=== PATIENT | female | born 2000 | race Caucasian/White ===

== ENCOUNTER 2023-04-11 02:05 | Emergency (ER) | payer BC, MEDICAID, SELFPAY ==
[2023-04-11 02:12] VITALS: BP 119/80; PULSE 112; RESP 16; TEMP 36.8; O2SAT 96; BMI 26.3
--- NOTE | 2023-04-11 02:54 | ED_ITS ---
HPI - Female Genitourinary General Chief complaint: Vaginal Bleeding Time Seen by Provider: 04/11/23 02:54 Source: patient Mode of arrival: walk-in Limitations: no limitations History of Present Illness HPI Narrative: patient states she had her IUD removed in january. She took home test early march and it was positive. She started spotting some yesterday and now has mild lower abdominal pain. States this is her first . No nausea or vomiting. she admits she is not feeling too bad but was not sure what to do and decided to come to the ER Related Data Home Medications Medication Instructions Recorded Confirmed budesonide-formoterol HFA 80 1 inh inhalation QID 04/11/23 04/11/23 mcg-4.5 mcg/actuation aerosol inhaler (Symbicort) buprenorphine 8 mg-naloxone 2 mg film 04/11/23 sublingual film buprenorphine 8 mg-naloxone 2 mg tab sublingual 04/11/23 sublingual tablet midodrine 5 mg tablet mg 04/11/23 Allergies Allergy/AdvReac Type Severity Reaction Status Date / Time No Known Drug Allergies Allergy Verified 04/11/23 02:25 Review of Systems ROS Status of ROS 10 or more systems reviewed and unremarkable except as noted in history and below Exam Constitutional: Vital Signs - 24 hr 04/11/23 02:12 04/11/23 03:15 Temperature 98.2 F Pulse Rate [Monito r] 112 H Respiratory Rate 16 Blood Pressure [Le ft Arm] 119/80 H Pulse Oximetry 96 Oxygen Delivery Me thod Room Air Room Air Common normals: no apparent distress HENMT: Common normals: normocephalic and head/scalp atraumatic Eye: Common normals: EOMs intact bilaterally and conjunctivae normal Chest: Common normals: inspection of chest normal Respiratory: Common normals: normal respiratory effort and no use of accessory muscles Cardio: Common normals: regular rate and regular rhythm GI: Other: mild lower quad tenderness bilat Extremity: Common normals: normal to inspection and full ROM Neuro: Common normals: oriented x3, CN's II-XII intact bilaterally, moves all extremities, no focal motor deficits and no sensory deficits noted Psych: Common normals: mental status grossly normal Skin: Narrative: several lesions on her face that have the appearance that she picks at her face Course Vital Signs Vital signs: Vital Signs Temperature 98.2 F 04/11/23 02:12 Pulse Rate 112 H 04/11/23 02:12 Respiratory Rate 16 04/11/23 02:12 Blood Pressure 119/80 H 04/11/23 02:12 Pulse Oximetry 96 04/11/23 02:12 Oxygen Delivery Method Room Air 04/11/23 02:12 Temperature 98.2 F 04/11/23 02:12 Pulse Rate 112 H 04/11/23 02:12 Respiratory Rate 16 04/11/23 02:12 Blood Pressure 119/80 H 04/11/23 02:12 Pulse Oximetry 96 04/11/23 02:12 Oxygen Delivery Method Room Air 04/11/23 03:15 MDM - Female Genitourinary MDM Narrative Medical decision making narrative: patient arrives stating she took home test at the beginning of March and it was weakly positive. States she did have mild vaginal spotting yesterday and some lower abdominal cramping this AM. No past and she was concerned and came in. No recurrence of bleeding. Beta HCG neg here. UA small leukocyte esterase positive. patient informed she is not . Prescribed keflex for her pyuria and discharged home to follow up with her doctor Lab Data Labs: Lab Results 04/11/23 04/11/23 Range/Units 03:20 03:22 WBC 5.4 (4.0-11.0) 10^3/uL RBC 3.65 L (4.20-5.40) 10^6/uL Hgb 11.5 L (12.0-16.0) g/dL Hct 33.8 L (36.0-48.0) % MCV 92.6 (81.0-99.0) fL MCH 31.5 (26.7-34.0) pg MCHC 34.0 (29.9-35.2) g/dL RDW 11.2 (11.0-15.0) % Plt Count 279 (150-450) 10^3/uL MPV 10.1 (9.5-13.5) fL Neut % (Auto) 52.4 (43.0-75.0) % Lymph % (Auto) 38.3 (20.5-60.0) % [place] % (Auto) 6.4 (1.7-12.0) % Eos % (Auto) 2.0 (0.9-7.0) % Baso % (Auto) 0.7 (0.2-2.0) % Neut # (Auto) 2.8 (1.4-6.5) 10^3/uL Lymph # (Auto) 2.1 (1.2-3.8) 10^3/uL [place] # (Auto) 0.4 (0.3-0.8) 10^3/uL Eos # (Auto) 0.1 (0.0-0.7) 10^3/uL Baso # (Auto) 0.0 (0.0-0.1) 10^3/uL Sodium 135 L (136-145) mmol/L Potassium 3.6 (3.5-5.1) mmol/L Chloride 98 (98-107) mmol/L Carbon Dioxide 30.2 (21.0-32.0) mmol/L Anion Gap 10.4 BUN 10.0 (7.0-18.0) mg/dL Creatinine 0.82 (0.55-1.02) mg/dL Est GFR ( Amer) >60 (>=60) Est GFR (Non-Af Amer) >60 (>=60) BUN/Creatinine Ratio 12.2 Glucose 88 (74-106) mg/dL Calcium 8.8 (8.5-10.1) mg/dL Total Bilirubin 0.3 (0.2-1.0) mg/dL AST 38 H (15-37) U/L ALT 25 (14-59) U/L Total Protein 6.9 (6.4-8.2) g/dL Albumin 3.8 (3.4-5.0) g/dL Globulin 3.1 g/dL Albumin/Globulin Ratio 1.2 HCG, Quant <1 mIU/mL Urine Color Lt. yellow (YELLOW) Urine Clarity Clear (CLEAR) Urine pH 8.0 (5.0-9.0) Ur Specific [place] 1.015 (1.005-1.025) Urine Protein 30 A (NEG/TRACE) mg/dL Urine Glucose (UA) Negative (NEGATIVE) mg/dL Urine Ketones Negative (NEGATIVE) mg/dL Urine Occult Blood Large A (NEGATIVE) Urine Nitrite Negative (NEGATIVE) Urine Bilirubin Negative (NEGATIVE) Urine Urobilinogen 0.2 (0.2-1.0) EU/dL Ur Leukocyte Esterase Small A (NEGATIVE) Urine RBC 10-20 A (0-2) #/HPF Urine WBC 2-5 A (NONE SEEN) #/HPF Ur Squamous Epith Cells Moderate A (NONE/RARE) #/LPF Amorphous Sediment Moderate Discharge Plan Discharge Chief Complaint: Vaginal Bleeding Clinical Impression: Urinary tract infection, Vaginal bleeding Prescriptions / Home Meds: No Action midodrine 5 mg tablet buprenorphine-naloxone 8-2 mg tablet, sublingual SUBLINGUAL buprenorphine-naloxone 8-2 mg film budesonide-formoterol [Symbicort] 80-4.5 mcg/actuation HFA aerosol inhaler 1 inh inhalation QID Referrals: Physician,Non-Staff, MD [Primary Care Provider] - 1 week
--- NOTE | 2023-04-11 03:11 | PC.NURSE ---
patient reports she had a positive test at home 3 weeks ago. has been having intermittent abdominal cramping radiating into her back since today with vaginal bleeding containing quarter sized dark red clots. patient states she has not been to a physician or obgyn.
[2023-04-11 04:03] LABS: Basophils Percent Auto 0.7 % (0.2-2.0); Eosinophils Absolute Auto 0.1 10^3/uL (0.0-0.7); Hematocrit 33.8 % (36.0-48.0); Hemoglobin 11.5 g/dL (12.0-16.0); Immature Granulocytes Abs Auto 0.01 10^3/uL (0.00-0.03); Immature Granulocytes Pct Auto 0.2 % (0.0-0.5); Lymphocytes Absolute Auto 2.1 10^3/uL (1.2-3.8); Lymphocytes Percent Auto 38.3 % (20.5-60.0); Mean Corpuscular Hemoglobin 31.5 pg (26.7-34.0); Mean Corpuscular Volume 92.6 fL (81.0-99.0); Mean Platelet Volume 10.1 fL (9.5-13.5); Monocytes Absolute Auto 0.4 10^3/uL (0.3-0.8); Monocytes Percent Auto 6.4 % (1.7-12.0); Neutrophils Absolute Auto 2.8 10^3/uL (1.4-6.5); Neutrophils Percent Auto 52.4 % (43.0-75.0); Platelet Count 279 10^3/uL (150-450); Red Blood Count 3.65 10^6/uL (4.20-5.40); Red Cell Distribution Width 11.2 % (11.0-15.0); White Blood Count 5.4 10^3/uL (4.0-11.0)
[2023-04-11 04:09] LABS: Bilirubin Urine NEGATIVE (NEGATIVE); Blood Urine LARGE (NEGATIVE); Clarity Urine CLEAR (CLEAR); Color Urine LT. YELLOW (YELLOW); Glucose Urine UA NEGATIVE (NEGATIVE); Ketones Urine NEGATIVE (NEGATIVE); Leukocyte Esterase Urine SMALL (NEGATIVE); Nitrite Urine NEGATIVE (NEGATIVE); Protein Urine 30 mg/dL (NEG/TRACE); Specific Gravity Urine 1.015 (1.005-1.025); Urobilinogen Urine 0.2 EU/dL (0.2-1.0)
[2023-04-11 04:17] LABS: Amorphous Sediment Urine MODERATE; Bacteria Urine SMALL #/HPF (NONE SEEN); Cast Seen? NONE SEEN #/LPF (NONE SEEN); Crystals Seen? None Seen #/HPF (None Seen); Mucus Urine NONE SEEN (NONE SEEN); Squamous Epithelial Cell Urine MODERATE #/LPF (NONE/RARE)
[2023-04-11 04:22] LABS: Alanine Aminotransferase 25 U/L (14-59); Albumin Globulin Ratio 1.2; Albumin Level 3.8 g/dL (3.4-5.0); Alkaline Phosphatase 60 U/L (46-116); Anion Gap 10.4; Aspartate Amino Transferase 38 U/L (15-37); BUN Creatinine Ratio 12.2; Bilirubin Total 0.3 mg/dL (0.2-1.0); Calcium 8.8 mg/dL (8.5-10.1); Carbon Dioxide 30.2 mmol/L (21.0-32.0); Chloride 98 mmol/L (98-107); Estimated GFR (African America >60 (>=60); Estimated GFR (Non-African Ame >60 (>=60); Globulin 3.1 g/dL; Glucose 88 mg/dL (74-106); Potassium 3.6 mmol/L (3.5-5.1); Sodium 135 mmol/L (136-145); Total Protein 6.9 g/dL (6.4-8.2)
--- NOTE | 2023-04-11 05:43 | PC.NURSE ---
pt resting in bed comfotably socializing with friends, no needs or concerns at this time
[2023-04-11 06:02] LABS: HCG Quantitative <1 mIU/mL
--- NOTE | 2023-04-11 06:40 | PC.NURSE ---
keflex given at this time, unable to open mar d/t dischrge assessment. scripts given. all questions answered. pt ambulated off unit in stable condition.
== END 2023-04-11 06:39 | disposition home or self-care (01) ==
PROVIDERS: Emergency Provider Internal Medicine
DX: N93.9 Abnormal uterine and vaginal bleeding, unspecified (principal); N39.0 Urinary tract infection, site not specified; Z79.899 Other long term (current) drug therapy
CPT/HCPCS: 36415; 80053; 81001; 84702; 85025; 99283

== ENCOUNTER 2024-07-01 23:19 | Emergency (ER) | payer OTHER, SELFPAY ==
[2024-07-01 23:23] VITALS: BP 133/92; PULSE 81; TEMP 36.7; O2SAT 100; BMI 28.3
[2024-07-01 23:37] LABS: Bilirubin Urine NEGATIVE (NEGATIVE); Blood Urine NEGATIVE (NEGATIVE); Clarity Urine CLEAR (CLEAR); Color Urine LT. YELLOW (YELLOW); Glucose Urine UA NEGATIVE (NEGATIVE); Ketones Urine NEGATIVE (NEGATIVE); Leukocyte Esterase Urine MODERATE (NEGATIVE); Nitrite Urine NEGATIVE (NEGATIVE); Protein Urine NEGATIVE (NEG/TRACE); Specific Gravity Urine 1.025 (1.005-1.025); Urobilinogen Urine 0.2 EU/dL (0.2-1.0)
[2024-07-01 23:46] LABS: Amorphous Sediment Urine MANY; Bacteria Urine NONE SEEN #/HPF (NONE SEEN); Cast Seen? NONE SEEN #/LPF (NONE SEEN); Crystals Seen? None Seen #/HPF (None Seen); Mucus Urine NONE SEEN (NONE SEEN); RBC Urine NONE SEEN #/HPF (0-2); Squamous Epithelial Cell Urine MODERATE #/LPF (NONE/RARE); Urine Culture Indicated YES
[2024-07-02] MEDS: DICYCLOMINE HCL 20 MG/2 ML VIAL IM (00:09)
--- NOTE | 2024-07-02 00:12 | CT_ITS ---
The [address] [address] Patient Name: ANDRÉS BRYANT MRN: [id number] date: 2000 Sex: F Assigned Patient Location: ER Current Patient Location: ER Accession/Order Number: [id number] Exam Date: 07/02/2024 00:41 Report Date: 07/02/2024 02:16 At the request of: NASIR ELIZONDO Procedure: CT abdomen pelvis wo con CT ABDOMEN PELVIS WITHOUT CONTRAST HISTORY: 24-year-old female with abdominal pain. COMPARISON: None. TECHNIQUE: Thin section axial CT images were obtained from the lung bases to the pubis symphysis. This CT exam was performed using one or more of the following dose reduction techniques: Automated exposure control, adjustment of the mA and/or kV according to patient size, or use of iterative reconstruction technique. Thin section coronal and sagittal images were reconstructed from the axial data set. All images were reviewed and interpreted. CONTRAST: None. FINDINGS: Assessment of solid organs, bowel and vasculature is limited without the benefit of IV contrast. LUNG BASES: The lung bases are clear. GE JUNCTION AND STOMACH: Normal GE junction without hiatal hernia. There is marked distention of stomach with debris likely from recent meal ingestion. Correlate with history. No gastric wall thickening. Duodenal sweep is unremarkable. LIVER: Negative. GALLBLADDER AND BILIARY TREE: Normal gallbladder. SPLEEN: Negative. PANCREAS: Negative. ADRENALS: Negative. KIDNEYS AND URETERS: Small 2 to 3 mm in size calculus anterior mid pole calyx left kidney. 2 mm now 15 calculus lateral midpole calyx right kidney. No other calculi are seen within the kidneys or along the course of the ureters. No right or left hydronephrosis. No right renal mass or cyst. SMALL BOWEL: Normal appearance and caliber of small bowel. LARGE BOWEL: Normal air and stool-filled large bowel. No colitis or obvious diverticulosis. APPENDIX: Small punctate density within the lumen of appendix likely small appendicolith but no evidence of acute appendicitis. Appendix normal in appearance otherwise. AORTA: The abdominal aorta is normal size. IVC: Negative. LYMPH NODES: There is no lymphadenopathy. BLADDER: Normal bladder. No wall thickening. No bladder calcification. BONES: Unremarkable. COMMENTS: There is fluid density left hemipelvis. Unclear if this is focally dilated loop of small bowel or possibly large cystic lesion of left ovary. Could be better delineated with ultrasound. CT/CT abdomen pelvis wo con IMPRESSION: 1. Nonspecific fluid density left hemipelvis. Unclear if this is fluid within distal bowel loop or possibly associated with left ovary. Consider pelvic ultrasound to further assess. 2. Small nonobstructing bilateral intrarenal calcifications measuring less than 3 mm each. 3. Small appendicolith but otherwise normal appendix with no evidence of appendicitis. 4. Distended debris-filled stomach presumably from recent meal ingestion. Correlate with history. Electronically authenticated by: LAUREL WOLFE Date: 07/02/2024 02:16
[2024-07-02 00:30] LABS: HCG Qualitative Urine* NEGATIVE (NEGATIVE); Internal Control Within Normal Limits
[2024-07-02] MEDS: ONDANSETRON 4 MG RAPDIS TABLET SL (00:30)
--- NOTE | 2024-07-02 00:56 | ED.GENADUL1 ---
HPI HPI - General Adult General Chief complaint: Abdominal Pain Stated complaint: Abdominal Pain Time Seen by Provider: 07/01/24 23:28 Source: patient Mode of arrival: walk-in Limitations: no limitations History of Present Illness HPI narrative: 24 Female to the emergency department with chief complaint of lower abdominal pain. Started approximately 2 hours prior to arrival. She describes it as cramping in nature. It is intermittent. It is across the lower abdomen does not localize to one side. She has not had pain like this before. Reports normal bowel movement this morning. Onset of pain was while she was seated at the table eating. She denies any vaginal bleeding or discharge. Last menstrual period 2 weeks ago. She denies any fever, sweats, chills. Reports some mild nausea without vomiting. Denies . Related Data Home Medications ?Medication ?Instructions ?Recorded ?Confirmed budesonide-formoterol HFA 80 1 inh inhalation QID 04/11/23 07/01/24 mcg-4.5 mcg/actuation aerosol inhaler (Symbicort) buprenorphine 8 mg-naloxone 2 mg 1 film sublingual Q24H 04/11/23 07/01/24 sublingual film buprenorphine 8 mg-naloxone 2 mg tab sublingual 04/11/23 sublingual tablet midodrine 5 mg tablet 5 mg PO .DAILY HS 04/11/23 07/01/24 cyclobenzaprine 10 mg tablet 10 mg PO Q8H PRN muscle spasm 07/01/24 07/01/24 hydroxyzine pamoate 25 mg capsule 50 mg PO Q8H PRN nausea and 07/01/24 07/01/24 vomiting ondansetron 4 mg disintegrating 4 mg PO Q8H PRN nausea and vomiting 07/01/24 07/01/24 tablet quetiapine 100 mg tablet 150 mg PO .HS 07/01/24 07/01/24 sertraline 100 mg tablet 100 mg PO Q24H 07/01/24 07/01/24 trazodone 50 mg tablet 75 mg PO DAILY 07/01/24 07/01/24 Previous Rx's ?Medication ?Instructions ?Recorded doxycycline monohydrate 100 mg 100 mg PO BID 7 days #14 caps 07/02/24 capsule ibuprofen 800 mg tablet 800 mg PO Q8H PRN pain #20 tabs 07/02/24 metronidazole 500 mg tablet 500 mg PO BID 14 days #28 tabs 07/02/24 ondansetron 4 mg disintegrating 4 mg PO Q8H PRN nausea and 07/02/24 tablet vomiting 4 days #16 tabs Allergies Allergy/AdvReac Type Severity Reaction Status Date / Time No Known Drug Allergies Allergy Verified 07/01/24 23:27 Opioid HPI Opioid Management Most Recent Opioid Data: Last Pain Scale 6 07/01/24 23:25 Last ED Pain Assessment 07/01/24 23:25 Last MAR Pain Assessment 07/02/24 05:46 Review of Systems ROS Status of ROS 10 or more systems reviewed and unremarkable except as noted in history and below Exam Narrative Exam Narrative: VITALS: I have reviewed the triage vital signs. GENERAL: Tearful adult female NEURO: Alert and oriented. Moves all extremities. Face is symmetric and expressive. EYES: PERRL. No scleral icterus or conjunctival injection. No discharge. HENT: Normocephalic, atraumatic. Hearing is grossly intact. Nares grossly patent and without discharge. Mucous membranes moist. NECK: No JVD. Patient moves neck without restriction. CARDIO: Rhythm regular. Normal rate. No murmur, rub, or gallop. Pulses equal bilaterally in the upper and lower extremity. No lower extremity edema. PULM: Lungs clear to auscultation in all keyes. No wheezes, rales, or rhonchi. No conversational dyspnea. No splinting, stridor, or accessory muscle use. GI/: Abdomen is soft. minimal lower abdominal tenderness, L>R. No tenderness at McBurney's point. No rebound or guarding normoactive bowel sounds. 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 Verbal consent given for external exam unremarkable. No vaginal wall lesions. No bleeding. There is mucopurulent discharge and cervical motion tenderness. EXTREMITIES: Symmetric muscle bulk. No joint swelling. No clubbing, cyanosis, or deformity. SKIN: Warm and dry. Normal turgor. No rash or lesions appreciated. PSYCH: Anxious Constitutional Vital Signs, click to edit/add: Last Vital Signs Temp 98.1 F 07/01/24 23:23 Pulse 98 H 07/02/24 05:27 Resp 16 07/02/24 05:27 BP 131/72 07/02/24 05:27 Pulse Ox 98 07/02/24 05:27 O2 Del Method Room Air 07/02/24 05:27 Course Vital Signs Vital signs: Vital Signs Temperature 98.1 F 07/01/24 23:23 Pulse Rate 81 07/01/24 23:23 Respiratory Rate 16 07/01/24 23:23 Blood Pressure 133/92 H 07/01/24 23:23 Pulse Oximetry 100 07/01/24 23:23 Oxygen Delivery Method Room Air 07/01/24 23:23 Temperature 98.1 F 07/01/24 23:23 Pulse Rate 98 H 07/02/24 05:27 Respiratory Rate 16 07/02/24 05:27 Blood Pressure 131/72 07/02/24 05:27 Pulse Oximetry 98 07/02/24 05:27 Oxygen Delivery Method Room Air 07/02/24 05:27 Medical Decision Making MDM Narrative Medical decision making narrative: 24-year-old female with onset of cramping lower abdominal pain 2 hours prior to arrival. Vital stable, the patient is afebrile. Her abdominal examination is benign. CT scan, urinalysis, hCG are ordered. Alissa and Ez for symptoms. Patient agrees with this plan. UA and HCG negative. CT with fluid collection near L ovary, rads recommends US. Given location of pain, acute onset, will order US for torsion rule-out. Ultrasound without torsion. Cannot rule out fluid within the ovary versus bowel. Pelvic exam performed and was concerning for PID given cervical motion tenderness as well as mucopurulent discharge. I discussed the patient's history, presentation, diagnostic workup and uncertainty with Dr. Johansen the on-call [employer]. He reports that this does not sound like a tubo-ovarian abscess. He recommended obtaining a CBC and basic labs. If she develops a fever or has an elevated white blood cell count admit her for IV antibiotics. If these are not the case she may be treated with IM Rocephin, outpatient PID treatment. He will see the patient in the office. CBC and chemistry are unremarkable. Findings were discussed with the patient and her mother. They agree with this plan. They will follow-up with Dr. Johansen in office to ensure resolution and movement. Return precautions were discussed. All questions were answered. The patient was discharged home. Medical Records Medical records reviewed: Yes I reviewed the patient's medical records Lab Data Lab results reviewed: Yes I reviewed the patient's lab results Labs: Lab Results 07/01/24 07/02/24 Range/Units 23:25 05:28 WBC 9.3 (4.0-11.0) 10^3/uL RBC 4.34 (4.20-5.40) 10^6/uL Hgb 13.1 (12.0-16.0) g/dL Hct 39.2 (36.0-48.0) % MCV 90.3 (81.0-99.0) fL MCH 30.2 (26.7-34.0) pg MCHC 33.4 (29.9-35.2) g/dL RDW 12.6 (11.0-15.0) % Plt Count 344 (150-450) 10^3/uL MPV 10.1 (9.5-13.5) fL Neut % (Auto) 52.9 (43.0-75.0) % Lymph % (Auto) 38.3 (20.5-60.0) % [place] % (Auto) 6.4 (1.7-12.0) % Eos % (Auto) 1.8 (0.9-7.0) % Baso % (Auto) 0.4 (0.2-2.0) % Neut # (Auto) 4.9 (1.4-6.5) 10^3/uL Lymph # (Auto) 3.6 (1.2-3.8) 10^3/uL [place] # (Auto) 0.6 (0.3-0.8) 10^3/uL Eos # (Auto) 0.2 (0.0-0.7) 10^3/uL Baso # (Auto) 0.0 (0.0-0.1) 10^3/uL Abs Immat Gran (auto) 0.02 (0.00-0.03) 10^3/uL Imm/Tot Granulo (auto) 0.2 (0.0-0.5) % Sodium 139 (136-145) mmol/L Potassium 3.7 (3.5-5.1) mmol/L Chloride 104 (98-107) mmol/L Carbon Dioxide 28.6 (21.0-32.0) mmol/L Anion Gap 10.1 BUN 13.0 (7.0-18.0) mg/dL Creatinine 0.76 (0.55-1.02) mg/dL Est GFR ( Amer) >60 (>=60) Est GFR (Non-Af Amer) >60 (>=60) BUN/Creatinine Ratio 17.1 Glucose 109 H (74-106) mg/dL Calcium 9.0 (8.5-10.1) mg/dL Total Bilirubin 0.3 (0.2-1.0) mg/dL Direct Bilirubin 0.1 (0.0-0.2) mg/dL AST 9 L (15-37) U/L ALT 16 (14-59) U/L Alkaline Phosphatase 52 (46-116) U/L Total Protein 6.4 (6.4-8.2) g/dL Albumin 3.3 L (3.4-5.0) g/dL Globulin 3.1 g/dL Albumin/Globulin Ratio 1.1 Urine Color Lt. yellow (YELLOW) Urine Clarity Clear (CLEAR) Urine pH 6.0 (5.0-9.0) Ur Specific [place] 1.025 (1.005-1.025) Urine Protein Negative (NEG/TRACE) mg/dL Urine Glucose (UA) Negative (NEGATIVE) mg/dL Urine Ketones Negative (NEGATIVE) mg/dL Urine Occult Blood Negative (NEGATIVE) Urine Nitrite Negative (NEGATIVE) Urine Bilirubin Negative (NEGATIVE) Urine Urobilinogen 0.2 (0.2-1.0) EU/dL Ur Leukocyte Esterase Moderate A (NEGATIVE) Urine RBC None seen (0-2) #/HPF Urine WBC 5-10 A (NONE SEEN) #/HPF Ur Squamous Epith Cells Moderate A (NONE/RARE) #/LPF Urine Crystals None seen (None Seen) #/HPF Amorphous Sediment Many Urine Bacteria None seen (NONE SEEN) #/HPF Urine Casts None seen (NONE SEEN) #/LPF Urine Mucus None seen (NONE SEEN) Ur Culture Indicated? Yes Urine HCG, Qual Negative (NEGATIVE) Imaging Data CT scan - abdomen: Radiologist's impression: ITS Impressions Abdomen/Pelvis CT 07/02/24 00:12 IMPRESSION: 1. Nonspecific fluid density left hemipelvis. Unclear if this is fluid within distal bowel loop or possibly associated with left ovary. Consider pelvic ultrasound to further assess. 2. Small nonobstructing bilateral intrarenal calcifications measuring less than 3 mm each. 3. Small appendicolith but otherwise normal appendix with no evidence of appendicitis. 4. Distended debris-filled stomach presumably from recent meal ingestion. Correlate with history. Electronically authenticated by: LAUREL WOLFE Date: 07/02/2024 02:16 Transvaginal US 07/02/24 02:26 IMPRESSION: 1. Technologist notes that the examination is limited due to inability of patient to lie still. 2. Normal left ovary; no torsion. Unremarkable uterus. Right ovary is not seen. 3. Fluid within left adnexa which appears to have a thin surrounding wall; possibly bowel. A fluid-filled distended fallopian tube is not excluded but less likely given the normal appearance of the uterus and ovary. Electronically authenticated by: STANFORD SULLIVAN Date: 07/02/2024 04:18 Discharge Plan Discharge Stand Alone Forms: Work/School Release, Portal Instructions Chief Complaint: Abdominal Pain Clinical Impression: Acute pelvic inflammatory disease (PID) Patient Disposition: Home, Self-Care Time of Disposition Decision: 06:31 Condition: Good Mode of Transportation: Private Vehicle Prescriptions / Home Meds: New doxycycline monohydrate 100 mg capsule 100 mg PO BID 7 Days Qty: 14 0RF metronidazole 500 mg tablet 500 mg PO BID 14 Days Qty: 28 0RF ibuprofen 800 mg tablet 800 mg PO Q8H PRN (Reason: pain) Qty: 20 0RF ondansetron 4 mg tablet,disintegrating 4 mg PO Q8H PRN (Reason: nausea and vomiting) 4 Days Qty: 16 0RF No Action hydroxyzine pamoate 25 mg capsule 50 mg PO Q8H PRN (Reason: nausea and vomiting) ondansetron 4 mg tablet,disintegrating 4 mg PO Q8H PRN (Reason: nausea and vomiting) quetiapine 100 mg tablet 150 mg PO .HS sertraline 100 mg tablet 100 mg PO Q24H trazodone 50 mg tablet 75 mg PO DAILY cyclobenzaprine 10 mg tablet 10 mg PO Q8H PRN (Reason: muscle spasm) midodrine 5 mg tablet 5 mg PO .DAILY HS buprenorphine-naloxone 8-2 mg tablet, sublingual SUBLINGUAL buprenorphine-naloxone 8-2 mg film 1 film sublingual Q24H budesonide-formoterol [Symbicort] 80-4.5 mcg/actuation HFA aerosol inhaler 1 inh inhalation QID Print Language: [place] Instructions: Pelvic Inflammatory Disease (ED) Additional Instructions: Call the office of your primary care doctor to arrange for follow-up within the above-stated timeframe. Your ED visit was focused on your acute issue and does not replace primary care. You should review your labs, imaging, and diagnoses from this ED visit with your primary care physician. There may be non-emergent/ incidental findings that need further evaluation. You should review your vital signs including blood pressure with your PCP. If you were prescribed medications you should discuss possible side-effects and drug interactions with your pharmacist. Call 911 or go to the nearest Emergency Department if you develop any new or worsening symptoms. Seek immediate medical attention if you develop: worsening abdominal pain, new or worsening nausea, new or worsening vomiting, new or worsening diarrhea, chest pain, shortness of breath, pain with urination, problems urinating, fever, chills, weakness, or any new or worsening symptoms. Referrals: Willie Johansen DO [Physician] - 1 week
[2024-07-02 00:57] VITALS: BP 131/87; PULSE 107; O2SAT 97
--- NOTE | 2024-07-02 02:26 | US_ITS ---
The [address] [address] Patient Name: ANDRÉS BRYANT MRN: [id number] date: 2000 Sex: F Assigned Patient Location: ER Current Patient Location: ER Accession/Order Number: [id number] Exam Date: 07/02/2024 03:15 Report Date: 07/02/2024 04:18 At the request of: NASIR ELIZONDO Procedure: US pelvis transvaginal EXAMINATION: US pelvis transvaginal HISTORY: Left sided pelvis pain, torsion rule out COMPARISON: No relevant comparison available. TECHNIQUE: Transabdominal and/or transvaginal sonographic examination was performed as indicated by examination type. FINDINGS: UTERUS: Normal size and appearance. Uterus size: 8.2 x 3 0.5 to 4.8 cm ENDOMETRIUM: Normal homogeneous appearance. Endometrial thickness: 8 mm RIGHT OVARY: Not seen. No suspicious adnexal findings. LEFT OVARY: Normal size and appearance. Duplex Doppler demonstrates normal waveform and flow; resistive index 0.5. Ovary size: 3.2 x 1.7 x 3.1 cm CUL-DE-SAC: Fluid within left adnexa which appears to be encapsulated by a thin wall. BLADDER: Unremarkable. OTHER: None. US/US pelvis transvaginal IMPRESSION: 1. Technologist notes that the examination is limited due to inability of patient to lie still. 2. Normal left ovary; no torsion. Unremarkable uterus. Right ovary is not seen. 3. Fluid within left adnexa which appears to have a thin surrounding wall; possibly bowel. A fluid-filled distended fallopian tube is not excluded but less likely given the normal appearance of the uterus and ovary. Electronically authenticated by: STANFORD SULLIVAN Date: 07/02/2024 04:18
[2024-07-02 03:42] VITALS: BP 131/72; PULSE 98; O2SAT 98
[2024-07-02 05:27] VITALS: BP 131/72; PULSE 98; O2SAT 98
[2024-07-02 05:39] LABS: Basophils Percent Auto 0.4 % (0.2-2.0); Eosinophils Absolute Auto 0.2 10^3/uL (0.0-0.7); Eosinophils Percent Auto 1.8 % (0.9-7.0); Hematocrit 39.2 % (36.0-48.0); Hemoglobin 13.1 g/dL (12.0-16.0); Immature Granulocytes Abs Auto 0.02 10^3/uL (0.00-0.03); Immature Granulocytes Pct Auto 0.2 % (0.0-0.5); Lymphocytes Absolute Auto 3.6 10^3/uL (1.2-3.8); Lymphocytes Percent Auto 38.3 % (20.5-60.0); Mean Corpuscular HGB Conc 33.4 g/dL (29.9-35.2); Mean Corpuscular Hemoglobin 30.2 pg (26.7-34.0); Mean Corpuscular Volume 90.3 fL (81.0-99.0); Mean Platelet Volume 10.1 fL (9.5-13.5); Monocytes Absolute Auto 0.6 10^3/uL (0.3-0.8); Monocytes Percent Auto 6.4 % (1.7-12.0); Neutrophils Absolute Auto 4.9 10^3/uL (1.4-6.5); Neutrophils Percent Auto 52.9 % (43.0-75.0); Platelet Count 344 10^3/uL (150-450); Red Blood Count 4.34 10^6/uL (4.20-5.40); Red Cell Distribution Width 12.6 % (11.0-15.0); White Blood Count 9.3 10^3/uL (4.0-11.0)
[2024-07-02] MEDS: KETOROLAC TROMETHAMINE 30 MG/ML VIAL 15 MG IVP (05:46)
[2024-07-02 05:58] LABS: Alanine Aminotransferase 16 U/L (14-59); Albumin Globulin Ratio 1.1; Albumin Level 3.3 g/dL (3.4-5.0); Alkaline Phosphatase 52 U/L (46-116); Anion Gap 10.1; Aspartate Amino Transferase 9 U/L (15-37); BUN Creatinine Ratio 17.1; Bilirubin Direct 0.1 mg/dL (0.0-0.2); Bilirubin Total 0.3 mg/dL (0.2-1.0); Carbon Dioxide 28.6 mmol/L (21.0-32.0); Chloride 104 mmol/L (98-107); Estimated GFR (African America >60 (>=60); Estimated GFR (Non-African Ame >60 (>=60); Globulin 3.1 g/dL; Glucose 109 mg/dL (74-106); Potassium 3.7 mmol/L (3.5-5.1); Sodium 139 mmol/L (136-145); Total Protein 6.4 g/dL (6.4-8.2)
[2024-07-02] MEDS: CEFTRIAXONE 500 MG, LIDOCAINE HCL/PF 1 ML IM (06:45)
[2024-07-02 06:58] VITALS: BP 86/59; PULSE 106; O2SAT 97
[2024-07-05 20:09] LABS: Trich vag by NAA Negative (Negative)
== END 2024-07-02 07:10 | disposition home or self-care (01) ==
PROVIDERS: Emergency Provider Student in an Organized Health Care Education/Training Program; PCP Nurse Practitioner Family
DX: N73.0 Acute parametritis and pelvic cellulitis (principal)
CPT/HCPCS: 36415; 74176; 76830; 80048; 80076; 81001; 84703; 85025; 87086; 87491; 87591; 87661; 96372; 96374; 99285; J0500; J0696; J1885; Q0162

== ENCOUNTER 2025-06-28 19:04 | Emergency (ER) | payer MEDICAID, SELFPAY ==
--- OUTSIDE RECORDS SUMMARY | 2025-04-07 12:18 | XMS_ITS | Continuity of Care Document ---
Author Organization [facility] Address [address] [place] [address] Phone Care Team Providers Care Transportation Maintenance Operator Name Role Phone Jessica Sebastian APRN Unavailable Unavaila ble Allergies, Adverse Reactions, Alerts Substance Reaction Status Criticality No Known Allergies Active No Inform ation Medications Medication Instructions Dosage Effective Dates (start - stop) Status Comments Vivitrol 380 mg intramuscular suspension,extended release inject 4 milliliter by intramuscular route every 4 weeks 380 MG - Active trazodone 100 mg tablet take 1 tablet by oral route every day after meals 100 MG - Active buspirone 10 mg tablet take 1 tablet by oral route 3 times every day 10 MG - Active Zoloft 50 mg tablet take 1 tablet by ora l route every bedtime 50 MG - Active melatonin 5 mg capsule - Active Procedures Procedure Date URINE TEST DRUG TEST PRSMV DIR OPT OBS OFFICE/OUTPATIENT VISIT, EST Injection, Vivitrol Naltrexone, 1mg OFFICE/OUTPATIENT VISIT, EST DRUG TEST PRSMV DIR OPT OBS URINE TEST DRUG SCREENING FENTANYL Injection, Vivitrol Naltrexone, 1mg OFFICE/OUTPATIENT VISIT, EST Advance Directives Directive Yes / No Effective Date File Name No Information Encounters Encounter Description Practice Location Reason(s) For Visit Diagnoses Date Provider Providers Copied on Encounter [facility], [address] [place] [address], [id number] , [place] tel: [phone] [facility] No Information 5 Kassidy Lopez. [address] [place] [address], [id number], [place]. tel: [phone] OFFICE/OUTPA TIENT VISIT, [facility], [address] [place] [address], [id number] , [place] tel: [phone] [facility] [place] Vivitrol (chief complaint) Vivitrol injection (chief complaint) Moderate alcohol use disorderVapes nicotine containing substanceUncomplicate d opioid dependenceOther stimulant dependence, in remissionBody mass index [BMI] 35.0-35.9, adult March- 5 Kassidy ORTEGA-Wilma Lopez. [address] [place] [address], [id number], [place]. tel: [phone] OFFICE/OUTPA TIENT VISIT, [facility], [address] [place] [address], [id number] , [place] tel: [phone] [facility] Vivitrol (chief complaint) Moderate alcohol use disorder Apr-0 5 Ced Hopper. [address] [place] [address], [id number] , [place]. tel: [phone] OFFICE/OUTPA TIENT VISIT, [facility], [address] [place] [address], [id number] , [place] tel: [phone] [facility] [place] Vivitrol (chief complaint) Body mass index [BMI] 34.0-34.9, adultModerate alcohol use disorder Apr-0 5 Kassidy Lopez. [address] [place] [address], [address], [place]. tel: [phone] Family History Family Member Type Diagnosis Age At Onset Mother Problem Alcoholism Payers Payer name Insurance type Covered libertarian ID Authoriza tion(s) [facility] [id number] [employer] Medicaid MERGED WITH [facility] [id number] Medicaid [facility] [id number] Social History Type Description Quantity Date Captured Comments Alcohol Use Details Unknown Caffeine Use Details Unknown Tobacco Use Status No Information Smoking Status No Information Sex Female Chief Complaint And Reason For Visit No Information Reason For Referral Reason For Referral No Information Plan Of Treatment Date Type Action Status Goal RLP. Due on due Goal Hepatitis C screening. Due o n due Goal Tdap. Due on due Goal Influenza vaccine. Due on due Goal Tdap Vaccine. Due on 2024 due Goal PRAPARE ASSESSMENT. Due on due Goal Depression screening. Due on due Goal Unhealthy drug use screening . Due on due Goal PAP. Due on due Goal PAP. Due on due Goal Influenza vaccine. Due on due Goal RLP. Due on due Goal Depression screening. Due on due Goal Hepatitis C screening. Due o n due Goal Tdap. Due on due Goal Unhealthy drug use screening . Due on due Goal Tdap Vaccine. Due on 2024 due Goal PRAPARE ASSESSMENT. Due on due Goal Dietary management education , guidance, and counseling completed Goal Influenza vaccine. Due on due Goal PAP. Due on due Goal Unhealthy drug use screening . Due on due Goal Depression screening. Due on due Goal Tdap. Due on due Goal PRAPARE ASSESSMENT. Due on A due Goal Tdap Vaccine. Due on 2024 due Goal RLP. Due on due Goal Hepatitis C screening. Due o n due Goal PAP. Due on due Goal PRAPARE ASSESSMENT. Due on A due Goal Depression screening. Due on due Goal Tdap. Due on due Goal RLP. Due on due Goal Tdap Vaccine. Due on 2024 due Goal Influenza vaccine. Due on due Goal Unhealthy drug use screening . Due on due Goal Hepatitis C screening. Due o n due Goal Lifestyle education regardin g diet completed History Of Present Illness Encounter Date Complaint History Of Prese nt Illness Vivitrol injection Vivitrol inje ction given in [place] of buttock with 2 needle, tolerated well. Sheldon Hickey RN Vivitrol Pt here today fo r vivitrol #6 LG. DOC: opiates & crack cocaine. Labs due 07/2025. Denies drug and ETOH use. Denies cravings. Last use: 10/21/2024. Pt attends counseling at [facility]- and in [facility]. Pt denies any complications from previous injection. Is on probation in [facility]. Voices no other issues or concerns at this time. LKastor CNPUDS: Negative for all. U-hcg: Negative Sheldon Hickey RN Vivitrol Vivitrol injecti on #2. Last use of fentanyl 1 year, last use of alcohol 4 months. Denies issues with injection sites. Continues with substance abuse counseling. No signs or symptoms of acute hepatitis noted per the patient. Tian GRIFFITH Vivitrol Patient here for Vivitrol #5 RG. Previous doses administered at [facility] in [place]. Labs due 07/2025. Patient DOC was Fentanyl, ETOH and cocaine. Last use was 5 months ago for ETOH. 1 year and 4 months sober from drug. Has had severe cravings due to anniversary of boyfriends coming up. Currently in [place], is going to get set up with [facility]. Denies any issues with previous injections. Not on BC. Denies any other concerns for today. Vapes daily. Denies any drug or Alcohol use. UDS negative all substances. HCG Negative. Rapid Fentanyl negative.//EVY Johnson Functional Status Date Functional Assessmen t No Information Instructions Date Instruction Additional Infor sylwia 1. Continue with cou nseling.2. Watch for injection site complications/reactions.3. Return in 1 month for next dose of Vivitrol.4. Do not use illicit drugs or drink alcohol while taking this medication.5. Can use heating pad or massage injection area if is sore over the next 1-2 days. May cont ibuprofen prn. Notify office if injection site pain persists or develops lump, fever, pain, erythema, drainage, etc. lasting longer than 3 days.6. Do not become while on this medication d/t risk of severe defect or miscarriage. Related to Uncomplicated opioid dependence Dietary management e ducation, guidance, and counseling Related to Body mass index [BMI] 35.0-35.9, adult Giving encouragement to exercise Related to Body mass index [BMI] 35.0-35.9, adult 1. Continue with cou nseling as required2. Follow up 1 month3. Contact [facility] with any issues prior to next appointment4. Avoid any drug or alcohol use5. Practice good sleep hygiene6. Well balanced diet7. Exercise 3-5 days per week 30 minutes per day8. YOU ARE AT INCREASED RISK FOR OVERDOSE WITH OPIATE USE WHILE ON VIVITROL9. Please wear your Vivitrol medical alert bracelet of dog tag at all times. Related to Moderate alcohol use disorder Giving encouragement to exercise Related to Body mass index [BMI] 34.0-34.9, adult Lifestyle education regarding di et Related to Body mass index [BMI] 34.0-34.9, adult Assessments Type Assessment Date No Information Goals Health Concern Goal Type Priority Status Date Patient needs education to manage opioid dependence. Patient will state factors necessary to manage opioid dependence. Patient Goal Continued Patient Care Teams Name Effective Dates (start - stop) Status Members No Information
--- OUTSIDE RECORDS SUMMARY | 2025-06-28 19:22 | XMS_ITS | Clinical Summary ---
Author Organization [facility] Address [address] [place] [address] Care Team Providers Care Line Assembly Utility Worker Name Role Phone Unavailable Primary Care Provider Unavailabl e Social History Tobacco Use Types Packs/Day Years Used Date Smoking Tobacco: Never Assessed Comments Unknown Sex and Gender Information Value Date Recorded Sex Assigned at Not on file Legal Sex Female 11:54 AM EDT Gender Identity Not on file Sexual Orientation Not on file Plan of Treatment Not on file Insurance [employer]
--- OUTSIDE RECORDS SUMMARY | 2025-06-28 19:22 | XMS_ITS | Encounter Summary ---
Author Organization [facility] Address [id number] [address] [place] [address] Care Team Providers Care Advanced Practice Psychiatric Nurse Name Role Phone Deb Cavazos PATY Primary Care Provider Reason for Visit * Reason Comments Med Refill Encounter Details Date Type Department Care Team (Late st Contact Info) Description 06/12/2019 Refill [facility] [address] [place] [phone] Madelenie Husain APRN-CNP [address] [facility] [address] [place] [address] Anxiety associated with depression Social History Tobacco Use Types Packs/Day Years Used Date Smoking Tobacco: Never Smokeless Tobacco: Never Alcohol Use Standard Drinks/Week Comments Yes 0 (1 standard drink = 0.6 oz pur e alcohol) PHQ-2 Answer Date Recorded PHQ-2 Score 18 02/21/2019 Childcare Answer Date Recorded Childcare Unknown 04/18/2019 Employment Answer Date Recorded Employment Unknown 04/18/2019 Comments No Sex and Gender Information Value Date Recorded Sex Assigned at Not on file Legal Sex Female 12:11 PM EDT Gender Identity Not on file Sexual Orientation Not on file documented as of this encounter Miscellaneous Notes * Telephone Encounter - PATY Meredith - 06/12/2019 12:47 AM EDT Please check with patient to determine if this refill request is needed * Telephone Encounter - Maico Medrano CMA - 06/12/2019 12:47 AM EDT This PT was called and I spoke with her mother. I asked the mother to pass along the message for her daughter to call the office to discuss this matter. documented in this encounter Plan of Treatment Not on file documented as of this encounter Visit Diagnoses Diagnosis Anxiety associated with depression Dysthymic disorder documented in this encounter Additional Health Concerns Infection Onset Date Last Indicated Resolved Time COVID-19 Rule-Out 03/08/2024 03/08/2024 03/08/2024 3:21 AM EDT Assessment Noted Time PHQ-9 Depression Total Score: 18 019 8:00 AM EDT documented as of this encounter Care Teams Advanced Practice Psychiatric Nurse Relationship Specialty Start Date End Date Deb Cavazos APRN-CNP [address] [place] [phone] PCP - General Nurse Practitioner 03/29/24 documented as of this encounter
--- OUTSIDE RECORDS SUMMARY | 2025-06-28 19:22 | XMS_ITS | Encounter Summary ---
Author Organization [facility] Address [id number] [address] [place] [address] Care Team Providers Care Telegraph Office Telephone Clerk Name Role Phone Deb Cavazos APRN-OCCUPATIONAL WORK EXPERIENCE TEACHER Primary Care Provider Reason for Visit * Reason Comments Med Refill Encounter Details Date Type Department Care Team (Late st Contact Info) Description 04/17/2022 Refill [facility] [address] [phone] Vaibhav Guillermo, PA-C [address] [place] [address] Med Refill Social History Tobacco Use Types Packs/Day Years Used Date Smoking Tobacco: Passive Smo ke Exposure - Never Smoker Smokeless Tobacco: Never Alcohol Use Standard Drinks/Week Comments Not Currently 0 (1 standard drink = 0.6 oz pur e alcohol) PHQ-2 Answer Date Recorded Total Score 0 05/04/2020 Childcare Answer Date Recorded Childcare Unknown 04/18/2019 Employment Answer Date Recorded Employment Unknown 04/18/2019 Purpose - Life Answer Date Recorded Purpose and direction in life Unknown Comments No Sex and Gender Information Value Date Recorded Sex Assigned at Not on file Legal Sex Female 12:11 PM EDT Gender Identity Not on file Sexual Orientation Not on file documented as of this encounter Plan of Treatment Not on file documented as of this encounter Visit Diagnoses Not on filedocumented in this encounter Additional Health Concerns Infection Onset Date Last Indicated Resolved Time COVID-19 Rule-Out 03/08/2024 03/08/2024 03/08/2024 3:21 AM EDT Assessment Noted Time PHQ-9 Depression Total Score: 0 05/04/20 10:00 AM EDT documented as of this encounter Care Teams Telegraph Office Telephone Clerk Relationship Specialty Start Date End Date Deb Cavazos APRN-ERYN [address] [place] [phone] PCP - General Nurse Practitioner 03/29/24 documented as of this encounter
--- OUTSIDE RECORDS SUMMARY | 2025-06-28 19:22 | XMS_ITS | Clinical Summary ---
Author Organization [facility] Address [address] [facility] [place] [address] Care Team Providers Care Grapple Operator Name Role Phone Unavailable Primary Care Provider Unavailabl e Social History Tobacco Use Types Packs/Day Years Used Date Smoking Tobacco: Never Assessed Comments No Sex and Gender Information Value Date Recorded Sex Assigned at Not on file Legal Sex Female 10:57 AM EDT Gender Identity Not on file Sexual Orientation Not on file Last Filed Vital Signs Vital Sign Reading Time Taken Comments Blood Pressure 114/70 08/27/2022 9:27 AM EDT Pulse 90 08/27/2022 9:27 AM EDT Temperature - - Respiratory Rate - - Oxygen Saturation - - Inhaled Oxygen Concentration - - Weight 53.7 kg (118 lb 6.2 oz) 08/27/2022 9:27 A M EDT Height - - Body Mass Index - - Plan of Treatment Health Maintenance Due Date Last Done Comments MMR Vaccine (1 of 1 - Standa rd series) 2001 DTaP/Tdap/Td Vaccine (1 - Tdap) 2007 Varicella Vaccine (1 of 2 - 13+ 2-dose series) 2013 HPV Vaccine (1 - 3-dose series) 2015 Hepatitis B Vaccine (1 of 3 - 19+ 3-dose series) 2019 COVID-19 Vaccine (2023-2 5 season) 2024 Influenza Vaccine (#1) 2025 HIB Vaccine Aged Out No longer eligi ble based on patient's age to complete this topic Hepatitis A Vaccine Aged Out No longe r eligible based on patient's age to complete this topic IPV Vaccine Aged Out No longer eligi ble based on patient's age to complete this topic Meningococcal ACWY Vaccine Aged Out N o longer eligible based on patient's age to complete this topic Meningococcal B Vaccine Aged Out No l onger eligible based on patient's age to complete this topic Pneumococcal Vaccine Aged Out No long er eligible based on patient's age to complete this topic RSV, Nirsevimab Immunization Aged Out No longer eligible based on patient's age to complete this topic Rotavirus Vaccine Aged Out No longer eligible based on patient's age to complete this topic Insurance [facility]
--- OUTSIDE RECORDS SUMMARY | 2025-06-28 19:22 | XMS_ITS | Encounter Summary ---
Author Organization [facility] Address [id number] [address] [place] [address] Care Team Providers Care Electrical Accessories Ii Assembler Name Role Phone Deb Cavazos APRN-ASSISTANT PROFESSOR OF RELIGION Primary Care Provider Reason for Visit * Reason Onset Date Comments Transition Of Care 03/14/2024 Encounter Details Date Type Department Care Team (Late st Contact Info) Description 03/14/2024 Telephone [facility] [address] [place] [address] [place] [phone] Leisa Escalante, RN Transition Of Care Social History Tobacco Use Types Packs/Day Years Used Date Smoking Tobacco: Never Passive Smoke Exposure: Yes Smokeless Tobacco: Never Alcohol Use Standard Drinks/Week Comments Not Currently 0 (1 standard drink = 0.6 oz pur e alcohol) PHQ-2 Answer Date Recorded Total Score 0 05/04/2020 Childcare Answer Date Recorded Childcare Unknown 04/18/2019 Employment Answer Date Recorded Employment Unknown 04/18/2019 Hunger Screening Answer Date Recorded Within the past 12 months we worried whether our food would run out before we got money to buy more. Never True 03/08/2024 Within the past 12 months th e food we bought just didn't last and we didn't have money to get more. Never True 03/08/2024 Purpose - Life Answer Date Recorded Purpose and direction in life Unknown Comments No Sex and Gender Information Value Date Recorded Sex Assigned at Not on file Legal Sex Female 12:11 PM EDT Gender Identity Not on file Sexual Orientation Not on file documented as of this encounter Miscellaneous Notes * Telephone Encounter - Leisa Escalante RN - 03/14/2024 10:41 AM EDT Images from the original note were not included. Transition of Care Additional Questions/Concerns Requiring PCP Follow-Up: This documentation is being used for Transition of Care purposes: Yes Goal: Patient will demonstrate a safe transition from hospital to home. Diagnosis on Discharge: Bipolar Discharge Specialty: Other Name of Discharging Facility: [facility] Date of Facility Discharge: 03/10/24 Date of Interactive Contact and Name of Dark Room Attendant: Spoke with mom Chaim on 03/14/24 Medication Review Completed: No Mom is at work and does not have medications or list with her. Medication Reconciliation Questions/Concerns: Follow Up Appointments with Providers: Primary: No primary care provider on file. Specialty: Gustavo Cavazos CNP on 03/23/24 @ 4:00 Specialty: Specialty: Review of Pending Lab/Diagnostic Tests and Plan for Completion: Presented to [facility] ER after overdose on Seroquel and mixed with alcohol, a bottle of Hilda, and use of cocaine. Denies trying to harm herself. Assessment and Support of Treatment Regimen Adherence and Medication Management: Mom she believes Killian is doing ok. She has not discussed scheduled appointments or needs with her. She believes she is taking her medications and is sleeping a lot Mom works 7 days a week and will find rides for Killian's appointments Education Provided by ACN to Support Self-Management, Independent Living and ADLs: Reviewed all follow up appointments currently scheduled at [facility] in [place] for Behavioral Health CN informed Chaim of patient being a no show prior and if she does not call to cancel the scheduled appt with PCP, then she will be dismissed from the practice. Communication with Home Health Agencies and Other Services Utilized/Needed by the Patient: none documented in this encounter Plan of Treatment Not on file documented as of this encounter Visit Diagnoses Not on filedocumented in this encounter Additional Health Concerns Assessment Noted Time PHQ-9 Depression Total Score: 0 05/04/20 20 10:00 AM EDT documented as of this encounter Care Teams Electrical Accessories Ii Assembler Relationship Specialty Start Date End Date Deb Cavazos APRN-ERYN [facility] [place] [phone] PCP - General Nurse Practitioner 03/29/24 documented as of this encounter
--- OUTSIDE RECORDS SUMMARY | 2025-06-28 19:22 | XMS_ITS | Encounter Summary ---
Author Organization [facility] Address [id number] [address] [place] [address] Care Team Providers Care Electroplater Automatic Name Role Phone Deb Cavazos APRN-BLACK TOPPER Primary Care Provider Reason for Visit * Reason Onset Date Comments Med Refill 01/13/2020 Encounter Details Date Type Department Care Team (Late st Contact Info) Description 01/13/2020 Refill [facility] [address] [place] [address] [place] [phone] Juanis Burgos, EVY Med Refill Social History Tobacco Use Types Packs/Day Years Used Date Smoking Tobacco: Never Smokeless Tobacco: Never Alcohol Use Standard Drinks/Week Comments Yes 0 (1 standard drink = 0.6 oz pur e alcohol) OCCASIONAL PHQ-2 Answer Date Recorded PHQ-2 Score 10 12/26/2019 Childcare Answer Date Recorded Childcare Unknown 04/18/2019 Employment Answer Date Recorded Employment Unknown 04/18/2019 Comments No Sex and Gender Information Value Date Recorded Sex Assigned at Not on file Legal Sex Female 12:11 PM EDT Gender Identity Not on file Sexual Orientation Not on file documented as of this encounter Miscellaneous Notes * Telephone Encounter - Juanis Burgos RN - 01/13/2020 1:20 PM EST Pt needs Tilt Table.Schedued her for echo and 24 HM at . Faxed Tilt Table order to cath nurse Ann. They will schedule her for Tilt after they receive the echo results. Pt notified.slm Juanis Burgos RN 01/13/20 1323 documented in this encounter Plan of Treatment Not on file documented as of this encounter Visit Diagnoses Not on filedocumented in this encounter Additional Health Concerns Infection Onset Date Last Indicated Resolved Time COVID-19 Rule-Out 03/08/2024 03/08/2024 03/08/2024 3:21 AM EDT Assessment Noted Time PHQ-9 Depression Total Score: 10 020 2:00 PM EST documented as of this encounter Care Teams Electroplater Automatic Relationship Specialty Start Date End Date Deb Cavazos APRN-CNP [address] [place] [phone] PCP - General Nurse Practitioner 03/29/24 documented as of this encounter
--- OUTSIDE RECORDS SUMMARY | 2025-06-28 19:22 | XMS_ITS | Encounter Summary ---
Author Organization [facility] Address [id number] [address] [place] [address] Care Team Providers Care Smoking Tobacco Packing Machine Hand Name Role Phone Deb Cavazos APRN-MARKETING RESEARCH COORDINATOR Primary Care Provider Reason for Visit * Reason Onset Date Comments Med Refill 07/11/2020 Encounter Details Date Type Department Care Team (Late st Contact Info) Description 07/11/2020 Refill [facility] [address] [place] [address] [place] [phone] Brittaney Casey CMA Asthma due to seasonal allergies Social History Tobacco Use Types Packs/Day Years [...] on file Sexual Orientation Not on file COVID-19 Exposure Response Date Recorded In the last month, have you been in contact with someone who was confirmed or suspected to have Coronavirus / COVID-19? No / Unsure 06/14/2020 8:05 AM EDT documented as of this encounter Plan of Treatment Not on file documented as of this encounter Visit Diagnoses Diagnosis Asthma due to seasonal allergies documented in this encounter Additional Health Concerns Infection Onset Date Last Indicated Resolved Time COVID-19 Rule-Out 03/08/2024 03/08/2024 03/08/2024 3:21 AM EDT Assessment Noted Time PHQ-9 Depression Total Score: 0 05/04/20 20 10:00 AM EDT documented as of this encounter Care Teams Smoking Tobacco Packing Machine Hand Relationship Specialty Start Date End Date Deb Cavazos APRN-CNP [address] [place] [phone] PCP - General Nurse Practitioner 03/29/24 documented as of this encounter
--- OUTSIDE RECORDS SUMMARY | 2025-06-28 19:22 | XMS_ITS | Clinical Summary ---
Author Organization [employer] Address [facility] [id number] [address] [place] [address] Care Team Providers Care Extracorporeal Technician Name Role Phone Deb Cavazos LUCY-BIOLOGY LABORATORY ASSISTANT Primary Care Provider Allergies Active Allergy Reactions Criticality Noted Date Comments Lamotrigine Hives 03/29/2024 Other 12/26/2019 SOME FABRIC SOFTENERS (ANAPHYLAXIS) Medications vit A/vit C/biotin/zinc/co pper (EJCP-PIMC-GTQT, VIT A,C-BIOTIN, ORAL) Take by mouth daily. Active sertraline (ZOLOFT) 50 mg tabletIndication s:Tachycardia,De pression, unspecified depression type Take 1 tablet (50 mg total) by mouth daily. 30 tablet 2 0 Active budesonide-formo teroL (SYMBICORT) 80-4.5 mcg/actuation inhalerIndicatio ns:Asthma due to seasonal allergies Inhale 2 puffs 2 (two) times a day. 1 Inhaler 0 Active naltrexone microspheres (VIVITROL IM) Inject into the appropriate muscle. Every 30 days Active traZODone (DESYREL) 50 mg tablet Take 1 tablet (50 mg total) by mouth nightly. Active hydrOXYzine (ATARAX) 25 mg tablet Take 2 tablets (50 mg total) by mouth every 6 (six) hours as needed for anxiety. Active midodrine (PROAMATINE) 5 mg tabletIndication s:Neurocardiogen ic syncope TAKE 1 TABLET BY MOUTH EVERY DAY AT NIGHT 90 tablet 3 4 Active QUEtiapine (SEROquel) 100 mg tablet Take 1 tablet (100 mg total) by mouth nightly. Active QUEtiapine (SEROquel) 50 mg tablet Take 1 tablet (50 mg total) by mouth every morning. Active albuterol (PROVENTIL HFA;VENTOLIN HFA) 90 mcg/actuation inhalerIndicatio ns:Mild intermittent asthma without complication Inhale 2 puffs every 6 (six) hours as needed for wheezing. 18 g 11 4 Active potassium chloride (KLOR-CON M 20) 20 MEQ CR tablet Take 1 tablet (20 mEq total) by mouth in the morning. 30 tablet 4 Active Active Problems Problem Noted Date Diagnosed Date Subclinical hypothyroidism 03/29/2024 Anxiety 03/29/2024 Depression 03/29/2024 Anemia 03/29/2024 Hypokalemia 03/29/2024 Acute pain of right shoulder 08/16/2020 Sinus tachycardia 01/13/2020 Status post tonsillectomy 07/08/2018 Chronic tonsillitis 05/26/2018 Asthma due to seasonal allergies 04/07/2017 Encounter for contraceptive management 7 Seasonal allergic rhinitis 04/07/2017 Concussion 03/09/2017 Overview (03/09/2019): hit with softball and hit head on concrete Asthma Strep throat Neurocardiogenic syncope Dizziness Family history of heart disease Resolved Problems Problem Noted Date Diagnosed Date Resolved Date Concussion 04/07/2017 04/07/2017 UTI (urinary tract infection) 03/10/2017 04/07/2017 Immunizations Immunization Administration Dates Next Due Influenza, Injectable, quadr ivalent (PF) 01/07/2019(Deferred: Patient decision) Meningococcal MCV4P 09/13/2018 Tdap 10/24/2022 Family History Medical History Relation Name Comments Heart murmur Brother No Known Problems Father Breast cancer Maternal Aunt Breast cancer Maternal Grandmother Breast cancer Paternal Grandmother Heart murmur Sister Relation Name Status Comments Brother Alive Father Alive Maternal Aunt Maternal Grandmother Mother Alive Paternal Grandmother Sister Alive Social History Tobacco Use Types Packs/Day Years Used Date Smoking Tobacco: Never Passive Smoke Exposure: Yes Smokeless Tobacco: Never Tobacco Cessation:Counseling Given: Not Answered Alcohol Use Standard Drinks/Week Comments Not Currently 0 (1 standard drink = 0.6 oz pur e alcohol) PHQ-2 Answer Date Recorded Total Score 7 03/29/2024 Childcare Answer Date Recorded Childcare Unknown 04/18/2019 [...] Sign Reading Time Taken Comments Blood Pressure 110/70 03/29/2024 1:30 PM EDT Pulse 102 03/29/2024 1:30 PM EDT Temperature 36.7 C (98 F) 03/29/2024 1:30 PM EDT Respiratory Rate 11 03/08/2024 6:03 AM EDT Oxygen Saturation 98% 03/29/2024 1:30 PM EDT Inhaled Oxygen Concentration - - Weight 63 kg (139 lb) 03/29/2024 1:30 PM EDT Height 147.3 cm (4' 9.99 ) 03/29/2024 1:30 PM ED T Body Mass Index 29.06 03/29/2024 1:30 PM EDT Plan of Treatment Health Maintenance Due Date Last Done Comments Pap Smear 2021 Adult BMI Screening 03/29/2025 03/29/2024 Depression Screening 03/29/2025 03/29/2024 Tobacco Screening 04/03/2025 04/03/2024 Influenza Vaccine 07/10/2025 DTaP,Tdap and Td Vaccines (8 - Td or Tdap) 10/24/2032 10/24/2022, 07/17/2014, 07/11/2005, Additional history exists Medical Devices Not on file Insurance [facility] MEDICAID Care Teams Extracorporeal Technician Relationship Specialty Start Date End Date Deb Cavazos APRN-ERYN [address] [place] [phone] PCP - General Nurse Practitioner 03/29/24
--- OUTSIDE RECORDS SUMMARY | 2025-06-28 19:22 | XMS_ITS | Encounter Summary ---
Author Organization [employer] Address [facility] [id number] [address] [place] [address] Care Team Providers Care Principal Technical Architect Name Role Phone Deb Cavazos APRN-PERFORMANCE IMPROVEMENT MANAGER Primary Care Provider Encounter Details Date Type Department Care Team (Late st Contact Info) Description 03/10/2024 Telephone [email or web address] [address] [place] [phone] No Pcp, [place] [address] Social History Tobacco Use Types Packs/Day Years [...] encounter Miscellaneous Notes * Telephone Encounter - Tessie Boss - 03/10/2024 10:25 AM EDT Patient being discharged from [facility] 03/10/2024. Transitional Care visit scheduled with Deb Cavazos CNP, on 03/23/2024 at 4:00 PM. [facility] will fax over discharge summary. Patient previously had appointment scheduled to transfer care from previous provider, Madeleine Husain, on 01/01/2024 and no showed. Patient will be dismissed from practice if she no call no shows the upcoming appointment scheduled for 03/23/2024. Leisa, can you please contact patient for ANGEL. Thanks! documented in this encounter Plan of Treatment Not on file documented as of this encounter Visit Diagnoses Not on filedocumented in this encounter Additional Health Concerns Assessment Noted Time PHQ-9 Depression Total Score: 0 05/04/20 20 10:00 AM EDT documented as of this encounter Care Teams Principal Technical Architect Relationship Specialty Start Date End Date Deb Cavazos APRN-ERYN [address] [place] [phone] PCP - General Nurse Practitioner 03/29/24 documented as of this encounter
--- OUTSIDE RECORDS SUMMARY | 2025-06-28 19:24 | XMS_ITS | CCD ---
Author Organization [facility] Care Team Providers Care Oven Heater Helper Name Role Phone MIMI LUKE Attending Unavailable Unavailable Primary Care Provider Unavailabl e Unavailable Primary Care Provider Unavailabl e FOLLOW-UP AT [facility] Referring Un available TETE TERRELL Attending Unavailable MARIA BINGHAM Attending Unavailable SELF, SELF Referring Unavailable [facility] Referring Unavail able MARIA BINGHAM Attending Unavailable Marcial Badillo Attending Unavailabl e NON STAFF Primary Care Provider Unavailabl e DO Bakari Cramer Emergency Provider [phone] Generic Provider , No Assigned Pcp Primary Car e Provider Unavailable COSTA VILLAREAL Attending Unavailable DARIUS MONTANAID M Primary Care Unavailable DARIUS MONTANAID M Primary Care Unavailable MIGUEL FLORES Attending Unav ailable MIGUEL FLORES Attending Unav ailable MIGUEL FLORES Referring Unav ailable ALTA MONTANAHAMID Josee Primary Care Unavailable LILY CAVAZOS Attending Unavailable LILY CAVAZOS Primary Care Unavailable NON STAFF Primary Care Provider Unavaillucy e MD Garrett Donis Attending Provider Sandy Krishnan MD Emergency Provider [phone] NO FAMILY, PHYSICIAN Primary Care Provider Unava ilGarrett Pittman MD Admit Provider Garrett Donis MD Attending Provider [phone] Unavailable Primary Care Provider UnavailLily Joseph Primary Care Provider Unavailable Primary Care Provider Unavaillucy Montana MD, Bran Kaufman Primary Care Provider [phone] LOGAN MANRIQUE Referring Unavailable No Family, Physician Primary Care Unavailable No Family, Physician Primary Care Unavailable DRYER, JESSI Referring Unavailable No Family, Physician Primary Care Unavailable DRYER, JESSI Referring Unavailable SIMÓN MONTANO Referring Unavailable No Family, Physician Primary Care Unavailable No Family, Physician Primary Care Unavailable HARINDER CARTAGENA Attending Unavailable No Family, Physician Primary Care Unavailable JOSÉ LAGUNA Attending Unavailabl e No Family, Physician Primary Care Unavailable ASHLEY CASILLAS Attending Unavailable No Family, Physician Primary Care Unavailable ELCOSTA GIBSON Referring Unavailable No Family, Physician Primary Care Unavailable No Family, Physician Primary Care Unavailable ELCOSTA GIBSON Referring Unavailable LENNY RODRIGUEZ Referring Unavailable No Family, Physician Primary Care Unavailable JOESPH DOLL Referring Unavailable No Family, Physician Primary Care Unavailable Provider, None Primary Care Unavailable Nas Dalton Attending Unavailable Garrett Donis Attending Unavailab le NO FAMILY, PHYSICIAN Primary Care Unavailable Garrett Donis Admitting Unavailab le Garrett Donis Admitting Unavailab le Garrett Donis Attending Unavailab le NON STAFF Primary Care Unavailable Allergies Allergy Classification Reported Allergen(s) Allergy Type Date of Onset Reaction(s) Facility (6 sources) OTHER; Translations: [OTHER] Propensity to adverse reactions (disorder) 0 [facility] (3 sources) lamoTRIgine; Translations: [LAMOTRIGINE] Drug Allergy 4 Hives [facility] Medications Current Medications Medication Drug Class(es) Dates Sig (Normalized) Sig (Original) [id number] 200 actuat albuterol 0.09 mg/actuat metered dose inhaler (3 sources) beta2-Adrenergic Agonist Start: 11-04-2024 Albuterol Sulfate 90 mcg/actuation HFA aerosol inhaler Active 2 INH INHALATION Every 6 hours as needed for shortness of breath or wheezing September 12, 2024 12:00am Start: 03-29-2024 take 2 puff(s) by in halation every six hours as needed for wheezing albuterol (PROVENTIL HFA;VENTOLIN HFA) 90 mcg/actuation inhaler Indications: Mild intermittent asthma without complication Inhale 2 puffs every 6 (six) hours as needed for wheezing. 18 g 11 03/29/2024 Active Budesonide / formoterol (6 sources) Corticosteroid, beta2-Adrenergic Agonist Start: 07-11-2020 take 2 puff(s) by inhalation twice daily budesonide-formoteroL (SYMBICORT) 80-4.5 mcg/actuation inhaler Indications: Asthma due to seasonal allergies Inhale 2 puffs 2 (two) times a day. 1 Inhaler 07/11/2020 Active Start: 07-11-2020 take 2 puff(s) by in halation twice daily budesonide-formoteroL (SYMBICORT) 80-4.5 mcg/actuation inhaler Indications: Asthma due to seasonal allergies Inhale 2 puffs 2 (two) times a day. 1 Inhaler 0 07/11/2020 Active take 2 puff(s) by in halation every twelve hours budesonide-formoterol 160-4.5 mcg/puff Aerosol inhaler Inhale 2 puffs every 12 hours. 0 Active buprenorphine 8 mg / naloxone 2 mg sublingual film (1 source) Partial Opioid Agonist, Opioid Antagonist Start: 08-27-2022 End: 09-03-2022 buprenorphine 8 mg/naloxone 2 mg (SUBOXONE) SL film Indications: Supervision of high risk , antepartum Place 1 strip under tongue daily for 7 days. 7 strip 0 08/27/2022 09/03/2022 Active 2 ml diazePAM 5 mg/ml rectal gel (2 sources) Benzodiazepine Start: 01-02-2023 End: 01-15-2024 take 5 mg rectal route once diazePAM (DIASTAT ACUDIAL) 5-7.5-10 mg rectal kit INSERT 5 MG INTO THE RECTUM ONCE FOR 1 DOSE. 0 01/02/2023 01/15/2024 Discontinued (Therapy completed) famotidine 20 mg oral tablet (6 sources) Histamine-2 Receptor Antagonist Start: 12-06-2024 take 1 tablet by mouth twice daily as needed famotidine (PEPCID) 20 MG tablet Take 1 tablet by mouth 2 times daily as needed (as needed) 60 tablet 12/06/2024 Active fluticasone propionate 0.05 mg/actuat metered dose nasal spray (1 source) Corticosteroid Start: 07-29-2024 take 1 spray(s) nasal route twice daily Fluticasone Propionate (Flonase Allergy Relief) 50 mcg/actuation spray,suspension Active 1 SPRAY INTRANASAL Twice daily July 28, 2024 11:00pm administer 1 spray into each nostril hydrOXYzine pamoate 25 mg oral capsule (4 sources) Antihistamine Start: 09-13-2024 Hydroxyzine Pamoate (Vistaril) 25 mg capsule Active 50 MG PO Every 8 hours as needed for anxiety September 13, 2024 12:00am take 2 tablets by mo [facility] every six hours as needed for anxiety hydrOXYzine (ATARAX) 25 mg tablet Take 2 tablets (50 mg total) by mouth every 6 (six) hours as needed for anxiety. Active take 1 tablet by michael three times daily as needed for anxiety hydrOXYzine (ATARAX) 25 mg tablet Take 1 tablet (25 mg total) by mouth 3 (three) times a day as needed for anxiety. 0 Active loratadine 10 mg oral tablet (1 source) Start: 09-13-2024 Claritin 10 mg Active PO Daily September 13, 2024 12:00am midodrine hydrochloride 5 mg oral tablet (9 sources) alpha-Adrenerg ic Agonist Start: 01-15-2024 take 1 tablet by mouth once daily midodrine (PROAMATINE) 5 mg tablet Indications: Neurocardiogenic syncope TAKE 1 TABLET BY MOUTH EVERY DAY AT NIGHT 90 tablet 3 01/15/2024 Active Start: 03-10-2023 End: 09-16-2024 take 1 tablet by mouth once daily Midodrine 5 mg tablet Discontinued 5 MG PO Daily March 07, 2024 11:00pm September 16, 2024 12:29pm Start: 08-09-2022 take 1 tablet by michael three times daily as needed midodrine 5 MG tablet TAKE 1 TABLET BY MOUTH 3 TIMES A DAY NEEDED. TAKE FIRST THING IN THE AM W/ GLASS OF WATER 0 08/09/2022 Active naltrexone microspheres (NILSA ITROL IM) (4 sources) naltrexone micro spheres (VIVITROL IM) Inject into the appropriate muscle. Every 30 days Active naltrexone micro spheres (VIVITROL IM) Inject into the appropriate muscle. Every 30 days 0 Active nicotine 2 mg chewing gum (1 source) Cholinergic Nicotinic Agonist Start: 03-10-2024 Nicotine (Polacrilex) Active 2 MG BUCCAL Q2H March 10, 2024 12:00am OLANZapine 5 mg oral tablet (1 source) Atypical Antipsychotic Start: 09-16-2024 take 1 tablet by mouth once daily in the evening Olanzapine 5 mg Tablet Active 5 MG PO Every evening September 16, 2024 12:00am microencapsulated potassium chloride 20 meq extended release oral tablet (4 sources) Start: 03-29-2024 take 1 tablet by mouth in the morning potassium chloride (KLOR-CON M 20) 20 MEQ CR tablet Take 1 tablet (20 mEq total) by mouth in the morning. 30 tablet 03/29/2024 Active Start: 01-02-2024 End: 01-07-2024 take 1 tablet by mouth once daily potassium chloride CR (Klor-Con M20) 20 mEq ER tablet Indications: Hypokalemia Take 1 tablet (20 mEq) by mouth once daily for 5 days. Do not crush or chew. 5 tablet 0 01/02/2024 01/07/2024 Active predniSONE 20 mg oral tablet (1 source) Start: 12-06-2024 End: 12-11-2024 take 1 tablet by mouth twice daily predniSONE (DELTASONE) 20 MG tablet Take 1 tablet by mouth 2 times daily for 5 days 10 tablet 12/06/2024 12/11/2024 Active Prenat w/o P-NyMy-UwRm-DSS-FA ( vitamin) tablet (2 sources) take 1 tablet by mouth once daily Prenat w/o A-NhEx-UoWt-DSS-FA ( vitamin) tablet Take 1 tablet by mouth daily. 0 Active sertraline 100 mg oral tablet (9 sources) Serotonin Reuptake Inhibitor Start: 09-16-2024 take 1 tablet by mouth once daily in the morning Sertraline 100 mg Tablet Active 100 MG PO Every morning September 16, 2024 12:00am Start: 09-13-2024 End: 09-16-2024 take 3 tablets by mouth once daily Sertraline (Zoloft) 25 mg tablet Discontinued 75 MG PO Daily September 13, 2024 12:00am September 16, 2024 12:29pm Start: 12-26-2019 End: 03-10-2024 take 1 tablet by mouth once daily sertraline (ZOLOFT) 50 mg tablet Indications: Tachycardia , Depression, unspecified depression type Take 1 tablet (50 mg total) by mouth daily. 30 tablet 2 12/26/2019 Active traZODone hydrochloride 50 mg oral tablet (4 sources) Serotonin Reuptake Inhibitor Start: 09-16-2024 take 1 tablet by mouth once daily at bedtime as needed Trazodone 50 mg Tablet Active 50 MG PO Daily at bedtime as needed for Insomnia September 16, 2024 12:00am vit A/vit C/biotin/zinc/copper (PZSD-DSNC-DLZW,VIT A,C-BIOTIN, ORAL) (4 sources) vit A/vit C/biotin/zinc/co pper (NHME-UEGK-OTVQ, VIT A,C-BIOTIN, ORAL) Take by mouth daily. Active vit A/vit C/biot in/zinc/copper (IKYJ-NGAT-VDOJ,VIT A,C-BIOTIN, ORAL) Take by mouth daily. 0 Active Completed/Discontinued Medications Medication Drug Class(es) Dates Sig (Normalized) Sig (Original) ARIPiprazole 10 mg oral tablet (1 source) Atypical Antipsychotic Start: 09-13-2024 End: 09-16-2024 take 1 tablet by mouth once daily Aripiprazole (Abilify) 10 mg tablet Discontinued 10 MG PO Daily September 13, 2024 12:00am September 16, 2024 12:29pm cephalexin 50 mg/ml oral suspension (6 sources) Cephalosporin Antibacterial Start: 11-23-2023 End: 03-10-2024 take 500 mg by mouth twice daily Cephalexin 250 mg/5 mL Suspension For Reconstitution Discontinued 500 MG PO Twice daily November 23, 2023 12:00am March 10, 2024 8:33am Start: 11-23-2023 End: 03-10-2024 take 1 capsule by mouth twice daily Cephalexin 500 mg capsule Discontinued 500 MG PO Twice daily 20 November 23, 2023 12:00am March 10, 2024 8:33am 1 ml diphenhydrAMINE hydrochloride 50 mg/ml cartridge (1 source) Histamine-1 Receptor Antagonist Start: 12-06-2024 End: 12-06-2024 25 mg, IntraVENous, ONCE, 1 dose, On Thu12/06/24 at 1100, IV Push at rate not to exceed 25 mg/min. famotidine (PEPCID) 20 mg in sodium chloride (PF) 0.9 % 10 mL injection (1 source) Start: 12-06-2024 End: 12-06-2024 take 10 mL intravenously once 20 mg, IntraVENous, ONCE, 1 dose, On Thu12/06/24 at 1100, IV Push over minimum of 2 minutes - Dilute with 10 mL NS iohexol (OMNIPaque) 350 mg iodine/mL solution 75 mL (1 source) Start: 01-02-2024 End: 01-02-2024 iohexol (OMNIPaque) 350 mg iodine/mL solution 75 mL lamoTRIgine 25 mg oral tablet (2 sources) Mood Stabilizer, Anti-epileptic Agent Start: 03-08-2024 End: 09-16-2024 take 1 tablet by mouth twice daily Lamotrigine 25 mg tablet Discontinued 25 MG PO Twice daily March 07, 2024 11:00pm September 16, 2024 12:29pm methylPREDNISolone sodium succ (SOLU-MEDROL) 125 mg in sterile water 2 mL injection (1 source) Start: 12-06-2024 End: 12-06-2024 125 mg, IntraVENous, Once, On Thu12/06/24 at 1100, For 1 dose, Reconstitute 125 mg vial with 2 mL diluent. QUEtiapine 50 mg oral tablet (9 sources) Atypical Antipsychotic Start: 09-13-2024 End: 09-16-2024 take 3 tablets by mouth at bedtime Quetiapine 50 mg tablet Discontinued 150 MG PO Bedtime September 13, 2024 12:00am September 16, 2024 12:29pm Start: 03-08-2024 End: 09-13-2024 take 2 tablets by mouth at bedtime Quetiapine 50 mg tablet Discontinued 100 MG PO Bedtime March 10, 2024 1:29pm September 13, 2024 2:24am Start: 03-08-2024 End: 03-10-2024 take 100 mg by mouth at bedtime Quetiapine Active 100 MG PO Bedtime March 10, 2024 2:29pm take 1 tablet by michael th once daily QUEtiapine (SEROquel) 100 mg tablet Take 1 tablet (100 mg total) by mouth nightly. Active take 1 tablet by michael th once daily in the morning QUEtiapine (SEROquel) 50 mg tablet Take 1 tablet (50 mg total) by mouth every morning. Active 50 ml sodium chloride 9 mg/m l injection (7 sources) Start: 01-12-2025 End: 01-12-2025 1,000 mL (15.7 mL/kg), IntraVENous, at 495.9 mL/hr, Administer over 121 Minutes, ONCE, On Dipika 01/12/25 at 1100, For 1 dose Start: 12-31-2024 End: 12-31-2024 1,000 mL, IntraVENous, at 49 5.9 mL/hr, Administer over 121 Minutes, ONCE, On 12/31/24 at 1330, For 1 dose Start: 12-06-2024 End: 12-06-2024 1,000 mL, IntraVENous, at 49 5.9 mL/hr, Administer over 121 Minutes, ONCE, On 12/06/24 at 1100, For 1 dose Start: 01-01-2024 End: 01-02-2024 sodium chloride 0.9 % bolus 500 mL Start: 12-24-2019 End: 12-24-2019 0.9 % sodium chloride bolus Problems Active Problems Problem Classification Problem Date Documented Date Episodic/Chronic Acute and chronic tonsillitis (4 sources) Chronic tonsillitis; Translations: [Chronic tonsillitis] Onset: 05-26-2018 05-26-2018 Chronic Alcohol-related disorders (1 source) Alcohol use, unspecified with intoxication, uncomplicated; Translations: [Alcohol use, unspecified with intoxication, uncomplicated] Onset: 03-08-2024 Episodic Allergic reactions (2 sources) Allergic reaction; Translations: [Allergy, unspecified, initial encounter] Onset: 12-06-2024 12-06-2024 Episodic Anxiety disorders (6 sources) Generalized anxiety disorder; Translations: [Anxiety disorder, unspecified] Onset: 12-29-2023 Chronic Asthma (10 sources) Mild intermittent asthma, uncomplicated; Translations: [Mild intermittent asthma] Onset: 04-07-2017 04-03-2024 Chronic Cardiac dysrhythmias (2 sources) Paroxysmal supraventricular tachycardia; Translations: [Supraventricular tachycardia] Onset: 08-27-2022 08-27-2022 Chronic Conditions associated with dizziness or vertigo (4 sources) Dizziness; Translations: [Dizziness and giddiness] 03-09-2019 Episodic Deficiency and other anemia (1 source) Anemia, unspecified; Translations: [Anemia, unspecified] Onset: 03-29-2024 Episodic Epilepsy; convulsions (3 sources) Seizure; Translations: [Unspecified convulsions] 11-23-2023 Episodic Immunizations and screening for infectious disease (2 sources) Contact with or exposure to other viral diseases; Translations: [Exposure to 2019 novel coronavirus] 07-29-2024 Episodic Mood disorders (12 sources) Major depressive disorder, single episode, moderate; Translations: [Bipolar disorder, unspecified] Onset: 12-29-2023 Chronic Nonspecific chest pain (12 sources) Chest wall pain; Translations: [Other chest pain] Onset: 01-15-2024 11-23-2023 Episodic Other aftercare (2 sources) Other buttermaker continuous churn (current) drug therapy; Translations: [Other fpc (current) drug therapy] Onset: 11-22-2022 Episodic Other complications of (4 sources) High risk ; Translations: [Supervision of high risk , unspecified, unspecified trimester] Onset: 08-27-2022 Episodic Other complications of (2 sources) Supervision of high risk , unspecified, unspecified trimester; Translations: [Supervision of high risk , unspecified, unspecified trimester] Onset: 08-27-2022 Episodic Other injuries and conditions due to external causes (1 source) Closed injury of head; Translations: [Unspecified injury of head, initial encounter] 01-02-2024 Episodic Other lower respiratory disease (1 source) Other forms of dyspnea; Translations: [Other forms of dyspnea] Onset: 01-15-2024 Episodic Other upper respiratory disease (4 sources) Seasonal allergic rhinitis; Translations: [Other seasonal allergic rhinitis] Onset: 04-07-2017 04-07-2017 Chronic Other upper respiratory infections (6 sources) Acute pharyngitis, unspecified; Translations: [Acute pharyngitis] 07-29-2024 Episodic Poisoning by nonmedicinal substances (1 source) Toxic effect of unspecified substance, accidental (unintentional), initial encounter; Translations: [Toxic effect of unspecified substance, accidental (unintentional), initial encounter] Onset: 03-08-2024 Episodic Residual codes; unclassified (4 sources) Family history of cardiac disorder; Translations: [Family history of ischemic heart disease and other diseases of the circulatory system] 03-09-2019 Episodic Residual codes; unclassified (1 source) Procedure and treatment not carried out because of patient's decision for other reasons; Translations: [Procedure and treatment not carried out because of patient's decision for other reasons] Onset: 12-14-2024 Episodic Substance-related disorders (4 sources) Polysubstance abuse ; Translations: [Cocaine abuse, uncomplicated] Onset: 03-08-2024 09-12-2024 Chronic Substance-related disorders (2 sources) Opioid abuse; Translations: [Opioid use, unspecified, uncomplicated] Onset: 08-27-2022 08-27-2022 Episodic Syncope (14 sources) Syncope and collapse; Translations: [Near syncope] Onset: 01-06-2023 11-23-2023 Episodic Thyroid disorders (4 sources) Other specified hypothyroidism; Translations: [Subclinical hypothyroidism] Onset: 03-29-2024 03-29-2024 Chronic Unclassified (1 source) Overdose - Intentional Onset: 03-08-2024 Unclassified (1 source) Overdose medication Onset: 03-08-2024 Unclassified (1 source) Establish Care Onset: 03-29-2024 Viral infection (1 source) COVID-19; Translations: [Other specified viral infection] 07-29-2024 Episodic Past or Other Problems Problem Classification Problem Date Documented Da te Episodic/Chronic Cardiac dysrhythmias (6 sources) Tachycardia; Translations: [Tachycardia, unspecified] Onset: 01-13-2020 01-02-2024 Episodic Deficiency and other anemia (3 sources) Anemia; Translations: [Anemia, unspecified] Onset: 03-29-2024 03-29-2024 Episodic Diabetes mellitus without complication (2 sources) Prediabetes; Translations: [Prediabetes] Onset: 10-26-2024 Episodic Fluid and electrolyte disorders (6 sources) Hypokalemia; Translations: [Hypokalemia] Onset: 03-08-2024 01-02-2024 Episodic Intracranial injury (8 sources) Concussion injury of body structure; Translations: [Concussion] Onset: 03-09-2017 Resolved: 04-07-2017 03-09-2019 Episodic Malaise and fatigue (2 sources) Other fatigue; Translations: [Other fatigue] Onset: 10-26-2024 Episodic Mood disorders (6 sources) Mood disorders; Translations: [Depression, unspecified] Onset: 05-04-2020 Resolved: 03-29-2024 03-29-2024 Other lower respiratory disease (1 source) Dyspnea on exertion; Translations: [Other forms of dyspnea] 01-15-2024 Episodic Other non-traumatic joint disorders (4 sources) Pain in right shoulder; Translations: [Pain in joint, shoulder region] Onset: 08-16-2020 08-16-2020 Episodic Other screening for suspected conditions (not mental disorders or infectious disease) (11 sources) Patient encounter status; Translations: [Encounter for other specified screening] Onset: 04-07-2017 Episodic Sexually transmitted infections (not HIV or hepatitis) (2 sources) Unspecified sexually transmitted disease; Translations: [Unspecified sexually transmitted disease] Onset: 10-26-2024 Episodic Suicide and intentional self-inflicted injury (4 sources) Suicidal ideations; Translations: [Suicidal thoughts] Onset: 03-08-2024 09-12-2024 Episodic Urinary tract infections (7 sources) Urinary tract infectious disease; Translations: [Urinary tract infection, site not specified] Onset: 03-10-2017 Resolved: 04-07-2017 11-23-2023 Episodic Results Test Name Value Interpretation Reference Range Facility Coding Summaryon 02-21-2025 Coding Summary HTMLBase 64 PrcwrvyjCIk3zNo+PGhlYWQ +ZS7PZRPlK98tnEYifC0yK3 NMTElOSywgQVBQTElOSyIgb uTrEB1wkZHgFZSy IC8+WN7zSABlCuxcmDEda0G 6yYX8F31pdf0uBGjyvNU0RS YtUkLbzwoeg9pwfSa2ANnbC mluOyBt TRIsxR85IAF6gQ49Ta18xVR ceEDvz4izfRp6WgBwYWDmKE B3oWmcAQqyv4DzAJYjV00nv BWil3J7 WEHtiPqdoHUiDwGbeNI0pY4 mZHjirddim7ifwdcyDxi6jh 66iKQeu6L5uPU8Y9OkhgM2J GJvbGQg RdqxfCIVfK1sjnchu4meiwj tUrFvRXOgHJy9WBy6BEYqoF bnKxHuUE22GGN9BOZucoZjP 2FsLWFs cNwmAzY5m9K0Aq5XG6GWNiz fA2UKAIDGMJoalTR+PC90cj 79B6GhNebzXjh4LEHbKRR7k QX1vE7j TUFqSCugd9W1lEJ2P4UzrxJ yhb0zs8npYXNuTZoeL70tnQ Lze8U1NECioFL3IBKuoIhnZ iBzaG93 Oyc+AZMekHyex1YiPbhil4o of0yppNc8LnoiOVLcgbTjwF ktXSP7t7ZfZa3tRUJzlGT7e MB7qI4t PsLcGwK0CSbdE253ArBexGX nBowsI13jD1WwsAF+PHRyPj b1NPDxtOsyVR9vJ4KvBEWxc mctbGVm nJvxPR0wDVFschcqFZOrpE5 rVAQnI9k8VuRjYiL4TYwyX8 MuXARljxdhKh72rV0cDrOxA qX1YBno O4EuxhG4SKCsnBBeOScnLNK 1S78ce4M6SKVuOKRmWHE9fV N7uV7eaRvdpavucLIpxAvui mVydGlj DSbbYOxpW733ZNPsiVccEeK vZGluZyBEYXRlOiAgMDQvMT UvMjAyNTwvdGQ+DSMbEWZ3l WxlPSAn fXXsMLllPj2ouKnokOjgUE7 kXRCdcxpyNLKanL6gJHWocM IcqSfuQN3yNKPcuhjmj445R iAxMHB0 PFMuqESkD5GekJ1dAeBiONX yAQVnN3CbyRUiSEunA542HI xfVrI9YKMawzKbB0ZhGZFqf WduOiB0 s2F6Kj8Ep5EgipfyN1RwnTN kTgMyClhbEGr6K9OiCobipH I+SU90ZQVnBQ96WJi0FFL5x WxlPSdi QDChC5RutF2fCtRvRGLkOYB kOyc+PHRhYmxlIHdpZHRoPS cvTUBdKkMlnYjvWA8dFx5pS GVyLWNv sBafiVZnNoIks4vxTFKdODp fIV3egMslJ7VtiPR7BHPqw9 s9Uc03K91jR2MqaIM+PGNvb RW7xGU9 aX5dZaLdJpX2FQeuR865OeV ggJKsGmida8utp4xpuDx9Kr Z6EXLfjxSqxSftSAB4x1ViR t06U81k IHdpZHRoPSIxNSUiIHZhbGl nmr0rvI6bBn5+PCJnzIK2oJ U9dZ4kVvTjRoN9CIjiY063N nRvcCIv Drueh4ttx2adzIi8BrPzWIT pccSroPesPNX9j7VnAs77U8 IkfNiqc1UpOls3wq25xCXqy 9I9aEY3 E1WlYABvzbfgjSVsdUwiFZ2 hCSPawrxkLJAtaE4eQHNoD4 q4PcDrLtE7XGcrV6ZpfjN8F GJvbGQg GROdmCKPdY6fiqbce9fqonk uEfOgKRNzJHb6BXa3JLTsxX tiXvCyZFU5DgU7GVF8yJVfg Y2jgWmk khinwS3pUmx+VNU9wNGxwPV BQG6kZeikhBY+RQPsTOG8gQ siMWagCZDvmG0eCGLnK1p4G iAwLjA1 DAybH7RqrzY5NBMtuEAhMCQ ofXCIqT8acplbi8mwexyeCx UxRJYhWBv2JRo1YPUtnWphC iBsZWZ0 BtB7YJR4hEJjvG8awCmifww ipC9fJfd+QkpxnButQVA1YD g0F6TvQqo7GPNpkCarVM6yj GFkZGlu Yd5idZqruPiiDK5lECIqaxc wj023QqHre7cmHXBqpDUvGR wuPZJ5B41np0A2SDQhDYDlR DJ5iCP4 xT2zjWdipemfzLOuyUijubW qzStbGJutUUgjG418BYXptW waCgIrTXp6Q8SxSwi6RQTzd FfrFN3q uJOiAGawWc4fwKkfhNmfAI5 yMDOdzqtzp585LxHfv4zrVA FfdRUkNZigMYC9J55qa6E2L CMwMDAw EOL4wLN0gY6ijFvcnbyedFQ mdDsgdmVydGljYWwtYWxpZ2 55YBHlzCfiIdOdfGm9O9FhY as7OEJq tKyaKB2buRZyNGkyKs4wmZk ayIgoQW4mWMAtwmrgm843Oz Xax8elKPOrfBOlNOqvUFZ8M 80bw9A6 IVRhQIKnGSK5qJJ5uY2ylZf nbjogbGVmdDsgdmVydGljYW wqIUplE877GDSksAeuDwOuu GllbnQg NGzhBEw8Y4MaDzgafWW+PC9 3JTPqBD03oEYkhBAhe1phbP b1LxEdVCJfCYP3eFffPLguh 3JkZXIt G23odYPpm0J4IVMjzStmxOC eDlNsvTN4wX5hRQvqxlcoa9 imutjhTvedi2sbsv13rN45H 29sIHdp ZHRoPSIzMCUiIHZhbGlnbj0 syG2yXf5+WGLdnDH9wKM6dV 2vZMWaUsW6FRhrU983AzNuv CIvPjxj t8wye8rzgXb4XqC7ZTSipoD ysOcgEBL8c6BcLe63H52gAU dpZHRoPSIyMCUiIHZhbGlnb j1blF1d Ii8+QMHckWI9qQW9oW7uYiI dPgE3YVslG555CuSntEXpYv kxO31zJ0YuxUT+ICWkBar6Q CBzdHls FK0rtLOlDGimNs2fCOS9JhA dFqYaNMjsE5DmIYFztjywpz wjtLE2MAToPRRpzW19Yy5yk DogMTBw tGTXwT4rrrfti5qyonsoKcN qNZHiQZh8SVj2GZZndIzbZg AdOCL0ShU6LJC5xDKzvX9sj Glnbjog sD6yY8DvRLGzznbqBn10sT9 fIwYnMeF1LUmmMql+U1RBTk jDGIxiN3cYJBKHWTPAQMmBR DwvdGQ+ IQEpSQJ6aUcfJRqsSKMgcQ2 gPQQmY4v5HpRjVbU7PZbgP2 WrUYXyrjheVp99dB5cJfAeR tU8EPnj U8BaynR9AQRzmLVkBVjoFRF 3Z67ae0B5CCKiFDBfGZF9pG J0zM5siVqyfruvzUAwtNufv mVydGlj TIjbHKbdR439JRIgaHgpBuU 2UyX0VaAnMMQ7X2IhUue1ZI XmkQxtCF0yeHSpSZmuUe4tg WdodDog HP7tPTPwkvkiPREkjP5gFEW ejVLkqTqaNB0tAJNripoqj4 72UqRyVLO9TIJugKRqM5Fxm B0cUxZo XYJgCXNmC1IaqCZmPZecE76 3RJclPzO9PBExugErD4VfPZ GjxGmnHqN9k5N5En9sFQSAO WFyczwv dGQ+QECzFEA5kVpkBJvoEMV giR0dCDVoE6y7RjCcEsU5NG vuM4GvSMUwymwzFt97jI0gQ iAwLjA1 OAtlY8SmvjI0UFJfxQRwIOu jIGT4A30fa7X4FURlSCZeRI C6qWF6fY4cgRyzaqvdjMFwx DsgdmVy tSaxGIepIHdmV726EDZaaFy nPkZFTUFMRTwvdGQ+PHRkIH S0gGsnSZujOSWetZ2hITUbW 2c2XqCv PjD5MIgvC6BrOKKkcvvpQh0 1nB8zFlUeFnD2GFhkT8Djni P9HXVnsGYyYUicKUI3G46uo 4A6NHXw DQOqYOK9zAJ9zO3bdFaimtm gbGVmdDsgdmVydGljYWwtYW hwQ834QPAxtYucUbDlJHQlM M1sfVvi dGQ+NW25sc19R0ZlHoafOgq 4KRQkMER6xZO9yI8uPJZhJO rkb3O2rWZ5Q4UejnYtvf6xu 2xsYXBz BWcvO83acXEkq8Z9KRNqgHF 0VJJrpSuvUvGvzN97Lgv+PG EmpXaoi6AwUcthz3iaa9akq Dp5OqSv QIEsuvGgxTsuVFE6x6DsHs2 5H06gRUpeWXSfMDAeFBLsAX SthOvgls3erI1wRf6+PGNvb KL4dUC8 uG4qJxDoZsS9QTfvP202LvU ylLSmYwsvq7okw2wctZi4Lf KhFODxbaKpbHlxAHN0r8DiA o54C7Xi cKxwm1QcChf3ne69iKSqe1E 4mFT1A4GxSDQhydanvCChjA umQN4iWPPqzkgcMREvsF5mG JYjI1b7 IlXkDmD9FSkfT4MublT0TAO htXCcIWTufXLTnC8cqfnvn5 zwdyezXiVqTXSbEYd8VKe4J WFsaWdu ChRgDLC1BtW7LTL8eVFsuG6 bkJvbijhaaG0kVjy+UGh5c2 wgkJQqZK8hrSO8OA57UG45o ROmf0V7 zMY1K9DhQTKfbaqtgqnnpAP 3BNBaWFPeyO10Ok6onFujQh 1bCFEcDZT4FHXjmGMwM1Aux S1jAyGk LLGhVAUuS6QyyQKeNAjlM91 2PGphYjQ6ZZXyojSbG0OfIE DtwThiOgH9y7B1Fi7AYH16S M35SX30 jKFsd0M6lFC0E4UhGTJzagi disvhjKZ7VUAmVUMarI03Uv 2wbNccEm0iUHUwXNI7ATPwv RNbL7Mi aN1tPnMfJPCuFYOtC2CqsAN dRZvzE151XNthUwT1ZZRiql BoS2VeMABhkRfaEjS9c1M1R u4ZOt86 NG25VJ13tARtm3V3aCF5G5U rKLIfyjteoqjljKG2HQAdPI OedA44Uv1kiWkxOz2yYPCxX FU8ULOe bZDeE1VnzC6nNjNvTGIiYEK lX4TvmRPrLDicE853ZVjyLj I3KTLfhsRwQ4TmGODoqPjhR xG0z9I0 Jx6PVNiaicv8N1XdGkwbqTD +CG97GLVkQY78gVLwvLFad1 nseNu1XsRhDOPiDPJ0fEiyQ Vvdp6Cr ZXI (more content not included)... [facility] Consent Formson 02-20-2025 Consent Forms [id number]#1.00OT GTIFF [facility] .Auto Diff 1on 02-17-2025 Auto Spink % 4 % Normal -12 [facility] Comment on above: Performed By: #### 1 [id number], 2020103, 6848378, 8656944161, 7911846, 1860688, 9676970161, 4617650, 3376040470, 67772872 ####[facility] (DEFAULT)[address] [place] [address] Baso Abs# 0.1 x10 Normal 0.0-0.2 [facility] Comment on above: Performed By: #### 1 [id number], 3054985, 1780328, 7276690989, 9613807, 1098516, 1509679447, 9711475, 8620304299, 30512386 ####[facility] (DEFAULT)[address] [place] [address] 58174 Basophils/100 WBC (Bld) 1.0 % Normal 0.2-2.0 [facility] Comment on above: Performed By: #### 1 156937989, 6556595, 1886600, 6052730795, 4493642, 1632681, 2904930233, 2724364, 9114722110, 25170674 ####[facility] (DEFAULT)[address] [place] [address] 78769 Eos Abs# 0.2 x10 Normal 0.0-0.4 [facility] Comment on above: Performed By: #### 1 610237490, 4354806, 2560661, 0034865336, 2110692, 6843698, 0199042616, 1176879, 4974926104, 74060559 ####[facility] (DEFAULT)[address] [place] [address] 08934 Eosinophils/100 WBC (Bld) 2.3 % Normal 0.9-4.0 [facility] Comment on above: Performed By: #### 1 781418230, 3827650, 3068536, 6598321825, 2587587, 9551904, 2489709553, 9163031, 9777423214, 79767841 ####[facility] (DEFAULT)[address] [place] [address] 42601 Lymph Abs# 2.0 x10 Normal 1.3-2.9 [facility] Comment on above: Performed By: #### 1 951427137, 5658323, 1150636, 6767006748, 3710698, 6545757, 4594668187, 1088679, 5946992220, 73879834 ####[facility] (DEFAULT)[address] [place] [address] 88121 Lymphocytes/100 WBC (Bld) 28 % Normal 14-48 [facility] Comment on above: Performed By: #### 1 898356342, 6188931, 4633036, 5153101248, 7506588, 2461840, 4893899254, 1997001, 6332324659, 55107772 ####[facility] (DEFAULT)[address] [place] [address] 23249 Spink Abs# 0.3 x10 Normal 0.0-0.8 [facility] Comment on above: Performed By: #### 1 032400010, 8790151, 9112074, 3603203571, 8641713, 1362947, 9353082965, 4425657, 1757249829, 14022087 ####[facility] (DEFAULT)[address] [place] [address] 61604 Neut Abs# 4.4 x10 Normal 1.5-9.2 [facility] Comment on above: Performed By: #### 1 687286400, 7304062, 6893186, 1747204255, 8278566, 7335621, 1492212662, 5388103, 4193503341, 96578695 ####[facility] (DEFAULT)[address] [place] [address] 50394 Neutrophils/100 WBC (Bld) 64 % Normal 44-88 [facility] Comment on above: Performed By: #### 1 521438236, 0069811, 4690879, 3865166718, 3177393, 7826038, 5757174046, 3395354, 2888968708, 67715413 ####[facility] (DEFAULT)[address] [place] [address] .QC SARS-CoV-2 (COVID-19)/Fl u/RSV (GeneXpert)on 02-17-2025 Internal Control Pass Normal [facility] Comment on above: Order Comment: Order ed by Jimmy. [[email or web address]] Performed By: #### 7 [id number], [id number] #### [facility] (DEFAULT) [address] [place] [address] BNP.on 02-17-2025 Natriuretic peptide B (Bld) [Mass/Vol] 5.9 pg/mL Normal 0.0-100.0 [facility] Comment on above: Result Comment: BNP results greater than 100 pg/mL are considered abnormal and suggestive of patients with CHF. Higher BNP concentrations measured in the first 72 hours after an acute coronary syndorme are associated with an increased risk of , myocardial infarction, and CHF. Performed By: #### 1 523414899, 4865221, 5629537, 6247030877, 7718438, 1060388, 5535595115, 6724490, 6152797942, 25038905 ####[facility] (DEFAULT)[address] [place] [address] CBC w/ Auto Diffon Erythrocyte distribution width (RBC) [Ratio] 14.8 % Normal 11.5-15.0 [facility] Comment on above: Performed By: #### 1 906245561, 3002017, 8457500, 7210247605, 8571904, 7452031, 2606377664, 1198873, 1364876558, 54012590 ####[facility] (DEFAULT)[address] [place] [address] Hematocrit (Bld) [Volume fraction] 35.3 % Normal 33.7-40.4 [facility] Comment on above: Performed By: #### 1 614432681, 3468183, 7243681, 2276478834, 5720681, 4350955, 8177468954, 2990948, 6335541475, 42056764 ####[facility] (DEFAULT)[address] [place] [address] Hemoglobin (Bld) [Mass/Vol] 11.8 g/dL Normal 11.3-15.9 [facility] Comment on above: Performed By: #### 1 743718413, 0010796, 8186383, 9546489394, 6855036, 6143051, 4304398805, 7562650, 9424328771, 78684769 ####[facility] (DEFAULT)[address] [place] [address] Man Diff? Auto Invalid Interpretation Code [facility] Comment on above: Performed By: #### 1 651335134, 5647807, 4181537, 7455519975, 2317686, 5633131, 8172006536, 3334844, 5405090860, 82069079 ####[facility] (DEFAULT)[address] [place] [address] MCH (RBC) [Entitic mass] 29 pg Normal 24-34 [facility] Comment on above: Performed By: #### 1 769980451, 9490301, 2288713, 5332372319, 3926511, 2181524, 8649665321, 4863693, 7567045847, 30878797 ####[facility] (DEFAULT)[address] [place] [address] MCHC (RBC) [Mass/Vol] 34 g/dL Normal 26-37 [facility] Comment on above: Performed By: #### 1 793094400, 0879478, 8687593, 5377624382, 7468510, 4255875, 8742400823, 4506731, 3820931397, 63908524 ####[facility] (DEFAULT)[address] [place] [address] MCV (RBC) [Entitic vol] 88 fL Normal 81-100 [facility] Comment on above: Performed By: #### 1 434376345, 1541934, 3164868, 6224310288, 9790381, 5255078, 7319072055, 0840187, 1339012269, 66709874 ####[facility] (DEFAULT)[address] [place] [address] 37926 Platelet 422 x10 Normal 138-427 [facility] Comment on above: Performed By: #### 1 444163216, 2213867, 1037839, 5723236644, 0028937, 8071903, 3081228965, 4671978, 1714117916, 57371022 ####[facility] (DEFAULT)[address] [place] [address] Platelet mean volume (Bld) [Entitic vol] 7.5 fL Normal 6.3-10.2 [facility] Comment on above: Performed By: #### 1 615868693, 2340623, 3497407, 9869600479, 8068541, 3943697, 6490915308, 3416000, 4407756015, 86778222 ####[facility] (DEFAULT)[address] [place] [address] RBC 4.02 x10 Normal 3.70-5.30 [facility] Comment on above: Performed By: #### 1 423085406, 8389433, 5217334, 5620975116, 7827879, 5027364, 5401565526, 0889109, 9080490803, 85081439 ####[facility] (DEFAULT)[address] [place] [address] 99898 WBC 6.9 x10 Normal 3.5-10.5 [facility] Comment on above: Performed By: #### 1 213416746, 8534634, 1357915, 2706718131, 5241571, 9987165, 2008648696, 4482965, 6272966694, 78553694 ####[facility] (DEFAULT)[address] [place], [place] [address] CMP Standardon 02-17-2025 eGFR Non AA >60 Invalid Interpretation Code [facility] Comment on above: Performed By: #### 1 744567312, 0739149, 1919773, 2160309803, 4250782, 5043526, 4559950698, 6397334, 2861948552, 01403457 ####[facility] (DEFAULT)[address] [place] [address] eGFR AA >60 Invalid Interpretation Code [facility] Comment on above: Performed By: #### 1 230847205, 7157868, 9968116, 9367272666, 7849540, 4967105, 0715489308, 3253345, 8878315765, 50811891 ####[facility] (DEFAULT)[address] [place] [address] Albumin [Mass/Vol] 4.1 g/dL Normal 3.5-5.0 [facility] Comment on above: Performed By: #### 1 144142728, 3984021, 4240144, 5106376851, 9773972, 7749031, 7081276382, 8433647, 4072424164, 62810063 ####[facility] (DEFAULT)[address] [place] [address] Alk Phos 66 IU/L Normal 32-91 [facility] Comment on above: Performed By: #### 1 124414301, 2660125, 5478448, 6034078912, 9453810, 7282933, 3986809261, 3169218, 4184144448, 59300596 ####[facility] (DEFAULT)[address] [place] [address] 85071 ALT [Catalytic activity/Vol] 15.0 U/L Normal 14.0-54.0 [facility] Comment on above: Performed By: #### 1 663400479, 8985476, 0323051, 1454630984, 7440031, 9677015, 4634652969, 3670522, 4027631181, 52107803 ####[facility] (DEFAULT)[address] [place] [address] 72788 AST [Catalytic activity/Vol] 21 U/L Normal 15-41 [facility] Comment on above: Performed By: #### 1 041322447, 0768763, 0469185, 9747639338, 6117685, 7521078, 9198632694, 7605559, 0043348996, 94660737 ####[facility] (DEFAULT)[address] [place] [address] 09397 Bili Total 0.5 mg/dL Normal 0.3-1.2 [facility] Comment on above: Performed By: #### 1 377896511, 4487229, 1322341, 5955726372, 3100279, 1710303, 9587083945, 1693166, 8199712419, 56517599 ####[facility] (DEFAULT)[address] [place] [address] 72212 Calcium [Mass/Vol] 8.7 mg/dL Low 8.9-10.3 [facility] Comment on above: Performed By: #### 1 360886267, 0843385, 8966257, 0877879949, 6869024, 2049080, 2048056924, 5550947, 3567610057, 23572379 ####[facility] (DEFAULT)[address] [place] [address] 26743 Chloride [Moles/Vol] 102 mmol/L Normal 101-111 [facility] Comment on above: Performed By: #### 1 950450526, 9029986, 4559641, 5337107489, 0292004, 2698096, 1084464941, 5324790, 4416981786, 23878691 ####[facility] (DEFAULT)[address] [place] [address] 19507 CO2 [Moles/Vol] 25 mmol/L Normal 21-32 [facility] Comment on above: Performed By: #### 1 175463915, 0323886, 1220060, 4309294783, 6950455, 6968456, 0154851138, 9660365, 7883253995, 03349325 ####[facility] (DEFAULT)[address] [place] [address] 44166 Creatinine [Mass/Vol] 0.70 mg/dL Normal 0.60-1.30 [facility] Comment on above: Performed By: #### 1 591763952, 7769288, 1608094, 6669458815, 3928434, 9453153, 1371515751, 5926589, 2884616966, 38951500 ####[facility] (DEFAULT)[address] [place] [address] 57546 Glucose [Mass/Vol] 107.0 mg/dL Normal 74.0-118.0 [facility] Comment on above: Performed By: #### 1 958974626, 6059119, 2940613, 7560309800, 3237773, 8940917, 7018065253, 8830857, 4969931327, 36043697 ####[facility] (DEFAULT)[address] [place] [address] 47444 Potassium [Moles/Vol] 3.7 mmol/L Normal 3.6-5.1 [facility] Comment on above: Performed By: #### 1 390458670, 6699198, 1976114, 9643763695, 8130494, 6015805, 4560981596, 1309011, 7865864338, 23069370 ####[facility] (DEFAULT)[address] [place] [address] 32368 Protein [Mass/Vol] 7.6 g/dL Normal 6.5-8.1 [facility] Comment on above: Performed By: #### 1 780105814, 5468980, 2009410, 7517872346, 9069807, 5453556, 1526253428, 8480255, 5579370023, 76382801 ####[facility] (DEFAULT)[address] [place] [address] 61089 Sodium [Moles/Vol] 134.0 mmol/L Low 136.0-144.0 [facility] Comment on above: Performed By: #### 1 432999152, 7453278, 2694870, 3918385137, 6461883, 5786359, 1601936490, 0618565, 2829170037, 25222213 ####[facility] (DEFAULT)[address] [place] [address] 00828 Urea nitrogen [Mass/Vol] 11 mg/dL Normal 8-26 [facility] Comment on above: Performed By: #### 1 614738977, 8551593, 4071523, 5160761696, 4529351, 9873649, 4167051361, 5328489, 8286984106, 68932180 ####[facility] (DEFAULT)[address] [place] [address] 23036 Albumin/Globulin [Mass ratio] 1.1 {ratio} Low 1.4-2.6 [facility] Comment on above: Performed By: #### 1 266856981, 3770579, 2916309, 4716612648, 9211511, 9853927, 7885363079, 2225076, 3248807192, 01655442 ####[facility] (DEFAULT)[address] [place] [address] Anion gap [Moles/Vol] 10.7 mmol/L Normal 5.0-19.0 [facility] Comment on above: Performed By: #### 1 000460560, 0441244, 9641179, 2352685950, 1235584, 4614718, 8271840214, 0294721, 2785629779, 07647487 ####[facility] (DEFAULT)[address] [place] [address] 31686 Globulin (S) [Mass/Vol] 3.5 g/dL Normal 1.5-4.3 [facility] Comment on above: Performed By: #### 1 963713042, 5757671, 4533396, 5031122475, 2867601, 8218118, 1579685675, 9201894, 8553111492, 37060264 ####[facility] (DEFAULT)[address] [place] [address] 10055 Osmolality 268 mOsm/L Invalid Interpretation Code [facility] Comment on above: Performed By: #### 1 776290858, 5282126, 2913133, 4181985347, 9459166, 8696131, 4648213302, 1415684, 1195930816, 55833021 ####[facility] (DEFAULT)[address] [place] [address] Urea nitrogen/Creatinine [Mass ratio] 15.7 mg/mg Normal 4.6-16.2 [facility] Comment on above: Performed By: #### 1 487818838, 2357610, 4449358, 0797143758, 2767093, 7004602, 8636366598, 3815050, 1623232215, 22546933 ####[facility] (DEFAULT)[address] [place] [address] Breakpoint Chem Normal [facility] Comment on above: Performed By: #### 1 619270818, 4923312, 4808961, 3440100267, 9180016, 5598096, 6550611666, 5535657, 0641859720, 49098236 ####[facility] (DEFAULT)[address] [place] [address] COVID/Flu/RSV (GeneXpert)on 02-17-2025 Flu A (GXpert COVFLURSV) Negative Normal Negative [facility] Comment on above: Performed By: #### 7 736472173, 6321408488 #### [facility] (DEFAULT) [address] [place] [address] Flu B (GXpert COVFLURSV) Negative Normal Negative [facility] Comment on above: Performed By: #### 7 [id number], 9990973146 #### [facility] (DEFAULT) [address] [place] [address] RSV (GXpert COVFLURSV) Negative Normal Negative [facility] Comment on above: Performed By: #### 7 810576074, 4036954791 #### [facility] (DEFAULT) [address] [place] [address] SARS-CoV-2 (COVID-19) RNA TATY+probe Ql (Unsp spec) Negative Normal Negative [facility] Comment on above: Result Comment: Perf ormed by PCR methodology. Performed By: #### 7 910142960, [id number] #### [facility] (DEFAULT) [address] [place] [address] [place] [address] [address] Head or Brain w/o Contras ton 02-17-2025 CT Head or Brain w/o Contrast EXAMINATION: CT Head or Brain w/o Contrast HISTORY: syncope seizure COMPARISON: None. TECHNIQUE: CT examination of the head without IV contrast. Dose reduction techniques were achieved by using automated exposure control and/or adjustment of mA and/or kV according to patient size and/or use of iterative reconstruction technique. FINDINGS: There is no brain parenchymal mass, mass effect, or midline shift. There is no brain parenchymal hemorrhage. There is no abnormal extra-axial collection. Ventricles, basal cisterns, and sulci are normal. Skull, scalp, orbits, and paranasal sinuses are normal. There is no mastoid effusion. IMPRESSION: Unremarkable CT brain Final Dictated by: Leela Sanchez MD Dictated DT/TM: 02/17/25 1:03 Signed (Electronic Signature): Leela Sanchez MD 02/17/25 1:05 pm Technologist: ELLEN PINON Normal [facility] D-Dimeron 02-17-2025 D-Dimer 0.23 mg/L FEU Normal 0.19-0.50 [facility] Comment on above: Result Comment: The INNOVANCE D-Dimer assay (Cutoff Value of > 0.50) is intended for the use as an aid in the diagnosis of venous thromboembolism (VTE) deep vein thrombosis (DVT) or pulmonary embolism (PE). The measurement of D-Dimer should not be used as an aid in the diagnosis of VTE in patients with: ? Therapeutic dose anticoagulant therapy for >24 hours ? Fibrinolytic therapy within previous 7 days ? Trauma or surgery within previous 4 weeks ? Disseminated malignancies ? Aortic aneurysm ? Sepsis, sever infections, pneumonia, severe skin infections ? Liver cirrhosis ? Performed By: #### 1 [id number], 8623147, 9402056, 4440132240, 9749192, 8149486, 4419497965, 3043570, 8318133834, 08675545 ####[facility] (DEFAULT)[address] [place] [address] Extra Redon 02-17-2025 Tube Collected Yes Invalid Interpretation Code [facility] Comment on above: Performed By: #### 1 501729825, 2695797, 1664349, 5692215082, 8855440, 3279539, 8363410402, 4784241, 0954535989, 36369629 ####[facility] (DEFAULT)[address] [place] [address] Lactic Acidon 02-17-2025 Lactic Acid 10.9 mg/dL Normal 4.5-19.8 [facility] Comment on above: Performed By: #### 2 513564 ####[facility] (DEFAULT)[address] [place] [address] 75364 Magnesiumon 02-17-2025 Magnesium [Mass/Vol] 1.78 mg/dL Low 1.80-2.50 [facility] Comment on above: Performed By: #### 1 666073473, 1041008, 7460438, 6744420513, 3941863, 0484933, 8914704519, 6555352, 2805603929, 69711261 ####[facility] (DEFAULT)[address] [place] [address] 21725 PTon 02-17-2025 INR Coag (PPP) [Relative time] 0.97 {INR} Normal 0.91-1.11 [facility] Comment on above: Performed By: #### 1 646956697, 6005185, 6052609, 2707558931, 9872990, 9780254, 2386241090, 5076063, 9411422968, 98094901 ####[facility] (DEFAULT)[address] [place] [address] PT 10.3 second(s) Normal 9.7-11.8 [facility] Comment on above: Performed By: #### 1 972343647, 8560164, 9530722, 7502726665, 7391273, 9453048, 9233962391, 0733198, 3180099976, 34023110 ####[facility] (DEFAULT)[address] [place] [address] 21923 TnI HSon 02-17-2025 Troponin I High Sensitivity <2.3 Normal <=15.0 [facility] Comment on above: Order Comment: To be done 1 hour after first Troponin HS Performed By: #### 5 [id number] ####[facility] (DEFAULT)[address] [place] [address] Troponin I High Sensitivity 2.6 pg/mL Normal <=15.0 [facility] Comment on above: Performed By: #### 1 851891495, 8794490, 0315122, 5937986656, 4595374, 4400627, 5040863651, 9352341, 1372140160, 07285137 ####[facility] (DEFAULT)[address] [place] [address] UA Cvokk2nf 02-17-2025 UA Amorph. 1+ [facility] Comment on above: Order Comment: Urina lysis Microscopic order added on by [employer] Expert Rules system. Performed By: #### 5 8009615, [id number] ####[facility] (DEFAULT)[address] [place] [address] UA Bacteria Rare [facility] Comment on above: Order Comment: Urina lysis Microscopic order added on by [employer] Expert Rules system. Performed By: #### 5 [id number], [id number] ####[facility] (DEFAULT)[address] [place] [address] UA RBC None Seen [facility] Comment on above: Order Comment: Urina lysis Microscopic order added on by [employer] Expert Rules system. Performed By: #### 5 [id number], [id number] ####[facility] (DEFAULT)[address] [place] [address] UA Squam Epi Moderate [facility] Comment on above: Order Comment: Urina lysis Microscopic order added on by [employer] Expert Rules system. Performed By: #### 5 8173210, [id number] ####[facility] (DEFAULT)[address] [place] [address] UA WBC 0-2 [facility] Comment on above: Order Comment: Urina lysis Microscopic order added on by [employer] Expert Rules system. Performed By: #### 5 [id number], [id number] ####[facility] (DEFAULT)[address] [place], [place] [address] UA w Culture if Ind Standard on 02-17-2025 Breakpoint UA Normal [facility] Comment on above: Performed By: #### 5 [id number], [id number] ####[facility] (DEFAULT)[address] [place] [address] 17023 Color (U) Yellow Normal [facility] Comment on above: Performed By: #### 5 8629167, [id number] ####[facility] (DEFAULT)[address] [place] [address] 32862 Culture? No Normal [facility] Comment on above: Result Comment: Resu lt created by rule GL_MAGR_ADD_UA_CULT Result created by rule GL_MAGR_ADD_UA_CULT1 Performed By: #### 5 [id number], [id number] ####[facility] (DEFAULT)[address] [place] [address] Glucose (U) [Mass/Vol] Negative Normal [facility] Comment on above: Performed By: #### 5 4185015, [id number] ####[facility] (DEFAULT)[address] [place] [address] 24995 Ketones Ql (U) Negative [facility] Comment on above: Performed By: #### 5 [id number], [id number] ####[facility] (DEFAULT)[address] [place] [address] 33520 Micro? Indicated Invalid Interpretation Code [facility] Comment on above: Result Comment: Resu lt created by rule GL_MAGR_ADD_UA_MICRO Performed By: #### 5 [id number], [id number] ####[facility] (DEFAULT)[address] [place] [address] 25744 UA Bilirubin Negative Normal [facility] Comment on above: Performed By: #### 5 [id number], [id number] ####[facility] (DEFAULT)[address] [place] [address] 39957 UA Blood Negative Normal NEGATIVE [facility] Comment on above: Performed By: #### 5 [id number], [id number] ####[facility] (DEFAULT)[address] [place] [address] 93620 UA Clarity CLEAR Normal CLEAR [facility] Comment on above: Performed By: #### 5 [id number], [id number] ####[facility] (DEFAULT)[address] [place] [address] 93224 UA Leuk Est TRACE Abnormal NEGATIVE [facility] Comment on above: Performed By: #### 5 [id number], [id number] ####[facility] (DEFAULT)[address] [place] [address] 31036 UA Nitrite Negative Normal NEGATIVE [facility] Comment on above: Performed By: #### 5 [id number], [id number] ####[facility] (DEFAULT)[address] [place] [address] 22050 UA pH 6.5 Normal 5-8 [facility] Comment on above: Performed By: #### 5 [id number], [id number] ####[facility] (DEFAULT)[address] [place] [address] 44814 UA Protein Negative Normal NEGATIVE [facility] Comment on above: Performed By: #### 5 [id number], [id number] ####[facility] (DEFAULT)[address] [place] [address] 57362 UA Spec Grav 1.010 Normal 1.001-1.035 [facility] Comment on above: Performed By: #### 5 [id number], [id number] ####[facility] (DEFAULT)[address] [place] [address] 14758 UA Urobilinogen 0.2 mg/dL Normal 0.2-1.0 [facility] Comment on above: Performed By: #### 5 [id number], [id number] ####[facility] (DEFAULT)[address] [place] [address] 34747 Urine Source Clean Catch Normal [facility] Comment on above: Performed By: #### 5 [id number], [id number] ####[facility] (DEFAULT)[address] [place] [address]43 XR Chest 1 View Frontalon XR Chest 1 View Frontal HISTORY: Chest pain TECHNIQUE: Single view COMPARISON: 02/04/2025 FINDINGS: Cardiomediastinal silhouette is normal. Lungs are clear. No pleural or osseous abnormalities are seen. IMPRESSION: No acute process identified. Final Dictated by: Sean Wood MD Dictated DT/TM: 02/17/25 1:07 Signed (Electronic Signature): Sean Wood MD 02/17/25 1:08 pm Technologist: MARIA FERNANDA PINON Normal [facility] hCG Quantitativeon hCG Quantitative <0.6 Normal 0.0-0.6 [facility] Comment on above: Result Comment: Post -Menopausal Reference Range is: 0.1-11.6 mIU/mL Performed By: #### 1 [id number], [id number], 0701148, [id number], 8892084, 5643522, 5668468380, 9316895, 3333238645, 11499612 ####[facility] (DEFAULT)[address] [place] [address] Coding Summaryon 02-13-2025 Coding Summary HTMLBase 64 OyljfjdnTWh3qEt+PGhlYWQ +KV0FMCBbM52clKLajA4rN4 NMTElOSywgQVBQTElOSyIgb uYgUE9hoOGgAACn IC8+RE8hLSBhRtsvkCLiy1X 9oFM9O21acx5eANzqyVV1AR IaZbLwjxdjj5wwvLq0KRugU mluOyBt WGQhvK66OQO1jY99Cp30pWZ keGUmz1plyRz7XfCaLAHuBL F0xGqjDFnnr0AdWRCeW46hw XKbe3O8 RUEvvGdewYWlHoGdpEG7pG4 lXFjheigqq0ejnnmxAvl7ai 82uZCms9Z8cFA0K0AknbL6A GJvbGQg CscvlZQHuH1mekonm6tniya gRyJmULXsCLa4RBj3EICbaL tmPyMgXW74UID3SFSoiiDrA 2FsLWFs xWtvUzS6c1L2Fn4GO9KVSbu zG2OGCKHWSDwoeOD+PC90cj 48U4CaBkgrEjc4KODeQRN9o LP5qD3y HUZrFOkjj9I7bSP1O5MjccK oiy5zh4lqIFTzPCyrX24nnY Etk5D0ZBRqrEC6AECuhRiiK iBzaG93 Oyc+NHHkpEhdr4NuWtovu4h tr4xerLe1XvanTBRduwTloK fePEL2f0VdFg0iJXPplRW5j QI5lN2j CfWyImE6JEedD923NuFahFK dSsrtA41zQ7ZclVU+PHRyPj l0HRPdjIavKL2pY6FwHRHxj mctbGVm sNvaLX3cIKLydzevNFHsgF2 kMDGrU6q7CoZtZrS2GYcuZ3 AcCVWjotcvKk64jG9lKlMqS hE2EJmq K6HlplR0PMApkTQrRVdnQBK 9X14ge8W3ZVBwRYPmIBY7wM A1bC8hpYgzhxawtPWrfGsmp mVydGlj ZWhdKZrhS945QZDwgDtkNzJ vZGluZyBEYXRlOiAgMDQvMD cvMjAyNTwvdGQ+GZFsOCC6h WxlPSAn nMXlYBxuYz4ebRylnTfsRR9 aUURuvznsOOItmJ8nXEWnnX EpkJjeYQ9eELNtqilyi747L iAxMHB0 WLXxeLRaF8IlvN0dVhAuETC gFOTjC0CwoZOmRVwhX873NU tfOxQ6KZZgzzJxP0MlFNVub WduOiB0 h0E2Pp4Cz1RzxgejC6CgoDF sTdHtXkjjDCa6A5PfDdxarF I+KJ90QUZnGB93SAz9UET8o WxlPSdi HXFhC7XixV1mVoVdJFXjTFH kOyc+PHRhYmxlIHdpZHRoPS yqDNJdSvDlsIhbHH4sMf1fQ GVyLWNv lMelpDVwKbCdd0msQJGjIMq sTH1fcLgjL8UlyJJ5JCExr5 p4Px57Y96vO8QbeZS+PGNvb DE9mZE6 qF9wQhFfYdS0MAdsB007CoS xgNEkIydix0zej7mylZr5Ut Y7ANHjtyHfvAjqPUU5u9RcA a61J49u IHdpZHRoPSIxNSUiIHZhbGl iax8qoW6cEz4+YKCitZC1qZ W3pF1zShHgHgA1LArrB354O nRvcCIv Wwxsl0mwo4wgjMp4TlRtPLS qztKjtZzqTLG2f3QuCk13Y8 AslXpsp1MjYxu3ly61dEYya 4W0ySM4 F1XkZKVcsjhatTUcvBanPI8 pTCEoefsaAOImiL9zPUGlZ4 w1LzFsUkM9ZJasU3XnwoQ6H GJvbGQg SBUegAVMcC9vburrh5ghcgw dHhSlSOMaBQn2VOv5NQZylY ljQnSmZHD6RaK4YMX8bCVfr P4urRjo vaarqJ3sZll+HXA6yXErpXC FAH0wJurrkZV+VDPlNVD2tQ ehTZqmVPWyeA6dZXHpM2k5Z iAwLjA1 HFbdK2AlvhQ1WCPmrAJoVSG bsIYZdC1hivkdq3lsyvcgZy GoKETmUNr9GXz5QGPlaCtsH iBsZWZ0 GpP9RFY3tILkpL9ueMbrwlf bhT7eJdm+DwzrjBxkVBW8UU x4D8VlWiy9HEJwiSynCN4ll GFkZGlu Ws4jeKczkDigVW1iNBQffsu sq138OmAtc7gcKFGdhPZgIR yyPTU6E38vp5K4ETIrBETzM IS8vJV4 pI5jaUbrhpcagBYwwSfdohQ zgGztVWaeOVrxM538GHXrxL kqQqNrPWw6Z8IwHgw4UJNrt WxlYE6b bIQxLIuaAe3gpByiuVahWS2 lGWCosezwd814XpRly3syLM XsmZDmHNzcZUS0E74eq5F8C CMwMDAw YKT9sBT3nL6sdZtoiqxkuQR mdDsgdmVydGljYWwtYWxpZ2 76OKSxfWaxDjEckSh6G4EcY ls1VIPr pOzgYI7atWXpXNvnZj7txMj dkHygJA3oPYLfqktvo701Rr Tyo3woTYRavMTpWZuoSFP4V 07in9Z8 VNSlJCYwAEF6pXG6cW9zmKz nbjogbGVmdDsgdmVydGljYW tqAAkwN065KUUdbBhyHdIzy GllbnQg RPgvZAl4T1LjElmrqTY+PC9 7WQRkIK97bAIfgFAcj6ryvS a6QjYxBGEvDWB2tUkaALqoz 3JkZXIt H04bfSDcf8D8IOFtiInbfYQ fQtYvqLJ1eZ9uCOdrjywjn1 rxomplQxdfr6rapj43dE06U 29sIHdp ZHRoPSIzMCUiIHZhbGlnbj0 ouE8eGv8+WIJjiXJ2nUE4qQ 7fDXDgHkT3KUvcN415VjIbu CIvPjxj w8hnj8rlrOf4NmV3DWVqxvK sgPveBWP3d3XvFo17B57yBV dpZHRoPSIyMCUiIHZhbGlnb p0vnD8h Ii8+MFXkaLL5vCV7xN9bJpL gBbD8BHuxE149IhLzhMCuQq viC12iZ7PpoHO+RNPhVbt9G CBzdHls TA8gtFAhGNrhPi0cVDI4JoB iHaTyLSezC1SyXNLnnrgvti opuEE4HYJoFHUytB45Fr5rk DogMTBw zZYBvT2wactiq6cypgtjDzF sHDKkDVm3MFz5IFWaiLfvOp PgGIS3KfU6YCB7nHYroQ0sq Glnbjog vR5pB4ZeGSKuxykbCe88gK5 xNfKeHnA9NWezDel+U1RBTk uNXAseW9uAGQHVIXIGJW21N V73cUUd y0N4gAX8V0MgZBIidtapncx tnIL6UWHyJOBifE83xDYqNJ gbPu1ms0W1a058YRTrETXyv R28Dx0z jBeoZCWyjPFLyT6nzrfbn1t tzgtfWtRzWVCkRZj7CJg0SC EyiRvzNhWaTHQ1DkR9BMB5s PIxwT6i rMobsxmidL6fDlu+MDcvMTk vMjAwMDwvdGQ+CNNbQLE9wB doXVmxCMPkeK4xNIHuB5z8F iAwLjA1 DHslU4EpGONqtaksPw33gD9 sKiOoZhF7DAqoW9OcfyV6AH FpnRLdFJfiQPC1T67uj1T6I CMwMDAw SJO7xLN1cT7znZkmstzhiQK mdDsgdmVydGljYWwtYWxpZ2 08MBVieNpwObY5VVnbNCAaO U14LB42 fPZpx5I2bPW5U6GzLGSmlzj ggakngOZ0UBRbRZFwzS36cC SzYGnuWn1oc6X2o958REOpD DUwaW47 An2tcJcgOAFdmJHPyX1jvre im7wvfhtmKlHbMETtMIj5HA v7XELlyGgsWhKoSBK5YoX6B JH9tOQr uV5jhAddaxqdeI7cAmu+RkV LNEuBGI47WK58nMEfv0V7mX B9H3KcPCHkeuoclesoiHK9O DAuMDUw bH13kRFaJOcdUo0tu8V0e60 4HCMhPUKhqH13Uh0irLimRR RluOUSbM6aojmdh7srekwqM zAwMDAw QMm8YYv8LWJsdUozCgUdITR 5MqJ8VQX6vVNolS2hgGpuhl fcqX7hTvp+EF2gddnjzmG4O A52NY01 H7ZtUglhzAYbxTB+PHRhYmx lIHdpZHRoPScxMDAlJyBzdH knBZ2wFl3pRXQgOILztWwej HNlOiBj m3mcMLWkPKpnIW2ddEulA3E kmKF3JZVsj9a2Rg68R98hQ7 JvdXA+XYCntIX1oBL7sW1bP zAlIiB2 VJfnN051ZmWluJTzIuoko1p uf9lesYv5RtYkPUErwdMspD vnPNR5t1ChDx53W93gODdcE HRoPSIy JTFrSFWooLbmdg4xdM9yHh1 +GISclRT9mCP9sX9qHjUuXd W4MJdjB858JmUnoSTlXcasA 83pL3Cn dXA+DXJcBnr4SYHgxEzoYF5 caWTyXXmpRm5eMUQ2NiLsIs JbZSqgS6IhYXRfasnazbsmr OC1NTRj SSRbyT77Oz6pfTltJp1tOYS cYMB8ABVqzGTvZ9SvkY4kPh OdRWDcMLFdL2DnfZTfLGleU 246IGxl BtE6EXKedoRkM7AdVWNkuVo gZzA1u5L7Wq7VxKvhgGThHY 4eCdOuSMd1L4LdMdh4UQIbw EkwDK6p lNMnGZweOu1bdOybtAdvQV9 aFJRgqkqak099ObEod2hcQI RbdFZfEGmwZAE1P87ca2O9C CMwMDAw WFX3lEM5nZ6dnJvozxbnfFW mdDsgdmVydGljYWwtYWxpZ2 04RJPzkCvjAnAGUpg8A7PiP za4QHFb xPhvFI0xjSBaKVkgRq1ioYc plQrzSH7tLNIluszgs928Np Asv7ixIOAbtJIfZTfaRXZ6E 84ux8C3 PSLyOGQjZSU2eWO9mF2rfFf nbjogbGVmdDsgdmVydGljYW imULlpT618FMXapNqpDn3UI oo5E1Ki Ovd7CGBztTumRH2qnLToXCf wWb8ykTlhnJjuAO5rNJQsca xau154JnNca8ekXZDgnWSmW GltZXM7 D78og7E7VQTxHWIbHNF3uCV 5eT1fzNilqxwlfOJtyPjsic WkeGljRNeoMYxbF367WIVsi DsnPlBh eWVyOjwvdGQ+ZS87mx50A2A aNnzjMkn1HRBbUOQ7vIS3aW 4tTYPyVKqnd5S8jHP5F6Znl bGgji7q b2x (more content not included)... Normal [facility] .Auto Diff 02-04-2025 Auto Spink % 5 % Normal 11-20 [facility] Comment on above: Performed By: #### 7 893637, [id number], 737223975, 6096566, 56943678, 3048597365, 3973449, 7927450509 #### [facility] (DEFAULT) [address] [place] [address] 91336 Baso Abs# 0.1 x10 Normal 0.0-0.2 [facility] Comment on above: Performed By: #### 7 864124, [id number], 026249869, 2428581, 43680233, 8697860064, 0841407, 3270564570 #### [facility] (DEFAULT) [address] [place] [address] 59197 Basophils/100 WBC (Bld) 0.8 % Normal 0.2-2.0 [facility] Comment on above: Performed By: #### 7 196479, 7449103126, 120116733, 0794551, 92621155, 1928598725, 9283521, 2982969084 #### [facility] (DEFAULT) [address] [place] [address] 46539 Eos Abs# 0.1 x10 Normal 0.0-0.4 [facility] Comment on above: Performed By: #### 7 417271, 7160404083, 382880225, 9063183, 92220194, 5102843560, 5185633, #### [facility] (DEFAULT) [address] [place] [address] 80446 Eosinophils/100 WBC (Bld) 1.6 % Normal 0.9-4.0 [facility] Comment on above: Performed By: #### 7 819706, 1530458653, 005632492, 9132412, 58582172, 8143217485, 0856726, #### [facility] (DEFAULT) [address] [place] [address] 40948 Lymph Abs# 3.2 x10 High 1.3-2.9 [facility] Comment on above: Performed By: #### 7 286248, 0557235258, 485682398, 4875636, 09530090, 5784005872, 4139675, 7651467367 #### [facility] (DEFAULT) [address] [place] [address] 97356 Lymphocytes/100 WBC (Bld) 35 % Normal 14-48 [facility] Comment on above: Performed By: #### 7 595023, 4839507746, 481593944, 3228439, 78857082, 5492783318, 8611049, 3024058178 #### [facility] (DEFAULT) [address] [place] [address] 99031 Spink Abs# 0.5 x10 Normal 0.0-0.8 [facility] Comment on above: Performed By: #### 7 889949, 4741145431, 064870005, 3533167, 99475690, 3079083591, 2177847, 5408236199 #### [facility] (DEFAULT) [address] [place] [address] 04900 Neut Abs# 5.2 x10 Normal 1.5-9.2 [facility] Comment on above: Performed By: #### 7 595092, 2517111009, 254978554, 0049278, 35655719, 2478955328, 1334609, 6275522997 #### [facility] (DEFAULT) [address] [place] [address] Neutrophils/100 WBC (Bld) 57 % Normal 44-88 [facility] Comment on above: Performed By: #### 7 646459, 8241403935, 930858050, 4313281, 51210955, 1303293417, 0610533, 5195538018 #### [facility] (DEFAULT) [address] [place] [address] 74570 .QC SARS-CoV-2 (COVID-19)/Fl u/RSV (GeneXpert)on 02-04-2025 [facility] Comment on above: Order Comment: Order ed by Jimmy. [[email or web address]] Performed By: #### 7 [id number], [id number] #### [facility] (DEFAULT) [address] [place] [address] 09469 BNP.on 02-04-2025 [facility] Comment on above: Performed By: #### 7 488676, 9627260661, 912313218, 7064514, 06605195, 9726372751, 3210992, 9335584285 ####[facility] (DEFAULT)[address] [place] [address] 76279 Natriuretic peptide B (Bld) [Mass/Vol] 31.1 pg/mL Normal 0.0-100.0 [facility] Comment on above: Result Comment: BNP results greater than 100 pg/mL are considered abnormal and suggestive of patients with CHF. Higher BNP concentrations measured in the first 72 hours after an acute coronary syndorme are associated with an increased risk of , myocardial infarction, and CHF. Performed By: #### 7 910568, 8722431404, 102294374, 6173978, 02047138, 5621373376, 2372261, 9157759791 ####[facility] (DEFAULT)[address] [place] [address] CBC w/ Auto Diffon Erythrocyte distribution width (RBC) [Ratio] 14.9 % Normal 11.5-15.0 [facility] Comment on above: Performed By: #### 7 399910, 7388495085, 086675979, 0032697, 00284498, 7587978879, 3193653, 8868754137 #### [facility] (DEFAULT) [address] [place] [address] Hematocrit (Bld) [Volume fraction] 32.0 % Low 33.7-40.4 [facility] Comment on above: Performed By: #### 7 569815, 1367152182, 162273280, 3674107, 51685938, 5534180416, 3860665, 2287004490 #### [facility] (DEFAULT) [address] [place] [address] Hemoglobin (Bld) [Mass/Vol] 10.9 g/dL Low 11.3-15.9 [facility] Comment on above: Performed By: #### 7 783600, 7289205982, 752026229, 0704153, 47848816, 4582052203, 5330712, 8445752772 #### [facility] (DEFAULT) [address] [place] [address] Man Diff? Auto Invalid Interpretation Code [facility] Comment on above: Performed By: #### 7 937555, 5527737252, 244638381, 1238444, 24287597, 4288590378, 7950434, 5831920572 #### [facility] (DEFAULT) [address] [place] [address] MCH (RBC) [Entitic mass] 30 pg Normal 24-34 [facility] Comment on above: Performed By: #### 7 423693, 7356038025, 030818016, 7700106, 04935847, 0512788846, 9966371, 1673010229 #### [facility] (DEFAULT) [address] [place] [address] 36379 MCHC (RBC) [Mass/Vol] 34 g/dL Normal 26-37 [facility] Comment on above: Performed By: #### 7 511761, 9918327357, 135039106, 9840979, 92864731, 3665096987, 5012384, 1310848504 #### [facility] (DEFAULT) [address] [place] [address] 28761 MCV (RBC) [Entitic vol] 87 fL Normal 81-100 [facility] Comment on above: Performed By: #### 7 590494, 7469231336, 409260275, 6221870, 41269694, 8090230337, 5592039, 2523864066 #### [facility] (DEFAULT) [address] [place] [address] 80953 Platelet 353 x10 Normal 138-427 [facility] Comment on above: Performed By: #### 7 609762, 0172147095, 453172898, 4081299, 18759152, 0401397374, 0642926, 8631911328 #### [facility] (DEFAULT) [address] [place] [address] 36648 Platelet mean volume (Bld) [Entitic vol] 7.9 fL Normal 6.3-10.2 [facility] Comment on above: Performed By: #### 7 639868, 6270846308, 548491211, 3727919, 35156115, 2490830268, 9415289, 1373090445 #### [facility] (DEFAULT) [address] [place] [address] 76831 RBC 3.67 x10 Low 3.70-5.30 [facility] Comment on above: Performed By: #### 7 348859, 3032671912, 441593060, 3885415, 13867690, 7099874394, 2730459, 7757004559 #### [facility] (DEFAULT) [address] [place] [address] 34927 WBC 9.1 x10 Normal 3.5-10.5 [facility] Comment on above: Performed By: #### 7 936257, 4699505032, 817646771, 4025053, 13235532, 2327690859, 2001472, 9655036683 #### [facility] (DEFAULT) [address] [place] [address] CMP Standardon 02-04-2025 eGFR Non AA >60 Invalid Interpretation Code [facility] Comment on above: Performed By: #### 7 589003, 6588340266, 422926589, 2999187, 09069021, 8425303092, 1417412, 8899213160 ####[facility] (DEFAULT)[address] [place] [address] eGFR AA >60 Invalid Interpretation Code [facility] Comment on above: Performed By: #### 7 270503, 8261693752, 537232446, 1101350, 63742982, 6625527484, 3430574, 6626290989 ####[facility] (DEFAULT)[address] [place] [address] Albumin [Mass/Vol] 3.7 g/dL Normal 3.5-5.0 [facility] Comment on above: Performed By: #### 7 889062, 2517703329, 683257308, 9399486, 42500378, 1126329940, 9415139, 5818489231 ####[facility] (DEFAULT)[address] [place] [address] Albumin/Globulin [Mass ratio] 1.1 {ratio} Low 1.4-2.6 [facility] Comment on above: Performed By: #### 7 652527, 4103079618, 207215500, 2454091, 64365284, 6585186262, 0489324, 3362355173 ####[facility] (DEFAULT)[address] [place] [address] 43164 Alk Phos 67 IU/L Normal 32-91 [facility] Comment on above: Performed By: #### 7 433002, 8797430414, 849436477, 9021867, 98460390, 2538880820, 5809129, 1875161928 ####[facility] (DEFAULT)[address] [place] [address] 92075 ALT [Catalytic activity/Vol] 19.0 U/L Normal 14.0-54.0 [facility] Comment on above: Performed By: #### 7 548363, 4112059140, 118655606, 6938536, 65255458, 9682022035, 9851862, 4264972263 ####[facility] (DEFAULT)[address] [place] [address] 59477 Anion gap [Moles/Vol] 12.3 mmol/L Normal 5.0-19.0 [facility] Comment on above: Performed By: #### 7 151187, 3106420343, 353699904, 8333683, 01831377, 7642988793, 2849678, 4141683049 ####[facility] (DEFAULT)[address] [place] [address] 18473 AST [Catalytic activity/Vol] 23 U/L Normal 15-41 [facility] Comment on above: Performed By: #### 7 737717, 4657212314, 541838978, 0938414, 83017441, 9805221857, 5049597, ####[facility] (DEFAULT)[address] [place] [address] 84307 Bili Total 0.3 mg/dL Normal 0.3-1.2 [facility] Comment on above: Performed By: #### 7 516475, 0603239702, 797509381, 4007233, 00768257, 5433535998, 3329587, ####[facility] (DEFAULT)[address] [place] [address] 84624 Calcium [Mass/Vol] 9.0 mg/dL Normal 8.9-10.3 [facility] Comment on above: Performed By: #### 7 055832, 4370916543, 162381023, 4165995, 30384879, 5227976860, 3281869, 8251251593 ####[facility] (DEFAULT)[address] [place] [address] 10992 Chloride [Moles/Vol] 101 mmol/L Normal 101-111 [facility] Comment on above: Performed By: #### 7 391036, 5120816496, 126532917, 9809227, 35005815, 5582274591, 2477639, 1574267144 ####[facility] (DEFAULT)[address] [place] [address] 17317 CO2 [Moles/Vol] 26 mmol/L Normal 21-32 [facility] Comment on above: Performed By: #### 7 721921, 2446899633, 718539632, 0302807, 45533120, 2478673740, 7205007, 8726497156 ####[facility] (DEFAULT)[address] [place] [address] 74971 Creatinine [Mass/Vol] 0.72 mg/dL Normal 0.60-1.30 [facility] Comment on above: Performed By: #### 7 752882, 2134273705, 227244010, 5620095, 15272921, 8536064048, 3407370, ####[facility] (DEFAULT)[address] [place] [address] 44198 Globulin (S) [Mass/Vol] 3.1 g/dL Normal 1.5-4.3 [facility] Comment on above: Performed By: #### 7 386363, 9990526009, 686964900, 8385122, 17900720, 1095635211, 5485726, 5824651274 ####[facility] (DEFAULT)[address] [place] [address] 90082 Glucose [Mass/Vol] 102.0 mg/dL Normal 74.0-118.0 [facility] Comment on above: Performed By: #### 7 063900, 8321034852, 292359846, 5783314, 63853644, 8193040096, 6155934, 5481905090 ####[facility] (DEFAULT)[address] [place] [address] 01250 Osmolality 274 mOsm/L Invalid Interpretation Code [facility] Comment on above: Performed By: #### 7 988099, 1287264638, 965523324, 0760735, 57622522, 3082474526, 9340784, 6685345179 ####[facility] (DEFAULT)[address] [place] [address] 77037 Potassium [Moles/Vol] 3.3 mmol/L Low 3.6-5.1 [facility] Comment on above: Performed By: #### 7 310728, 1600580161, 309267859, 5980650, 57848514, 4190969327, 8414780, ####[facility] (DEFAULT)[address] [place] [address] 36736 Protein [Mass/Vol] 6.8 g/dL Normal 6.5-8.1 [facility] Comment on above: Performed By: #### 7 730402, [id number], 890884592, 3902833, 99123887, [id number], 6854217, ####[facility] (DEFAULT)[address] [place] [address] 66078 Sodium [Moles/Vol] 136.0 mmol/L Normal 136.0-144.0 [facility] Comment on above: Performed By: #### 7 139725, [id number], 947721543, 6853661, 95559277, [id number], 5529476, ####[facility] (DEFAULT)[address] [place] [address] 61947 Urea nitrogen [Mass/Vol] 19 mg/dL Normal 8-26 [facility] Comment on above: Performed By: #### 7 690319, [id number], 725665477, 2195386, 47631682, 9730164522, 9778522, 6464794546 ####[facility] (DEFAULT)[address] [place] [address] 34750 Urea nitrogen/Creatinine [Mass ratio] 26.3 mg/mg High 4.6-16.2 [facility] Comment on above: Performed By: #### 7 870000, [id number], 417891855, 6026080, 91437290, 0374971821, 7939018, ####[facility] (DEFAULT)[address] [place] [address] 47733 Breakpoint Chem Normal [facility] Comment on above: Performed By: #### 7 404707, [id number], 067648629, 2154459, 03479540, 8406317189, 5608784, 3816784074 ####[facility] (DEFAULT)[address] [place] [address] 47721 COVID/Flu/RSV (GeneXpert)on 02-04-2025 Flu A (GXpert COVFLURSV) Negative Normal Negative [facility] Comment on above: Performed By: #### 7 [id number], [id number] #### [facility] (DEFAULT) [address] [place] [address] 06748 Flu B (GXpert COVFLURSV) Negative Normal Negative [facility] Comment on above: Performed By: #### 7 [id number], [id number] #### [facility] (DEFAULT) [address] [place] [address] 32898 RSV (GXpert COVFLURSV) Negative Normal Negative [facility] Comment on above: Performed By: #### 7 [id number], [id number] #### [facility] (DEFAULT) [address] [place] [address] 47524 SARS-CoV-2 (COVID-19) RNA TATY+probe Ql (Unsp spec) Negative Normal Negative [facility] Comment on above: Result Comment: Perf ormed by PCR methodology. Performed By: #### 7 [id number], [id number] #### [facility] (DEFAULT) [address] [place] [address] 04209 Extra Greenon 02-04-2025 Tube Collected Yes Invalid Interpretation Code [facility] Comment on above: Performed By: #### 7 602942, [id number], 374989227, 2890450, 56379986, 6767252366, 4041554, [id number] #### [facility] (DEFAULT) [address] [place] [address] 68947 Magnesiumon 02-04-2025 Magnesium [Mass/Vol] 1.61 mg/dL Low 1.80-2.50 [facility] Comment on above: Performed By: #### 7 540643, 8095128555, 480963159, 0213844, 54514873, 9106327863, 1877862, 6344902630 ####[facility] (DEFAULT)[address] [place] [address] 57181 PTon 02-04-2025 INR Coag (PPP) [Relative time] 0.93 {INR} Normal 0.91-1.11 [facility] Comment on above: Performed By: #### 7 200353, 1900581765, 778499001, 2912947, 11467750, 8980085440, 3793122, 2765489764 ####[facility] (DEFAULT)[address] [place] [address] PT 9.9 second(s) Normal 9.7-11.8 [facility] Comment on above: Performed By: #### 7 385323, 3080317002, 251423708, 6055378, 99280200, 7010230130, 0395897, 5090659953 ####[facility] (DEFAULT)[address] [place] [address] 95975 Test Serum Preg Serum Internal Control OK [facility] Comment on above: Performed By: #### 7 959276, 6062443472, 814631352, 4530628, 16339257, 7918038227, 4366906, 6691118946 ####[facility] (DEFAULT)[address] [place] [address] 20435 Test Serum Qual Negative [facility] Comment on above: Performed By: #### 7 706117, 2639034869, 863029118, 8539270, 41199125, 2791029158, 0334833, 0279048123 ####[facility] (DEFAULT)[address] [place] [address] 41514 Triage Panel 1202-04-2025 Triage Internal Control Pass [facility] Comment on above: Performed By: #### 7 [id number], [id number] #### [facility] (DEFAULT) [address] [place] [address] 38069 U Amph Scr Negative [facility] Comment on above: Performed By: #### 7 [id number], [id number] #### [facility] (DEFAULT) [address] [place] [address] 56040 U Marly Scr Negative [facility] Comment on above: Performed By: #### 7 [id number], [id number] #### [facility] (DEFAULT) [address] [place] [address] 70847 U Benzodia Scr Negative [facility] Comment on above: Performed By: #### 7 [id number], [id number] #### [facility] (DEFAULT) [address] [place] [address] 36170 U Cannab Scrn Negative [facility] Comment on above: Performed By: #### 7 [id number], [id number] #### [facility] (DEFAULT) [address] [place] [address] 30179 U Cocaine Scr Negative [facility] Comment on above: Performed By: #### 7 [id number], [id number] #### [facility] (DEFAULT) [address] [place] [address] 83082 U Methadone Scr Negative [facility] Comment on above: Performed By: #### 7 [id number], [id number] #### [facility] (DEFAULT) [address] [place] [address] 35574 U Methamp Scrn Negative [facility] Comment on above: Performed By: #### 7 [id number], [id number] #### [facility] (DEFAULT) [address] [place] [address] 59661 U Opiate Scr Negative [facility] Comment on above: Performed By: #### 7 [id number], [id number] #### [facility] (DEFAULT) [address] [place] [address] 51051 U Oxycod Scr Negative [facility] Comment on above: Performed By: #### 7 [id number], [id number] #### [facility] (DEFAULT) [address] [place] [address] U Phencyclidine Scr Negative [facility] Comment on above: Performed By: #### 7 [id number], [id number] #### [facility] (DEFAULT) [address] [place] [address] U Tricyclic Antidepress Scr Negative [facility] Comment on above: Result Comment: Resu lts are to be used only for medical (ie, treatment) purposes only. Positive tests will not be sent out for confirmation. PROFILE?-V MEDTOX Scan? Drugs of Abuse Test System detects drug classes at the following cutoff concentrations: AMP Amphetamine (d-amphetamine): 500 ng/mL BAR Barbituates (Butabital): 200 ng/mL BZO Benzodiazepines (Nordiazepam): 150 ng/mL BUP Buprenorphine (Buprenorphine): 10 ng/mL BEAU Cocaine (Benzoylecgonine): 150 ng/mL MAMP Methamphetamine (d-Methamphetamine): 500 ng/mL MTD Methadone (Methadone): 200 ng/mL OPI Opiates (Morphine): 100 ng/mL or 2000 ng/mL OXY Oxycodone (Oxycodone): 100 ng/mL PCP Phencyclidine (Phencyclidine): 25 ng/mL PPX Propoxyphene (Norpropoxyphene): 300 ng/mL THC Cannabinoids (73-yrt-3-carboxy- -THC): 50 ng/mL TCA Tricyclic-Antidepressants (Desipramine): 300 ng/mL Performed By: #### 7 [id number], [id number] #### [facility] (DEFAULT) [address] [place] [address] Urine Source Clean Catch [facility] Comment on above: Performed By: #### 7 [id number], [id number] #### [facility] (DEFAULT) [address] [place] [address] UA w Culture if Ind Standard on 02-04-2025 Breakpoint UA [facility] Comment on above: Performed By: #### 1 [id number] ####[facility] (DEFAULT)[address] [place] [address] 20749 Color (U) Yellow Normal [facility] Comment on above: Performed By: #### 1 [id number] ####[facility] (DEFAULT)[address] [place] [address] Culture? Not Indicated Invalid Interpretation Code [facility] Comment on above: Result Comment: Resu lt created by rule GL_MAGR_ADD_UA_CULT1 Result created by rule GL_MAGR_ADD_UA_CULT1 Performed By: #### 1 [id number] ####[facility] (DEFAULT)[address] [place] [address] Glucose (U) [Mass/Vol] Negative [facility] Comment on above: Performed By: #### 1 [id number] ####[facility] (DEFAULT)[address] [place] [address] Ketones Ql (U) Negative [facility] Comment on above: Performed By: #### 1 [id number] ####[facility] (DEFAULT)[address] [place] [address] Micro? Not Indicated Normal [facility] Comment on above: Result Comment: Resu lt created by rule GL_MAGR_ADD_UA_MICRO Performed By: #### 1 [id number] ####[facility] (DEFAULT)[address] [place] [address] UA Bilirubin Negative Normal [facility] Comment on above: Performed By: #### 1 [id number] ####[facility] (DEFAULT)[address] [place] [address] 49593 UA Blood Negative Normal NEGATIVE [facility] Comment on above: Performed By: #### 1 [id number] ####[facility] (DEFAULT)[address] [place] [address] 99204 UA Clarity CLEAR Normal CLEAR [facility] Comment on above: Performed By: #### 1 [id number] ####[facility] (DEFAULT)[address] [place] [address] 10274 UA Leuk Est Negative Normal NEGATIVE [facility] Comment on above: Performed By: #### 1 [id number] ####[facility] (DEFAULT)[address] [place] [address] 10178 UA Nitrite Negative Normal NEGATIVE [facility] Comment on above: Performed By: #### 1 [id number] ####[facility] (DEFAULT)[address] [place] [address] 79157 UA pH 7.0 Normal 5-8 [facility] Comment on above: Performed By: #### 1 [id number] ####[facility] (DEFAULT)[address] [place] [address] 97461 UA Protein Negative Normal NEGATIVE [facility] Comment on above: Performed By: #### 1 [id number] ####[facility] (DEFAULT)[address] [place] [address] 39181 UA Spec Grav 1.020 Normal 1.001-1.035 [facility] Comment on above: Performed By: #### 1 [id number] ####[facility] (DEFAULT)[address] [place] [address] 36121 UA Urobilinogen 0.2 mg/dL Normal 0.2-1.0 [facility] Comment on above: Performed By: #### 1 [id number] ####[facility] (DEFAULT)[address] [place] [address] Urine Source Clean Catch Normal [facility] Comment on above: Performed By: #### 1 [id number] ####[facility] (DEFAULT)[address] [place] [address] XR Chest 2 Viewson XR Chest 2 Views EXAMINATION: XR Ches t 2 Views HISTORY: Chest Pain COMPARISON: No relevant comparison available. FINDINGS: LUNGS: No significant pulmonary parenchymal abnormalities. VASCULATURE: No increased pulmonary vasculature. PLEURA: No pneumothorax, effusion, or pleural thickening. CARDIAC: No cardiomegaly or cardiac silhouette abnormality. MEDIASTINUM: No visible mass or adenopathy. BONES: No fracture or visible bone lesion. OTHER: Negative. IMPRESSION: 1. No acute cardiac pulmonary process. Final Dictated by: Jac Ca MD Dictated DT/TM: 02/05/25 2:44 Signed (Electronic Signature): Jac Ca MD 02/05/25 2:45 am Technologist: CALIHC Normal [facility] Lipid Profileon 01-26-2025 Cholesterol [Mass/Vol] 224 mg/dL High <200 [facility] Comment on above: Performed By: #### L IPR #### [address] [place] [address] Line Lead: Brad Trujillo MD Cholesterol in HDL [Mass/Vol] 58 mg/dL Normal >40 [facility] Comment on above: Performed By: #### L IPR #### [address] [address] Line Lead: Brad Trujillo MD Cholesterol in LDL [Mass/Vol] 136 mg/dL High <100 [facility] Comment on above: Performed By: #### L IPR #### [address] [address] Line Lead: Brad Trujillo MD Cholesterol in VLDL [Mass/Vol] 30 mg/dL Normal [facility] Comment on above: Result Comment: No n ormal range established. Performed By: #### L IPR #### [address] [place] [address] Line Lead: Brad Trujillo MD Triglyceride [Mass/Vol] 149 mg/dL Normal <150 [facility] Comment on above: Performed By: #### L IPR #### [address] [place] [address] Line Lead: Brad Trujillo MD Cardiac echo study Procedure Ordered By: Aj Anton on 01-21-2025 Ascending Aorta 2.5 cm Favery [employer] Phone: AV Area by Peak Velocity 2.1 cm2 [employer] Phone: AV Area by VTI 2 cm2 [employer] Phone: AV Cusp Mmode 1.7 cm [employer] Phone: AV Mean Gradient 4 mmHg Bon Divya gil [employer] Work Phone: AV Mean Velocity 0.9 m/s Torito Arguetao jeffery [employer] Phone: AV Peak Gradient 7 mmHg Bon Kendallo jeffery [employer] Phone: AV Peak Velocity 1.3 m/s Torito Arguetao jeffery [employer] Work Phone: AV Velocity Ratio 0.77 Bon Kendall [employer] Phone: AV VTI 27.8 cm [employer] Phone: EF Physician 60 % [email or web address] Phone: Est. RA Pressure 3 mmHg Torito gil [employer] Phone: Fractional Shortening 2D 30 % 28 - 44 % [employer] Phone: Interpretation and review of laboratory results Abnormal [employer] Phone: IVSd 0.7 cm 0.6 - 0.9 cm [employer] Phone: LA Diameter 3.7 cm [employer] Phone: LA Volume A-L A4C 42 mL 22 - 52 mL Bon [employer] Phone: LA Volume A-L A4C 72 mL Abnormal 22 - 52 mL Bon [employer] Phone: LA Volume A/L 56 mL [employer] Phone: LA Volume BP 54 mL Abnormal 22 - 52 mL [employer] Phone: LA Volume MOD A2C 41 mL 22 - 52 mL Bon [employer] Phone: LA Volume MOD A4C 66 mL Abnormal 22 - 52 mL Bon [employer] Phone: LV IVRT 15.2 ms [employer] Phone: LV Mass 2D 88.5 g 67 - 162 g [employer] Phone: LV RWT Ratio 0.33 [employer] Phone: LVIDd 4.3 cm 3.9 - 5.3 cm [employer] Phone: LVIDs 3 cm [employer] Phone: LVOT Area 2.8 cm2 [employer] Phone: LVOT Diameter 1.9 cm [employer] Phone: LVOT Mean Gradient 2 mmHg Bon [employer] Phone: LVOT Peak Gradient 4 mmHg [facility] [email or web address] Phone: LVOT Peak Velocity 1 m/s [facility] [email or web address] Phone: LVOT SV 57.2 ml [employer] Phone: LVOT VTI 20.2 cm [employer] Phone: LVOT:AV VTI Index 0.73 [employer] Phone: LVPWd 0.7 cm 0.6 - 0.9 cm [employer] Phone: MV A Wave Duration 91.3 msec [employer] Phone: MV A Velocity 0.51 m/s [employer] Phone: MV Area by PHT 3.2 cm2 [employer] Phone: MV Area by VTI 2.2 cm2 [employer] Phone: MV E Velocity 0.7 m/s [employer] Phone: MV E Wave Deceleration Time 149 ms Bon [employer] Work Phone: MV E/A 1.37 Bon [employer] Work Phone: MV Max Velocity 1.2 m/s Bon Secou rs [employer] Work Phone: MV Mean Gradient 2 mmHg Bon Seco urs [employer] Work Phone: MV Mean Velocity 0.8 m/s Bon Seco urs [employer] Work Phone: MV Peak Gradient 6 mmHg Bon Seco jeffery [employer] Work Phone: MV PHT 67.7 ms Torito Laiyaoyao Work Phone: MV VTI 25.5 cm [employer] Work Phone: MV:LVOT VTI Index 1.26 Bon Doctolib mamie [employer] Work Phone: Pulm Vein A Duration 99 ms [employer] Work Phone: Pulm Vein A Velocity 0.2 m/s [employer] Work Phone: Pulm Vein Peak D Velocity 0.4 m/s [employer] Work Phone: Pulm Vein Peak S Velocity 0.5 m/s [employer] Work Phone: Pulm Vein S/D 1.3 [employer] Work Phone: PV Max Velocity 0.9 m/s Bon Sec[facility] [employer] Work Phone: PV Mean Gradient 2 mmHg Bon Seco jeffery [employer] Work Phone: PV Mean Velocity 0.7 m/s Bon Seco urs [employer] Work Phone: PV Peak Gradient 3 mmHg Bon Seco urs [employer] Work Phone: PV VTI 19.3 cm Bon L[employer] Work Phone: RV Longitudinal Dimension 7.3 cm Torito Laiyaoyao Work Phone: RV Mid Dimension 2.2 cm Torito gil [employer] Work Phone: RVIDd 3.8 cm Torito Loomis [employer] Work Phone: RVSP 32 mmHg Torito Laiyaoyao Work Phone: TR Max Velocity 2.67 m/s Torito keane [employer] Work Phone: TR Peak Gradient 28 mmHg Torito gil [employer] Work Phone: Torito Loomis [employer] Work Phone: Cardiac echo study Procedure on 01-21-2025 Left Ventricle: Norm al left ventricular systolic function with a visually estimated EF of 55 - 60%. Left ventricle size is normal. Normal wall thickness. Normal wall motion. Aortic Valve: Trileaflet valve. Tricuspid Valve: The estimated RVSP is 32 mmHg. Left Atrium: Left atrium is mildly dilated. Image quality is adequate. Left Ventricle Normal left ventricular systolic function with a visually estimated EF of 55 - 60%. Left ventricle size is normal. Normal wall thickness. Normal wall motion. Right Ventricle Right ventricle size is normal. Normal systolic function. Left Atrium Left atrium is mildly dilated. Right Atrium Right atrium size is normal. Mitral Valve Valve structure is normal. Trace regurgitation. No stenosis noted. Tricuspid Valve Valve structure is normal. Trace regurgitation. No stenosis noted. The estimated RVSP is 32 mmHg. Aortic Valve Trileaflet valve. No regurgitation. No stenosis. Pulmonic Valve No regurgitation. No stenosis noted. Ascending Aorta Normal sized sinus of Valsalva, aortic root and ascending aorta. Pericardium No pericardial effusion. Study Details Image quality: adequate. No contrast was given. [facility] ECHO (TTE) COMPLETEon 2024 ECHO (TTE) COMPLETE ?? Left??Ventricle ?? Aortic??Valve ?? Tricuspid??Valve ?? Left??Atrium ?? Image quality is adequate. Left Ventricle Normal left ventricular systolic function with a visually estimated EF of 55 - 60%. Left ventricle size is normal. Normal wall thickness. Normal wall motion. Right Ventricle Right ventricle size is normal. Normal systolic function. Left Atrium Left atrium is mildly dilated. Right Atrium Right atrium size is normal. Mitral Valve Valve structure is normal. Trace regurgitation. No stenosis noted. Tricuspid Valve Valve structure is normal. Trace regurgitation. No stenosis noted. The estimated RVSP is 32 mmHg. Aortic Valve Trileaflet valve. No regurgitation. No stenosis. Pulmonic Valve No regurgitation. No stenosis noted. Ascending Aorta Normal sized sinus of Valsalva, aortic root and ascending aorta. Pericardium No pericardial effusion. Study Details Image quality Normal [facility] Cardiac echo study Procedure on 01-20-2025 Radiology Study observation (narrative) [employer] Exercise stress testOrdered By: Giles Thomas on 01-20-2025 Angina Index 0 [employer] Phone: Baseline Diastolic BP 82 mmHg [employer] Phone: Baseline HR 85 BPM [employer] Phone: Baseline Systolic BP 124 mmHg [employer] Phone: Body surface area Derived from formula 1.72 m2 [employer] Phone: Win Treadmill Score 6 [employer] Phone: Exercise Duration Seconds 18 sec [employer] Phone: Exercise Duration Time 6 min [employer] Phone: Stress Diastolic BP 78 mmHg Bon Nuvia [employer] Work Phone: Stress Estimated Workload 7.8 METS [employer] Phone: Stress Peak HR 171 BPM [employer] Phone: Stress Percent HR Achieved 87 % [employer] Phone: Stress Rate Pressure Product 03581 BPM*mmHg [employer] Phone: Stress ST Depression 0 mm [employer] Phone: Stress Systolic BP 148 mmHg Bon Edxact pau [employer] Phone: Stress Target HR 196 bpm Bon Seco urs [facility] [employer] Work Phone: Torito Loomis [facility] [employer] Work Phone: Exercise stress teston 01-20 ECG: Resting ECG demonstrates normal sinus rhythm. ECG: The stress ECG was negative for ischemia. Stress Test: A Michael protocol stress test was performed. Overall, the patient's exercise capacity was average for their age. The patient reached stage 3 of the protocol and was stressed for 6 min and 18 sec. The patient experienced no angina during the test. The patient reported fatigue during the stress test. Symptoms began during stress and ended during recovery. The test was stopped because the patient experienced fatigue. The patient reached the end of the protocol and achieved the target heart rate. Blood pressure demonstrated a normal response and heart rate demonstrated a normal response to stress. Stress Test: A Michael protocol stress test was performed. The patient was stressed for 6 min and 18 sec. Resting ECG The ECG shows sinus rhythm. Stress Findings A Michael protocol stress test was performed. Overall, the patient's exercise capacity was average for their age. The patient reached stage 3 of the protocol and was stressed for 6 min and 18 sec. The patient experienced no angina during the test. The patient reported fatigue during the stress test. Symptoms began during stress and ended during recovery. The test was stopped because the patient experienced fatigue. The patient reached the end of the protocol and achieved the target heart rate. Blood pressure demonstrated a normal response and heart rate demonstrated a normal response to stress. Stress ECG No ST deviation was noted. The stress ECG was negative for ischemia. [facility] Radiology Study observation (narrative) [facility] CBC with Auto Differentialon 01-12-2025 Basophils (Bld) [#/Vol] 0.04 10*3/uL [facility] Basophils/100 WBC (Bld) 1 % 0.0 - 2.0 % [facility] Eosinophils (Bld) [#/Vol] 0.08 10*3/uL [facility] Eosinophils/100 WBC (Bld) 1 % 0 - 6 % [facility] Erythrocyte distribution width (RBC) [Ratio] 14.4 % 11.5 - 15.0 % [facility] Hematocrit (Bld) [Volume fraction] 35.8 % 34.0 - 48.0 % [facility] Hemoglobin (Bld) [Mass/Vol] 11.5 g/dL 11.5 - 15.5 g/dL [facility] Immature granulocytes (Bld) [#/Vol] [facility] Immature granulocytes/100 WBC (Bld) 0 % 0.0 - 5.0 % [facility] Lymphocytes/100 WBC (Bld) 41 % 20.0 - 42.0 % [facility] Lymphocytes/100 WBC (Bld) 2.50 % [facility] MCH (RBC) [Entitic mass] 28.8 pg 26.0 - 35.0 pg [facility] MCHC (RBC) [Mass/Vol] 32.1 g/dL 32.0 - 34.5 g/dL [facility] MCV (RBC) [Entitic vol] 89.5 fL 80.0 - 99.9 fL [facility] Monocytes/100 WBC (Bld) 6 % 2.0 - 12.0 % [facility] Monocytes/100 WBC (Bld) 0.34 % [facility] Neutrophils/100 WBC (Bld) 51 % 43.0 - 80.0 % [facility] Platelet mean volume (Bld) [Entitic vol] 9.8 fL 7.0 - 12.0 fL [facility] Platelets (Bld) [#/Vol] 382 10*3/uL [facility] RBC (Bld) [#/Vol] 4.00 10*6/uL 3.50 - 5.5 0 m/uL [facility] Segmented neutrophils/100 WBC (Bld) 3.15 % [facility] WBC other (Bld) [#/Vol] 6.1 [facility] CBC with Diffon 01-12-2025 Abs. Basophil 0.04 k/uL Normal 0.00-0.20 [facility] Comment on above: Performed By: #### C P, CBCWD, MG, TROPI ####[employer], [place] [id number])[phone] Director: Brad Trujillo MD Abs.Imm.Granulocyte <0.03 Normal 0.00-0.58 [facility] Comment on above: Performed By: #### C P, CBCWD, MG, TROPI ####[address], [place] [id number])[phone] Director: Brad Trujillo MD Abs.Neutrophil (Seg) 3.15 k/uL Normal 1.80-7.30 [facility] Comment on above: Performed By: #### C P, CBCWD, MG, TROPI ####[place], [place] [address])[phone] Director: Brad Trujillo MD Basophils/100 WBC (Bld) 1 % Normal 0.0-2.0 [facility] Comment on above: Performed By: #### C P, CBCWD, MG, TROPI ####[place], [place] [address])[phone] Director: Brad Trujillo MD Eosinophils (Bld) [#/Vol] 0.08 10*3/uL Normal 0.05-0.50 [facility] Comment on above: Performed By: #### C P, CBCWD, MG, TROPI ####[place] [address]([facility])[phone] Director: Brad Trujillo MD Eosinophils/100 WBC (Bld) 1 % Normal 0-6 [facility] Comment on above: Performed By: #### C P, CBCWD, MG, TROPI ####[place], [place] [id number])[phone] Director: Brad Trujillo MD Erythrocyte distribution width (RBC) [Ratio] 14.4 % Normal 11.5-15.0 [facility] Comment on above: Performed By: #### C P, CBCWD, MG, TROPI ####[place] [address] [facility] [place], [place] [id number])[phone] Director: Brad Trujillo MD Hematocrit (Bld) [Volume fraction] 35.8 % Normal 34.0-48.0 [facility] Comment on above: Performed By: #### C P, CBCWD, MG, TROPI ####[address], [place] [id number])[phone] Director: Brad Trujillo MD Hemoglobin (Bld) [Mass/Vol] 11.5 g/dL Normal 11.5-15.5 [facility] Comment on above: Performed By: #### C P, CBCWD, MG, TROPI ####[address], [place] [address])[phone] Director: Brad Trujillo MD Immature granulocytes/100 WBC (Bld) 0 % Normal 0.0-5.0 [facility] Comment on above: Performed By: #### C P, CBCWD, MG, TROPI ####[address], [place] [address])[phone] Director: Brad Trujillo MD Lymphocytes (Bld) [#/Vol] 2.50 10*3/uL Normal 1.50-4.00 [facility] Comment on above: Performed By: #### C P, CBCWD, MG, TROPI ####[place] [address] [facility] [address].[place], [place] [id number])[phone] Director: Brad Trujillo MD Lymphocytes/100 WBC (Bld) 41 % Normal 20.0-42.0 [facility] Comment on above: Performed By: #### C P, CBCWD, MG, TROPI ####[address], [place] [id number])[phone] Director: Brad Trujillo MD MCH (RBC) [Entitic mass] 28.8 pg Normal 26.0-35.0 [facility] Comment on above: Performed By: #### C P, CBCWD, MG, TROPI ####[address] [place] [address] Lab Director: Brad Trujillo MD MCHC (RBC) [Mass/Vol] 32.1 g/dL Normal 32.0-34.5 [facility] Comment on above: Performed By: #### C P, CBCWD, MG, TROPI ####[place], [place] [id number])[phone] Director: Brad Trujillo MD MCV (RBC) [Entitic vol] 89.5 fL Normal 80.0-99.9 [facility] Comment on above: Performed By: #### C P, CBCWD, MG, TROPI ####[address] [place] [address] Lab Director: Brad Trujillo MD Monocytes (Bld) [#/Vol] 0.34 10*3/uL Normal 0.10-0.95 [facility] Comment on above: Performed By: #### C P, CBCWD, MG, TROPI ####[address] [place] [address] Lab Director: Brad Trujillo MD Monocytes/100 WBC (Bld) 6 % Normal 2.0-12.0 [facility] Comment on above: Performed By: #### C P, CBCWD, MG, TROPI ####[place], [place] [id number])[phone] Director: Brad Trujillo MD Neutrophil (Seg) 51 % Normal 43.0-80.0 [facility] Comment on above: Performed By: #### C P, CBCWD, MG, TROPI ####[place] [address] [facility] [place], [place] [id number])[phone] Director: Brad Trujillo MD Platelet mean volume (Bld) [Entitic vol] 9.8 fL Normal 7.0-12.0 [facility] Comment on above: Performed By: #### C P, CBCWD, MG, TROPI ####[place] [address], [place] [id number])[phone] Director: Brad Trujillo MD Platelets (Bld) [#/Vol] 382 10*3/uL Normal 130-450 [facility] Comment on above: Performed By: #### C P, CBCWD, MG, TROPI ####[address] [place] [address] Lab Director: Brad Trujillo MD RBC (Bld) [#/Vol] 4.00 10*6/uL Normal 3.50-5.50 [facility] Comment on above: Performed By: #### C P, CBCWD, MG, TROPI ####[address], [place] [id number])[phone] Director: Brad Trujillo MD WBC (Bld) [#/Vol] 6.1 10*3/uL Normal 4.5-11.5 [facility] Comment on above: Performed By: #### C P, CBCWD, MG, TROPI ####[address] [place] [address] Lab Director: Brad Trujillo MD CMPon 01-12-2025 Albumin [Mass/Vol] 4.5 g/dL 3.5 - 5.2 g/dL [facility] ALP [Catalytic activity/Vol] 86 U/L 35 - 104 U/L [facility] ALT [Catalytic activity/Vol] 15 U/L 0 - 32 U/L [facility] Anion gap [Moles/Vol] 13 mmol/L 7 - 16 mmol/L [facility] AST [Catalytic activity/Vol] 18 U/L 0 - 31 U/L [facility] Bilirubin [Mass/Vol] 0.3 mg/dL 0.0 - 1 .2 mg/dL [facility] Calcium [Mass/Vol] 9.6 mg/dL 8.6 - 10. 2 mg/dL [facility] Chloride [Moles/Vol] 102 mmol/L 98 - 10 7 mmol/L [facility] CO2 [Moles/Vol] 24 mmol/L 22 - 29 mmol/L [facility] Creatinine [Mass/Vol] 0.7 mg/dL 0.50 - 1.00 mg/dL [facility] Est, Glom Filt Rate - PINF [facility] Comment on above: These results are not intended for use in patients <18 years of age. eGFR results are calculated without a race factor using the 2020 CKD-EPI equation. Careful clinical correlation is recommended, particularly when comparing to results calculated using previous equations. The CKD-EPI equation is less accurate in patients with extremes of muscle mass, extra-renal metabolism of creatine, excessive creatine ingestion, or following therapy that affects renal tubular secretion. Glucose [Mass/Vol] 81 mg/dL 74 - 99 mg/dL [facility] Potassium [Moles/Vol] 4.3 mmol/L 3.5 - 5.0 mmol/L [facility] Protein [Mass/Vol] 7.2 g/dL 6.4 - 8.3 g/dL [facility] Sodium [Moles/Vol] 139 mmol/L 132 - 146 mmol/L [facility] Urea nitrogen [Mass/Vol] 16 mg/dL 6 - 20 mg/dL [facility] CT CERVICAL SPINE WO CONTRAS Ton 01-12-2025 CT CERVICAL SPINE WO CONTRAST EXAMINATION: CT OF THE CERVICAL SPINE WITHOUT CONTRAST 01/12/2025 12:14 pm TECHNIQUE: CT of the cervical spine was performed without the administration of intravenous contrast. Multiplanar reformatted images are provided for review. Automated exposure control, iterative reconstruction, and/or weight based adjustment of the mA/kV was utilized to reduce the radiation dose to as low as reasonably achievable. COMPARISON: None. HISTORY: ORDERING SYSTEM PROVIDED HISTORY: syncope, fall TECHNOLOGIST PROVIDED HISTORY: Reason for exam:->syncope, fall Decision Support Exception - unselect if not a suspected or confirmed emergency medical condition->Emergency Medical Condition (MA) What reading provider will be dictating this exam?->CRC FINDINGS: BONES/ALIGNMENT: There is no acute fracture or traumatic malalignment. There is mild reversal of lordotic curvature likely due to muscular spasm and/or positioning of the neck. DEGENERATIVE CHANGES: No severe osseous spinal canal stenosis. SOFT TISSUES: There is no prevertebral soft tissue swelling. IMPRESSION: No acute abnormality of the cervical spine. Interpreted by: Jeremy Urban MD Signed by: Jeremy Urban MD 01/12/25 Final result Normal [facility] Comment on above: Order Comment: Reaso n for exam:->syncope, fall Decision Support Exception - unselect if not a suspected or confirmed emergency medical condition->Emergency Medical Condition ([place]) What reading provider will be dictating this exam?->CRC CT Cervical spine WO contras ton 01-12-2025 No acute abnormality of the cervical spine. [facility] EXAMINATION: CT OF THE CERVICAL SPINE WITHOUT CONTRAST 01/12/2025 12:14 pm TECHNIQUE: CT of the cervical spine was performed without the administration of intravenous contrast. Multiplanar reformatted images are provided for review. Automated exposure control, iterative reconstruction, and/or weight based adjustment of the mA/kV was utilized to reduce the radiation dose to as low as reasonably achievable. COMPARISON: None. HISTORY: ORDERING SYSTEM PROVIDED HISTORY: syncope, fall TECHNOLOGIST PROVIDED HISTORY: Reason for exam:->syncope, fall Decision Support Exception - unselect if not a suspected or confirmed emergency medical condition->Emergency Medical Condition ([place]) What reading provider will be dictating this exam?->CRC FINDINGS: BONES/ALIGNMENT: There is no acute fracture or traumatic malalignment. There is mild reversal of lordotic curvature likely due to muscular spasm and/or positioning of the neck. DEGENERATIVE CHANGES: No severe osseous spinal canal stenosis. SOFT TISSUES: There is no prevertebral soft tissue swelling. [facility] Jeremy Urban MD - 01/12/2025 EXAMINATION: CT OF THE CERVICAL SPINE WITHOUT CONTRAST 01/12/2025 12:14 pm TECHNIQUE: CT of the cervical spine was performed without the administration of intravenous contrast. Multiplanar reformatted images are provided for review. Automated exposure control, iterative reconstruction, and/or weight based adjustment of the mA/kV was utilized to reduce the radiation dose to as low as reasonably achievable. COMPARISON: None. HISTORY: ORDERING SYSTEM PROVIDED HISTORY: syncope, fall TECHNOLOGIST PROVIDED HISTORY: Reason for exam:->syncope, fall Decision Support Exception - unselect if not a suspected or confirmed emergency medical condition->Emergency Medical Condition ([place]) What reading provider will be dictating this exam?->CRC FINDINGS: BONES/ALIGNMENT: There is no acute fracture or traumatic malalignment. There is mild reversal of lordotic curvature likely due to muscular spasm and/or positioning of the neck. DEGENERATIVE CHANGES: No severe osseous spinal canal stenosis. SOFT TISSUES: There is no prevertebral soft tissue swelling. IMPRESSION: No acute abnormality of the cervical spine. [facility] CT HEAD WO CONTRASTon 2024 CT HEAD WO CONTRAST EXAMINATION: CT OF THE HEAD WITHOUT CONTRAST 01/12/2025 12:14 pm TECHNIQUE: CT of the head was performed without the administration of intravenous contrast. Automated exposure control, iterative reconstruction, and/or weight based adjustment of the mA/kV was utilized to reduce the radiation dose to as low as reasonably achievable. COMPARISON: None. HISTORY: ORDERING SYSTEM PROVIDED HISTORY: syncope, fall TECHNOLOGIST PROVIDED HISTORY: Has a code stroke or stroke alert been called?->No Reason for exam:->syncope, fall Decision Support Exception - unselect if not a suspected or confirmed emergency medical condition->Emergency Medical Condition ([place]) What reading provider will be dictating this exam?->CRC FINDINGS: BRAIN/VENTRICLES: There is no acute intracranial hemorrhage, mass effect or midline shift. No abnormal extra-axial fluid collection. The castillo-white differentiation is maintained without evidence of an acute infarct. There is no evidence of hydrocephalus. ORBITS: The visualized portion of the orbits demonstrate no acute abnormality. SINUSES: The visualized paranasal sinuses and mastoid air cells demonstrate no acute abnormality. SOFT TISSUES/SKULL: No acute abnormality of the visualized skull or soft tissues. IMPRESSION: No acute intracranial abnormality. Interpreted by: Jeremy Urban MD Signed by: Jeremy Urban MD 01/12/25 Final result Normal [facility] Comment on above: Order Comment: Has a code stroke or stroke alert been called?->NoReason for exam:->syncope, fallDecision Support Exception - unselect if not a suspected or confirmed emergency medical condition->Emergency Medical Condition (MA)What reading provider will be dictating this exam?->CRC CT Head WO contraston 2024 No acute intracrania l abnormality. [facility] EXAMINATION: CT OF THE HEAD WITHOUT CONTRAST 01/12/2025 12:14 pm TECHNIQUE: CT of the head was performed without the administration of intravenous contrast. Automated exposure control, iterative reconstruction, and/or weight based adjustment of the mA/kV was utilized to reduce the radiation dose to as low as reasonably achievable. COMPARISON: None. HISTORY: ORDERING SYSTEM PROVIDED HISTORY: syncope, fall TECHNOLOGIST PROVIDED HISTORY: Has a code stroke or stroke alert been called?->No Reason for exam:->syncope, fall Decision Support Exception - unselect if not a suspected or confirmed emergency medical condition->Emergency Medical Condition ([place]) What reading provider will be dictating this exam?->CRC FINDINGS: BRAIN/VENTRICLES: There is no acute intracranial hemorrhage, mass effect or midline shift. No abnormal extra-axial fluid collection. The castillo-white differentiation is maintained without evidence of an acute infarct. There is no evidence of hydrocephalus. ORBITS: The visualized portion of the orbits demonstrate no acute abnormality. SINUSES: The visualized paranasal sinuses and mastoid air cells demonstrate no acute abnormality. SOFT TISSUES/SKULL: No acute abnormality of the visualized skull or soft tissues. [facility] Jeremy Urban MD - 01/12/2025 EXAMINATION: CT OF THE HEAD WITHOUT CONTRAST 01/12/2025 12:14 pm TECHNIQUE: CT of the head was performed without the administration of intravenous contrast. Automated exposure control, iterative reconstruction, and/or weight based adjustment of the mA/kV was utilized to reduce the radiation dose to as low as reasonably achievable. COMPARISON: None. HISTORY: ORDERING SYSTEM PROVIDED HISTORY: syncope, fall TECHNOLOGIST PROVIDED HISTORY: Has a code stroke or stroke alert been called?->No Reason for exam:->syncope, fall Decision Support Exception - unselect if not a suspected or confirmed emergency medical condition->Emergency Medical Condition ([place]) What reading provider will be dictating this exam?->CRC FINDINGS: BRAIN/VENTRICLES: There is no acute intracranial hemorrhage, mass effect or midline shift. No abnormal extra-axial fluid collection. The castillo-white differentiation is maintained without evidence of an acute infarct. There is no evidence of hydrocephalus. ORBITS: The visualized portion of the orbits demonstrate no acute abnormality. SINUSES: The visualized paranasal sinuses and mastoid air cells demonstrate no acute abnormality. SOFT TISSUES/SKULL: No acute abnormality of the visualized skull or soft tissues. IMPRESSION: No acute intracranial abnormality. [facility] Comp Metabolic Profon 2024 Albumin [Mass/Vol] 4.5 g/dL Normal 3.5-5.2 [facility] Comment on above: Performed By: #### C P, CBCWD, MG, TROPI ####[address] [phone] Director: Brad Trujillo MD Alkaline Phos 86 U/L Normal 35-104 [facility] Comment on above: Performed By: #### C P, CBCWD, MG, TROPI ####[address] [place] [phone] Director: Brad Trujillo MD ALT [Catalytic activity/Vol] 15 U/L Normal 0-32 [facility] Comment on above: Performed By: #### C P, CBCWD, MG, TROPI ####[address] [place] [phone] Director: Brad Trujillo MD Anion gap [Moles/Vol] 13 mmol/L Normal 7-16 [facility] Comment on above: Performed By: #### C P, CBCWD, MG, TROPI ####[address] [place] [address] Lab Director: Brad Trujillo MD AST [Catalytic activity/Vol] 18 U/L Normal 0-31 [facility] Comment on above: Performed By: #### C P, CBCWD, MG, TROPI ####[place] [address], [place] [phone] Director: Brad Trujillo MD Bilirubin [Mass/Vol] 0.3 mg/dL Normal 0.0-1.2 [facility] Comment on above: Performed By: #### C P, CBCWD, MG, TROPI ####[address], [place] [phone] Director: Brad Trujillo MD Calcium [Mass/Vol] 9.6 mg/dL Normal 8.6-10.2 [facility] Comment on above: Performed By: #### C P, CBCWD, MG, TROPI ####[address], [place] [phone] Director: Brad Trujillo MD Chloride [Moles/Vol] 102 mmol/L Normal 98-107 [facility] Comment on above: Performed By: #### C P, CBCWD, MG, TROPI ####[address], [place] [phone] Director: Brad Trujillo MD CO2 [Moles/Vol] 24 mmol/L Normal 22-29 [facility] Comment on above: Performed By: #### C P, CBCWD, MG, TROPI ####[address] [place] [address] Lab Director: Brad Trujillo MD Creatinine [Mass/Vol] 0.7 mg/dL Normal 0.50-1.00 [facility] Comment on above: Performed By: #### C P, CBCWD, MG, TROPI ####[address] [place] [address] Lab Director: Brad Trujillo MD GFR/1.73 sq M.predicted among non-blacks MDRD (S/P/Bld) [Vol rate/Area] mL/min/{1.73_m2} Normal >60 [facility] Comment on above: Result Comment: These results are not intended for use in patients <18 years of age. eGFR results are calculated without a race factor using the 2020 CKD-EPI equation. Careful clinical correlation is recommended, particularly when comparing to results calculated using previous equations. The CKD-EPI equation is less accurate in patients with extremes of muscle mass, extra-renal metabolism of creatine, excessive creatine ingestion, or following therapy that affects renal tubular secretion. Performed By: #### C P, CBCWD, MG, TROPI ####[address] [place] [address] Lab Director: Brad Trujillo MD Glucose [Mass/Vol] 81 mg/dL Normal 74-99 [facility] Comment on above: Performed By: #### C P, CBCWD, MG, TROPI ####[address] [place] [address] Lab Director: Brad Trujillo MD Potassium [Moles/Vol] 4.3 mmol/L Normal 3.5-5.0 [facility] Comment on above: Performed By: #### C P, CBCWD, MG, TROPI ####[address] [place] [address] Lab Director: Brad Trujillo MD Protein [Mass/Vol] 7.2 g/dL Normal 6.4-8.3 [facility] Comment on above: Performed By: #### C P, CBCWD, MG, TROPI ####[address] [place] [address] Lab Director: Brad Trujillo MD Sodium [Moles/Vol] 139 mmol/L Normal 132-146 [facility] Comment on above: Performed By: #### C P, CBCWD, MG, TROPI ####[address] [facility], [place] [id number] Lab Director: Brad Trujillo MD Urea nitrogen [Mass/Vol] 16 mg/dL Normal 6-20 [facility] Comment on above: Performed By: #### C P, CBCWD, MG, TROPI ####[address] [place], [place] [phone] Lab Director: Brad Trujillo MD D-Dimer, Quantitativeon 03-0 D-Dimer, Quant [facility] Comment on above: D-DIMER Interpretation: <230 ng/mL (D-DU) Indicates low probability for PE/DVT >= 4000/ng/mL (D-DU) This level could suggest the presence of DIC. Clinical correlation may be helpful. [facility] [employer] D-Dimer,Quantitativeon 01-12 D-dimer <200 Normal 0-230 [facility] Comment on above: Result Comment: D-DIMER Interpretation: <230 ng/mL (D-DU) Indicates low probability for PE/DVT >= 4000/ng/mL (D-DU) This level could suggest the presence of DIC. Clinical correlation may be helpful. Performed By: #### D DIMER ####[address] [place], [place] [id number] Lab Director: Brad Trujillo MD EKG 12 LeadOrdered By: Jaziel Harden on 01-12-2025 Atrial Rate 75 BPM [employer] Work Phone: P [place] 25 degrees [facility] [employer] Work Phone: P-R Interval 126 ms [employer] Work Phone: Q-T Interval 366 ms [employer] Work Phone: QRS Duration 68 ms [facility] [employer] Work Phone: QTc Calculation (Bazett) 408 ms [employer] Work Phone: R [place] 51 degrees [employer] Work Phone: T [place] 42 degrees [employer] Work Phone: Ventricular Rate 75 BPM [place] [employer] Work Phone: [facility] [employer] Work Phone: EKG 12 Leadon 01-12-2025 Normal sinus rhythm Normal ECG When compared with ECG of 06-DEC-2024 12:30, No significant change was found Confirmed by Marty Harden ([id number]) on 01/12/2025 1:20:58 PM [facility] MUSE Marty Harden MD - 01/12/2025 Normal sinus rhythm Normal ECG When compared with ECG of 06-DEC-2024 12:30, No significant change was found Confirmed by Marty Harden ([id number]) on 01/12/2025 1:20:58 PM [facility] [employer] Magnesiumon 01-12-2025 Magnesium [Mass/Vol] 2.2 mg/dL 1.6 - 2 .6 mg/dL [facility] Magnesium [Mass/Vol] 2.2 mg/dL Normal 1.6-2.6 [facility] Comment on above: Performed By: #### C P, CBCWD, MG, TROPI ####[facility] [place] [address] lab Director: Brad Trujillo MD No Panel Informationon 01-12 [facility] [employer] Radiology Study observation (narrative) [employer] POC Urine QualOrde red By: Maria Spicer on 01-12-2025 Beta HCG ( test) Ql (U) Negative Negative [facility] [employer] Interpretation and review of laboratory results Normal [facility] [employer] Lot Number [id number] [facility] Negative QC Pass/Fail Pass [facility] Positive QC Pass/Fail Pass [facility] Portable XR Chest AP single viewon 01-12-2025 No acute process. [facility] EXAMINATION: ONE XRAY VIEW OF THE CHEST 01/12/2025 12:14 pm COMPARISON: None. HISTORY: ORDERING SYSTEM PROVIDED HISTORY: Syncope TECHNOLOGIST PROVIDED HISTORY: Reason for exam:->Syncope FINDINGS: The lungs are without acute focal process. There is no effusion or pneumothorax. The cardiomediastinal silhouette is without acute process. The osseous structures are without acute process. [facility] Jeremy Urban MD - 01/12/2025 EXAMINATION: ONE XRAY VIEW OF THE CHEST 01/12/2025 12:14 pm COMPARISON: None. HISTORY: ORDERING SYSTEM PROVIDED HISTORY: Syncope TECHNOLOGIST PROVIDED HISTORY: Reason for exam:->Syncope FINDINGS: The lungs are without acute focal process. There is no effusion or pneumothorax. The cardiomediastinal silhouette is without acute process. The osseous structures are without acute process. IMPRESSION: No acute process. [facility] Radiology Study observation (narrative) [facility] Portable XR Chest AP single viewOrdered By: Jeremy Urban on 01-12-2025 [facility] Work Phone: Troponinon 01-12-2025 Troponin I.cardiac High sensitivity method [Mass/Vol] ng/L 0 - 9 ng/L [facility] Comment on above: High Sensitivity Troponin values cannot be compared with other Troponin methodologies. Patients with high levels of Biotin oral intake (i.e >5mg/day) may have falsely decreased Troponin levels. Samples collected within 8 hours of biotin intake may require additional information for diagnosis. Troponin, High Sens <6 Normal 0-9 [facility] Comment on above: Result Comment: High Sensitivity Troponin values cannot be compared with other Troponin methodologies. Patients with high levels of Biotin oral intake (i.e >5mg/day) may have falsely decreased Troponin levels. Samples collected within 8 hours of biotin intake may require additional information for diagnosis. Performed By: #### C P, CBCWD, MG, TROPI ####[facility] [place] [address] Lab Director: Brad Trujillo MD XR CHEST PORTABLEon 01-13-20 XR CHEST PORTABLE EXAMINATION: ONE XRAY VIEW OF THE CHEST 01/12/2025 12:14 pm COMPARISON: None. HISTORY: ORDERING SYSTEM PROVIDED HISTORY: Syncope TECHNOLOGIST PROVIDED HISTORY: Reason for exam:->Syncope FINDINGS: The lungs are without acute focal process. There is no effusion or pneumothorax. The cardiomediastinal silhouette is without acute process. The osseous structures are without acute process. IMPRESSION: No acute process. Interpreted by: Jeremy Urban MD Signed by: Jeremy Urban MD 01/12/25 Final result Normal [facility] Comment on above: Order Comment: Reaso n for exam:->Syncope BMPon 12-31-2024 Anion gap [Moles/Vol] 11 mmol/L 7 - 16 mmol/L [employer] Calcium [Mass/Vol] 9.3 mg/dL 8.6 - 10. 2 mg/dL [employer] Chloride [Moles/Vol] 98 mmol/L 98 - 10 7 mmol/L [employer] CO2 [Moles/Vol] 27 mmol/L 22 - 29 mmol/L [employer] Creatinine [Mass/Vol] 0.8 mg/dL 0.50 - 1.00 mg/dL [employer] Est, Glom Filt Rate - PINF [facility] [employer] Comment on above: These results are not intended for use in patients <18 years of age. eGFR results are calculated without a race factor using the 2020 CKD-EPI equation. Careful clinical correlation is recommended, particularly when comparing to results calculated using previous equations. The CKD-EPI equation is less accurate in patients with extremes of muscle mass, extra-renal metabolism of creatine, excessive creatine ingestion, or following therapy that affects renal tubular secretion. Glucose [Mass/Vol] 95 mg/dL 74 - 99 mg/dL [employer] Potassium [Moles/Vol] 4.1 mmol/L 3.5 - 5.0 mmol/L [employer] Sodium [Moles/Vol] 136 mmol/L 132 - 146 mmol/L [facility] Urea nitrogen [Mass/Vol] 17 mg/dL 6 - 20 mg/dL [facility] Basic Metabolic Profon 12-31 Anion gap [Moles/Vol] 11 mmol/L Normal 7-16 [facility] Comment on above: Performed By: #### B MP, MG, CBCWD, TROPI #### [address] [place] [address] Line Lead: Brad Trujillo MD Calcium [Mass/Vol] 9.3 mg/dL Normal 8.6-10.2 [facility] Comment on above: Performed By: #### B MP, MG, CBCWD, TROPI #### [address] [address] Line Lead: Brad Trujillo MD Chloride [Moles/Vol] 98 mmol/L Normal 98-107 [facility] Comment on above: Performed By: #### B MP, MG, CBCWD, TROPI #### [address] [address] Line Lead: Brad Trujillo MD CO2 [Moles/Vol] 27 mmol/L Normal 22-29 [facility] Comment on above: Performed By: #### B MP, MG, CBCWD, TROPI #### [address] [address] Line Lead: Brad Trujillo MD Creatinine [Mass/Vol] 0.8 mg/dL Normal 0.50-1.00 [facility] Comment on above: Performed By: #### B MP, MG, CBCWD, TROPI #### [address] [address] Line Lead: Brad Trujillo MD GFR/1.73 sq M.predicted among non-blacks MDRD (S/P/Bld) [Vol rate/Area] mL/min/{1.73_m2} Normal >60 [facility] Comment on above: Result Comment: These results are not intended for use in patients <18 years of age. eGFR results are calculated without a race factor using the 2020 CKD-EPI equation. Careful clinical correlation is recommended, particularly when comparing to results calculated using previous equations. The CKD-EPI equation is less accurate in patients with extremes of muscle mass, extra-renal metabolism of creatine, excessive creatine ingestion, or following therapy that affects renal tubular secretion. Performed By: #### B MP, MG, CBCWD, TROPI #### [address] [place] [address] Line Lead: Brad Trujillo MD Glucose [Mass/Vol] 95 mg/dL Normal 74-99 [facility] Comment on above: Performed By: #### B MP, MG, CBCWD, TROPI #### [address] [place] [address] Line Lead: Brad Trujillo MD Potassium [Moles/Vol] 4.1 mmol/L Normal 3.5-5.0 [facility] Comment on above: Performed By: #### B MP, MG, CBCWD, TROPI #### [address] [place] [address] Line Lead: Brad Trujillo MD Sodium [Moles/Vol] 136 mmol/L Normal 132-146 [facility] Comment on above: Performed By: #### B MP, MG, CBCWD, TROPI #### [address] [place] [address] Line Lead: Brad Trujillo MD Urea nitrogen [Mass/Vol] 17 mg/dL Normal 6-20 [facility] Comment on above: Performed By: #### B MP, MG, CBCWD, TROPI #### [address] [place] [address] Line Lead: Brad Trujillo MD CBC with Auto Differentialon 12-31-2024 Basophils (Bld) [#/Vol] 0.04 10*3/uL [facility] Basophils/100 WBC (Bld) 1 % 0.0 - 2.0 % [facility] Eosinophils (Bld) [#/Vol] 0.05 10*3/uL [facility] Eosinophils/100 WBC (Bld) 1 % 0 - 6 % [facility] Erythrocyte distribution width (RBC) [Ratio] 14.6 % 11.5 - 15.0 % [facility] Hematocrit (Bld) [Volume fraction] 34.2 % 34.0 - 48.0 % [facility] Hemoglobin (Bld) [Mass/Vol] 11.2 g/dL Low 11.5 - 15.5 g/dL [facility] Immature granulocytes (Bld) [#/Vol] [facility] Immature granulocytes/100 WBC (Bld) 0 % 0.0 - 5.0 % [facility] Interpretation and review of laboratory results Abnormal [facility] Lymphocytes/100 WBC (Bld) 22 % 20.0 - 42.0 % [facility] Lymphocytes/100 WBC (Bld) 1.89 % [facility] MCH (RBC) [Entitic mass] 29.2 pg 26.0 - 35.0 pg [facility] MCHC (RBC) [Mass/Vol] 32.7 g/dL 32.0 - 34.5 g/dL [facility] MCV (RBC) [Entitic vol] 89.1 fL 80.0 - 99.9 fL [facility] Monocytes/100 WBC (Bld) 5 % 2.0 - 12.0 % [facility] Monocytes/100 WBC (Bld) 0.40 % [facility] Neutrophils/100 WBC (Bld) 72 % 43.0 - 80.0 % [facility] Platelet mean volume (Bld) [Entitic vol] 10.1 fL 7.0 - 12.0 fL [facility] Platelets (Bld) [#/Vol] 323 10*3/uL [facility] RBC (Bld) [#/Vol] 3.84 10*6/uL 3.50 - 5.5 0 m/uL [facility] Segmented neutrophils/100 WBC (Bld) 6.15 % [facility] WBC other (Bld) [#/Vol] 8.6 [facility] CBC with Diffon 12-31-2024 Abs. Basophil 0.04 k/uL Normal 0.00-0.20 [facility] Comment on above: Performed By: #### B MP, MG, CBCWD, TROPI #### [place] [address] Line Lead: Brad Trujillo MD Abs.Imm.Granulocyte <0.03 Normal 0.00-0.58 [facility] Comment on above: Performed By: #### B MP, MG, CBCWD, TROPI #### [place] [address] Line Lead: Brad Trujillo MD Abs.Neutrophil (Seg) 6.15 k/uL Normal 1.80-7.30 [facility] Comment on above: Performed By: #### B MP, MG, CBCWD, TROPI #### [place] [address] Line Lead: Brad Trujillo MD Basophils/100 WBC (Bld) 1 % Normal 0.0-2.0 [facility] Comment on above: Performed By: #### B MP, MG, CBCWD, TROPI #### [place] [address] Line Lead: Brad Trujillo MD Eosinophils (Bld) [#/Vol] 0.05 10*3/uL Normal 0.05-0.50 [facility] Comment on above: Performed By: #### B MP, MG, CBCWD, TROPI #### [address] [place] [address] Line Lead: Brad Trujillo MD Eosinophils/100 WBC (Bld) 1 % Normal 0-6 [facility] Comment on above: Performed By: #### B MP, MG, CBCWD, TROPI #### [address] [place] [address] Line Lead: Brad Trujillo MD Erythrocyte distribution width (RBC) [Ratio] 14.6 % Normal 11.5-15.0 [facility] Comment on above: Performed By: #### B MP, MG, CBCWD, TROPI #### [address] [place] [address] Line Lead: Brad Trujillo MD Hematocrit (Bld) [Volume fraction] 34.2 % Normal 34.0-48.0 [facility] Comment on above: Performed By: #### B MP, MG, CBCWD, TROPI #### [address] [place] [address] Line Lead: Brad Trujillo MD Hemoglobin (Bld) [Mass/Vol] 11.2 g/dL Low 11.5-15.5 [facility] Comment on above: Performed By: #### B MP, MG, CBCWD, TROPI #### [address] [place] [address] Line Lead: Brad Trujillo MD Immature granulocytes/100 WBC (Bld) 0 % Normal 0.0-5.0 [facility] Comment on above: Performed By: #### B MP, MG, CBCWD, TROPI #### [address] [place] [address] Line Lead: Brad Trujillo MD Lymphocytes (Bld) [#/Vol] 1.89 10*3/uL Normal 1.50-4.00 [facility] Comment on above: Performed By: #### B MP, MG, CBCWD, TROPI #### [address] [address] Line Lead: Brad Trujillo MD Lymphocytes/100 WBC (Bld) 22 % Normal 20.0-42.0 [facility] Comment on above: Performed By: #### B MP, MG, CBCWD, TROPI #### [place] [address] Line Lead: Brad Trujillo MD MCH (RBC) [Entitic mass] 29.2 pg Normal 26.0-35.0 [facility] Comment on above: Performed By: #### B MP, MG, CBCWD, TROPI #### [address] [address] Line Lead: Brad Trujillo MD MCHC (RBC) [Mass/Vol] 32.7 g/dL Normal 32.0-34.5 [facility] Comment on above: Performed By: #### B MP, MG, CBCWD, TROPI #### [place] [address] Line Lead: Brad Trujillo MD MCV (RBC) [Entitic vol] 89.1 fL Normal 80.0-99.9 [facility] Comment on above: Performed By: #### B MP, MG, CBCWD, TROPI #### [address] [address] Line Lead: Brad Trujillo MD Monocytes (Bld) [#/Vol] 0.40 10*3/uL Normal 0.10-0.95 [facility] Comment on above: Performed By: #### B MP, MG, CBCWD, TROPI #### [address] [place] [address] Line Lead: Brad Trujillo MD Monocytes/100 WBC (Bld) 5 % Normal 2.0-12.0 [facility] Comment on above: Performed By: #### B MP, MG, CBCWD, TROPI #### [address] [place] [address] Line Lead: Brad Trujillo MD Neutrophil (Seg) 72 % Normal 43.0-80.0 [facility] Comment on above: Performed By: #### B MP, MG, CBCWD, TROPI #### [address] [place] [address] Line Lead: Brad Trujillo MD Platelet mean volume (Bld) [Entitic vol] 10.1 fL Normal 7.0-12.0 [facility] Comment on above: Performed By: #### B MP, MG, CBCWD, TROPI #### [address] [place] [address] Line Lead: Brad Trujillo MD Platelets (Bld) [#/Vol] 323 10*3/uL Normal 130-450 [facility] Comment on above: Performed By: #### B MP, MG, CBCWD, TROPI #### [address] [place] [address] Line Lead: Brad Trujillo MD RBC (Bld) [#/Vol] 3.84 10*6/uL Normal 3.50-5.50 [facility] Comment on above: Performed By: #### B MP, MG, CBCWD, TROPI #### [address] [place] [address] Line Lead: Brad Trujillo MD WBC (Bld) [#/Vol] 8.6 10*3/uL Normal 4.5-11.5 [facility] Comment on above: Performed By: #### B MP, MG, CBCWD, TROPI #### [facility] [address] [place] [address] Line Lead: Brad Trujillo MD Magnesiumon 12-31-2024 Magnesium [Mass/Vol] 1.9 mg/dL 1.6 - 2 .6 mg/dL [facility] Magnesium [Mass/Vol] 1.9 mg/dL Normal 1.6-2.6 [facility] Comment on above: Performed By: #### B MP, MG, CBCWD, TROPI #### [id number] [place] [address] Line Lead: Brad Trujillo MD No Panel Informationon 12-31 [facility] POC Urine QualOrde red By: Jacqui Trinidad on 12-31-2024 Beta HCG ( test) Ql (U) Negative Negative [facility] Lot Number [id number] [facility] Negative QC Pass/Fail Pass [facility] Positive QC Pass/Fail Pass [facility] Portable XR Chest AP single viewon 12-31-2024 No acute process. [facility] EXAMINATION: ONE XRAY VIEW OF THE CHEST 12/31/2024 1:38 pm COMPARISON: 12/06/2024 HISTORY: ORDERING SYSTEM PROVIDED HISTORY: syncope TECHNOLOGIST PROVIDED HISTORY: Reason for exam:->syncope FINDINGS: The lungs are without acute focal process. There is no effusion or pneumothorax. The cardiomediastinal silhouette is without acute process. The osseous structures are without acute process. [facility] Ino Chisholm MD - 12/31/2024 EXAMINATION: ONE XRAY VIEW OF THE CHEST 12/31/2024 1:38 pm COMPARISON: 12/06/2024 HISTORY: ORDERING SYSTEM PROVIDED HISTORY: syncope TECHNOLOGIST PROVIDED HISTORY: Reason for exam:->syncope FINDINGS: The lungs are without acute focal process. There is no effusion or pneumothorax. The cardiomediastinal silhouette is without acute process. The osseous structures are without acute process. IMPRESSION: No acute process. [facility] Radiology Study observation (narrative) [facility] Portable XR Chest AP single viewOrdered By: Ino Chisholm on 12-31-2024 [facility] [employer] Work Phone: Troponinon 12-31-2024 Troponin I.cardiac High sensitivity method [Mass/Vol] ng/L 0 - 9 ng/L [facility] Comment on above: High Sensitivity Troponin values cannot be compared with other Troponin methodologies. Patients with high levels of Biotin oral intake (i.e >5mg/day) may have falsely decreased Troponin levels. Samples collected within 8 hours of biotin intake may require additional information for diagnosis. Troponin, High Sens <6 Normal 0-9 [facility] Comment on above: Result Comment: High Sensitivity Troponin values cannot be compared with other Troponin methodologies. Patients with high levels of Biotin oral intake (i.e >5mg/day) may have falsely decreased Troponin levels. Samples collected within 8 hours of biotin intake may require additional information for diagnosis. Performed By: #### B MP, MG, CBCWD, TROPI #### [id number] [place] [id number] Line Lead: Brad Trujillo MD XR CHEST PORTABLEon 12-31-19 XR CHEST PORTABLE EXAMINATION: ONE XRAY VIEW OF THE CHEST 12/31/2024 1:38 pm COMPARISON: 12/06/2024 HISTORY: ORDERING SYSTEM PROVIDED HISTORY: syncope TECHNOLOGIST PROVIDED HISTORY: Reason for exam:->syncope FINDINGS: The lungs are without acute focal process. There is no effusion or pneumothorax. The cardiomediastinal silhouette is without acute process. The osseous structures are without acute process. IMPRESSION: No acute process. Interpreted by: Ino Chisholm MD Signed by: Ino Chisholm MD 12/31/24 Final result Normal [facility] Comment on above: Order Comment: Reaso n for exam:->syncope CBC with Auto Differentialon 12-06-2024 Basophils (Bld) [#/Vol] 0.05 10*3/uL [facility] Basophils/100 WBC (Bld) 1 % 0.0 - 2.0 % [facility] Eosinophils (Bld) [#/Vol] 0.09 10*3/uL [facility] Eosinophils/100 WBC (Bld) 2 % 0 - 6 % [facility] Erythrocyte distribution width (RBC) [Ratio] 14.4 % 11.5 - 15.0 % [facility] Hematocrit (Bld) [Volume fraction] 32.5 % Low 34.0 - 48.0 % [facility] Hemoglobin (Bld) [Mass/Vol] 10.7 g/dL Low 11.5 - 15.5 g/dL [facility] Immature granulocytes (Bld) [#/Vol] [facility] Immature granulocytes/100 WBC (Bld) 0 % 0.0 - 5.0 % [facility] Interpretation and review of laboratory results Abnormal [facility] Lymphocytes/100 WBC (Bld) 37 % 20.0 - 42.0 % [facility] Lymphocytes/100 WBC (Bld) 2.10 % [facility] MCH (RBC) [Entitic mass] 28.9 pg 26.0 - 35.0 pg [facility] MCHC (RBC) [Mass/Vol] 32.9 g/dL 32.0 - 34.5 g/dL [facility] MCV (RBC) [Entitic vol] 87.8 fL 80.0 - 99.9 fL [facility] Monocytes/100 WBC (Bld) 7 % 2.0 - 12.0 % [facility] Monocytes/100 WBC (Bld) 0.37 % [facility] Neutrophils/100 WBC (Bld) 54 % 43.0 - 80.0 % [facility] Platelet mean volume (Bld) [Entitic vol] 10.1 fL 7.0 - 12.0 fL [facility] Platelets (Bld) [#/Vol] 308 10*3/uL [facility] RBC (Bld) [#/Vol] 3.70 10*6/uL 3.50 - 5.5 0 m/uL [facility] Segmented neutrophils/100 WBC (Bld) 3.04 % [facility] WBC other (Bld) [#/Vol] 5.7 [facility] CBC with Diffon 12-06-2024 Abs. Basophil 0.05 k/uL Normal 0.00-0.20 [facility] Comment on above: Performed By: #### C LUCHO DAVIS, TROPI #### [address] [address] Line Lead: Brad Trujillo MD Abs.Imm.Granulocyte <0.03 Normal 0.00-0.58 [facility] Comment on above: Performed By: #### C LUCHO DAVIS, TROPI #### [place] [address] Line Lead: Brad Trujillo MD Abs.Neutrophil (Seg) 3.04 k/uL Normal 1.80-7.30 [facility] Comment on above: Performed By: #### C LUCHO DAVIS, TROPI #### [address] [address] Line Lead: Brad Trujillo MD Basophils/100 WBC (Bld) 1 % Normal 0.0-2.0 [facility] Comment on above: Performed By: #### C LUCHO DAVIS, TROPI #### [address] [address] Line Lead: Brad Trujillo MD Eosinophils (Bld) [#/Vol] 0.09 10*3/uL Normal 0.05-0.50 [facility] Comment on above: Performed By: #### C LUCHO DAVIS, TROPI #### [address] [address] Line Lead: Brad Trujillo MD Eosinophils/100 WBC (Bld) 2 % Normal 0-6 [facility] Comment on above: Performed By: #### Wilma DAVIS CP, TROPI #### [place] [address] Line Lead: Brad Trujillo MD Erythrocyte distribution width (RBC) [Ratio] 14.4 % Normal 11.5-15.0 [facility] Comment on above: Performed By: #### C LUCHO DAVIS, TROPI #### [place] [address] Line Lead: Brad Trujillo MD Hematocrit (Bld) [Volume fraction] 32.5 % Low 34.0-48.0 [facility] Comment on above: Performed By: #### Wilma DAVIS CP, TROPI #### [place] [address] Line Lead: Brad Trujillo MD Hemoglobin (Bld) [Mass/Vol] 10.7 g/dL Low 11.5-15.5 [facility] Comment on above: Performed By: #### Wilma DAVIS CP, TROPI #### [place] [address] Line Lead: Brad Trujillo MD Immature granulocytes/100 WBC (Bld) 0 % Normal 0.0-5.0 [facility] Comment on above: Performed By: #### Wilma DAVIS CP, TROPI #### [place] [address] Line Lead: Brad Trujillo MD Lymphocytes (Bld) [#/Vol] 2.10 10*3/uL Normal 1.50-4.00 [facility] Comment on above: Performed By: #### C BCWD, CP, TROPI #### [address] [place] [address] Line Lead: Brad Trujillo MD Lymphocytes/100 WBC (Bld) 37 % Normal 20.0-42.0 [facility] Comment on above: Performed By: #### C RYAN, CP, TROPI #### [address] [place] [address] Line Lead: Brad Trujillo MD MCH (RBC) [Entitic mass] 28.9 pg Normal 26.0-35.0 [facility] Comment on above: Performed By: #### C RYAN CP, TROPI #### [address] [place] [address] Line Lead: Brad Trujillo MD MCHC (RBC) [Mass/Vol] 32.9 g/dL Normal 32.0-34.5 [facility] Comment on above: Performed By: #### Wilma DAVIS, CP, TROPI #### [address] [place] [address] Line Lead: Brad Trujillo MD MCV (RBC) [Entitic vol] 87.8 fL Normal 80.0-99.9 [facility] Comment on above: Performed By: #### C RYAN, CP, TROPI #### [address] [place] [address] Line Lead: Brad Trujillo MD Monocytes (Bld) [#/Vol] 0.37 10*3/uL Normal 0.10-0.95 [facility] Comment on above: Performed By: #### C RYAN, CP, TROPI #### [address] [place] [address] Line Lead: Brad Trujillo MD Monocytes/100 WBC (Bld) 7 % Normal 2.0-12.0 [facility] Comment on above: Performed By: #### C LUCHO DAVIS, TROPI #### [address] [place] [address] Line Lead: Brad Trujillo MD Neutrophil (Seg) 54 % Normal 43.0-80.0 [facility] Comment on above: Performed By: #### Wilma DAVIS CP, TROPI #### [address] [place] [address] Line Lead: Brad Trujillo MD Platelet mean volume (Bld) [Entitic vol] 10.1 fL Normal 7.0-12.0 [facility] Comment on above: Performed By: #### Wilma DAVIS CP, TROPI #### [address] [place] [address] Line Lead: Brad Trujillo MD Platelets (Bld) [#/Vol] 308 10*3/uL Normal 130-450 [facility] Comment on above: Performed By: #### Wilma DAVIS CP, TROPI #### [address] [place] [address] Line Lead: Brad Trujillo MD RBC (Bld) [#/Vol] 3.70 10*6/uL Normal 3.50-5.50 [facility] Comment on above: Performed By: #### Wilma DAVIS CP, TROPI #### [address] [address] Line Lead: Brad Trujillo MD WBC (Bld) [#/Vol] 5.7 10*3/uL Normal 4.5-11.5 [facility] Comment on above: Performed By: #### Wilma DAVIS CP, TROPI #### [address] [place] [address] Line Lead: Brad Trujillo MD Comp Metabolic Profon 2024 Albumin [Mass/Vol] 4.1 g/dL Normal 3.5-5.2 [facility] Comment on above: Performed By: #### C LUCHO DAVIS, TROPI ####[facility] [place] [address].[place], [place] [phone] Director: Brad Trujillo MD Alkaline Phos 73 U/L Normal 35-104 [facility] Comment on above: Performed By: #### C LUCHO DAVIS, TROPI ####[facility] [place] [address].[place], [place] [phone] Director: Brad Trujillo MD ALT [Catalytic activity/Vol] 27 U/L Normal 0-32 [facility] Comment on above: Performed By: #### C LUCHO DAVIS, TROPI ####[facility] [place] [address].[place], [place] [phone] Director: Brad Trujillo MD Anion gap [Moles/Vol] 8 mmol/L Normal 7-16 [facility] Comment on above: Performed By: #### Wilma DAVIS CP, TROPI ####[address], [place] [phone] Director: Brad Trujillo MD AST [Catalytic activity/Vol] 22 U/L Normal 0-31 [facility] Comment on above: Performed By: #### C LUCHO DAVIS, TROPI ####[address] [place] [address] Lab Director: Brad Trujillo MD Bilirubin [Mass/Vol] 0.3 mg/dL Normal 0.0-1.2 [facility] Comment on above: Performed By: #### C LUCHO DAVIS, TROPI ####[place] [address], [place] [phone] Director: Brad Trujillo MD Calcium [Mass/Vol] 9.2 mg/dL Normal 8.6-10.2 [facility] Comment on above: Performed By: #### C RYAN, CP, TROPI ####[address] [place] [address] Lab Director: Brad Trujillo MD Chloride [Moles/Vol] 102 mmol/L Normal 98-107 [facility] Comment on above: Performed By: #### C RYAN, CP, TROPI ####[address], [place] [phone] Director: Brad Trujillo MD CO2 [Moles/Vol] 28 mmol/L Normal 22-29 [facility] Comment on above: Performed By: #### Wilma DAVIS, CP, TROPI ####[address], [place] [phone] Director: Brad Trujillo MD Creatinine [Mass/Vol] 0.8 mg/dL Normal 0.50-1.00 [facility] Comment on above: Performed By: #### Wilma DAVIS, CP, TROPI ####[address] [place] [address] Lab Director: Brad Trujillo MD GFR/1.73 sq M.predicted among non-blacks MDRD (S/P/Bld) [Vol rate/Area] mL/min/{1.73_m2} Normal >60 [facility] Comment on above: Result Comment: These results are not intended for use in patients <18 years of age. eGFR results are calculated without a race factor using the 2020 CKD-EPI equation. Careful clinical correlation is recommended, particularly when comparing to results calculated using previous equations. The CKD-EPI equation is less accurate in patients with extremes of muscle mass, extra-renal metabolism of creatine, excessive creatine ingestion, or following therapy that affects renal tubular secretion. Performed By: #### C LUCHO DAVIS TROPI ####[address] [place] [phone] Director: Brad Trujillo MD Glucose [Mass/Vol] 93 mg/dL Normal 74-99 [facility] Comment on above: Performed By: #### C LUCHO DAVIS, TROPI ####[address] [place] [address] Lab Director: Brad Trujillo MD Potassium [Moles/Vol] 4.3 mmol/L Normal 3.5-5.0 [facility] Comment on above: Performed By: #### C LUCHO DAVIS, TROPI ####[address] [place] [address] Lab Director: Brad Trujillo MD Protein [Mass/Vol] 6.8 g/dL Normal 6.4-8.3 [facility] Comment on above: Performed By: #### C LUCHO DAVIS, TROPI ####[address] [place] [address] Lab Director: Brad Trujillo MD Sodium [Moles/Vol] 138 mmol/L Normal 132-146 [facility] Comment on above: Performed By: #### C LUCHO DAVIS, TROPI ####[address] [place] [address] Lab Director: Brad Trujillo MD Urea nitrogen [Mass/Vol] 15 mg/dL Normal 6-20 [facility] Comment on above: Performed By: #### C LUCHO DAVIS, TROPI ####[address] [place] [phone] Director: Brad Trujillo MD Comprehensive Metabolic Pane anival 12-06-2024 ALP [Catalytic activity/Vol] 73 U/L 35 - 104 U/L [facility] [employer], Glojosee Jerezt Rate - PINF [facility] [employer] Comment on above: These results are not intended for use in patients <18 years of age. eGFR results are calculated without a race factor using the 2020 CKD-EPI equation. Careful clinical correlation is recommended, particularly when comparing to results calculated using previous equations. The CKD-EPI equation is less accurate in patients with extremes of muscle mass, extra-renal metabolism of creatine, excessive creatine ingestion, or following therapy that affects renal tubular secretion. No Panel InformationOrdered By: Marquita Urena on 12-06-2024 [facility] [employer] POC Urine QualOrde red By: Marquita Urena on 12-06-2024 Beta HCG ( test) Ql (U) Negative Negative [facility] [employer] Lot Number [id number] [facility] QC Pass/Fail Pass [facility] Positive QC Pass/Fail Pass [employer] Portable XR Chest AP single viewon 12-06-2024 No acute cardiopulmonary process. [facility] EXAMINATION: ONE XRAY VIEW OF THE CHEST 12/06/2024 11:33 am COMPARISON: None. HISTORY: ORDERING SYSTEM PROVIDED HISTORY: dizziness TECHNOLOGIST PROVIDED HISTORY: Reason for exam:->dizziness FINDINGS: The heart size is within normal limits. The pulmonary vasculature is also within normal limits. No acute infiltrates are seen. No pneumothoraces are noted. [facility] Javan Zhong MD - 12/06/2024 EXAMINATION: ONE XRAY VIEW OF THE CHEST 12/06/2024 11:33 am COMPARISON: None. HISTORY: ORDERING SYSTEM PROVIDED HISTORY: dizziness TECHNOLOGIST PROVIDED HISTORY: Reason for exam:->dizziness FINDINGS: The heart size is within normal limits. The pulmonary vasculature is also within normal limits. No acute infiltrates are seen. No pneumothoraces are noted. IMPRESSION: No acute cardiopulmonary process. [facility] Radiology Study observation (narrative) [employer] Portable XR Chest AP single viewOrdered By: Javan Zhong on 12-06-2024 [facility] Work Phone: Troponinon 12-06-2024 Troponin, High Sens <6 Normal 0-9 [facility] Comment on above: Result Comment: High Sensitivity Troponin values cannot be compared with other Troponin methodologies. Patients with high levels of Biotin oral intake (i.e >5mg/day) may have falsely decreased Troponin levels. Samples collected within 8 hours of biotin intake may require additional information for diagnosis. Performed By: #### C BCWD, CP, TROPI ####[facility] [place] [address] Lab Director: Brad Trujillo MD Troponin I.cardiac High sensitivity method [Mass/Vol] ng/L 0 - 9 ng/L [facility] Comment on above: High Sensitivity Troponin values cannot be compared with other Troponin methodologies. Patients with high levels of Biotin oral intake (i.e >5mg/day) may have falsely decreased Troponin levels. Samples collected within 8 hours of biotin intake may require additional information for diagnosis. XR CHEST PORTABLEon 12-06-19 XR CHEST PORTABLE EXAMINATION: ONE XRAY VIEW OF THE CHEST 12/06/2024 11:33 am COMPARISON: None. HISTORY: ORDERING SYSTEM PROVIDED HISTORY: dizziness TECHNOLOGIST PROVIDED HISTORY: Reason for exam:->dizziness FINDINGS: The heart size is within normal limits. The pulmonary vasculature is also within normal limits. No acute infiltrates are seen. No pneumothoraces are noted. IMPRESSION: No acute cardiopulmonary process. Interpreted by: Javan Zhong MD Signed by: Javan Zhong MD 12/06/24 Final result Normal [facility] Comment on above: Order Comment: Reaso n for exam:->dizziness Chlamydia/GC DNA, Uron 10-28 Chlamydia Probe, Ur Negative Normal NEG [facility] Comment on above: Result Comment: CHLA MYDIA TRACHOMATIS DNA not detected by nucleic acid amplification. This test is intended for medical purposes only and is not valid for the evaluation of suspected sexual abuse or for other forensic purposes. In certain contexts, culture may be required to meet applicable laws and regulations for diagnosis of C. trachomatis and N. gonorrhoeae infections. Per 2014 CDC recommendations, this test does not include confirmation of positive results by an alternative nucleic acid target. Performed By: #### P HEP, RPR, CBCWD, HIVCMB, CP, TSH, GLYHGB ####[address] [address] Lab Director: Brad Trujillo MD#### [facility] ####[address] [address] Gonorrhea Probe, Ur Negative Normal NEG [facility] Comment on above: Result Comment: NEIS SERIA GONORRHOEAE DNA not detected by nucleic acid amplification. This test is intended for medical purposes only and is not valid for the evaluation of suspected sexual abuse or for other forensic purposes. In certain contexts, culture may be required to meet applicable laws and regulations for diagnosis of C. trachomatis and N. gonorrhoeae infections. Per 2014 CDC recommendations, this test does not include confirmation of positive results by an alternative nucleic acid target. Performed By: #### P HEP, RPR, CBCWD, HIVCMB, CP, TSH, GLYHGB ####[address] [address] Lab Director: Brad Trujillo MD#### [facility] ####[address] [address] HIV Ag/Abon 10-27-2024 HIV Ag/Ab Non-Reactive Normal NR [facility] Comment on above: Performed By: #### P HEP, RPR, CBCWD, HIVCMB, CP, TSH, GLYHGB ####[address] [address] Lab Director: Brad Trujillo MD#### [facility] ####[address] [place] [address] Hepatitis Acute [facility] 10-27 Hep A Ab,IgM Non-Reactive Normal [facility] Comment on above: Performed By: #### P HEP, RPR, CBCWD, HIVCMB, CP, TSH, GLYHGB ####[place] [address] Lab Director: Brad Trujillo MD#### [facility] ####[address] [address] Hep B Core Ab,IgM Non-Reactive Normal NR [facility] Comment on above: Performed By: #### P HEP, RPR, CBCWD, HIVCMB, CP, TSH, GLYHGB ####[place] [address] Lab Director: Brad Trujillo MD#### UCGP ####[place] [address] Hep B Surf Ag Non-Reactive Normal NR [facility] Comment on above: Performed By: #### P HEP, RPR, CBCWD, HIVCMB, CP, TSH, GLYHGB ####[place] [address] Lab Director: Brad Trujillo MD#### UCGP ####[place] [address] Hep C Ab Non-Reactive Normal [facility] Comment on above: Performed By: #### P HEP, RPR, CBCWD, HIVCMB, CP, TSH, GLYHGB ####[place] [address] Lab Director: Brad Trujillo MD#### [facility]CG[facility] ####[address] [address] RPRon 10-27-2024 Reagin Ab RPR Ql (S) Non-Reactive Normal NR [facility] Comment on above: Performed By: #### P HEP, RPR, CBCWD, HIVCMB, CP, TSH, GLYHGB ####[address] [place] [address] Lab Director: Brad Trujillo MD#### UCGP ####[address] [place] [address] CBC with Auto Differentialon 10-26-2024 Basophils (Bld) [#/Vol] 0.05 10*3/uL [facility] Immature granulocytes (Bld) [#/Vol] 0.03 10*3/uL [facility] Lymphocytes/100 WBC (Bld) 2.77 % [facility] Monocytes/100 WBC (Bld) 0.35 % [facility] Neutrophils/100 WBC (Bld) 63 % 43.0 - 80.0 % [facility] Segmented neutrophils/100 WBC (Bld) 5.47 % [facility] WBC other (Bld) [#/Vol] 8.8 [facility] CBC with Diffon 10-26-2024 Basophils/100 WBC (Bld) 1 % Normal 0.0-2.0 [facility] Comment on above: Performed By: #### P HEP, RPR, CBCWD, HIVCMB, CP, TSH, GLYHGB ####[place] [address] Lab Director: Brad Trujillo MD#### UCGP ####[facility] [address] [place] [address] Eosinophils (Bld) [#/Vol] 0.08 10*3/uL Normal 0.05-0.50 [facility] [employer] Comment on above: Performed By: #### P HEP, RPR, CBCWD, HIVCMB, CP, TSH, GLYHGB ####[place] [address] Lab Director: Brad Trujillo MD#### UCGP ####[address] [place] [address] Eosinophils/100 WBC (Bld) 1 % Normal 0-6 [facility] Comment on above: Performed By: #### P HEP, RPR, CBCWD, HIVCMB, CP, TSH, GLYHGB ####[place] [address] [facility] Director: Brad Trujillo MD#### UCGP ####[address] [address] Erythrocyte distribution width (RBC) [Ratio] 13.7 % Normal 11.5-15.0 [facility] Comment on above: Performed By: #### P HEP, RPR, CBCWD, HIVCMB, CP, TSH, GLYHGB ####[place] [address] [facility] Director: Brad Trujillo MD#### UCGP ####[address] [address] Hematocrit (Bld) [Volume fraction] 37.9 % Normal 34.0-48.0 [facility] Comment on above: Performed By: #### P HEP, RPR, CBCWD, HIVCMB, CP, TSH, GLYHGB ####[place] [address] Lab Director: Brad Trujillo MD#### UCGP ####[address] [place] [address] Hemoglobin (Bld) [Mass/Vol] 12.3 g/dL Normal 11.5-15.5 [facility] Comment on above: Performed By: #### P HEP, RPR, CBCWD, HIVCMB, CP, TSH, GLYHGB ####[address] [address] Lab Director: Brad Trujillo MD#### UCGP ####[address] [address] Immature granulocytes/100 WBC (Bld) 0 % Normal 0.0-5.0 [facility] Comment on above: Performed By: #### P HEP, RPR, CBCWD, HIVCMB, CP, TSH, GLYHGB ####[address] [address] Lab Director: Brad Trujillo MD#### UCGP ####[address] [address] Lymphocytes/100 WBC (Bld) 32 % Normal 20.0-42.0 [facility] Comment on above: Performed By: #### P HEP, RPR, CBCWD, HIVCMB, CP, TSH, GLYHGB ####[id number] Lab Director: Brad Trujillo MD#### UCGP ####[address] [place] [address] MCH (RBC) [Entitic mass] 29.1 pg Normal 26.0-35.0 [facility] Comment on above: Performed By: #### P HEP, RPR, CBCWD, HIVCMB, CP, TSH, GLYHGB ####[address] [address] Lab Director: Brad Trujillo MD#### UCGP ####[address] [place] [address] MCHC (RBC) [Mass/Vol] 32.5 g/dL Normal 32.0-34.5 [facility] Comment on above: Performed By: #### P HEP, RPR, CBCWD, HIVCMB, CP, TSH, GLYHGB ####[place] [address] Lab Director: Brad Trujillo MD#### UCGP ####[address] [place] [address] MCV (RBC) [Entitic vol] 89.6 fL Normal 80.0-99.9 [facility] Comment on above: Performed By: #### P HEP, RPR, CBCWD, HIVCMB, CP, TSH, GLYHGB ####[place] [address] Lab Director: Brad Trujillo MD#### UCGP ####[address] [address] Monocytes/100 WBC (Bld) 4 % Normal 2.0-12.0 [facility] Comment on above: Performed By: #### P HEP, RPR, CBCWD, HIVCMB, CP, TSH, GLYHGB ####[place] [address] Lab Director: Brad Trujillo MD#### UCGP ####[address] [place] [address] Platelet mean volume (Bld) [Entitic vol] 9.9 fL Normal 7.0-12.0 [facility] Comment on above: Performed By: #### P HEP, RPR, CBCWD, HIVCMB, CP, TSH, GLYHGB ####[place] [address] Lab Director: Brad Trujillo MD#### UCGP ####[address] [place] [address] Platelets (Bld) [#/Vol] 427 10*3/uL Normal 130-450 [facility] Comment on above: Performed By: #### P HEP, RPR, CBCWD, HIVCMB, CP, TSH, GLYHGB ####[address] [address] Lab Director: Brad Trujillo MD#### UCGP ####[address] [address] RBC (Bld) [#/Vol] 4.23 10*6/uL Normal 3.50-5.50 [facility] Comment on above: Performed By: #### P HEP, RPR, CBCWD, HIVCMB, CP, TSH, GLYHGB ####[place] [address] [facility] Director: Brad Trujillo MD#### UCGP ####[address] [address] Abs. Basophil 0.05 k/uL Normal 0.00-0.20 [facility] Comment on above: Performed By: #### P HEP, RPR, CBCWD, HIVCMB, CP, TSH, GLYHGB ####[place] [address] [facility] Director: Brad Trujillo MD#### UCGP ####[address] [address] Abs.Imm.Granulocyte 0.03 k/uL Normal 0.00-0.58 [facility] Comment on above: Performed By: #### P HEP, RPR, CBCWD, HIVCMB, CP, TSH, GLYHGB ####[address] [place] [address] [facility] Director: Brad Trujillo MD#### UCGP ####[address] [place] [address] Abs.Neutrophil (Seg) 5.47 k/uL Normal 1.80-7.30 [facility] Comment on above: Performed By: #### P HEP, RPR, CBCWD, HIVCMB, CP, TSH, GLYHGB ####[place] [address] Lab Director: Brad Trujillo MD#### UCGP ####[address] [address] Lymphocytes (Bld) [#/Vol] 2.77 10*3/uL Normal 1.50-4.00 [facility] Comment on above: Performed By: #### P HEP, RPR, CBCWD, HIVCMB, CP, TSH, GLYHGB ####[place] [address] Lab Director: Brad Trujillo MD#### UCGP ####[address] [address] Monocytes (Bld) [#/Vol] 0.35 10*3/uL Normal 0.10-0.95 [facility] Comment on above: Performed By: #### P HEP, RPR, CBCWD, HIVCMB, CP, TSH, GLYHGB ####[place] [address] Lab Director: Brad Trujillo MD#### UCGP ####[address] [address] Neutrophil (Seg) 63 % Normal 43.0-80.0 [facility] Comment on above: Performed By: #### P HEP, RPR, CBCWD, HIVCMB, CP, TSH, GLYHGB ####[address] [address] Lab Director: Brad Trujillo MD#### UCGP ####[facility] [address] [place] [address] WBC (Bld) [#/Vol] 8.8 10*3/uL Normal 4.5-11.5 [facility] Comment on above: Performed By: #### P HEP, RPR, CBCWD, HIVCMB, CP, TSH, GLYHGB ####[address] [place] [address] Lab Director: Brad Trujillo MD#### UCGP ####[address] [place] [address] Comp Metabolic Profon 2023 Albumin [Mass/Vol] 4.5 g/dL Normal 3.5-5.2 [facility] Comment on above: Performed By: #### P HEP, RPR, CBCWD, HIVCMB, CP, TSH, GLYHGB ####[address] [address] Lab Director: Brad Trujillo MD#### UCGP ####[facility] [address] [place] [address] Alkaline Phos 67 U/L Normal 35-104 [facility] Comment on above: Performed By: #### P HEP, RPR, CBCWD, HIVCMB, CP, TSH, GLYHGB ####[address] [place] [address] Lab Director: Brad Trujillo MD#### UCGP ####[facility] [address] [place] [address] ALT [Catalytic activity/Vol] 12 U/L Normal 0-32 [facility] Comment on above: Performed By: #### P HEP, RPR, CBCWD, HIVCMB, CP, TSH, GLYHGB ####[place] [address] Lab Director: Brad Trujillo MD#### UCGP ####[address] [place] [address] Anion gap [Moles/Vol] 10 mmol/L Normal 7-16 [facility] Comment on above: Performed By: #### P HEP, RPR, CBCWD, HIVCMB, CP, TSH, GLYHGB ####[place] [address] Lab Director: Brad Trujillo MD#### UCGP ####[address] [place] [address] AST [Catalytic activity/Vol] 15 U/L Normal 0-31 [facility] Comment on above: Performed By: #### P HEP, RPR, CBCWD, HIVCMB, CP, TSH, GLYHGB ####[place] [address] Lab Director: Brad Trujillo MD#### UCGP ####[address] [place] [address] Bilirubin [Mass/Vol] 0.3 mg/dL Normal 0.0-1.2 [facility] Comment on above: Performed By: #### P HEP, RPR, CBCWD, HIVCMB, CP, TSH, GLYHGB ####[place] [address] Lab Director: Brad Trujillo MD#### UCGP ####[address] [place] [address] Calcium [Mass/Vol] 9.7 mg/dL Normal 8.6-10.2 [facility] Comment on above: Performed By: #### P HEP, RPR, CBCWD, HIVCMB, CP, TSH, GLYHGB ####[address] [address] Lab Director: Brad Trujillo MD#### UCGP ####[address] [place] [address] Chloride [Moles/Vol] 101 mmol/L Normal 98-107 [facility] Comment on above: Performed By: #### P HEP, RPR, CBCWD, HIVCMB, CP, TSH, GLYHGB ####[place] [address] Lab Director: Brad Trujillo MD#### UCGP ####[address] [place] [address] CO2 [Moles/Vol] 30 mmol/L High 22-29 [facility] Comment on above: Performed By: #### P HEP, RPR, CBCWD, HIVCMB, CP, TSH, GLYHGB ####[place] [address] Lab Director: Brad Trujillo MD#### UCGP ####[facility] [address] [place] [address] Creatinine [Mass/Vol] 0.8 mg/dL Normal 0.50-1.00 [facility] Comment on above: Performed By: #### P HEP, RPR, CBCWD, HIVCMB, CP, TSH, GLYHGB ####[address] [place] [address] Lab Director: Brad Trujillo MD#### UCGP ####[address] [place] [address] GFR/1.73 sq M.predicted among non-blacks MDRD (S/P/Bld) [Vol rate/Area] mL/min/{1.73_m2} Normal >60 [facility] Comment on above: Result Comment: These results are not intended for use in patients <18 years of age. eGFR results are calculated without a race factor using the 2020 CKD-EPI equation. Careful clinical correlation is recommended, particularly when comparing to results calculated using previous equations. The CKD-EPI equation is less accurate in patients with extremes of muscle mass, extra-renal metabolism of creatine, excessive creatine ingestion, or following therapy that affects renal tubular secretion. Performed By: #### P HEP, RPR, CBCWD, HIVCMB, CP, TSH, GLYHGB ####[address] [address] [facility] Director: Brad Trujillo MD#### UCGP ####[address] [place] [address] Glucose [Mass/Vol] 80 mg/dL Normal 74-99 [facility] Comment on above: Performed By: #### P HEP, RPR, CBCWD, HIVCMB, CP, TSH, GLYHGB ####[address] [address] Lab Director: Brad Trujillo MD#### UCGP ####[facility] [place] [address] Potassium [Moles/Vol] 4.3 mmol/L Normal 3.5-5.0 [facility] Comment on above: Performed By: #### P HEP, RPR, CBCWD, HIVCMB, CP, TSH, GLYHGB ####[address] [address] Lab Director: Brad Trujillo MD#### UCGP ####[facility] [address] [place] [address] Protein [Mass/Vol] 7.3 g/dL Normal 6.4-8.3 [facility] Comment on above: Performed By: #### P HEP, RPR, CBCWD, HIVCMB, CP, TSH, GLYHGB ####[address] [place] [address] [facility] Director: Brad Trujillo MD#### UCGP ####[facility] [address] [place] [address] Sodium [Moles/Vol] 141 mmol/L Normal 132-146 [facility] Comment on above: Performed By: #### P HEP, RPR, CBCWD, HIVCMB, CP, TSH, GLYHGB ####[place] [address] [facility] Director: Brad Trujillo MD#### UCGP ####[address] [place] [address] Urea nitrogen [Mass/Vol] 8 mg/dL Normal 6-20 [facility] Comment on above: Performed By: #### P HEP, RPR, CBCWD, HIVCMB, CP, TSH, GLYHGB ####[address] [place] [address] [facility] Director: Brad Trujillo MD#### UCGP ####[facility] [address] [place], [place] [id number] Comprehensive Metabolic Pane [facility] 10-26-2024 Albumin [Mass/Vol] 4.5 g/dL 3.5 - 5.2 g/dL [facility] ALP [Catalytic activity/Vol] 67 U/L 35 - 104 U/L [facility] ALT [Catalytic activity/Vol] 12 U/L 0 - 32 U/L [facility] Anion gap [Moles/Vol] 10 mmol/L 7 - 16 mmol/L [facility] AST [Catalytic activity/Vol] 15 U/L 0 - 31 U/L [facility] Bilirubin [Mass/Vol] 0.3 mg/dL 0.0 - 1 .2 mg/dL [facility] Calcium [Mass/Vol] 9.7 mg/dL 8.6 - 10. 2 mg/dL [facility] Chloride [Moles/Vol] 101 mmol/L 98 - 10 7 mmol/L [facility] CO2 [Moles/Vol] 30 mmol/L High 22 - 29 mmol/L [facility] Creatinine [Mass/Vol] 0.8 mg/dL 0.50 - 1.00 mg/dL [facility] Comment on above: These results are not intended for use in patients <18 years of age. eGFR results are calculated without a race factor using the 2020 CKD-EPI equation. Careful clinical correlation is recommended, particularly when comparing to results calculated using previous equations. The CKD-EPI equation is less accurate in patients with extremes of muscle mass, extra-renal metabolism of creatine, excessive creatine ingestion, or following therapy that affects renal tubular secretion. Glucose [Mass/Vol] 80 mg/dL 74 - 99 mg/dL [facility] Interpretation and review of laboratory results Abnormal [facility] Potassium [Moles/Vol] 4.3 mmol/L 3.5 - 5.0 mmol/L [facility] Protein [Mass/Vol] 7.3 g/dL 6.4 - 8.3 g/dL [facility] Sodium [Moles/Vol] 141 mmol/L 132 - 146 mmol/L [facility] Urea nitrogen [Mass/Vol] 8 mg/dL 6 - 20 mg/dL [facility] Hemoglobin A1Con 10-26-2024 HbA1c (Bld) [Mass fraction] 5.1 % 4.0 - 5.6 % [facility] HbA1c (Bld) [Mass fraction] 5.1 % Normal 4.0-5.6 [facility] Comment on above: Performed By: #### P HEP, RPR, CBCWD, HIVCMB, CP, TSH, GLYHGB ####[address] [place] [address] [facility] Director: Brad Trujillo MD#### UCGP ####[address] [place] [id number] No Panel Informationon 10-26 [facility] TSHon 10-26-2024 TSH Qn 1.45 m[IU]/L [facility] Thyroid Stim. Horm.on 2023 Thyroid Stim. Horm. 1.45 uIU/mL Normal 0.27-4.20 [facility] Comment on above: Performed By: #### P HEP, RPR, CBCWD, HIVCMB, CP, TSH, GLYHGB ####[place] [address] lab Director: Brad Trujillo MD#### UCGP ####[id number] Alanine aminotransferase [En zymatic activity/volume] in Serum or PlasmaOrdered By: Sandy Krishnan on 09-12-2024 ALT [Catalytic activity/Vol] Alanine aminotransferase [Enzymatic activity/volume] in Serum or Plasma 7-52 [facility] Albumin [Mass/volume] in Ser um or Plasma by Bromocresol green (BCG) dye binding methoOrdered By: Sandy Krishnan on 09-12-2024 Albumin BCG dye [Mass/Vol] Albumin [Mass/volume] in Serum or Plasma by Bromocresol green (BCG) dye binding metho 3.5-5.7 [facility] Alkaline phosphatase [Enzyma tic activity/volume] in Serum or PlasmaOrdered By: Sandy Krishnan on 09-12-2024 ALP [Catalytic activity/Vol] Alkaline phosphatase [Enzymatic activity/volume] in Serum or Plasma 34-104 [facility] Amphetamine Screen Ql (U)Ord ered By: Sandy Krishnan on 09-12-2024 Amphetamines Ql (U) Amphetamines screen Negativ e [facility] Appearance of UrineOrdered B y: Sandy Krishnan on 09-12-2024 Appearance (U) Urine appearance Clear [facility] Aspartate aminotransferase [ Enzymatic activity/volume] in Serum or PlasmaOrdered By: Sandy Krishnan on 09-12-2024 AST [Catalytic activity/Vol] Aspartate aminotransferase [Enzymatic activity/volume] in Serum or Plasma 13-39 [facility] Bacteria [Presence] in Urine by AutomatedOrdered By: Sandy Krishnan on 09-12-2024 Bacteria Auto Ql (U) Bacteria [Presence] in Urine by Automated None Seen [facility] Barbiturates [Presence] in U rine by Screen methodOrdered By: Sandy Krishnan on 09-12-2024 Barbiturates Screen Ql (U) Barbiturates [Presence] in Urine by Screen method Negative [facility] Basophils Auto (Bld) [#/Vol] Ordered By: Sandy Krishnan on 09-12-2024 Basophils (Bld) [#/Vol] Automated basophil count 0.0-0.2 [facility] Basophils/100 WBC Auto (Bld) Ordered By: Sandy Krishnan on 09-12-2024 Basophils/100 WBC (Bld) Automated basophil % . [facility] Benzodiazepines Screen Ql (U )Ordered By: Sandy Krishnan on 09-12-2024 Benzodiazepines Ql (U) Benzodiazepines [Presence] in Urine by Screen method Negative [facility] Benzoylecgonine [Presence] i n Urine by Screen methodOrdered By: Sandy Krishnan on 09-12-2024 Benzoylecgonine Screen Ql (U) Benzoylecgonine [Presence] in Urine by Screen method High Negative [facility] Bilirubin Test strip Ql (U)O rdered By: Sandy Krishnan on 09-12-2024 Bilirubin Ql (U) Bilirubin.total [Presence] in Urine by Test strip Negative [facility] Bilirubin.total [Mass/volume ] in Serum or PlasmaOrdered By: Sandy Krishnan on 09-12-2024 Bilirubin [Mass/Vol] Bilirubin.total [Mass/volume] in Serum or Plasma 0.3-1.0 [facility] Calcium [Mass/volume] in Ser um or PlasmaOrdered By: Sandy Krishnan on 09-12-2024 Calcium [Mass/Vol] Calcium [Mass/volume ] in Serum or Plasma 8.6-10.3 [facility] Cannabinoids [Presence] in U rine by Screen methodOrdered By: Sandy Krishnan on 09-12-2024 Cannabinoids Screen Ql (U) Cannabinoids [Presence] in Urine by Screen method High Negative [facility] Comment on above: These are unconfirme d results and should not be used for legal purposes. Drug Cut-Off Concentration: AMPH 1000 ng/mL MARLY 200 ng/mL WIN 200 ng/mL COCM 300 ng/mL OP 300 ng/mL PCP 25 ng/mL THC 20 ng/mL Carbon dioxide, total [Moles /volume] in Serum or PlasmaOrdered By: Sandy Krishnan on 09-12-2024 CO2 [Moles/Vol] Carbon dioxide, tota l [Moles/volume] in Serum or Plasma 21.0-31.0 [facility] Casts [Presence] in Urine by AutomatedOrdered By: Sandy Krishnan on 09-12-2024 Casts Auto Ql (U) Casts [Presence] in Urine by Automated High None Seen [facility] Chloride [Moles/volume] in S aj or PlasmaOrdered By: Sandy Krishnan on 09-12-2024 Chloride [Moles/Vol] Chloride [Moles/vol ume] in Serum or Plasma 98-107 [facility] Cholesterol [Mass/volume] in Serum or PlasmaOrdered By: Sandy Krishnan on 09-12-2024 Cholesterol [Mass/Vol] Cholesterol [Mass/volume] in Serum or Plasma 140-200 [facility] Comment on above: Chol less than 200 m g/dl low riskChol 201-239 mg/dl borderline riskChol 240 mg/dl and greater high risk Cholesterol in HDL [Mass/vol ume] in Serum or PlasmaOrdered By: Sandy Krishnan on 09-12-2024 Cholesterol in HDL [Mass/Vol] Serum or plasma high density lipoprotein (HDL) cholesterol measurement 23-92 [facility] Comment on above: HDL CHOL ATP-III CLA SSIFICATION Cardiovascular RiskHDL > or equal to 60 mg/dL LOWHDL < 40 mg/dL HIGH Cholesterol in LDL Calc [Mas s/Vol]Ordered By: Sandy Krishnan on 09-12-2024 Cholesterol in LDL [Mass/Vol] Cholesterol in LDL [Mass/volume] in Serum or Plasma by calculation 0-100 [facility] Comment on above: LDL ATP III CLASSIFI CATIONLDL less than 100 mg/dL OptimalLDL 100-129 mg/dL Near or above optimalLDL 130-159 mg/dL Borderline highLDL 160-189 mg/dL HighLDL greater than 189 mg/dL Very high Cholesterol in VLDL Calc [Ma ss/Vol]Ordered By: Sandy Krishnan on 09-12-2024 Cholesterol in VLDL [Mass/Vol] Cholesterol in VLDL [Mass/volume] in Serum or Plasma by calculation [facility] Color Auto (U)Ordered By: Raul Krishnan on 09-12-2024 Color (U) Color of Urine by Auto Yellow Fi [facility] Complete Blood Count Auto Di ffon 09-12-2024 Basophils (Bld) [#/Vol] 0.1 10*3/uL Normal 0.0-0.2 [facility] Comment on above: Result Comment: PERF ORMED BY: [place] [address] PATHOLOGIST ELECTROMECHANICAL TECHNOLOGIST YARITZA HUTCHISON M.D. Performed By: #### V [id number], CBC, LIPID, ETOH, CMP, TSH3 wRFLX #### [place] [address] [place] Basophils/100 WBC (Bld) 1.5 % Normal . [facility] Comment on above: Performed By: #### V [id number], CBC, LIPID, ETOH, CMP, TSH3 wRFLX #### [place] [address] [place] Eosinophils (Bld) [#/Vol] 0.1 10*3/uL Normal 0.0-0.45 [facility] Comment on above: Performed By: #### V [id number], CBC, LIPID, ETOH, CMP, TSH3 wRFLX #### [place] [address] [place] Eosinophils/100 WBC (Bld) 1.5 % Normal . [facility] Comment on above: Performed By: #### V [id number], CBC, LIPID, ETOH, CMP, TSH3 wRFLX #### [address] Erythrocyte distribution width (RBC) [Ratio] 15.0 % Normal 11.9-15.3 [facility] Comment on above: Performed By: #### V [id number], CBC, LIPID, ETOH, CMP, TSH3 wRFLX #### [address] Hematocrit (Bld) [Volume fraction] 36.4 % Normal 34.0-46.4 [facility] Comment on above: Performed By: #### V [id number], CBC, LIPID, ETOH, CMP, TSH3 wRFLX #### [address] Hemoglobin (Bld) [Mass/Vol] 12.2 g/dL Normal 11.8-15.4 [facility] Comment on above: Performed By: #### V [id number], CBC, LIPID, ETOH, CMP, TSH3 wRFLX #### [address] Lymphocytes (Bld) [#/Vol] 1.9 10*3/uL Normal 1.00-4.8 [facility] Comment on above: Performed By: #### V [id number], CBC, LIPID, ETOH, CMP, TSH3 wRFLX #### [address] Lymphocytes/100 WBC (Bld) 30.5 % Normal . [facility] Comment on above: Performed By: #### V [id number], CBC, LIPID, ETOH, CMP, TSH3 wRFLX #### [address] MCH (RBC) [Entitic mass] 30.2 pg Normal 24.7-34.3 [facility] Comment on above: Performed By: #### V [id number], CBC, LIPID, ETOH, CMP, TSH3 wRFLX #### [address] MCV (RBC) [Entitic vol] 90.1 fL Normal 80-100 [facility] Comment on above: Performed By: #### V [id number], CBC, LIPID, ETOH, CMP, TSH3 wRFLX #### [address] Mean Corpuscular HGB Conc 33.5 g/dL Normal 32.0-35.0 [facility] Comment on above: Performed By: #### V [id number], CBC, LIPID, ETOH, CMP, TSH3 wRFLX #### [address] Monocytes (Bld) [#/Vol] 0.4 10*3/uL Normal 0.0-0.8 [facility] Comment on above: Performed By: #### V [id number], CBC, LIPID, ETOH, CMP, TSH3 wRFLX #### [address] Monocytes/100 WBC (Bld) 19.59 % Normal 0.00-20.00 [facility] Comment on above: Performed By: #### V [id number], CBC, LIPID, ETOH, CMP, TSH3 wRFLX #### [address] Monocytes/100 WBC (Bld) 5.9 % Normal . [facility] Comment on above: Performed By: #### V [id number], CBC, LIPID, ETOH, CMP, TSH3 wRFLX #### [address] Neutrophils (Bld) [#/Vol] 3.7 10*3/uL Normal 1.8-7.7 [facility] Comment on above: Performed By: #### V [id number], CBC, LIPID, ETOH, CMP, TSH3 wRFLX #### [address] Neutrophils/100 WBC (Bld) 60.6 % Normal . [facility] Comment on above: Performed By: #### V [id number], CBC, LIPID, ETOH, CMP, TSH3 wRFLX #### [address] NRBC% 0.2 /100{WBC} Normal 0-0.5 [facility] Comment on above: Performed By: #### V [id number], CBC, LIPID, ETOH, CMP, TSH3 wRFLX #### [address] Platelet mean volume (Bld) [Entitic vol] 8.5 fL Normal 6.3-10.7 [facility] Comment on above: Performed By: #### V [id number], CBC, LIPID, ETOH, CMP, TSH3 wRFLX #### [address] Platelets (Bld) [#/Vol] 337 10*3/uL Normal 150-450 [facility] Comment on above: Performed By: #### V [id number], CBC, LIPID, ETOH, CMP, TSH3 wRFLX #### [address] RBC (Bld) [#/Vol] 4.04 10*6/uL Normal 3.60-5.00 [facility] Comment on above: Performed By: #### V [id number], CBC, LIPID, ETOH, CMP, TSH3 wRFLX #### [address] WBC (Bld) [#/Vol] 6.1 10*3/uL Normal 3.8-11.6 [facility] Comment on above: Performed By: #### V [id number], CBC, LIPID, ETOH, CMP, TSH3 wRFLX #### [address] Comprehensive Metabolic Pane anival 09-12-2024 Albumin [Mass/Vol] 4.4 g/dL Normal 3.5-5.7 [facility] Comment on above: Performed By: #### V [id number], CBC, LIPID, ETOH, CMP, TSH3 wRFLX #### [address] Albumin/Globulin [Mass ratio] 1.7 {ratio} Normal [facility] Comment on above: Performed By: #### V [id number], CBC, LIPID, ETOH, CMP, TSH3 wRFLX #### [address] ALP [Catalytic activity/Vol] 54 U/L Normal 34-104 [facility] Comment on above: Performed By: #### V [id number], CBC, LIPID, ETOH, CMP, TSH3 wRFLX #### [address] ALT [Catalytic activity/Vol] 9 U/L Normal 7-52 [facility] Comment on above: Performed By: #### V [id number], CBC, LIPID, ETOH, CMP, TSH3 wRFLX #### [address] Anion gap [Moles/Vol] 11.2 mmol/L Normal 6.0-15.0 [facility] Comment on above: Performed By: #### V [id number], CBC, LIPID, ETOH, CMP, TSH3 wRFLX #### [address] AST [Catalytic activity/Vol] 16 U/L Normal 13-39 [facility] Comment on above: Performed By: #### V [id number], CBC, LIPID, ETOH, CMP, TSH3 wRFLX #### [place] [address] [place] Bilirubin [Mass/Vol] 0.3 mg/dL Normal 0.3-1.0 [facility] Comment on above: Performed By: #### V [id number], CBC, LIPID, ETOH, CMP, TSH3 wRFLX #### [place] [address] [place] Calcium [Mass/Vol] 9.3 mg/dL Normal 8.6-10.3 [facility] Comment on above: Performed By: #### V [id number], CBC, LIPID, ETOH, CMP, TSH3 wRFLX #### [address] Chloride [Moles/Vol] 106 mmol/L Normal 98-107 [facility] Comment on above: Performed By: #### V [id number], CBC, LIPID, ETOH, CMP, TSH3 wRFLX #### [address] CO2 [Moles/Vol] 24.7 mmol/L Normal 21.0-31.0 [facility] Comment on above: Performed By: #### V [id number], CBC, LIPID, ETOH, CMP, TSH3 wRFLX #### [address] Creatinine [Mass/Vol] 0.79 mg/dL Normal 0.60-1.20 [facility] Comment on above: Performed By: #### V [id number], CBC, LIPID, ETOH, CMP, TSH3 wRFLX #### [address] Creatinine Clr Calc Pharmacy 89.66 Normal [facility] Comment on above: Result Comment: PERF ORMED BY: [place] [address] PATHOLOGIST ELECTROMECHANICAL TECHNOLOGIST YARITZA HUTCHISON M.D. Performed By: #### V [id number], CBC, LIPID, ETOH, CMP, TSH3 wRFLX #### [address] GFR/1.73 sq M.predicted MDRD (S/P/Bld) [Vol rate/Area] mL/min/{1.73_m2} Normal [facility] Comment on above: Performed By: #### V [id number], CBC, LIPID, ETOH, CMP, TSH3 wRFLX #### [address] Globulin (S) [Mass/Vol] 2.6 g/dL Normal [facility] Comment on above: Performed By: #### V [id number], CBC, LIPID, ETOH, CMP, TSH3 wRFLX #### [place] [address] [place] Glucose [Mass/Vol] 128 mg/dL High 70-100 [facility] Comment on above: Result Comment: [facility] Glucose Reference Range is dependent on time and content of last meal. Glucose of more than 200 mg/dL in a nonstressed, ambulatory subject supports the diagnosis of Diabetes Mellitus. ADA recommended reference range Performed By: #### V [id number], CBC, LIPID, ETOH, CMP, TSH3 wRFLX #### [facility] [address] Potassium [Moles/Vol] 3.9 mmol/L Normal 3.5-5.1 [facility] Comment on above: Performed By: #### V [id number], CBC, LIPID, ETOH, CMP, TSH3 wRFLX #### [facility] [address] Protein [Mass/Vol] 7.0 g/dL Normal 6.4-8.9 [facility] Comment on above: Performed By: #### V [id number], CBC, LIPID, ETOH, CMP, TSH3 wRFLX #### [facility] [address] [place] [address] [place] Sodium [Moles/Vol] 138 mmol/L Normal 136-145 [facility] Comment on above: Performed By: #### V [id number], CBC, LIPID, ETOH, CMP, TSH3 wRFLX #### [place] [address] [place] Urea nitrogen [Mass/Vol] 14 mg/dL Normal 7-25 [facility] Comment on above: Performed By: #### V [id number], CBC, LIPID, ETOH, CMP, TSH3 wRFLX #### [place] [address] [place] Creatinine [Mass/volume] in Serum or PlasmaOrdered By: Sandy Krishnan on 09-12-2024 Creatinine [Mass/Vol] Creatinine [Mass/volume] in Serum or Plasma 0.60-1.20 [facility] Dipstick and Microscopicon 1 11-12-2023 Appearance (U) Clear Normal Clear [facility] Comment on above: Order Comment: Name Collection Type:: Clean-Voided Midstream Performed By: #### U RDS, ADDONUAPLUS, CUU, UHCG #### [address] Bacteria,Urine Rare Normal None Seen [facility] Comment on above: Order Comment: Name Collection Type:: Clean-Voided Midstream Performed By: #### U RDS, ADDONUAPLUS, CUU, UHCG #### [address] Bilirubin,Urine Negative Normal Negative [facility] Comment on above: Order Comment: Name Collection Type:: Clean-Voided Midstream Performed By: #### U RDS, ADDONUAPLUS, CUU, UHCG #### [address] Color (U) Yellow Normal Yellow [facility] Comment on above: Order Comment: Name Collection Type:: Clean-Voided Midstream Performed By: #### U RDS, ADDONUAPLUS, CUU, UHCG #### [address] Glucose Ql (U) Normal Normal Normal [facility] Comment on above: Order Comment: Name Collection Type:: Clean-Voided Midstream Performed By: #### U RDS, ADDONUAPLUS, CUU, UHCG #### [address] Hyaline Casts,Urine None Normal 0-8 [facility] Comment on above: Order Comment: Name Collection Type:: Clean-Voided Midstream Performed By: #### U RDS, ADDONUAPLUS, CUU, UHCG #### [address] Ketones Ql (U) Negative Normal Negative [facility] Comment on above: Order Comment: Name Collection Type:: Clean-Voided Midstream Performed By: #### U RDS, ADDONUAPLUS, CUU, UHCG #### [address] Leukocyte esterase Test strip Ql (U) 2+ High Negative [facility] Comment on above: Order Comment: Name Collection Type:: Clean-Voided Midstream Performed By: #### U RDS, ADDONUAPLUS, CUU, UHCG #### [address] Mucus,Urine 2+ Critically abnormal [facility] Comment on above: Order Comment: Name Collection Type:: Clean-Voided Midstream Performed By: #### U RDS, ADDONUAPLUS, CUU, UHCG #### [address] Nitrite,Urine Negative Normal Negative [facility] Comment on above: Order Comment: Name Collection Type:: Clean-Voided Midstream Performed By: #### U RDS, ADDONUAPLUS, CUU, UHCG #### [address] Occult Blood,Urine 3+ High Negative [facility] Comment on above: Order Comment: Name Collection Type:: Clean-Voided Midstream Performed By: #### U RDS, ADDONUAPLUS, CUU, UHCG #### [address] Other Casts,Urine 3-4 High None Seen [facility] Comment on above: Order Comment: Name Collection Type:: Clean-Voided Midstream Performed By: #### U RDS, ADDONUAPLUS, CUU, UHCG #### [address] pH (U) 6.0 [pH] Normal 5.0-9.0 [facility] Comment on above: Order Comment: Name Collection Type:: Clean-Voided Midstream Performed By: #### U RDS, ADDONUAPLUS, CUU, UHCG #### [address] Protein (U) [Mass/Vol] 20 mg/dL High Negative [facility] Comment on above: Order Comment: Name Collection Type:: Clean-Voided Midstream Performed By: #### U RDS, ADDONUAPLUS, CUU, UHCG #### [facility] [address] [place] [address] [place] RBC,Urine 5-9 High 0-4 [facility] Comment on above: Order Comment: Name Collection Type:: Clean-Voided Midstream Performed By: #### U RDS, ADDONUAPLUS, CUU, UHCG #### [place] [address] [place] Specificy [place],Urine 1.030 Normal 1.001-1.030 [facility] Comment on above: Order Comment: Name Collection Type:: Clean-Voided Midstream Performed By: #### U RDS, ADDONUAPLUS, CUU, UHCG #### [address] Squamous Epithelial Cell,Urine 10-19 High 0-2 [facility] Comment on above: Order Comment: Name Collection Type:: Clean-Voided Midstream Performed By: #### U RDS, ADDONUAPLUS, CUU, UHCG #### [address] Urobilinogen,Urine Normal Normal Normal [facility] Comment on above: Order Comment: Name Collection Type:: Clean-Voided Midstream Performed By: #### U RDS, ADDONUAPLUS, CUU, UHCG #### [place] [address] [place] WBC,Urine 5-9 High 0-4 [facility] Comment on above: Order Comment: Name Collection Type:: Clean-Voided Midstream Performed By: #### U RDS, ADDONUAPLUS, CUU, UHCG #### [place] [address] [place] Drug Screen,Urineon 09-12-20 24 Amphetamine Screen,Urine Negative Normal Negative [facility] Comment on above: Performed By: #### U RDS, ADDONUAPLUS, CUU, UHCG #### [address] Barbiturate Screen,Urine Negative Normal Negative [facility] Comment on above: Performed By: #### U RDS, ADDONUAPLUS, CUU, UHCG #### [address] Benzodiazepines Screen,Urine Negative Normal Negative [facility] Comment on above: Performed By: #### U RDS, ADDONUAPLUS, CUU, UHCG #### [address] Cannabinoid Screen,Urine Positive High Negative [facility] Comment on above: Result Comment: Thes e are unconfirmed results and should not be used for legal purposes. Drug Cut-Off Concentration: AMPH 1000 ng/mL MARLY 200 ng/mL WIN 200 ng/mL COCM 300 ng/mL OP 300 ng/mL PCP 25 ng/mL THC 20 ng/mL PERFORMED BY: [place] [address] PATHOLOGIST ELECTROMECHANICAL TECHNOLOGIST YARITZA HUTCHISON M.D. Performed By: #### U RDS, ADDONUAPLUS, CUU, UHCG #### [address] Cocaine Screen,Urine Positive High Negative [facility] Comment on above: Performed By: #### U RDS, ADDONUAPLUS, CUU, UHCG #### [address] Opiate Screen,Urine Negative Normal Negative [facility] Comment on above: Performed By: #### U RDS, ADDONUAPLUS, CUU, UHCG #### [address] Phencyclidine Screen,Urine Negative Normal Negative [facility] Comment on above: Performed By: #### U RDS, ADDONUAPLUS, CUU, UHCG #### [address] ECG 12 lead ECGon 09-12-2024 ECG 12 lead ECG [facility] [address] [place] [address] Electrocardiograph Report Signed Patient: Killian Bermudez MR#: [id number] : 2000 Acct:[id number] Age/Sex: 24 / F ADM Date: 09/12/24 Loc: ER Room: Type: [facility] ER Attending Dr: Ordering Provider: Sandy Krishnan MD Date of Service: 09/12/2403/02/2006 ECG/ECG 12 lead ECG: Psychiatric Symptoms Copies to: Test Reason : Blood Pressure : 118/68 mmHG Vent. Rate : 85 BPM Atrial Rate : 85 BPM P-R Int : 118 ms QRS Dur : 76 ms QT Int : 366 ms P-R-T Axes : 57 76 71 degrees QTcB Int : 435 ms Sinus rhythm with marked sinus arrhythmia When compared with ECG of 08-Mar-2024 16:08, No significant change was found Confirmed by Sandy Krishnan MD ([id number]) on 09/12/2024 8:22:12 PM Referred By: Electronically Signed By: Sandy Krishnan MD Transcribed By: MUS Signed By Sandy Krishnan MD 03/02 Normal [facility] Eosinophils Auto (Bld) [#/Vo l]Ordered By: Sandy Krishnan on 09-12-2024 Eosinophils (Bld) [#/Vol] Automated eosinophil count 0.0-0.45 [facility] Eosinophils/100 WBC Auto (Bl d)Ordered By: Sandy Krishnan on 09-12-2024 Eosinophils/100 WBC (Bld) Automated eosinophil % . [facility] Epithelial cells.squamous [# /area] in Urine sediment by Automated countOrdered By: Sandy Krishnan on 09-12-2024 Epithelial cells.squamous Auto (Urine sed) [#/Area] Epithelial cells.squamous [#/area] in Urine sediment by Automated count High 0-2 [facility] Erythrocyte distribution wid th Auto (RBC) [Ratio]Ordered By: Sandy Krishnan on 09-12-2024 Erythrocyte distribution width (RBC) [Ratio] Erythrocyte distribution width [Ratio] by Automated count 11.9-15.3 [facility] Erythrocytes [#/area] in Uri ne sediment by Automated countOrdered By: Sandy Krishnan on 09-12-2024 RBC Auto (Urine sed) [#/Area] Erythrocytes [#/area] in Urine sediment by Automated count High 0-4 [facility] Ethanol [Mass/volume] in Ser um or PlasmaOrdered By: Sandy rKishnan on 09-12-2024 Ethanol [Mass/Vol] Ethanol [Mass/volume ] in Serum or Plasma [facility] Ethyl Alcohol Profileon Ethanol [Mass/Vol] 10 mg/dL Normal [facility] Comment on above: Performed By: #### V [id number], CBC, LIPID, ETOH, CMP, TSH3 wRFLX #### [facility] [address] Percent Ethanol 0.010 % Normal [facility] Comment on above: Result Comment: PERF ORMED BY: [place] [address] PATHOLOGIST ELECTROMECHANICAL TECHNOLOGIST YARITZA HUTCHISON M.D. Performed By: #### V [id number], CBC, LIPID, ETOH, CMP, TSH3 wRFLX #### [facility] [address] Globulin Calc (S) [Mass/Vol] Ordered By: Sandy Krishnan on 09-12-2024 Globulin (S) [Mass/Vol] Serum globulin measurement by calculation (mass/volume) [facility] Glucose [Mass/volume] in Ser um or PlasmaOrdered By: Sandy Krishnan on 09-12-2024 Glucose [Mass/Vol] Glucose [Mass/volume ] in Serum or Plasma High 70-100 [facility] Comment on above: ADA recommended refe rence rangeRandom Glucose Reference Range is dependent on time and content of last meal. Glucose of more than 200 mg/dL in a nonstressed, ambulatory subject supports the diagnosis of Diabetes Mellitus. Glucose [Mass/volume] in Uri ne by Test stripOrdered By: Sandy Krishnan on 09-12-2024 Glucose Test strip (U) [Mass/Vol] Glucose [Mass/volume] in Urine by Test strip Normal [facility] HCG ( test) IA.rapi d Ql (U)Ordered By: Sandy Krishnan on 09-12-2024 HCG ( test) Ql (U) Urine human chorionic gonadotropin (hCG) detection by immunoassay [facility] HCG,Urineon 09-12-2024 Beta HCG ( test) Ql (U) Negative Normal [facility] Comment on above: Order Comment: Name Collection Type:: Clean-Voided Midstream Result Comment: PERF ORMED BY: [facility] [address] [place] [address] PATHOLOGIST ELECTROMECHANICAL TECHNOLOGIST YARITZA HUTCHISON M.D. Performed By: #### U RDS, ADDONUAPLUS, CUU, UHCG #### [facility] [address] Hematocrit Auto (Bld) [Volum e fraction]Ordered By: Sandy Krishnan on 09-12-2024 Hematocrit (Bld) [Volume fraction] Hematocrit [Volume Fraction] of Blood by Automated count 34.0-46.4 [facility] Hemoglobin Test strip Ql (U) Ordered By: Sandy Krishnan on 09-12-2024 Hemoglobin Ql (U) Hemoglobin [Presence ] in Urine by Test strip High Negative [facility] Hemoglobin [Mass/volume] in BloodOrdered By: Sandy Krishnan on 09-12-2024 Hemoglobin (Bld) [Mass/Vol] Hemoglobin [Mass/volume] in Blood 11.8-15.4 [facility] Hyaline casts [#/area] in Ur ine sediment by Automated countOrdered By: Sandy Krishnan on 09-12-2024 Hyaline casts Auto (Urine sed) [#/Area] Hyaline casts [#/area] in Urine sediment by Automated count 0-8 [facility] Ketones Test strip Ql (U)Ord ered By: Sandy Krishnan on 09-12-2024 Ketones Ql (U) Ketones [Presence] i n Urine by Test strip Negative [facility] Leukocyte esterase [Presence ] in Urine by Test stripOrdered By: Sandy Krishnan on 09-12-2024 Leukocyte esterase Test strip Ql (U) Leukocyte esterase [Presence] in Urine by Test strip High Negative [facility] Leukocytes [#/area] in Urine sediment by Automated countOrdered By: Sandy Krishnan on 09-12-2024 WBC Auto (Urine sed) [#/Area] Leukocytes [#/area] in Urine sediment by Automated count High 0-4 [facility] Leukocytes [#/volume] correc regis for nucleated erythrocytes in Blood by Automated counOrdered By: Sandy Krishnan on 09-12-2024 WBC corrected for nucl RBC Auto (Bld) [#/Vol] Leukocytes [#/volume] corrected for nucleated erythrocytes in Blood by Automated coun 3.8-11.6 [facility] Lipid Panelon 09-12-2024 Cholesterol [Mass/Vol] 177 mg/dL Normal 140-200 [facility] Comment on above: Result Comment: Chol less than 200 mg/dl low risk Chol 201-239 mg/dl borderline risk Chol 240 mg/dl and greater high risk Performed By: #### V [id number], CBC, LIPID, ETOH, CMP, TSH3 wRFLX #### [facility] [address] [place] [address] [place] Cholesterol in HDL [Mass/Vol] 64 mg/dL Normal 23-92 [facility] Comment on above: Result Comment: HDL CHOL ATP-III CLASSIFICATION Cardiovascular Risk HDL > or equal to 60 mg/dL LOW HDL < 40 mg/dL HIGH Performed By: #### V [id number], CBC, LIPID, ETOH, CMP, TSH3 wRFLX #### [facility] [address] [place] [address] [place] Cholesterol.total/Cho lesterol in HDL [Mass ratio] 2.8 {ratio} Normal <5.0 [facility] Comment on above: Performed By: #### V [id number], CBC, LIPID, ETOH, CMP, TSH3 wRFLX #### [facility] [address] [place] [address] [place] LDL Cholesterol,Calculate d 93 mg/dL Normal 0-100 [facility] Comment on above: Result Comment: LDL ATP III CLASSIFICATION LDL less than 100 mg/dL Optimal LDL 100-129 mg/dL Near or above optimal LDL 130-159 mg/dL Borderline high LDL 160-189 mg/dL High LDL greater than 189 mg/dL Very high Performed By: #### V [id number], CBC, LIPID, ETOH, CMP, TSH3 wRFLX #### [facility] [address] [place] [address] [place] Triglyceride w/Reflex 101 mg/dL Normal 0-149 [facility] Comment on above: Result Comment: TRIG ATP III CLASSIFICATION TRIG less than 150 mg/dL Normal TRIG 150-199 mg/dL Borderline high TRIG 200-500 mg/dL High TRIG greater than 500 mg/dL Very high Standard traceable to the Center for Disease Conrtrol and Prevention (CDC) test method. Performed By: #### V [id number], CBC, LIPID, ETOH, CMP, TSH3 wRFLX #### [facility] [address] VLDL CHOLESTEROL 20 mg/dL Normal [facility] Comment on above: Performed By: #### V [id number], CBC, LIPID, ETOH, CMP, TSH3 wRFLX #### [facility] [address] [place] [address] [place] Lymphocytes Auto (Bld) [#/Vo l]Ordered By: Sandy Krishnan on 09-12-2024 Lymphocytes (Bld) [#/Vol] Lymphocytes [#/volume] in Blood by Automated count 1.00-4.8 [facility] Lymphocytes/100 WBC Auto (Bl d)Ordered By: Sandy Krishnan on 09-12-2024 Lymphocytes/100 WBC (Bld) Lymphocytes/100 leukocytes in Blood by Automated count . [facility] MCH Auto (RBC) [Entitic mass ]Ordered By: Sandy Krishnan on 09-12-2024 MCH (RBC) [Entitic mass] MCH [Entitic mass] by Automated count 24.7-34.3 [facility] MCHC Auto (RBC) [Mass/Vol]Or dered By: Sandy Krishnan on 09-12-2024 MCHC (RBC) [Mass/Vol] MCHC [Mass/volume] by Automated count 32.0-35.0 [facility] MCV Auto (RBC) [Entitic vol] Ordered By: Sandy Krishnan on 09-12-2024 MCV (RBC) [Entitic vol] MCV [Entitic volume] by Automated count 80-100 [facility] Monocyte distribution width [Entitic volume] in Blood by AutomatedOrdered By: Sandy Krishnan on 09-12-2024 Monocyte distribution width Auto (Bld) [Entitic vol] Monocyte distribution width [Entitic volume] in Blood by Automated 0.00-20.00 [facility] Monocytes Auto (Bld) [#/Vol] Ordered By: Sandy Krishnan on 09-12-2024 Monocytes (Bld) [#/Vol] Automated blood monocyte count 0.0-0.8 [facility] Monocytes/100 WBC Auto (Bld) Ordered By: Sandy Krishnan on 09-12-2024 Monocytes/100 WBC (Bld) Automated monocyte % . [facility] Mucus [Presence] in Urine by AutomatedOrdered By: aSndy Krishnan on 09-12-2024 Mucus Auto Ql (U) Mucus [Presence] in Urine by Automated Abnormal [facility] Neutrophils Auto (Bld) [#/Vo l]Ordered By: Sandy Krishnan on 09-12-2024 Neutrophils (Bld) [#/Vol] Neutrophils [#/volume] in Blood by Automated count 1.8-7.7 [facility] Neutrophils/100 WBC Auto (Bl d)Ordered By: Sandy Krishnan on 09-12-2024 Neutrophils/100 WBC (Bld) Automated neutrophil % . [facility] Nitrite Test strip Ql (U)Ord ered By: Sandy Krishnan on 09-12-2024 Nitrite Ql (U) Nitrite [Presence] i n Urine by Test strip Negative [facility] No Panel InformationOrdered By: Sandy Krishnan on 09-12-2024 Estimated GFR (CKD-EPI) > 60.0 mL/Min [facility] Creatinine Clearance (Chem 89.66 [facility] Nucleated erythrocytes [Pres ence] in Blood by Automated countOrdered By: Sandy Krishnan on 09-12-2024 Nucleated RBC Auto Ql (Bld) Nucleated erythrocytes [Presence] in Blood by Automated count 0-0.5 [facility] Opiates [Presence] in Urine by Screen methodOrdered By: Sandy Krishnan on 09-12-2024 Opiates Screen Ql (U) Opiates [Presence] in Urine by Screen method Negative [facility] Phencyclidine Screen Ql (U)O rdered By: Sandy Krishnan on 09-12-2024 Phencyclidine Ql (U) Phencyclidine [Presence] in Urine by Screen method Negative [facility] Platelet mean volume Auto (B ld) [Entitic vol]Ordered By: Sandy Krishnan on 09-12-2024 Platelet mean volume (Bld) [Entitic vol] Platelet mean volume [Entitic volume] in Blood by Automated count 6.3-10.7 [facility] Platelets Auto (Bld) [#/Vol] Ordered By: Sandy Krishnan on 09-12-2024 Platelets (Bld) [#/Vol] Platelets [#/volume] in Blood by Automated count 150-450 [facility] Potassium [Moles/volume] in Serum or PlasmaOrdered By: Sandy Krishnan on 09-12-2024 Potassium [Moles/Vol] Potassium [Moles/volume] in Serum or Plasma 3.5-5.1 [facility] Protein Test strip (U) [Mass /Vol]Ordered By: Sandy Krishnan on 09-12-2024 Protein (U) [Mass/Vol] Protein [Mass/volume] in Urine by Test strip High Negative [facility] Protein [Mass/volume] in Ser um or PlasmaOrdered By: Sandy Krishnan on 09-12-2024 Protein [Mass/Vol] Protein [Mass/volume ] in Serum or Plasma 6.4-8.9 [facility] RBC Auto (Bld) [#/Vol]Ordere d By: Sandy Krishnan on 09-12-2024 RBC (Bld) [#/Vol] Erythrocytes [#/volu me] in Blood by Automated count 3.60-5.00 [facility] Serum or plasma albumin/glob ulin mass ratioOrdered By: Sandy Krishnan on 09-12-2024 Albumin/Globulin [Mass ratio] Serum or plasma albumin/globulin mass ratio [facility] Serum or plasma anion gap de terminationOrdered By: Sandy Krishnan on 09-12-2024 Anion gap [Moles/Vol] Serum or plasma an ion gap determination 6.0-15.0 [facility] Serum or plasma total choles terol/high density lipoprotein (HDL) cholesterol mass ratOrdered By: Sandy Krishnan on 09-12-2024 Cholesterol.total/Cho lesterol in HDL [Mass ratio] Serum or plasma total cholesterol/high density lipoprotein (HDL) cholesterol mass rat <5.0 [facility] Sodium [Moles/volume] in Ser um or PlasmaOrdered By: Sandy Krishnan on 09-12-2024 Sodium [Moles/Vol] Sodium [Moles/volume ] in Serum or Plasma 136-145 [facility] Specific gravity Test strip (U) [Rel density]Ordered By: Sandy Krishnan on 09-12-2024 Specific gravity (U) [Rel density] Specific gravity of Urine by Test strip 1.001-1.030 [facility] Thyroid Stim Hormone w/Rflxo n 09-12-2024 Thyroid Stim Hormone w/Rflx 1.61 u[iU]/mL Normal 0.45-5.33 [facility] Comment on above: Performed By: #### V [id number], CBC, LIPID, ETOH, CMP, TSH3 wRFLX #### [facility] [facility] [address] [place] [address] [place] Thyrotropin [Units/volume] i n Serum or PlasmaOrdered By: Sandy Krishnan on 09-12-2024 TSH Qn Thyrotropin [Units/volume] in Serum or Plasma 0.45-5.33 [facility] Triglyceride [Mass/volume] i n Serum or PlasmaOrdered By: Sandy Krishnan on 09-12-2024 Triglyceride [Mass/Vol] Triglyceride [Mass/volume] in Serum or Plasma 0-149 [facility] Comment on above: TRIG ATP III CLASSIF ICATIONTRIG less than 150 mg/dL NormalTRIG 150-199 mg/dL Borderline highTRIG 200-500 mg/dL High TRIG greater than 500 mg/dL Very highStandard traceable to the Center for Disease Conrtrol and Prevention (CDC) test method. Troponin I High Sensitivityo n 09-12-2024 Troponin I High Sensitivity 3.1 pg/mL Normal 0.0-15.0 [facility] Comment on above: Result Comment: PERF ORMED BY: [address] [place] [id number] PATHOLOGIST ELECTROMECHANICAL TECHNOLOGIST YARITZA HUTCHISON M.D. Performed By: #### V [id number], CBC, LIPID, ETOH, CMP, TSH3 wRFLX #### [facility] [address] Troponin I.cardiac [Mass/vol ume] in Serum or Plasma by Detection limit <= 0.01 ng/Ordered By: Sandy Krishnan on 09-12-2024 Troponin I.cardiac DL <= 0.01 ng/mL [Mass/Vol] Troponin I.cardiac [Mass/volume] in Serum or Plasma by Detection limit <= 0.01 ng/ 0.0-15.0 [facility] Urea nitrogen [Mass/volume] in Serum or PlasmaOrdered By: Sandy Krishnan on 09-12-2024 Urea nitrogen [Mass/Vol] Urea nitrogen [Mass/volume] in Serum or Plasma 7-25 [facility] Urine Cultureon 09-12-2024 Bacteria identified Cx Nom (U) No Growth 2 Days PERFORMED BY: [facility] [address] [place] [address] PATHOLOGIST ELECTROMECHANICAL TECHNOLOGIST YARITZA HUTCHISON M.D. Normal [facility] Comment on above: Performed By: #### U RDS, ADDONUAPLUS, CUU, UHCG #### [facility] [address] [place] [address] [facility] Urine cultureOrdered By: Jose R Krishnan on 09-12-2024 Bacteria identified Cx Nom (U) Urine culture [facility] Urobilinogen Test strip (U) [Mass/Vol]Ordered By: Sandy Krishnan on 09-12-2024 Urobilinogen (U) [Mass/Vol] Urobilinogen [Mass/volume] in Urine by Test strip Normal [facility] Vitamin D 25 Hydroxy Totalon 09-12-2024 Vitamin D 25 Hydroxy Total 33.5 ng/mL Normal 30-100 [facility] Comment on above: Result Comment: TRISTON MIN D STATUS 25(OH)VITAMIN D RANGE (ng/mL) Deficient <20 Insufficient 20 to <30 Sufficient 30 to 100 Reference: Howard MF,Liam NC, Adrien MAY, et al. Evaluation,treatment, and prevention of vitamin D deficiency; an Endocrine Society clinical practice guideline. JCEM. 2010; 96(7):1911-30. PERFORMED BY: [place] [address] PATHOLOGIST ELECTROMECHANICAL TECHNOLOGIST YARITZA HUTCHISON M.D. Performed By: #### V [id number], CBC, LIPID, ETOH, CMP, TSH3 wRFLX #### [facility] [address] [place] [address] [facility] Vitamin D+Metabolites [Mass/ volume] in Serum or PlasmaOrdered By: Sandy Krishnan on 09-12-2024 Vitamin D+Metabolites [Mass/Vol] Vitamin D+Metabolites [Mass/volume] in Serum or Plasma 30-100 [facility] Comment on above: VITAMIN D STATUS 25( OH)VITAMIN D RANGE (ng/mL) Deficient <20 Insufficient 20 to <30Sufficient 30 to 100Reference: Howard MF,Liam NC, Adrien MAY, et al. Evaluation,treatment, and prevention of vitamin D deficiency; an Endocrine Society clinical practice guideline. JCEM. 2010; 96(7):1911-30. WBC Auto (Bld) [#/Vol]Ordere d By: Sandy Krishnan on 09-12-2024 WBC (Bld) [#/Vol] Leukocytes [#/volume ] in Blood by Automated count 3.8-11.6 [facility] X-ray reportOrdered By: Sean Farr on 09-12-2024 Study report [facility] [address] [place] [address] XRay Report Signed Patient: Killian Bermudez MR#: [id number] : 2000 Acct:[id number] Age/Sex: 24 / F ADM Date: 4 Loc: ER Room: Type: [facility] ER Attending Dr: Copies to: Sandy Krishnan MD~ Ordering Provider: Sandy Krishnan MD Date of Service: 09/12/24 XR/XR chest 2V*: Psychiatric Symptoms XR chest 2V* 09/12/2024 8:18 PM SIGNS AND SYMPTOMS: ^Psychiatric Symptoms PROTOCOL: Frontal and lateral radiographs of the chest COMPARISON: 11/23/2023 FINDINGS: The trachea is midline. The heart and mediastinal structures are within normal limits. The lung parenchyma is clear. The bony thorax is intact. XR/XR chest 2V* IMPRESSION: No acute cardiopulmonary pathology. Impression dictated by: Sean Farr M.D.09/12/2024 8:55 PM Dictation Location: [place] [address] Transcribed By: [facility] 09/12/242054 Dictated By: Sean Farr II, MD 09/12/242053 Signed By: 09/12/242054 [facility] Work Phone: XR chest 2V*on 09-12-2024 XR chest 2V* [facility] Main [address] [address] XRay Report Signed Patient: Killian Bermudez MR#: [id number] : 2000 Acct:[id number] Age/Sex: 24 / F ADM Date: 09/12/24 Loc: ER Room: Type: [facility] ER Attending Dr: Copies to: Sandy Krishnan MD Ordering Provider: Sandy Krishnan MD Date of Service: 09/12/24 XR/XR chest 2V*: Psychiatric Symptoms XR chest 2V* 09/12/2024 8:18 PM SIGNS AND SYMPTOMS: Psychiatric Symptoms PROTOCOL: Frontal and lateral radiographs of the chest COMPARISON: 11/23/2023 FINDINGS: The trachea is midline. The heart and mediastinal structures are within normal limits. The lung parenchyma is clear. The bony thorax is intact. XR/XR chest 2V* IMPRESSION: No acute cardiopulmonary pathology. Impression dictated by: Sean Farr M.D.09/12/2024 8:55 PM Dictation Location: [place] [address] Transcribed By: [facility] 09/12/242054 Dictated By: Sean Farr II, MD 09/12/242053 Signed By: 09/12/242054 Normal [facility] pH Test strip (U)Ordered By: Sandy Krishnan on 09-12-2024 pH (U) pH of Urine by Test strip 5.0-9.0 [facility] No Panel InformationOrdered By: Lynn García on 07-29-2024 Quick Strep (POC) [facility] Quick Strep (POC) [facility] Respiratory specimen 2019 no jered coronavirus RNA detection by probe and target amplifion 07-29-2024 SARS-CoV-2 (COVID-19) RNA TATY+probe Ql (Resp) Respiratory specimen 2019 novel coronavirus RNA detection by probe and target amplifi [facility] ACETAMINOPHENon 03-08-2024 Acetaminophen [Mass/Vol] 3.5 ug/mL Low 10.0-30.0 [facility] Comment on above: Result Comment: Refe rence ranges are for therapeutic limits. Performed By: #### 4 024-6, 5643-2, CMP, CBCA, 3297-7 #### [facility] ([id number]) [address] [place] [address]000 CBC AND AUTO DIFFon 03-08-20 24 ABSOLUTE BASOPHIL 0.1 X10E9/L Normal 0.0-0.2 [place] Comment on above: Performed By: #### 4 024-6, 5643-2, CMP, CBCA, 3297-7 #### [facility] ([id number]) [address] [place] [address] 77105 ABSOLUTE NEUTROPHIL 7.9 X10E9/L High 1.5-6.6 [facility] Comment on above: Performed By: #### 4 024-6, 5643-2, CMP, CBCA, 3297-7 #### [facility] ([id number]) [address] [place] [address] 13944 Basophils/100 WBC (Bld) 0.6 % Normal [facility] Comment on above: Performed By: #### 4 024-6, 5643-2, CMP, CBCA, 7 #### [facility] ([id number]) [address] [place] [address]75 Eosinophils (Bld) [#/Vol] 0.1 10*3/uL Normal 0.0-0.4 [facility] Comment on above: Performed By: #### 4 024-6, 5643-2, CMP, CBCA, 3297-7 #### [facility] ([id number]) [address] [place] [address] 58529 Eosinophils/100 WBC (Bld) 1.3 % Normal [facility] Comment on above: Performed By: #### 4 024-6, 5643-2, CMP, CBCA, 3298-05 #### [facility] ([id number]) [address] [place] [address] 05447 Erythrocyte distribution width (RBC) [Ratio] 12.7 % Normal 11.5-15.0 [facility] Comment on above: Performed By: #### 4 024-6, 5643-2, CMP, CBCA, 3298-05 #### [facility] ([id number]) [address] [place] [address] 61683 Hematocrit (Bld) [Volume fraction] 32.7 % Low 35-47 [facility] Comment on above: Performed By: #### 4 024-6, 5643-2, CMP, CBCA, 3298-05 #### [facility] ([id number]) [address] [place] [address] 45317 Hemoglobin (Bld) [Mass/Vol] 11.2 g/dL Low 11.7-15.5 [facility] Comment on above: Performed By: #### 4 024-6, 5643-2, CMP, CBCA, 3298-05 #### [facility] ([id number]) [address] [place] [address] 05141 Lymphocytes (Bld) [#/Vol] 2.3 10*3/uL Normal 1.0-3.5 [facility] Comment on above: Performed By: #### 4 024-6, 5643-2, CMP, CBCA, 3298-05 #### [facility] ([id number]) [address] [place] [address] 90408 Lymphocytes/100 WBC (Bld) 21.0 % Normal [facility] Comment on above: Performed By: #### 4 024-6, 5643-2, CMP, CBCA, 3298-05 #### [facility] ([id number]) [address] [place] [address] 14583 MCH (RBC) [Entitic mass] 31.1 pg Normal 27-34 [facility] Comment on above: Performed By: #### 4 024-6, 5643-2, CMP, CBCA, 3298-05 #### [facility] ([id number]) [address] [place] [address] 43498 MCHC (RBC) [Mass/Vol] 34.2 g/dL Normal 32-36 [facility] Comment on above: Performed By: #### 4 024-6, 5643-2, CMP, CBCA, 3298-05 #### [facility] ([id number]) [address] [place] [address] 17544 MCV (RBC) [Entitic vol] 91 fL Normal 80-100 [facility] Comment on above: Performed By: #### 4 024-6, 5643-2, CMP, CBCA, 3298-05 #### [facility] ([id number]) [address] [place] [address] 13578 Monocytes (Bld) [#/Vol] 0.6 10*3/uL Normal 0-0.9 [facility] Comment on above: Performed By: #### 4 024-6, 5643-2, CMP, CBCA, 3298-05 #### [facility] ([id number]) [address] [place] [address] 98548 Monocytes/100 WBC (Bld) 5.7 % Normal [facility] Comment on above: Performed By: #### 4 024-6, 5643-2, CMP, CBCA, 3298-05 #### [facility] ([id number]) [address] [place] [address] 25478 Neutrophils/100 WBC (Bld) 71.4 % Normal [facility] Comment on above: Performed By: #### 4 024-6, 5643-2, CMP, CBCA, 3298-05 #### [facility] ([id number]) [address] [place] [address] 02100 Platelet mean volume (Bld) [Entitic vol] 7.0 fL Normal 7-12 [facility] Comment on above: Performed By: #### 4 024-6, 5643-2, CMP, CBCA, 3297-7 #### [facility] ([id number]) [address] [place] [address] 81785 Platelets (Bld) [#/Vol] 281 10*3/uL Normal 150-450 [facility] Comment on above: Performed By: #### 4 024-6, 5643-2, CMP, CBCA, 3297-7 #### [facility] ([id number]) [address] [place] [address] 74697 RBC COUNT 3.59 X10E12/L Low 3.80-5.20 [facility] Comment on above: Performed By: #### 4 024-6, 5643-2, CMP, CBCA, 3297-7 #### [facility] ([id number]) [address] [place] [address] 19709 WBC (Bld) [#/Vol] 11.1 10*3/uL High 4.0-11.[address] [facility] Comment on above: Performed By: #### 4 024-6, 5643-2, CMP, CBCA, 3297-7 #### [facility] ([id number]) [address] [place] [address] 14310 COMPREHENSIVE METABOLIC PANE Anival 03-08-2024 Albumin [Mass/Vol] 3.9 g/dL Normal 3.2-5.3 [place] Comment on above: Performed By: #### 4 024-6, 5643-2, CMP, CBCA, 3297-7 #### [facility] ([id number]) [address] [place] [address] 22232 ALP [Catalytic activity/Vol] 66 U/L Normal 39-130 [facility] Comment on above: Performed By: #### 4 024-6, 5643-2, CMP, CBCA, 3298-7 #### [facility] ([id number]) [address] [place] [address] 43768 ALT [Catalytic activity/Vol] 17 U/L Normal 0-31 [facility] Comment on above: Performed By: #### 4 024-6, 5643-2, CMP, CBCA, 329-7 #### [facility] ([id number]) [address] [place] [address] 81416 Anion gap [Moles/Vol] 10 mmol/L Normal 5-15 [facility] Comment on above: Performed By: #### 4 024-6, 5643-2, CMP, CBCA, 3298-7 #### [facility] ([id number]) [address] [place] [address] 87393 AST [Catalytic activity/Vol] 17 U/L Normal 0-41 [facility] Comment on above: Performed By: #### 4 024-6, 5643-2, CMP, CBCA, 329-7 #### [facility] ([id number]) [address] [place] [address] 94556 Bilirubin [Mass/Vol] 0.3 mg/dL Normal 0.3-1.2 [facility] Comment on above: Performed By: #### 4 024-6, 5643-2, CMP, CBCA, 329-7 #### [facility] ([id number]) [address] [place] [address] 76895 Calcium [Mass/Vol] 8.6 mg/dL Normal 8.5-10.5 [place] Comment on above: Performed By: #### 4 024-6, 5643-2, CMP, CBCA, 3298-7 #### [facility] ([id number]) [address] [place] [address] 07668 Chloride [Moles/Vol] 102 mmol/L Normal 98-109 [facility] Comment on above: Performed By: #### 4 024-6, 5643-2, CMP, CBCA, 3298-7 #### [facility] ([id number]) [address] [place] [address] 49080 CO2 [Moles/Vol] 26 mmol/L Normal 22-32 [facility] Comment on above: Performed By: #### 4 024-6, 5643-2, CMP, CBCA, 3297 #### [facility] ([id number]) [address] [place] [address] 91934 Creatinine [Mass/Vol] 0.73 mg/dL Normal 0.40-1.00 [facility] Comment on above: Result Comment: METH OD TRACEABLE TO IDMS STANDARD Performed By: #### 4 024-6, 5643-2, CMP, CBCA, 3297 #### [facility] ([id number]) [address] [place] [address] 01095 eGFR (CKD-EPI) NON-RACE DEPENDENT >90 Normal >59 [facility] Comment on above: Result Comment: Reported eGFR is based on the CKD-EPI 2020 equation that does not use a race coefficient. Performed By: #### 4 024-6, 5643-2, CMP, CBCA, 32987 #### [facility] ([id number]) [address] [place] [address] 94405 Glucose [Mass/Vol] 140 mg/dL High 65-99 [place] Comment on above: Performed By: #### 4 024-6, 5643-2, CMP, CBCA, 3298-7 #### [facility] ([id number]) [address] [place] [address] 25185 Potassium [Moles/Vol] 3.1 mmol/L Low 3.5-5.0 [facility] Comment on above: Performed By: #### 4 024-6, 5643-2, CMP, CBCA, 3298-7 #### [facility] ([id number]) [address] [place] [address] 21153 Protein [Mass/Vol] 6.8 g/dL Normal 6.0-8.0 [place] Comment on above: Performed By: #### 4 024-6, 5643-2, CMP, CBCA, 3298-7 #### [facility] ([id number]) [address] [place] [address] 62761 Sodium [Moles/Vol] 138 mmol/L Normal 134-146 [place] Comment on above: Performed By: #### 4 024-6, 5643-2, CMP, CBCA, 3298-7 #### [facility] ([id number]) [address] [place] [address] 51581 Urea nitrogen [Mass/Vol] 11 mg/dL Normal 5-23 [facility] Comment on above: Performed By: #### 4 024-6, 5643-2, CMP, CBCA, 3298-7 #### [facility] ([id number]) [address] [place] [address] 14588 DRUG SCREEN, URINEon 024 AMPHETAMINE/METHAMP Negative Normal NEG [facility] Comment on above: Result Comment: AMPH /METH screening cut off = 1000 ng/mL Performed By: #### D LANE #### [facility] ([id number]) [address] [place] [address] 02410 BARBITURATES Negative Normal NEG [facility] Comment on above: Result Comment: Marly iturates screening cut off value = 200 ng/mL Performed By: #### D LANE #### [facility] ([id number]) [address] [place] [address] 72502 BENZODIAZEPINES Negative Normal NEG [facility] Comment on above: Result Comment: Win odiazepines screening cut off value = 200 ng/mL Performed By: #### D LANE #### [facility] ([id number]) [address] [place] [address] 15755 CANNABINOIDS Negative Normal NEG [facility] Comment on above: Result Comment: Angélica abinoids/THC screening cut off value = 50 ng/mL Performed By: #### D LANE #### [facility] ([id number]) [address] [place] [address] 63651 COCAINE METABOLITE Positive Abnormal NEG [place] Comment on above: Result Comment: Conf irmation available upon request. Cocaine screening cut off value = 300 ng/mL Performed By: #### D LANE #### [facility] ([id number]) [address] [place] [address] 42700 ECSTASY Negative Normal NEG [facility] Comment on above: Result Comment: Ecst asy screening cut off value = 500 ng/mL This report is intended for use in clinical monitoring or management of patients. Performed By: #### D LANE #### [facility] ([id number]) [address] [place] [address] 84214 METHADONE Negative Normal [facility] Comment on above: Result Comment: Meth adone screening cut off value = 300 ng/mL. Performed By: #### D LANE #### [facility] ([id number]) [address] [place] [address] 22952 OPIATES Negative Normal NEG [facility] Comment on above: Result Comment: Opia kane screening cut off value = 300 ng/mL NOTE: This test is used for the detection of codeine, hydrocodone (>1000 ng/mL), morphine and hydromorphone (>900 ng/mL) in urine. Performed By: #### D LANE #### [facility] ([id number]) [address] [place] [address] 22939 OXYCODONE Negative Normal NEG [facility] Comment on above: Result Comment: Oxyc odone screening cut off value = 300 ng/mL NOTE: This test is used for the detection of oxycodone and oxymorphone in urine. Performed By: #### D LANE #### [facility] ([id number]) [address] [place] [address] 54431 PHENCYCLIDINE Negative Normal NEG [facility] Comment on above: Result Comment: Phen cyclidine screening cut off value = 25 ng/mL Performed By: #### D LANE #### [facility] ([id number]) [address] [place] [address] 31343 Ethanol [Mass/Vol]on 024 ETHANOL 0.15 g/dL High 0.00-0.08 [facility] Comment on above: Result Comment: This report is intended for use in clinical monitoring or management of patients. Performed By: #### 4 024-6, 5643-2, CMP, CBCA, 3298-7 #### [facility] ([id number]) [address] [place] [address] 25953 HCG ( test) Ql (U)o n 03-08-2024 Beta HCG ( test) Ql (U) Negative Normal NEG [facility] Comment on above: Performed By: #### 2 106-3 #### [facility] ([id number]) [address] [place] [address] 70770 MAGNESIUMon 03-08-2024 Magnesium [Mass/Vol] 1.8 mg/dL Normal 1.8-2.6 [facility] Comment on above: Performed By: #### 2 106-3 #### [facility] ([id number]) [address] [place] [address] 50253 SARS/FLU A+B/RSV by NAAT/Mol ecularon 03-08-2024 SARS/FLU A+B/RSV by NAAT/Molecular FLU A PCR Negative (qualifier value) FLU B PCR Negative (qualifier value) RSV by PCR Negative (qualifier value) SARS CoV 2 Not detected (qualifier value) NOTE The Xpert Xpress SARS-CoV-2/Flu/RSV Plus test is a rapid, multiplexed real-time RT-PCR test intended for the simultaneous qualitative detection and differentiation of SARS-CoV-2, influenza A, influenza B and respiratory syncytial virus (RSV) viral RNA from individuals suspected of respiratory viral infection consistent with COVID-19 by their healthcare provider. This test has not been validated in asymptomatic patients. The Xpert Xpress SARS-CoV-2 test is intended for use by qualified and trained operators who are performing tests using either SpiderSuite or ViaCube systems and is limited to laboratories that meet the CLIA requirements to perform high and moderate complexity tests. The Xpert Xpress SARS-CoV-2/Flu/RSV Plus is only for use under the Food and Drug Administration's Emergency Use Authorization. Results are for the simultaneous detection and differentiation of SARS-CoV-2, influenza A, influenza B and RSV nucleic acids in clinical specimens. SARS-CoV-2, influenza A, influenza B and RSV RNA identified by this test are generally detectable in upper respiratory samples during the acute phase of infection. Positive results are indicative of the presence of the identified virus, but do not rule out bacterial infection or co-infection with other pathogens not detected by this test. Clinical correlation with patient history and other diagnostic information is necessary to determine patient infection status. The agent detected may not be the definite cause of disease. Negative results do not preclude SARS-CoV-2, influenza A, influenza B and RSV infection and should not be used as the sole basis for treatment or other patient management decisions. Negative results must be combined with clinical observations, patient history and epidemiological information. An Invalid result may occur with specimen-associated inhibition unable to be resolved with specimen repeat. Fact Sheet for Healthcare Providers: https://www.fda.gov/med ia/405592/download Fact Sheet for Patients: https://www.fda.gov/med ia/200680/download Normal [facility] Comment on above: Performed By: #### C OVFLR #### [facility] ([id number]) [address] [place] [address], [place] [address] Salicylates [Mass/Vol]on SALICYLATE <4.0 Normal 2.0-25.0 [facility] Comment on above: Result Comment: Refe rence ranges are for therapeutic limits. Performed By: #### 4 024-6, 5643-2, CMP, CBCA, 3298-7 #### [facility] ([id number]) [address] [place] [address] 28691 URN MACROSCOPIC NURon 2023 BILIRUBIN ELOISA Negative Normal NEG [facility] Comment on above: Performed By: #### N UM #### [facility] ([id number]) [address] [place] [address] 71289 BLOOD/HGB ELOISA Trace Abnormal NEG [facility] Comment on above: Performed By: #### N UM #### [facility] ([id number]) [address] [place] [address] [place] [address] GLUCOSE ELOISA Negative Normal NEG [facility] Comment on above: Performed By: #### N UM #### [facility] ([id number]) [address] [place] [address] [place] [address] KETONES ELOISA Negative Normal NEG [facility] Comment on above: Performed By: #### N UM #### [facility] ([id number]) [address] [place] [address] [place] [address] LEUKOCYTE ESTERASE ELOISA Small Abnormal NEG [facility] Comment on above: Performed By: #### N UM #### [facility] ([id number]) [address] [place] [address] [place] [address] NITRITE ELOISA Negative Normal NEG [facility] Comment on above: Performed By: #### N UM #### [facility] ([id number]) [address] [place] [address] 00498 PH ELOISA 6.0 Normal 5.0-8.5 [facility] Comment on above: Performed By: #### N UM #### [facility] ([id number]) [address] [place] [address] 55073 PROTEIN ELOISA Negative Normal NEG [facility] Comment on above: Performed By: #### N UM #### [facility] ([id number]) [address] [place] [address] 47799 SPECIFIC GRAVITY ELOISA <=1.005 Normal 1.003-1.035 [facility] Comment on above: Performed By: #### N UM #### [facility] ([id number]) [address] [place] [address] 16666 UROBILINOGEN ELOISA 0.2 eu/dL Normal <1.1 [place] Comment on above: Performed By: #### N UM #### [facility] ([id number]) [address] [place] [address] 62858 XR CHEST 1 VWon 03-08-2024 XR CHEST 1 VW XR CHEST 1 VW Single view chest History:sob Difficulty breathing, shortness of breath Comparison: 06/09/2018 Findings: Single portable view of the chest. Stable cardiomediastinal silhouette. No new focal opacity, effusion or pneumothorax. Impression: No evidence of acute cardiopulmonary process. Finalized by Aubrey Young MD on 03/08/2024 2:51 AM Normal [facility] fentaNYL+Norfentanyl Screen Ql (U)on 03-08-2024 FENTANYL, URINE QUAL. Negative Normal NEG [facility] Comment on above: Result Comment: Fent anyl screening cutoff = 5ng/ml This report is intended for use in clinical monitoring or management of patients. Performed By: #### 2 [id number] #### [facility] ([id number]) [address] [place] [id number] Acute Toxicology Panel, Lianna varma 01-02-2024 Acetaminophen [Mass/Vol] ug/mL 10.0 - 30.0 ug/mL [facility] Ethanol [Mass/Vol] mg/dL NINF - 10 mg/dL [facility] Salicylates [Mass/Vol] mg/dL 4 - 20 mg/dL [facility] CBC W Auto Differential pane l (Bld)on 01-02-2024 Basophils (Bld) [#/Vol] 0.05 10*3/uL [facility] Basophils/100 WBC (Bld) 0.8 % 0.0 - 2.0 % [facility] Eosinophils (Bld) [#/Vol] 0.14 10*3/uL [facility] Eosinophils/100 WBC (Bld) 2.1 % 0.0 - 6.0 % [facility] Erythrocyte distribution width (RBC) [Ratio] 13.2 % 11.5 - 14.5 % [facility] Hematocrit (Bld) [Volume fraction] 33.1 % Low 36.0 - 46.0 % [facility] Hemoglobin (Bld) [Mass/Vol] 11.1 g/dL Low 12.0 - 16.0 g/dL [facility] Immature granulocytes (Bld) [#/Vol] 0.02 10*3/uL [facility] Immature granulocytes/100 WBC (Bld) 0.3 % 0.0 - 0.9 % [facility] Comment on above: Immature Granulocyte Count (IG) includes promyelocytes, myelocytes and metamyelocytes but does not include bands. Percent differential counts (%) should be interpreted in the context of the absolute cell counts (cells/UL). Interpretation and review of laboratory results Abnormal [facility] Lymphocytes (Bld) [#/Vol] 3.04 10*3/uL [facility] Lymphocytes/100 WBC (Bld) 45.8 % 13.0 - 44.0 % [facility] MCH (RBC) [Entitic mass] 31.4 pg 26.0 - 34.0 pg [facility] MCHC (RBC) [Mass/Vol] 33.5 g/dL 32.0 - 36.0 g/dL [facility] MCV (RBC) [Entitic vol] 94 fL 80 - 100 fL [facility] Monocytes (Bld) [#/Vol] 0.40 10*3/uL [facility] Monocytes/100 WBC (Bld) 6.0 % 2.0 - 10.0 % [facility] Neutrophils (Bld) [#/Vol] 2.99 10*3/uL [facility] Comment on above: Percent differential counts (%) should be interpreted in the context of the absolute cell counts (cells/uL). Neutrophils/100 WBC (Bld) 45.0 % 40.0 - 80.0 % [facility] Nucleated RBC/100 WBC (Bld) [Ratio] 0.0 % [facility] Platelets (Bld) [#/Vol] 328 10*3/uL [facility] RBC (Bld) [#/Vol] 3.54 10*6/uL Low [facility] WBC (Bld) [#/Vol] 6.6 10*3/uL [facility] CT Chest W contrast IV and C T angiogram Pulmonary arteries for pulmonary embolus W contrast Laquita 01-02-2024 No acute thoracic pathology identified. Signed by Isaac Danielson TELERADIOLOGY STUDY: CT Angiogram of the Chest; 01/02/2024 1:00 AM. INDICATION: Chest pain. Palpitations. Shortness of breath. Syncope and collapse. COMPARISON: CXR 01/02/2024. ACCESSION NUMBER(S): [id number] ORDERING CLINICIAN: JOSIAS HARLEY TECHNIQUE: CTA of the chest was performed with intravenous contrast. Images are reviewed and processed at a workstation according to the CT angiogram protocol with 3-D and/or MIP post processing imaging generated. Omnipaque 350 75 mL was administered intravenously. Automated mA/kV exposure control was utilized and patient examination was performed in strict accordance with principles of ALARA. FINDINGS: Pulmonary arteries are adequately opacified without acute or chronic filling defects. The thoracic aorta is normal in course and caliber without dissection or aneurysm. Residual thymic tissue is seen in the anterior mediastinum. The heart is normal in size without pericardial effusion. Thoracic lymph nodes are not enlarged. There is no pleural effusion, pleural thickening, or pneumothorax. The airways are patent. Lungs are clear without consolidation, interstitial disease, or suspicious nodules. Upper abdomen demonstrates no acute pathology. There are no acute fractures. No suspicious bony lesions. TELERADIOLOGY Isaac Danielson MD - 01/02/2024 STUDY: CT Angiogram of the Chest; 01/02/2024 1:00 AM. INDICATION: Chest pain. Palpitations. Shortness of breath. Syncope and collapse. COMPARISON: CXR 01/02/2024. ACCESSION NUMBER(S): [id number] ORDERING CLINICIAN: JOSIAS HARLEY TECHNIQUE: CTA of the chest was performed with intravenous contrast. Images are reviewed and processed at a workstation according to the CT angiogram protocol with 3-D and/or MIP post processing imaging generated. Omnipaque 350 75 mL was administered intravenously. Automated mA/kV exposure control was utilized and patient examination was performed in strict accordance with principles of ALARA. FINDINGS: Pulmonary arteries are adequately opacified without acute or chronic filling defects. The thoracic aorta is normal in course and caliber without dissection or aneurysm. Residual thymic tissue is seen in the anterior mediastinum. The heart is normal in size without pericardial effusion. Thoracic lymph nodes are not enlarged. There is no pleural effusion, pleural thickening, or pneumothorax. The airways are patent. Lungs are clear without consolidation, interstitial disease, or suspicious nodules. Upper abdomen demonstrates no acute pathology. There are no acute fractures. No suspicious bony lesions. IMPRESSION: No acute thoracic pathology identified. Signed by Isaac Danielson [facility] Work Phone: [facility] Work Phone: Radiology Study observation (narrative) [facility] Work Phone: CT Head WO contraston 2023 1. No acute intracranial abnormality. MACRO: None. Signed by: Rodo Tracy 01/02/2024 1:25 AM Dictation workstation: [id number] MMODAL Interpreted By: Rodo Tracy, STUDY: CT HEAD WO IV CONTRAST; 01/02/2024 12:59 am INDICATION: Signs/Symptoms:syncope collapse with head injury. COMPARISON: None. ACCESSION NUMBER(S): [id number] ORDERING CLINICIAN: JOSIAS HARLEY TECHNIQUE: Noncontrast axial CT images of head were obtained with coronal and sagittal reconstructed images. FINDINGS: BRAIN PARENCHYMA: No acute intraparenchymal hemorrhage or parenchymal evidence of acute large territory ischemic infarct. No mass-effect. Castillo-white matter distinction is preserved. VENTRICLES and EXTRA-AXIAL SPACES: No acute extra-axial or intraventricular hemorrhage. No effacement of cerebral sulci. Ventricles and sulci are age-concordant. PARANASAL SINUSES/MASTOIDS: No hemorrhage or air-fluid levels within the visualized paranasal sinuses. The mastoids are well aerated. CALVARIUM/ORBITS: No skull fracture. The orbits and globes are intact to the extent visualized. EXTRACRANIAL SOFT TISSUES: No discernible abnormality. MMODAL Rodo Tracy MD - 01/02/2024 Interpreted By: Rodo Tracy, STUDY: CT HEAD WO IV CONTRAST; 01/02/2024 12:59 am INDICATION: Signs/Symptoms:syncope collapse with head injury. COMPARISON: None. ACCESSION NUMBER(S): [id number] ORDERING CLINICIAN: JOSIAS HARLEY TECHNIQUE: Noncontrast axial CT images of head were obtained with coronal and sagittal reconstructed images. FINDINGS: BRAIN PARENCHYMA: No acute intraparenchymal hemorrhage or parenchymal evidence of acute large territory ischemic infarct. No mass-effect. Castillo-white matter distinction is preserved. VENTRICLES and EXTRA-AXIAL SPACES: No acute extra-axial or intraventricular hemorrhage. No effacement of cerebral sulci. Ventricles and sulci are age-concordant. PARANASAL SINUSES/MASTOIDS: No hemorrhage or air-fluid levels within the visualized paranasal sinuses. The mastoids are well aerated. CALVARIUM/ORBITS: No skull fracture. The orbits and globes are intact to the extent visualized. EXTRACRANIAL SOFT TISSUES: No discernible abnormality. IMPRESSION: 1. No acute intracranial abnormality. MACRO: None. Signed by: Rodo Tracy 01/02/2024 1:25 AM Dictation workstation: [id number] [facility] Work Phone: Radiology Study observation (narrative) [facility] Work Phone: CT Head WO contrastOrdered B y: Rodo Tracy on 01-02-2024 [facility] Work Phone: Comprehensive metabolic 2000 panelon 01-02-2024 Albumin BCP dye [Mass/Vol] 3.7 g/dL 3.4 - 5.0 g/dL [facility] ALP [Catalytic activity/Vol] 52 U/L 33 - 110 U/L [facility] ALT With P-5'-P [Catalytic activity/Vol] 13 U/L 7 - 45 U/L [facility] Comment on above: Patients treated wit h Sulfasalazine may generate falsely decreased results for ALT. Anion gap [Moles/Vol] 9 mmol/L Low 10 - 2 0 mmol/L [facility] AST With P-5'-P [Catalytic activity/Vol] 11 U/L 9 - 39 U/L [facility] Bilirubin [Mass/Vol] 0.3 mg/dL 0.0 - 1 .2 mg/dL [facility] Calcium [Mass/Vol] 8.8 mg/dL 8.6 - 10. 3 mg/dL [facility] Chloride [Moles/Vol] 105 mmol/L 98 - 10 7 mmol/L [facility] CO2 [Moles/Vol] 27 mmol/L 21 - 32 mmol/L [facility] Creatinine [Mass/Vol] 0.69 mg/dL 0.50 - 1.05 mg/dL [facility] eGFR - PINF [facility] Comment on above: Calculations of apollo mated GFR are performed using the 2020 CKD-EPI Study Refit equation without the race variable for the IDMS-Traceable creatinine methods. https://jasn.asnjournals.org/content/early//ASN.626265 2811 Glucose [Mass/Vol] 110 mg/dL High 74 - 99 mg/dL [facility] Interpretation and review of laboratory results Abnormal [facility] Potassium [Moles/Vol] 3.4 mmol/L Low 3.5 - 5.3 mmol/L [facility] Protein [Mass/Vol] 6.0 g/dL Low 6.4 - 8.2 g/dL [facility] Sodium [Moles/Vol] 138 mmol/L 136 - 145 mmol/L [facility] Urea nitrogen [Mass/Vol] 20 mg/dL 6 - 23 mg/dL [facility] Drug Screen, Urineon 024 Amphetamines Screen Ql (U) Negative Presumptive Negative [facility] Comment on above: CUTOFF LEVEL: 500 NG /ML Cross-reactivity has been reported with high concentrations of the following drugs: buproprion, chloroquine, chlorpromazine, ephedrine, mephentermine, fenfluramine, phentermine, phenylpropanolamine, pseudoephedrine, and propranolol. Barbiturates Screen Ql (U) Negative Presumptive Negative [facility] Comment on above: CUTOFF LEVEL: 200 NG /ML Benzodiazepines Ql (U) Negative Presumptive Negative [facility] Comment on above: CUTOFF LEVEL: 200 NG /ML Benzoylecgonine Screen Ql (U) Negative Presumptive Negative [facility] Comment on above: CUTOFF LEVEL: 150 NG /ML Cannabinoids Screen Ql (U) Negative Presumptive Negative [facility] Comment on above: CUTOFF LEVEL: 50 NG/ ML fentaNYL+Norfentanyl Screen Ql (U) Negative Presumptive Negative [facility] Comment on above: CUTOFF LEVEL: 5 NG/M L Interpretation and review of laboratory results Normal [facility] Opiates Screen Ql (U) Negative Presum ptive Negative [facility] Comment on above: CUTOFF LEVEL: 300 NG /ML The opiate screen does not detect fentanyl, meperidine, or tramadol. Oxycodone is not consistently detected (refer to Oxycodone Screen, Urine result). oxyCODONE+oxyMORphone Screen Ql (U) Negative Presumptive Negative [facility] Comment on above: CUTOFF LEVEL: 100 NG /ML This test will accurately detect both oxycodone and oxymorphone. Phencyclidine Ql (U) Negative Presump tive Negative [facility] Comment on above: CUTOFF LEVEL: 25 NG/ ML Cross-reactivity has been reported with dextromethorphan. Drug screen results are presumptive and should not be used to assess compliance with prescribed medication. [facility] the [facility] to add-on definitive confirmatory testing if clinically indicated. Toxicology screening results are reported qualitatively. The concentration must be greater than or equal to the cutoff to be reported as positive. The concentration at which the screening test can detect an individual drug or metabolite varies. The absence of expected drug(s) and/or drug metabolite(s) may indicate non-compliance, inappropriate timing of specimen collection relative to drug administration, poor drug absorption, diluted/adulterated urine, or limitations of testing. For medical purposes only; not valid for forensic use. Interpretive questions should be directed to the laboratory medical directors. [facility] Free T4 [Mass/Vol]on 024 Interpretation and review of laboratory results Normal [facility] Thyroxine Free testi ng is performed using different testing methodology at [facility] than at other [facility]. Direct result comparisons should only be made within the same method. Biotin can cause falsely elevated free T4 results. Patients taking a Biotin dose of up to 10 mg/day should refrain from taking Biotin for 24 hours before sample collection. Patient taking a Biotin dose of >10 mg/day should consult with their physician or the laboratory before the blood draw. [facility] HCG ( test) IA.rapi d Ql (U)Ordered By: Neto Lindo on 01-02-2024 HCG ( test) Ql (U) Negative NEGATIVE [facility] Interpretation and review of laboratory results Normal [facility] Magnesiumon 01-02-2024 Magnesium [Mass/Vol] 1.76 mg/dL 1.60 - 2.40 mg/dL [facility] No Panel Informationon 01-02 [facility] Interpretation and review of laboratory results Normal [facility] PT Coag (PPP) [Time]on 01-02 INR Coag (PPP) [Relative time] 0.9 {INR} 0.9 - 1.1 [facility] Interpretation and review of laboratory results Normal [facility] Protime-INRon 01-02-2024 PT Coag (PPP) [Time] 9.8 s [facility] TSH with reflex to Free T4 i f abnormalon 01-02-2024 Interpretation and review of laboratory results Abnormal [facility] TSH Qn 7.39 m[IU]/L High [facility] TSH testing is performed using different testing methodology at [facility] than at other [facility]. Direct result comparisons should only be made within the same method. [facility] Thyroxine, Freeon 01-02-2024 Free T4 [Mass/Vol] 0.67 ng/dL 0.61 - 1. 12 ng/dL [facility] Tropinin I.cardiac panel Hig h sensitivity methodon 01-02-2024 Interpretation and review of laboratory results Normal [facility] Less than 99th percentile of normal range cutoff- Female and children under 18 years old <14 ng/L; Male <21 ng/L: Negative Repeat testing should be performed if clinically indicated. Female and children under 18 years old 14-50 ng/L; Male 21-50 ng/L: Consistent with possible cardiac damage and possible increased clinical risk. Serial measurements may help to assess extent of myocardial damage. >50 ng/L: Consistent with cardiac damage, increased clinical risk and myocardial infarction. Serial measurements may help assess extent of myocardial damage. NOTE: Children less than 1 year old may have higher baseline troponin levels and results should be interpreted in conjunction with the overall clinical context. NOTE: Troponin I testing is performed using a different testing methodology at [facility] than at other [facility]. Direct result comparisons should only be made within the same method. [facility] Interpretation and review of laboratory results Normal [facility] Less than 99th percentile of normal range cutoff- Female and children under 18 years old <14 ng/L; Male <21 ng/L: Negative Repeat testing should be performed if clinically indicated. Female and children under 18 years old 14-50 ng/L; Male 21-50 ng/L: Consistent with possible cardiac damage and possible increased clinical risk. Serial measurements may help to assess extent of myocardial damage. >50 ng/L: Consistent with cardiac damage, increased clinical risk and myocardial infarction. Serial measurements may help assess extent of myocardial damage. NOTE: Children less than 1 year old may have higher baseline troponin levels and results should be interpreted in conjunction with the overall clinical context. NOTE: Troponin I testing is performed using a different testing methodology at [facility] than at other [facility]. Direct result comparisons should only be made within the same method. [facility] Troponin I, High Sensitivity , Initialon 01-02-2024 Tropinin I.cardiac panel High sensitivity method ng/L 0 - 13 ng/L [facility] Troponin, High Sensitivity, 1 Houron 01-02-2024 Tropinin I.cardiac panel High sensitivity method ng/L 0 - 13 ng/L [facility] Urinalysis complete W Reflex Culture panel (U)on 01-02-2024 Appearance (U) Clear Clear [facility] Work Phone: Bacteria Auto (Urine sed) [#/Area] 1+ Abnormal NONE SEEN /HPF [facility] Bilirubin (U) [Mass/Vol] Negative NEGATIVE [facility] Work Phone: Color (U) Yellow Straw, Yellow [facility] Work Phone: Epithelial cells.squamous Auto (Urine sed) [#/Area] 1-9 (SPARSE) Reference range not established. /HPF [facility] Glucose Auto test strip (U) [Mass/Vol] Negative NEGATIVE mg/dL [facility] Work Phone: Interpretation and review of laboratory results Abnormal [facility] Work Phone: Ketones (U) [Mass/Vol] Negative NEGATIVE mg/dL [facility] Work Phone: Leukocyte esterase Auto test strip Ql (U) Negative NEGATIVE [facility] Work Phone: Mucus Auto (Urine sed) [#/Area] 1+ Reference range not established. /LPF [facility] Nitrite Auto test strip Ql (U) Negative NEGATIVE [facility] Work Phone: pH (U) 5.0 [pH] 5.0, 5.5, 6.0, 6.5, 7.0, 7.5, 8.0 [facility] Work Phone: Protein (U) [Mass/Vol] Negative NEGATIVE mg/dL [facility] Work Phone: RBC (U) [#/Vol] SMALL (1+) Abnormal NEGATIVE [facility] Work Phone: RBC Auto (Urine sed) [#/Area] 1-2 NONE, 1-2, 3-5 /HPF [facility] Specific gravity (U) [Rel density] 1.015 1.005 - 1.035 [facility] Work Phone: Urobilinogen (U) [Mass/Vol] mg/dL NINF - 2.0 mg/dL [facility] Work Phone: WBC Auto (Urine sed) [#/Area] 1-5 1-5, NONE /HPF [facility] XR Chest Single viewon 01-02 No acute cardiopulmonary disease. Signed by Isaac Danielson TELERADIOLOGY STUDY: Chest Radiograph; 01/02/2024 12:29 AM INDICATION: Syncope and collapse. COMPARISON: None available. ACCESSION NUMBER(S): [id number] ORDERING CLINICIAN: JOSIAS HARLEY TECHNIQUE: Frontal chest was obtained at 00:30 hours. FINDINGS: CARDIOMEDIASTINAL SILHOUETTE: Cardiomediastinal silhouette is normal in size and configuration. LUNGS: Lungs are clear. ABDOMEN: No remarkable upper abdominal findings. BONES: No acute osseous changes. TELERADIOLOGY Isaac Danielson MD - 01/02/2024 STUDY: Chest Radiograph; 01/02/2024 12:29 AM INDICATION: Syncope and collapse. COMPARISON: None available. ACCESSION NUMBER(S): [id number] ORDERING CLINICIAN: JOSIAS HARLEY TECHNIQUE: Frontal chest was obtained at 00:30 hours. FINDINGS: CARDIOMEDIASTINAL SILHOUETTE: Cardiomediastinal silhouette is normal in size and configuration. LUNGS: Lungs are clear. ABDOMEN: No remarkable upper abdominal findings. BONES: No acute osseous changes. IMPRESSION: No acute cardiopulmonary disease. Signed by Isaac Danielson [facility] Work Phone: Radiology Study observation (narrative) [facility] Work Phone: XR Chest Single viewOrdered By: Isaac Danielson on 01-02-2024 [facility] Work Phone: Acetaminophen [Mass/volume] in Serum or PlasmaOrdered By: Bakari Cramer on 11-23-2023 Acetaminophen [Mass/Vol] 10.7 ug/mL 10.0-30.0 [facility] Alanine aminotransferase [En zymatic activity/volume] in Serum or PlasmaOrdered By: Bakari Cramer on 11-23-2023 ALT [Catalytic activity/Vol] 12 U/L 7-52 [facility] Albumin [Mass/volume] in Ser um or Plasma by Bromocresol green (BCG) dye binding methoOrdered By: Bakari Cramer on 11-23-2023 Albumin BCG dye [Mass/Vol] 4.2 g/dL 3.5-5.7 [facility] Alkaline phosphatase [Enzyma tic activity/volume] in Serum or PlasmaOrdered By: Bakari Cramer on 11-23-2023 ALP [Catalytic activity/Vol] 46 U/L 34-104 [facility] Amphetamine Screen Ql (U)Ord ered By: Bakari Cramer on 11-23-2023 Amphetamines Ql (U) Negative Negative [facility] Aspartate aminotransferase [ Enzymatic activity/volume] in Serum or PlasmaOrdered By: Bakari Cramer on 11-23-2023 AST [Catalytic activity/Vol] 14 U/L 13-39 [facility] Automated erythrocytes count in urine sediment (number/area)Ordered By: Bakari Cramer on 11-23-2023 RBC Auto (Urine sed) [#/Area] 3-4 [HPF] 0-4 [facility] Automated leukocytes count i n urine sediment (number/area)Ordered By: Bakari Cramer on 11-23-2023 WBC Auto (Urine sed) [#/Area] 10-19 [HPF] 0-4 [facility] Barbiturates [Presence] in U rine by Screen methodOrdered By: Bakari Cramer on 11-23-2023 Barbiturates Screen Ql (U) Negative Negative [facility] Basophils Auto (Bld) [#/Vol] Ordered By: Bakari Cramer on 11-23-2023 Basophils (Bld) [#/Vol] 0.0 10*3/uL 0.0-0.2 [facility] Basophils/100 WBC Auto (Bld) Ordered By: Bakari Cramer on 11-23-2023 Basophils/100 WBC (Bld) 0.8 % . [facility] Benzodiazepines Screen Ql (U )Ordered By: Bakari Cramer on 11-23-2023 Benzodiazepines Ql (U) Negative Negative [facility] Benzoylecgonine [Presence] i n Urine by Screen methodOrdered By: Bakari Cramer on 11-23-2023 Benzoylecgonine Screen Ql (U) Negative Negative [facility] Bilirubin Auto test strip Ql (U)Ordered By: Bakari Cramer on 11-23-2023 Bilirubin Ql (U) Negative Negative [facility] Bilirubin.total [Mass/volume ] in Serum or PlasmaOrdered By: Bakari Cramer on 11-23-2023 Bilirubin [Mass/Vol] 0.8 mg/dL 0.3-1.0 [facility] Calcium [Mass/volume] in Ser um or PlasmaOrdered By: Bakari Cramer on 11-23-2023 Calcium [Mass/Vol] 9.0 mg/dL 8.6-10.3 [facility] Cannabinoids [Presence] in U rine by Screen methodOrdered By: Bakari Cramer on 11-23-2023 Cannabinoids Screen Ql (U) Negative Negative [facility] Comment on above: These are unconfirme d results and should not be used for legal purposes. Drug Cut-Off Concentration: AMPH 1000 ng/mL MARLY 200 ng/mL WIN 200 ng/mL COCM 300 ng/mL OP 300 ng/mL PCP 25 ng/mL THC 20 ng/mL Carbon dioxide, total [Moles /volume] in Serum or PlasmaOrdered By: Bakari Cramer on 11-23-2023 CO2 [Moles/Vol] 24.9 mmol/L 21.0-31.[address] [facility] Chloride [Moles/volume] in S aj or PlasmaOrdered By: Bakari Cramer on 11-23-2023 Chloride [Moles/Vol] 106 mmol/L 98-107 [facility] Creatine kinase [Enzymatic a ctivity/volume] in Serum or PlasmaOrdered By: Bakari Cramer on 11-23-2023 CK [Catalytic activity/Vol] 69 U/L 30-223 [facility] Creatinine [Mass/volume] in Serum or PlasmaOrdered By: Bakari Cramer on 11-23-2023 Creatinine [Mass/Vol] 0.61 mg/dL 0.60-1.20 [facility] Eosinophils Auto (Bld) [#/Vo l]Ordered By: Bakari Cramer on 11-23-2023 Eosinophils (Bld) [#/Vol] 0.0 10*3/uL 0.0-0.45 [facility] Eosinophils/100 WBC Auto (Bl d)Ordered By: Bakari Cramer on 11-23-2023 Eosinophils/100 WBC (Bld) 0.0 % . [facility] Erythrocyte distribution wid th Auto (RBC) [Ratio]Ordered By: Bakari Cramer on 11-23-2023 Erythrocyte distribution width (RBC) [Ratio] 12.8 % 11.9-15.3 [facility] Ethanol [Mass/volume] in Ser um or PlasmaOrdered By: Bakari Cramer on 11-23-2023 Ethanol [Mass/Vol] mg/dL [facility] Ethanol [Mass/Vol] TNP [facility] Comment on above: Test not performed Globulin Calc (S) [Mass/Vol] Ordered By: Bakari Cramer on 11-23-2023 Globulin (S) [Mass/Vol] 2.5 g/dL [facility] Glucose [Mass/volume] in Ser um or PlasmaOrdered By: Bakari Cramer on 11-23-2023 Glucose [Mass/Vol] 140 mg/dL 70-100 [facility] Comment on above: ADA recommended refe rence rangeRandom Glucose Reference Range is dependent on time and content of last meal. Glucose of more than 200 mg/dL in a nonstressed, ambulatory subject supports the diagnosis of Diabetes Mellitus. HCG ( test) IA.rapi d Ql (U)Ordered By: Bakari Cramer on 11-23-2023 HCG ( test) Ql (U) Negative [facility] Hematocrit Auto (Bld) [Volum e fraction]Ordered By: Bakari Cramer on 11-23-2023 Hematocrit (Bld) [Volume fraction] 33.2 % 34.0-46.4 [facility] Hemoglobin [Mass/volume] in BloodOrdered By: Bakari Cramer on 11-23-2023 Hemoglobin (Bld) [Mass/Vol] 11.5 g/dL 11.8-15.4 [facility] INR in Platelet poor plasma by Coagulation assayOrdered By: Bakari Cramer on 11-23-2023 INR Coag (PPP) [Relative time] 1.1 {INR} [facility] Comment on above: INR Therapeutic Rang e A) Pre- and Peroperative OAT started two weeks before surgery. NOT HIP SURGERY: 1.5 - 2.5 HIP SURGERY: 2 - 3B) Primary and secondary prevention of venous THROMBOSIS: 2 - 3C) Active venous thrombosis, pulmonary embolismand prevention of recurrent venous thrombosis: 2 - 3D) Prevention of arterial thromboembolismincluding patients with mechanical heart valves: 3 - 4.5 Ketones Auto test strip (U) [Mass/Vol]Ordered By: Bakari Cramer on 11-23-2023 Ketones (U) [Mass/Vol] 4+ Negative [facility] Laboratory - UrinalysisOrder ed By: Bakari Cramer on 11-23-2023 Hyaline casts LM Ql (Urine sed) 0-8 [LPF] 0-8 [facility] Lactate [Moles/volume] in Se rum or PlasmaOrdered By: Bakari Cramer on 11-23-2023 Lactate [Moles/Vol] 1.1 mmol/L 0.5-2.2 [facility] Leukocytes [#/volume] correc regis for nucleated erythrocytes in Blood by Automated counOrdered By: Bakari Cramer on 11-23-2023 WBC corrected for nucl RBC Auto (Bld) [#/Vol] 6.0 10*3/uL 3.8-11.6 [facility] Lymphocytes Auto (Bld) [#/Vo l]Ordered By: Bakari Cramer on 11-23-2023 Lymphocytes (Bld) [#/Vol] 1.5 10*3/uL 1.00-4.8 [facility] Lymphocytes/100 WBC Auto (Bl d)Ordered By: Bakari Cramer on 11-23-2023 Lymphocytes/100 WBC (Bld) 24.6 % . [facility] MCH Auto (RBC) [Entitic mass ]Ordered By: Bakari Cramer on 11-23-2023 MCH (RBC) [Entitic mass] 30.5 pg 24.7-34.3 [facility] MCHC Auto (RBC) [Mass/Vol]Or dered By: Bakari Cramer on 11-23-2023 MCHC (RBC) [Mass/Vol] 34.7 g/dL 32.0-35.0 [facility] MCV Auto (RBC) [Entitic vol] Ordered By: Bakari Cramer on 11-23-2023 MCV (RBC) [Entitic vol] 87.9 fL 80-100 [facility] Monocyte distribution width [Entitic volume] in Blood by AutomatedOrdered By: Bakari Cramer on 11-23-2023 Monocyte distribution width Auto (Bld) [Entitic vol] 16.02 % 0.00-20.00 [facility] Monocytes Auto (Bld) [#/Vol] Ordered By: Bakari Cramer on 11-23-2023 Monocytes (Bld) [#/Vol] 0.2 10*3/uL 0.0-0.8 [facility] Monocytes/100 WBC Auto (Bld) Ordered By: Bakari Cramer on 11-23-2023 Monocytes/100 WBC (Bld) 2.9 % . [facility] Neutrophils Auto (Bld) [#/Vo l]Ordered By: Bakari Cramer on 11-23-2023 Neutrophils (Bld) [#/Vol] 4.3 10*3/uL 1.8-7.7 [facility] Neutrophils/100 WBC Auto (Bl d)Ordered By: Bakari Cramer on 11-23-2023 Neutrophils/100 WBC (Bld) 71.7 % . [facility] No Panel InformationOrdered By: Bakari Cramer on 11-23-2023 Estimated GFR (CKD-EPI) > 60.0 mL/Min [facility] Creatinine Clearance (Chem 108.24 [facility] Nucleated erythrocytes [Pres ence] in Blood by Automated countOrdered By: Bakari Cramer on 11-23-2023 Nucleated RBC Auto Ql (Bld) 0.1 /100{WBC} 0-0.5 [facility] Opiates [Presence] in Urine by Screen methodOrdered By: Bakari Cramer on 11-23-2023 Opiates Screen Ql (U) Positive Negative [facility] Phencyclidine Screen Ql (U)O rdered By: Bakari Cramer on 11-23-2023 Phencyclidine Ql (U) Negative Negative [facility] Platelet mean volume Auto (B ld) [Entitic vol]Ordered By: Bakari Cramer on 11-23-2023 Platelet mean volume (Bld) [Entitic vol] 7.7 fL 6.3-10.7 [facility] Platelets Auto (Bld) [#/Vol] Ordered By: Bakari Cramer on 11-23-2023 Platelets (Bld) [#/Vol] 304 10*3/uL 150-450 [facility] Potassium [Moles/volume] in Serum or PlasmaOrdered By: Bakari Cramer on 11-23-2023 Potassium [Moles/Vol] 3.7 mmol/L 3.5-5.1 [facility] Prolactin [Mass/volume] in S aj or PlasmaOrdered By: Bakari Cramer on 11-23-2023 Prolactin [Mass/Vol] 20.66 ng/mL 3.34-26.72 [facility] Protein Auto test strip (U) [Mass/Vol]Ordered By: Bakari Cramer on 11-23-2023 Protein (U) [Mass/Vol] 30 mg/dL Negative [facility] Protein [Mass/volume] in Ser um or PlasmaOrdered By: Bakari Cramer on 11-23-2023 Protein [Mass/Vol] 6.7 g/dL 6.4-8.9 [facility] Prothrombin time (PT)Ordered By: Bakari Cramer on 11-23-2023 PT Coag (PPP) [Time] 12.4 s 9.0-12.9 [facility] Comment on above: A hematocrit value g reater than 55% may lead to inaccurate results in coagulation testing. Patients having hematocrit values >55% require a special collection tube for coagulation studies. Please contact the laboratory at [phone] for redraw instructions. RBC Auto (Bld) [#/Vol]Ordere d By: Bakari Cramer on 11-23-2023 RBC (Bld) [#/Vol] 3.77 10*6/uL 3.60-5.00 [facility] Serum or plasma albumin/glob ulin mass ratioOrdered By: Bakari Cramer on 11-23-2023 Albumin/Globulin [Mass ratio] 1.7 {ratio} [facility] Serum or plasma anion gap de terminationOrdered By: Bakari Cramer on 11-23-2023 Anion gap [Moles/Vol] 10.8 mmol/L 6.0-15.0 [facility] Sodium [Moles/volume] in Ser um or PlasmaOrdered By: Bakari Cramer on 11-23-2023 Sodium [Moles/Vol] 138 mmol/L 136-145 [facility] Squamous epithelial cells de tection in urine sediment by light microscopyOrdered By: Bakari Cramer on 11-23-2023 Epithelial cells.squamous LM Ql (Urine sed) 10-19 [HPF] 0-2 [facility] Troponin I.cardiac [Mass/vol ume] in Serum or Plasma by Detection limit <= 0.01 ng/Ordered By: Bakari Cramer on 11-23-2023 Troponin I.cardiac DL <= 0.01 ng/mL [Mass/Vol] < 2.3 pg/mL 0.0-15.0 [facility] Urea nitrogen [Mass/volume] in Serum or PlasmaOrdered By: Bakari Cramer on 11-23-2023 Urea nitrogen [Mass/Vol] 11 mg/dL 7-25 [facility] Urine appearanceOrdered By: Bakari Cramer on 11-23-2023 Appearance (U) Slightly cloudy Clear [facility] Urine bacteria detection by automated methodOrdered By: Bakari Cramer on 11-23-2023 Bacteria Auto Ql (U) 4+ None Seen [facility] Urine colorOrdered By: Bakari Cramer on 11-23-2023 Color (U) Yellow Yellow [facility] Urine glucose measurement by automated test strip (mass/volume)Ordered By: Bakari Cramer on 11-23-2023 Glucose Auto test strip (U) [Mass/Vol] Normal mg/dL Normal [facility] Urine hemoglobin detection b y automated test stripOrdered By: Bakari Cramer on 11-23-2023 Hemoglobin Auto test strip Ql (U) Negative Negative [facility] Urine leukocyte esterase det ection by automated test stripOrdered By: Bakari Cramer on 11-23-2023 Leukocyte esterase Auto test strip Ql (U) Negative Negative [facility] Urine nitrite detection by a utomated test stripOrdered By: Bakari Cramer on 11-23-2023 Nitrite Auto test strip Ql (U) Positive Negative [facility] Urobilinogen Auto test strip (U) [Mass/Vol]Ordered By: Bakari Cramer on 11-23-2023 Urobilinogen (U) [Mass/Vol] Normal mg/dL Normal [facility] WBC Auto (Bld) [#/Vol]Ordere d By: Bakari Cramer on 11-23-2023 WBC (Bld) [#/Vol] 6.0 10*3/uL 3.8-11.6 [facility] pH Auto test strip (U)Ordere d By: Bakari Cramer on 11-23-2023 pH (U) 1.025 [pH] 1.001-1.030 [facility] pH (U) 7.5 [pH] 5.0-9.0 [facility] GABAPENTIN,URINEon 3 GABAPENTIN,URINE <5.0 Normal [facility] Comment on above: Result Comment: INTE RPRETIVE INFORMATION: Gabapentin, Urine Positive cutoff: 5.0 ug/mL For medical purposes only; not valid for forensic use. The absence of expected drug(s) and/or drug metabolite(s) may indicate non-compliance, inappropriate timing of specimen collection relative to drug administration, poor drug absorption, diluted/adulterated urine, or limitations of testing. The concentration value must be greater than or equal to the cutoff to be reported as a quantitative result. Interpretive questions should be directed to the laboratory. This test was developed and its performance characteristics determined by [facility]. It has not been cleared or approved by the US Food and Drug Administration. This test was performed in a CLIA certified laboratory and is intended for clinical purposes. Performed By: [facility] [address] [place] [address] Graduate Engineer: Scott Guzmán MD, PhD Performed By: #### G ABAU #### [employer] [facility] [address] [place] [address] BUPRENORPHINE SCREEN TO CONF IRM,URINEon 11-24-2022 BUPRENORPHINE SCREEN,INTERP. See Note Normal [facility] Comment on above: Result Comment: INTE RPRETIVE INFORMATION: The absence of expected drug(s) and/or drug metabolite(s) may indicate non-compliance, inappropriate timing of specimen collection relative to drug administration, poor drug absorption, diluted/adulterated urine, or limitations of testing. The concentration at which the screening test can detect a drug or metabolite varies. Specimens for which drugs or drug classes are detected by the screen are reflexed to a second, more specific technology (GC/MS and/or LC-MS/MS). The concentration value must be greater than or equal to the cutoff to be reported as positive. Interpretive questions should be directed to the laboratory. For medical purposes only; not valid for forensic use. Performed By: [facility] [address] [place] [address] Graduate Engineer: Scott Guzmán MD, PhD Performed By: #### B UPRS #### [facility] [address] [place] [address] BUPRENORPHINE SCREEN,URINE Negative Normal Cutoff 5 [place] Comment on above: Performed By: #### B UPRS #### [facility] [address] [place] [address] DRUG SCREEN,URINEon 11-22-19 23 AMPHETAMINE SCREEN,U Negative Normal NEGATIVE Emile nson/[facility] Comment on above: Result Comment: CUTO FF LEVEL: 500 NG/ML Cross-reactivity has been reported with high concentrations of the following drugs: buproprion, chloroquine, chlorpromazine, ephedrine, mephentermine, fenfluramine, phentermine, phenylpropanolamine, pseudoephedrine, and propranolol. Performed By: #### D RUG3 #### [place] [address] BARBITURATES SCREEN,U Negative Normal NEGATIVE Malik inson/[facility] Comment on above: Result Comment: CUTO FF LEVEL: 200 NG/ML Performed By: #### D RUG3 #### [address] [address] BENZODIAZEPINES SCREEN,U Negative Normal NEGATIVE [facility] Comment on above: Result Comment: CUTO FF LEVEL: 200 NG/ML Performed By: #### D RUG3 #### [address] [address] CANNABINOIDS SCREEN,U Negative Normal NEGATIVE Malik inson/[facility] Comment on above: Result Comment: CUTO FF LEVEL: 50 NG/ML Performed By: #### D RUG3 #### [address] [address] COCAINE METABOLITE SCREEN,U Positive Abnormal NEGATIVE [facility] Comment on above: Result Comment: CUTO FF LEVEL: 150 NG/ML Performed By: #### D RUG3 #### [place] [address] DRUG SCREEN COMMENT SEE BELOW Normal Dino son/[facility] Comment on above: Result Comment: Drug screen results are presumptive and should not be used to assess compliance with prescribed medication. [facility] the [facility] to add-on definitive confirmatory testing if clinically indicated. . Toxicology screening results are reported qualitatively. The concentration must be greater than or equal to the cutoff to be reported as positive. The concentration at which the screening test can detect an individual drug or metabolite varies. The absence of expected drug(s) and/or drug metabolite(s) may indicate non-compliance, inappropriate timing of specimen collection relative to drug administration, poor drug absorption, diluted/adulterated urine, or limitations of testing. For medical purposes only; not valid for forensic use. . Interpretive questions should be directed to the laboratory medical directors. Performed By: #### D RUG3 #### [place] [address] FENTANYL SCREEN,URINE Positive Abnormal NEGATIVE Malik inson/[facility] Comment on above: Result Comment: CUTO FF LEVEL: 5 NG/ML Performed By: #### D RUG3 #### [place] [address] METHADONE SCREEN,U Negative Normal NEGATIVE [place] /[facility] Comment on above: Result Comment: CUTO FF LEVEL: 150 NG/ML The metabolite U-dgrms-vsdkaqpcwlrpra (LAAM) is not detected by this method in concentrations that would be found in the urine of patients on LAAM therapy. Performed By: #### D RUG3 #### [place] [address] OPIATES SCREEN,U Positive Abnormal NEGATIVE [place] /[facility] Comment on above: Result Comment: CUTO FF LEVEL: 300 NG/ML The opiate screen does not detect fentanyl, meperidine, or tramadol. Oxycodone is not consistently detected (refer to Oxycodone Screen, Urine result). Performed By: #### D RUG3 #### [place] [address] OXYCODONE SCREEN,U Negative Normal NEGATIVE [place]/[facility] Comment on above: Result Comment: CUTO FF LEVEL: 100 NG/ML This test will accurately detect both oxycodone and oxymorphone. Performed By: #### D RUG3 #### [address] [address] PCP SCREEN,U Negative Normal NEGATIVE [place]/[facility] Comment on above: Result Comment: CUTO FF LEVEL: 25 NG/ML Cross-reactivity has been reported with dextromethorphan. Performed By: #### D RUG3 #### [place] [id number] Narrative [Interpretat ion] Study observation.general transvaginal 1st trimester USOrdered By: Provider System on 08-28-2022 [facility] Narrative [Interpretat ion] Study observation.general transvaginal 1st trimester USon 08-27-2022 Radiology Study observation (narrative) [facility] HCG ( test) Ql (U)o n 08-27-2022 HCG.beta subunit [Moles/Vol] Negative [facility] POCT URINE DRUG SCREENon Amphetamine, Manual Enter Negative [facility] Barbiturate, Manual Enter Negative [facility] Benzodiazepinem Manual Enter Negative [facility] Buprenorphine, Manual Enter Negative [facility] Cocaine, Manual Enter Positive [facility] Creatinine (CR) manual Enter Normal [facility] Marijuana, Manual ENter Positive [facility] Methadone, Manual Enter Negative [facility] Methamphetamine, Manual Enter Negative [facility] Opiates, manual enter Negative [facility] Oxidant (Bleach) manual enter Normal [facility] Oxycodone, Manual Enter Negative [facility] SPECIFIC GRAVITY, MANUAL ENTER Normal [facility] Temperature, manual Enter Normal [facility] Basic Metabolic Panelon 12-10 Anion gap [Moles/Vol] 12 mmol/L 9 - 17 mmol/L [facility] Work Phone: Bun/Cre Ratio NOT REPORTED [facility] Work Phone: Calcium [Mass/Vol] 9.8 mg/dL 8.6 - 10. 4 mg/dL [employer] Phone: Chloride [Moles/Vol] 103 mmol/L 98 - 10 7 mmol/L [facility] Phone: CO2 [Moles/Vol] 21 mmol/L 20 - 31 mmol/L [employer] Phone: Creatinine [Mass/Vol] 0.59 mg/dL 0.5 - 0.9 mg/dL [facility] Phone: GFR NOT REPORTED >60 mL/min [employer] Phone: GFR Non- Pediatric GFR requires additional information. Refer to Yun YunDEP website for calculator. >60 mL/min [facility] Phone: GFR/1.73 sq M predicted among non-blacks MDRD (S/P/Bld) [Vol rate/Area] [facility] Phone: Comment on above: Average GFR for <20 years old not available. Chronic Kidney Disease: <60 mL/min/1.73sq m Kidney failure: <15 mL/min/1.73sq m eGFR calculated using average adult body mass. Additional eGFR calculator available at: http://www.[employer]/multiple_crcl_2012.htm GFR/1.73 sq M predicted among non-blacks MDRD (S/P/Bld) [Vol rate/Area] NOT REPORTED [employer] Phone: Glucose [Mass/Vol] 131 mg/dL High 70 - 99 mg/dL [employer] Phone: Interpretation and review of laboratory results Abnormal [employer] Phone: Potassium [Moles/Vol] 4.0 mmol/L 3.7 - 5.3 mmol/L [facility] Phone: Sodium [Moles/Vol] 136 mmol/L 135 - 144 mmol/L [facility] Work Phone: Urea nitrogen [Mass/Vol] 10 mg/dL 6 - 20 mg/dL [facility] Work Phone: Basic Metabolic Profon 12-24 (cont.) Normal [facility] Comment on above: Result Comment: Aver age GFR for <20 years old not available. Chronic Kidney Disease: <60 mL/min/1.73sq m Kidney failure: <15 mL/min/1.73sq m eGFR calculated using average adult body mass. Additional eGFR calculator available at: http://www.[employer]/multiple_crcl_2012.htm Performed By: #### C DP, DIME, HCG, BMP, MG, TROPI, TSHX, EDTOX #### [facility] [address] [facility] [place] [address] Line Lead: Abhay Amaya DO Anion gap [Moles/Vol] 12 mmol/L Normal 9-17 [facility] Comment on above: Performed By: #### C DP, DIME, HCG, BMP, MG, TROPI, TSHX, EDTOX #### [facility] [address] [facility] [place] [address] Line Lead: Abhay Amaya DO Calcium [Mass/Vol] 9.8 mg/dL Normal 8.6-10.4 [facility] Comment on above: Performed By: #### C DP, DIME, HCG, BMP, MG, TROPI, TSHX, EDTOX #### [facility] [address] [facility] [place] [address] Line Lead: Abhay Amaya DO Chloride [Moles/Vol] 103 mmol/L Normal 98-107 [facility] Comment on above: Performed By: #### C DP, DIME, HCG, BMP, MG, TROPI, TSHX, EDTOX #### [facility] [address] [place] [address] Line Lead: Abhay Amaya DO CO2 [Moles/Vol] 21 mmol/L Normal 20-31 [facility] Comment on above: Performed By: #### C DP, DIME, HCG, BMP, MG, TROPI, TSHX, EDTOX #### [facility] [address] [place] [address] Line Lead: Abhay Amaya DO Creatinine [Mass/Vol] 0.59 mg/dL Normal 0.50-0.90 [facility] Comment on above: Performed By: #### C DP, DIME, HCG, BMP, MG, TROPI, TSHX, EDTOX #### [facility] [address] [place] [address] Line Lead: Abhay Amaya DO GFR,non Amer Pediatric GFR requi res additional information. Refer to NKDEP website for Normal >60 [facility] Comment on above: Result Comment: calc ulator. Performed By: #### C DP, DIME, HCG, BMP, MG, TROPI, TSHX, EDTOX #### [facility] [address] [place] [address] Line Lead: Abhay Amaya DO Glucose [Mass/Vol] 131 mg/dL High 70-99 [facility] Comment on above: Performed By: #### C DP, DIME, HCG, BMP, MG, TROPI, TSHX, EDTOX #### [facility] [address] [place] [address] Line Lead: Abhay Amaya DO Potassium [Moles/Vol] 4.0 mmol/L Normal 3.7-5.3 [facility] Comment on above: Performed By: #### C DP, DIME, HCG, BMP, MG, TROPI, TSHX, EDTOX #### [facility] [address] [place] [address] Line Lead: Abhay Amaya DO Sodium [Moles/Vol] 136 mmol/L Normal 135-144 [facility] Comment on above: Performed By: #### C DP, DIME, HCG, BMP, MG, TROPI, TSHX, EDTOX #### [facility] [address] [facility] [place] [address] Line Lead: Abhay Amaya DO Urea nitrogen [Mass/Vol] 10 mg/dL Normal 6-20 [facility] Comment on above: Performed By: #### C DP, DIME, HCG, BMP, MG, TROPI, TSHX, EDTOX #### [facility] [address] [facility] [place] [address] Line Lead: Abhay Amaya DO BUN/CRE Ratio NOT REPORTED Normal -20 [facility] Comment on above: Performed By: #### C DP, DIME, HCG, BMP, MG, TROPI, TSHX, EDTOX #### [facility] [address] [place] [address] Line Lead: Abhay Amaya DO GFR, Amer NOT REPORTED Normal >60 [facility] Comment on above: Performed By: #### C DP, DIME, HCG, BMP, MG, TROPI, TSHX, EDTOX #### [facility] [address] [facility] [place] [address] Line Lead: Abhay Amaya DO Staging: NOT REPORTED Normal [facility] Comment on above: Performed By: #### C DP, DIME, HCG, BMP, MG, TROPI, TSHX, EDTOX #### [facility] [address] [facility] [place] [address] Line Lead: Abhay Amaya DO CBC Auto Differentialon 12-10 Basophils (Bld) [#/Vol] 0.10 10*3/uL [employer] Phone: Basophils/100 WBC (Bld) 1 % 0 - 2 % [employer] Phone: Differential Type NOT REPORTED [employer] Phone: Eosinophils (Bld) [#/Vol] 0.00 10*3/uL [employer] Phone: Eosinophils/100 WBC (Bld) 0 % 0 - 4 % [employer] Phone: Erythrocyte distribution width (RBC) [Ratio] 12.4 % 11.5 - 14.9 % [employer] Phone: Hematocrit (Bld) [Volume fraction] 35.1 % Low 36 - 46 % [employer] Phone: Hemoglobin (Bld) [Mass/Vol] 11.9 g/dL Low 12 - 16 g/dL [employer] Phone: Interpretation and review of laboratory results Abnormal [employer] Phone: Lymphocytes (Bld) [#/Vol] 1.20 10*3/uL [employer] Phone: Lymphocytes/100 WBC (Bld) 12 % Low 25 - 45 % [employer] Phone: MCH (RBC) [Entitic mass] 30.7 pg 26 - 34 pg [employer] Phone: MCHC (RBC) [Mass/Vol] 33.8 g/dL 31 - 37 g/dL [employer] Phone: MCV (RBC) [Entitic vol] 90.8 fL 80 - 100 fL [employer] Phone: Monocytes (Bld) [#/Vol] 0.30 10*3/uL [employer] Phone: Monocytes/100 WBC (Bld) 3 % 2 - 8 % [employer] Phone: Platelet mean volume (Bld) [Entitic vol] 8.2 fL 6 - 12 fL [employer] Work Phone: Platelets (Bld) [#/Vol] NOT REPORTED [facility] Work Phone: Platelets (Bld) [#/Vol] 302 10*3/uL [facility] Work Phone: RBC (Bld) [#/Vol] 3.86 10*6/uL Low 4 - 5.2 m/uL [facility] [employer] Work Phone: RBC morphology finding Nom (Bld) NOT REPORTED [facility] Phone: Segmented neutrophils/100 WBC (Bld) 84 % High 34 - 64 % [facility] Work Phone: Segs Absolute 8.80 [facility] Work Phone: WBC (Bld) [#/Vol] 10.4 10*3/uL [facility] Work Phone: WBC (Bld) [#/Vol] NOT REPORTED per 100 WBC [facility] Work Phone: WBC Morphology NOT REPORTED [employer] Work Phone: CBC with Diffon 12-24-2019 Abs. Basophil 0.10 k/uL Normal 0.0-0.2 [facility] Comment on above: Performed By: #### C DP, DIME, HCG, BMP, MG, TROPI, TSHX, EDTOX #### [facility] [address] [place] [address] Line Lead: Abhay Amaya DO Abs.Neutrophil (Seg) 8.80 k/uL Normal 1.3-9.1 [facility] Comment on above: Performed By: #### C DP, DIME, HCG, BMP, MG, TROPI, TSHX, EDTOX #### [facility] [address] [place] [address] Line Lead: Abhay Amaya DO Basophils/100 WBC (Bld) 1 % Normal 0-2 [facility] Comment on above: Performed By: #### C DP, DIME, HCG, BMP, MG, TROPI, TSHX, EDTOX #### [facility] [address] [place] [address] Line Lead: Abhay Amaya DO Eosinophils (Bld) [#/Vol] 0.00 10*3/uL Normal 0.0-0.4 [facility] Comment on above: Performed By: #### C DP, DIME, HCG, BMP, MG, TROPI, TSHX, EDTOX #### [facility] [address] [place] [address] Line Lead: Abhay Amaya DO Eosinophils/100 WBC (Bld) 0 % Normal 0-4 [facility] Comment on above: Performed By: #### C DP, DIME, HCG, BMP, MG, TROPI, TSHX, EDTOX #### [facility] [address] [place] [address] Line Lead: Abhay Amaya DO Erythrocyte distribution width (RBC) [Ratio] 12.4 % Normal 11.5-14.9 [facility] Comment on above: Performed By: #### C DP, DIME, HCG, BMP, MG, TROPI, TSHX, EDTOX #### [facility] [address] [place] [address] Line Lead: Abhay Amaya DO Hematocrit (Bld) [Volume fraction] 35.1 % Low 36-46 [facility] Comment on above: Performed By: #### C DP, DIME, HCG, BMP, MG, TROPI, TSHX, EDTOX #### [facility] [address] [place] [address] Line Lead: Abhay Amaya DO Hemoglobin (Bld) [Mass/Vol] 11.9 g/dL Low 12.0-16.0 [facility] Comment on above: Performed By: #### C DP, DIME, HCG, BMP, MG, TROPI, TSHX, EDTOX #### [facility] [address] [facility] [place] [address] Line Lead: Abhay Amaya DO Lymphocytes (Bld) [#/Vol] 1.20 10*3/uL Normal 1.2-5.2 [facility] Comment on above: Performed By: #### C DP, DIME, HCG, BMP, MG, TROPI, TSHX, EDTOX #### [facility] [address] [place] [address] Line Lead: Abhay Amaya DO Lymphocytes/100 WBC (Bld) 12 % Low 25-45 [facility] Comment on above: Performed By: #### C DP, DIME, HCG, BMP, MG, TROPI, TSHX, EDTOX #### [facility] [address] [place] [address] Line Lead: Abhay Amaya DO MCH (RBC) [Entitic mass] 30.7 pg Normal 26-34 [facility] Comment on above: Performed By: #### C DP, DIME, HCG, BMP, MG, TROPI, TSHX, EDTOX #### [facility] [address] [place] [address] Line Lead: Abhay Amaya DO MCHC (RBC) [Mass/Vol] 33.8 g/dL Normal 31-37 [facility] Comment on above: Performed By: #### C DP, DIME, HCG, BMP, MG, TROPI, TSHX, EDTOX #### [facility] [address] [place] [address] Line Lead: Abhay Amaya DO MCV (RBC) [Entitic vol] 90.8 fL Normal 80-100 [facility] Comment on above: Performed By: #### C DP, DIME, HCG, BMP, MG, TROPI, TSHX, EDTOX #### [facility] [address] [place] [address] Line Lead: Abhay Amaya DO Monocytes (Bld) [#/Vol] 0.30 10*3/uL Normal 0.1-1.3 [facility] Comment on above: Performed By: #### C DP, DIME, HCG, BMP, MG, TROPI, TSHX, EDTOX #### [facility] [address] [facility] [place] [address] Line Lead: Abhay Amaya DO Monocytes/100 WBC (Bld) 3 % Normal 2-8 [facility] Comment on above: Performed By: #### C DP, DIME, HCG, BMP, MG, TROPI, TSHX, EDTOX #### [facility] [address] [facility] [place] [address] Line Lead: Abhay Amaya DO Neutrophil (Seg) 84 % High 34-64 [facility] Comment on above: Performed By: #### C DP, DIME, HCG, BMP, MG, TROPI, TSHX, EDTOX #### [facility] [address] [facility] [place] [address] Line Lead: Abhay Amaya DO Platelet mean volume (Bld) [Entitic vol] 8.2 fL Normal 6.0-12.0 [facility] Comment on above: Performed By: #### C DP, DIME, HCG, BMP, MG, TROPI, TSHX, EDTOX #### [facility] [address] [facility] [place] [address] Line Lead: Abhay Amaya DO Platelets (Bld) [#/Vol] 302 10*3/uL Normal 150-450 [facility] Comment on above: Performed By: #### C DP, DIME, HCG, BMP, MG, TROPI, TSHX, EDTOX #### [facility] [address] [place] [address] Line Lead: Abhay Amaya DO RBC (Bld) [#/Vol] 3.86 10*6/uL Low 4.0-5.2 [facility] Comment on above: Performed By: #### C DP, DIME, HCG, BMP, MG, TROPI, TSHX, EDTOX #### [facility] [address] [place] [address] Line Lead: Abhay Amaya DO WBC (Bld) [#/Vol] 10.4 10*3/uL Normal 4.5-13.5 [facility] Comment on above: Performed By: #### C DP, DIME, HCG, BMP, MG, TROPI, TSHX, EDTOX #### [facility] [address] [place] [address] Line Lead: Abhay Amaya DO Abs.Imm.Granulocyte NOT REPORTED Normal 0.00-0.30 [facility] Comment on above: Performed By: #### C DP, DIME, HCG, BMP, MG, TROPI, TSHX, EDTOX #### [facility] [address] [place] [address] Line Lead: Abhay Amaya DO Auto Diff Performed NOT REPORTED Normal [facility] Comment on above: Performed By: #### C DP, DIME, HCG, BMP, MG, TROPI, TSHX, EDTOX #### [facility] [place] [address] Line Lead: Abhay Amaya DO Immature granulocytes (Bld) [#/Vol] NOT REPORTED Normal 0 [facility] Comment on above: Performed By: #### C DP, DIME, HCG, BMP, MG, TROPI, TSHX, EDTOX #### [facility] [address] [place] [address] Line Lead: Abhay Amaya DO NRBC Automated NOT REPORTED Normal [facility] Comment on above: Performed By: #### C DP, DIME, HCG, BMP, MG, TROPI, TSHX, EDTOX #### [facility] [address] [place] [address] Line Lead: Abhay Amaya DO Platelets (Bld) [#/Vol] NOT REPORTED Normal [facility] Comment on above: Performed By: #### C DP, DIME, HCG, BMP, MG, TROPI, TSHX, EDTOX #### [facility] [address] [place] [address]. [place] [address] Line Lead: Abhay Amaya DO RBC morphology finding Nom (Bld) NOT REPORTED Normal [facility] Comment on above: Performed By: #### C DP, DIME, HCG, BMP, MG, TROPI, TSHX, EDTOX #### [facility] [facility] [place] [address] Line Lead: Abhay Amaya DO WBC Morphology NOT REPORTED Normal [facility] Comment on above: Performed By: #### C DP, DIME, HCG, BMP, MG, TROPI, TSHX, EDTOX #### [facility] [address] [place] [address]. [place] [address] Line Lead: Abhay Amaya DO D-Dimer Teston 12-24-2019 D-Dimer Test 0.34 mg/L FEU Normal 0.00-0.59 [facility] Comment on above: Result Comment: When combined with a low clinical probability, a D dimer value of <0.50 mg/L FEU is considered negative for DVT and PE (negative predictive value of 98%, sensitivity of 97%). If this test is not being used to help rule out DVT and PE, then the following reference range should be utilized: 0.00 - 0.59 mg/L FEU. The D-Dimer assay is intended for use as an aid in the diagnosis of venous thromboembolism (DVT and PE) and the results should be interpreted in conjunction with the patient's medical history, clinical presentation, and other findings. The [employer] D-Dimer assay is intended for use as an aid in the diagnosis of venous thromboembolism (DVT and PE) and the results should be interpreted in conjunction with the patient's medical history, clinical presentation, and other findings. Elevated levels of D-dimer activity can be seen in any state of coagulation activation and is not recommended in patients with therapeutic dose anticoagulant therapy for >24 hours, fibrinolytic therapy within the previous 7 days, trauma or surgery within the previous 4 weeks, disseminated malignancies, aortic aneurysm, sepsis, severe infections, pneumonia, severe skin infections, liver cirrhosis, advanced age, coronary disease, diabetes, and . A very low percentage of patients with DVT may yield D-dimer results below the cutoff of 0.5 mg/L FEU. This is known to be more prevalent in patients with distal DVT. Performed By: #### C DP, DIME, HCG, BMP, MG, TROPI, TSHX, EDTOX #### [facility] [address] [place] [address] Line Lead: Abhay Amaya DO D-Dimer, Quantitativeon 12-10 D-Dimer, Quant 0.34 [facility] Work Phone: Comment on above: When combined with a low clinical probability, a D dimer value of <0.50 mg/L FEU is considered negative for DVT and PE (negative predictive value of 98%, sensitivity of 97%). If this test is not being used to help rule out DVT and PE, then the following reference range should be utilized: 0.00 - 0.59 mg/L FEU. The D-Dimer assay is intended for use as an aid in the diagnosis of venous thromboembolism (DVT and PE) and the results should be interpreted in conjunction with the patient's medical history, clinical presentation, and other findings. The [employer] D-Dimer assay is intended for use as an aid in the diagnosis of venous thromboembolism (DVT and PE) and the results should be interpreted in conjunction with the patient's medical history, clinical presentation, and other findings. Elevated levels of D-dimer activity can be seen in any state of coagulation activation and is not recommended in patients with therapeutic dose anticoagulant therapy for >24 hours, fibrinolytic therapy within the previous 7 days, trauma or surgery within the previous 4 weeks, disseminated malignancies, aortic aneurysm, sepsis, severe infections, pneumonia, severe skin infections, liver cirrhosis, advanced age, coronary disease, diabetes, and . A very low percentage of patients with DVT may yield D-dimer results below the cutoff of 0.5 mg/L FEU. This is known to be more prevalent in patients with distal DVT. Drug Scr, Abuse, Uron 2019 Amphetamine(s),Ur Negative Normal [facility] Comment on above: Result Comment: (Positive cutoff 1000 ng/mL) Performed By: #### C DP, DIME, HCG, BMP, MG, TROPI, TSHX, EDTOX #### [facility] [address] [place] [address] Line Lead: Abhay Amaya DO Barbiturate(s),Ur Negative Normal [facility] Comment on above: Result Comment: (Positive cutoff 200 ng/mL) Performed By: #### C DP, DIME, HCG, BMP, MG, TROPI, TSHX, EDTOX #### [facility] [address] [place] [address] Line Lead: Abhay Amaya DO Base excess Calc (Bld) [Moles/Vol] Positive Abnormal NEG [facility] Comment on above: Result Comment: (Positive cutoff 300 ng/mL) Performed By: #### C DP, DIME, HCG, BMP, MG, TROPI, TSHX, EDTOX #### [facility] [address] [facility] [place] [address] Line Lead: Abhay Amaya DO Benzodiazepine(s) Negative Normal [facility] Comment on above: Result Comment: (Positive cutoff 200 ng/mL) Performed By: #### C DP, DIME, HCG, BMP, MG, TROPI, TSHX, EDTOX #### [facility] [address] [place] [address] Line Lead: Abhay Amaya DO Cannabinoid(s),Ur Negative Normal [facility] Comment on above: Result Comment: (Positive cutoff 50 ng/mL) Performed By: #### C DP, DIME, HCG, BMP, MG, TROPI, TSHX, EDTOX #### [facility] [address] [place] [address] Line Lead: Abhay Amaya DO Interpretive Info Assay provides medic al screening only. The absence of expected drug(s) and/or Normal [facility] Comment on above: Result Comment: meta bolite(s) may indicate diluted or adulterated urine, limitations of testing or timing of collection. Testing for legal purposes should be confirmed by another method. To request confirmation of test result, please call the lab within 7 days of sample submission. Performed By: #### C DP, DIME, HCG, BMP, MG, TROPI, TSHX, EDTOX #### [facility] [address] [place] [address] Line Lead: Abhay Amaya DO Methadone Ql (U) Negative Normal NEG [facility] Comment on above: Result Comment: (Positive cutoff 300 ng/mL) Performed By: #### C DP, DIME, HCG, BMP, MG, TROPI, TSHX, EDTOX #### [facility] [address] [place] [address] Line Lead: Abhay Amaya DO Opiate(s), Ur Negative Normal NEG [facility] Comment on above: Result Comment: (Positive cutoff 300 ng/mL) Performed By: #### C DP, DIME, HCG, BMP, MG, TROPI, TSHX, EDTOX #### [facility] [facility] [place] [address] Line Lead: Abhay Amaya DO Oxycodone, Urine Positive Abnormal NEG [facility] Comment on above: Result Comment: (Positive cutoff 100 ng/mL) Performed By: #### C DP, DIME, HCG, BMP, MG, TROPI, TSHX, EDTOX #### [facility] [address] [place] [address] Line Lead: Abhay Amaya DO Phencyclidine, Ur Negative Normal [facility] Comment on above: Result Comment: (Positive cutoff 25 ng/mL) Performed By: #### C DP, DIME, HCG, BMP, MG, TROPI, TSHX, EDTOX #### [facility] [address] [place] [address] Line Lead: Abhay Amaya DO Buprenorphrine, Ur NOT REPORTED Normal [facility] Comment on above: Performed By: #### C DP, DIME, HCG, BMP, MG, TROPI, TSHX, EDTOX #### [facility] [address] [place] [address] Line Lead: Abhay Amaya DO MDMA, Urine NOT REPORTED Normal NEG [facility] Comment on above: Performed By: #### C DP, DIME, HCG, BMP, MG, TROPI, TSHX, EDTOX #### [facility] [address] [place] [address] Line Lead: Abhay Amaya DO Methamphetamine, Ur NOT REPORTED Normal NEG [facility] Comment on above: Performed By: #### C DP, DIME, HCG, BMP, MG, TROPI, TSHX, EDTOX #### [facility] [address] [place] [address] [place] [address] Line Lead: Abhay Amaya DO Propoxyphene,Urine NOT REPORTED Normal [facility] Comment on above: Performed By: #### C DP, DIME, HCG, BMP, MG, TROPI, TSHX, EDTOX #### [facility] [address] [facility] [place] [address] Line Lead: Abhay Amaya DO Tricyclic antidepressants Screen Ql (U) NOT REPORTED Normal NEG [facility] Comment on above: Performed By: #### C DP, DIME, HCG, BMP, MG, TROPI, TSHX, EDTOX #### [facility] [address] [facility] [address] [place] [address] Line Lead: Abhay Amaya DO Drug screen, tricyclicon Tricyclic Antidep,Urine Negative NEGATIVE [facility] [employer] Phone: Comment on above: (Positive cutoff 1000 ng/mL) Assay provides rapid clinical screening only. Presumptive positive results for legal purposes should be confirmed by another method. To request confirmation, please call the lab within 7 days of sample submission. HCG Screen, Bloodon 12-24-19 20 HCG Qn Negative Normal NEG [facility] Comment on above: Result Comment: Spec imens with hCG levels near the threshold of the test (25 mIU/mL) may give a negative or indeterminate result. In such cases, another test should be performed with a new specimen in 48-72 hours. If early is suspected clinically in this setting, correlation with quantitative serum b-hCG level is suggested. Performed By: #### C DP, DIME, HCG, BMP, MG, TROPI, TSHX, EDTOX #### [facility] [address] [facility] [address] [place] [address] Line Lead: Abhay Amaya DO hCG Qual Negative NEGATIVE [employer] Phone: Comment on above: Specimens with hCG l evels near the threshold of the test (25 mIU/mL) may give a negative or indeterminate result. In such cases, another test should be performed with a new specimen in 48-72 hours. If early is suspected clinically in this setting, correlation with quantitative serum b-hCG level is suggested. Magnesiumon 12-24-2019 Magnesium [Mass/Vol] 1.9 mg/dL Normal 1.7-2.2 [facility] Comment on above: Performed By: #### C DP, DIME, HCG, BMP, MG, TROPI, TSHX, EDTOX #### [facility] [address] [place] [address] Line Lead: Abhay Amaya DO Magnesium [Mass/Vol] 1.9 mg/dL 1.7 - 2 .2 mg/dL [employer] Phone: Microscopic Urinalysison Amorphous, UA NOT REPORTED None [facility] Work Phone: Bacteria, UA FEW Abnormal None [facility] Work Phone: Casts UA NOT REPORTED /LPF [employer] Work Phone: Crystals UA NOT REPORTED None /HPF [facility] Work Phone: Epithelial Cells UA 10 TO 20 /HPF [facility] Work Phone: Interpretation and review of laboratory results Abnormal [employer] Phone: Mucus, UA NOT REPORTED None [facility] Work Phone: Other Observations UA NOT REPORTED NOT REQ. [facility] Work Phone: RBC (U) [#/Vol] 0 TO 2 /HPF [facility] Work Phone: Renal Epithelial, Urine NOT REPORTED 0 /HPF [facility] Work Phone: Trichomonas, UA NOT REPORTED None [facility] Work Phone: WBC, UA 2 TO 5 /HPF [facility] Work Phone: Yeast, UA NOT REPORTED None [employer] Work Phone: - [employer] Work Phone: Otheron 12-24-2019 Immature granulocytes (Bld) [#/Vol] NOT REPORTED [facility] Work Phone: TOX SCR, BLD, EDon 0 Acetaminophen [Mass/Vol] <5 Low 10 - 30 ug/mL [facility] Work Phone: Ethanol [Mass/Vol] mg/dL <10 mg/dL [facility] Work Phone: Ethanol percent <0.010 % [facility] Work Phone: Interpretation and review of laboratory results Abnormal [employer] Phone: Salicylate Lvl <1 Low 3 - 10 mg/dL [facility] Work Phone: Toxic Tricyclic Sc,Blood WRONG TEST ORDERED NEGATIVE [facility] Work Phone: TSH w/reflex to FT4on 2019 TSH Qn 2.00 m[IU]/L Normal 0.30-5.00 [facility] Comment on above: Performed By: #### C DP, DIME, HCG, BMP, MG, TROPI, TSHX, EDTOX #### [facility] [address] [facility] [place] [address] Line Lead: Abhay Amaya DO TSH Qn 2.00 m[IU]/L [facility] Work Phone: Tox Scr, Bld, EDon 0 Acetaminophen [Mass/Vol] <5 Low 10-30 [facility] Comment on above: Performed By: #### C DP, DIME, HCG, BMP, MG, TROPI, TSHX, EDTOX #### [facility] [address] [facility] [place], [place] [id number] Line Lead: Abhay Amaya DO Salicylate <1 Low 3-10 [facility] Comment on above: Performed By: #### C DP, DIME, HCG, BMP, MG, TROPI, TSHX, EDTOX #### [facility] [address] [facility] [place] [address] Line Lead: Abhay Amaya DO Ethanol [Mass/Vol] mg/dL Normal <10 [facility] Comment on above: Performed By: #### C DP, DIME, HCG, BMP, MG, TROPI, TSHX, EDTOX #### [facility] [address] [facility] [place] [address] Line Lead: Abhay Amaya DO Ethanol percent <0.010 Normal [facility] Comment on above: Performed By: #### C DP, DIME, HCG, BMP, MG, TROPI, TSHX, EDTOX #### [facility] [address] [facility] [place] [address] Line Lead: Abhay Amaya DO Troponinon 12-24-2019 Troponin I.cardiac [Mass/Vol] 8 ng/L Normal 0-14 [facility] Comment on above: Result Comment: High Sensitivity Troponin values cannot be compared with other Troponin methodologies. Patients with high levels of Biotin oral intake (i.e >5mg/day) may have falsely decreased Troponin levels. Samples collected within 8 hours of biotin intake may require additional information for diagnosis. Performed By: #### C DP, DIME, HCG, BMP, MG, TROPI, TSHX, EDTOX #### [facility] [address] [facility] [place] [address] Line Lead: Abhay Amaya DO Troponin I.cardiac [Mass/Vol] NOT REPORTED Normal <0.03 [facility] Comment on above: Performed By: #### C DP, DIME, HCG, BMP, MG, TROPI, TSHX, EDTOX #### [facility] [address] [facility] [place] [address] Line Lead: Abhay Amaya DO Troponin I.cardiac [Mass/Vol] 9 ng/L Normal 0-14 [facility] Comment on above: Result Comment: High Sensitivity Troponin values cannot be compared with other Troponin methodologies. Patients with high levels of Biotin oral intake (i.e >5mg/day) may have falsely decreased Troponin levels. Samples collected within 8 hours of biotin intake may require additional information for diagnosis. Performed By: #### C DP, DIME, HCG, BMP, MG, TROPI, TSHX, EDTOX #### [facility] [address] [facility] [place] [address] Line Lead: Abhay Amaya DO Troponin I.cardiac [Mass/Vol] NOT REPORTED [employer] Phone: Troponin T.cardiac [Mass/Vol] NOT REPORTED <0.03 ng/mL [employer] Phone: Troponin, High Sensitivity 8 ng/L 0 - 14 ng/L [employer] Phone: Comment on above: High Sensitivity Troponin values cannot be compared with other Troponin methodologies. Patients with high levels of Biotin oral intake (i.e >5mg/day) may have falsely decreased Troponin levels. Samples collected within 8 hours of biotin intake may require additional information for diagnosis. Troponin I.cardiac [Mass/Vol] NOT REPORTED Normal <0.03 [facility] Comment on above: Performed By: #### C DP, DIME, HCG, BMP, MG, TROPI, TSHX, EDTOX #### [facility] [address] [facility] [place] [address] Line Lead: Abhay Amaya DO Troponin I.cardiac [Mass/Vol] NOT REPORTED [employer] Phone: Troponin T.cardiac [Mass/Vol] NOT REPORTED <0.03 ng/mL [employer] Phone: Troponin, High Sensitivity 9 ng/L 0 - 14 ng/L [facility] Work Phone: Comment on above: High Sensitivity Troponin values cannot be compared with other Troponin methodologies. Patients with high levels of Biotin oral intake (i.e >5mg/day) may have falsely decreased Troponin levels. Samples collected within 8 hours of biotin intake may require additional information for diagnosis. UA w/Reflex Cultureon 2019 Acetoacetic Acid,Ur Negative Normal NEG [facility] Comment on above: Performed By: #### U AX, UTAD, UMICAO, LEANNE #### [facility] [address] [facility] [place] [address] Line Lead: Abhay Amaya DO Bilirubin, SemiQt,Ur Negative Normal NE[facility] Comment on above: Performed By: #### U AX, UTAD, UMICAO, LEANNE #### [facility] [address] [place] [address]. [place] [address] Line Lead: Abhay Amaya DO Color (U) YELLOW Normal YEL [facility] Comment on above: Performed By: #### U AX, UTAD, UMICAO, LEANNE #### [facility] [address] [place] [address]. [place] [address] Line Lead: Abhay Amaya DO Glucose Ql (U) Negative Normal [facility] Comment on above: Performed By: #### U AX, UTAD, UMICAO, LEANNE #### [facility] [address] [place] [address]. [place] [address] Line Lead: Abhay Amaya DO Hemoglobin, Ur Negative Normal NEG [facility] Comment on above: Performed By: #### U AX, UTAD, UMICAO, LEANNE #### [facility] [address] [place] [address]. [place] [address] Line Lead: Abhay Amaya DO Leukocyte esterase Test strip Ql (U) Negative Normal [facility] Comment on above: Performed By: #### U AX, UTAD, UMICAO, LEANNE #### [facility] [place] [address] Line Lead: Abhay Amaya DO Nitrite,Ur Negative Normal NEG [facility] Comment on above: Performed By: #### U AX, UTAD, UMICAO, LEANNE #### [facility] [address] [place] [address]. [place] [address] Line Lead: Abhay Amaya DO pH (U) 8.0 [pH] Normal 5.0-8.0 [facility] Comment on above: Performed By: #### U AX, UTAD, UMICAO, LEANNE #### [facility] [place] [address] Line Lead: Abhay Amaya DO Protein Ql (U) Negative Normal NEG [facility] Comment on above: Performed By: #### U AX, UTAD, UMICAO, LEANNE #### [facility] [address] [place] [address] Line Lead: Abhay Amaya DO Specific gravity (U) [Rel density] 1.007 Normal 1.000-1.030 [facility] Comment on above: Performed By: #### U AX, UTAD, UMICAO, LEANNE #### [facility] [address] [place] [address] Line Lead: Abhay Amaya DO Turbidity CLOUDY Abnormal CLEAR [facility] Comment on above: Performed By: #### U AX, UTAD, UMICAO, LEANNE #### [facility] [address] [place] [address] Line Lead: Abhay Amaya DO Urobilinogen,Ur Normal Normal NORM [facility] Comment on above: Performed By: #### U AX, UTAD, UMICAO, LEANNE #### [facility] [address] [facility] [place] [address] Line Lead: Abhay Amaya DO Comment NOT REPORTED Normal [facility] Comment on above: Performed By: #### U AX, UTAD, UMICAO, LEANNE #### [facility] [address] [facility] [place] [address] Line Lead: Abhay Amaya DO Ur.Tricyclic Antidepon 12-24 Ur.Tricyclic Antidep Negative Normal [facility] Comment on above: Result Comment: (Positive cutoff 1000 ng/mL) Assay provides rapid clinical screening only. Presumptive positive results for legal purposes should be confirmed by another method. To request confirmation, please call the lab within 7 days of sample submission. Performed By: #### U AX, UTAD, UMICAO, LEANNE #### [facility] [address] [facility] [place] [address] Line Lead: Abhay Amaya DO Urinalysis Reflex to Culture on 12-24-2019 Bilirubin Urine Negative NEGATIVE [facility] Work Phone: Color, UA YELLOW YELLOW [employer] Work Phone: Glucose, Ur Negative NEGATIVE [employer] Work Phone: Interpretation and review of laboratory results Abnormal [employer] Work Phone: Ketones Ql (U) Negative NEGATIVE [employer] Work Phone: Leukocyte esterase Test strip Ql (U) Negative NEGATIVE [employer] Work Phone: Nitrite, Urine Negative NEGATIVE [employer] Work Phone: pH, UA 8.0 [facility] Work Phone: Protein (U) [Mass/Vol] Negative NEGATIVE [facility] Work Phone: Specific [place], UA 1.007 [employer] Work Phone: Turbidity UA CLOUDY Abnormal CLEAR [facility] [employer] Work Phone: Urinalysis Comments NOT REPORTED [facility] [employer] Work Phone: Urine Hgb Negative NEGATIVE [facility] [employer] Work Phone: Urobilinogen, Urine Normal Normal [facility] [employer] Phone: Urinalysis,Microon 0 ----- Normal [facility] Comment on above: Performed By: #### C DP, DIME, HCG, BMP, MG, TROPI, TSHX, EDTOX #### [facility] [address] [place] [address] Line Lead: Abhay Amaya DO Bacteria LM.HPF (Urine sed) [#/Area] FEW Abnormal NONE [facility] Comment on above: Performed By: #### C DP, DIME, HCG, BMP, MG, TROPI, TSHX, EDTOX #### [facility] [address] [place] [address] Line Lead: Abhay Amaya DO Epithelial cells LM.HPF (Urine sed) [#/Area] 10 TO 20 Normal [facility] Comment on above: Performed By: #### C DP, DIME, HCG, BMP, MG, TROPI, TSHX, EDTOX #### [facility] [address] [place] [address] Line Lead: Abhay Amaya DO RBC (U) [#/Vol] 0 TO 2 Normal [facility] Comment on above: Performed By: #### C DP, DIME, HCG, BMP, MG, TROPI, TSHX, EDTOX #### [facility] [address] [place] [address] Line Lead: Abhay Amaya DO WBC (U) [#/Vol] 2 TO 5 Normal [facility] Comment on above: Performed By: #### C DP, DIME, HCG, BMP, MG, TROPI, TSHX, EDTOX #### [facility] [address] [facility] [place] [address] Line Lead: Abhay Amaya DO Amorphous sediment LM Ql (Urine sed) NOT REPORTED Normal NONE [facility] Comment on above: Performed By: #### C DP, DIME, HCG, BMP, MG, TROPI, TSHX, EDTOX #### [facility] [address] [place] [address] Line Lead: Abhay Amaya DO Casts LM.LPF (Urine sed) [#/Area] NOT REPORTED Normal [facility] Comment on above: Performed By: #### C DP, DIME, HCG, BMP, MG, TROPI, TSHX, EDTOX #### [facility] [address] [place] [address] Line Lead: Abhay Amaya DO Crystals LM Nom (Urine sed) NOT REPORTED Normal [facility] Comment on above: Performed By: #### C DP, DIME, HCG, BMP, MG, TROPI, TSHX, EDTOX #### [facility] [place] [address] Line Lead: Abhay Amaya DO Epithelial, Renal NOT REPORTED Normal 0 [facility] Comment on above: Performed By: #### C DP, DIME, HCG, BMP, MG, TROPI, TSHX, EDTOX #### [facility] [address] [place] [address] Line Lead: Abhay Amaya DO Mucus Strands NOT REPORTED Normal NONE [facility] Comment on above: Performed By: #### C DP, DIME, HCG, BMP, MG, TROPI, TSHX, EDTOX #### [facility] [address] [facility] [place] [address] Line Lead: Abhay Amaya DO Other Observations NOT REPORTED Normal [facility] Comment on above: Performed By: #### C DP, DIME, HCG, BMP, MG, TROPI, TSHX, EDTOX #### [facility] [address] [facility] [place] [address] Line Lead: Abhay Amaya DO Trichomonas NOT REPORTED Normal NONE [facility] Comment on above: Performed By: #### C DP, DIME, HCG, BMP, MG, TROPI, TSHX, EDTOX #### [facility] [address] [facility] [place] [address] Line Lead: Abhay Amaya DO Yeast LM Ql (Urine sed) NOT REPORTED Normal [facility] Comment on above: Performed By: #### C DP, DIME, HCG, BMP, MG, TROPI, TSHX, EDTOX #### [facility] [address] [facility] [place] [address] Line Lead: Abhay Amaya DO Urine Drug Screenon 12-24-19 20 Amphetamine Screen, Ur Negative NEGATIVE [facility] [employer] Work Phone: Comment on above: (Positive cutoff 1000 ng/mL) Barbiturate Screen, Ur Negative NEGATIVE [facility] [employer] Work Phone: Comment on above: (Positive cutoff 200 ng/mL) Benzodiazepine Screen, Urine Negative NEGATIVE [facility] [employer] Work Phone: Comment on above: (Positive cutoff 200 ng/mL) Buprenorphine Urine NOT REPORTED NEGATIVE [facility] [employer] Work Phone: Cannabinoid Scrn, Ur Negative NEGATIVE [facility] [employer] Work Phone: Comment on above: (Positive cutoff 50 ng/mL) Cocaine Metabolite, Urine Positive Abnormal NEGATIVE [facility] [employer] Work Phone: Comment on above: (Positive cutoff 300 ng/mL) Interpretation and review of laboratory results Abnormal [employer] Work Phone: MDMA, Urine NOT REPORTED NEGATIVE [employer] Work Phone: Methadone Screen, Urine Negative NEGATIVE [facility] Work Phone: Comment on above: (Positive cutoff 300 ng/mL) Methamphetamine, Urine NOT REPORTED NEGATIVE [employer] Work Phone: Opiates, Urine Negative NEGATIVE [employer] Work Phone: Comment on above: (Positive cutoff 300 ng/mL) Oxycodone Screen, Ur Positive Abnormal NEGATIVE [employer] [facility] [employer] Work Phone: Comment on above: (Positive cutoff 100 ng/mL) Phencyclidine, Urine Negative NEGATIVE [facility] [employer] Work Phone: Comment on above: (Positive cutoff 25 ng/mL) Propoxyphene, Urine NOT REPORTED NEGATIVE [facility] [employer] Work Phone: Test Information Assay provides medic al screening only. The absence of expected drug(s) and/or metabolite(s) may indicate diluted or adulterated urine, limitations of testing or timing of collection. [employer] Phone: Comment on above: Testing for legal pu rposes should be confirmed by another method. To request confirmation of test result, please call the lab within 7 days of sample submission. Tricyclic Antidepressants, Urine NOT REPORTED NEGATIVE [employer] Phone: XR CHEST (2 VW)on 12-24-2019 XR CHEST (2 VW) EXAMINATION: TWO XRAY VIEWS OF THE CHEST 12/24/2019 10:26 am COMPARISON: None. HISTORY: ORDERING SYSTEM PROVIDED HISTORY: chest pain TECHNOLOGIST PROVIDED HISTORY: chest pain Reason for Exam: PT CO chronic CP with some SOB X several months. PT poor historian. Best images per pt cooperation. Acuity: Chronic Type of Exam: Unknown FINDINGS: Frontal and lateral views of the chest are submitted for review. The cardiac silhouette is normal in size. Lung parenchyma is clear without focal airspace consolidation, sizeable pleural effusion, or pneumothorax. Trachea is midline. Osseous structures and soft tissues are grossly intact. IMPRESSION: No evidence for acute cardiopulmonary pathology. Interpreted by: Alfonso Tavares MD Signed by: Alfonso Tavares MD 12/24/19 Final result Normal [facility] XR CHEST STANDARD (2 VW)on 0 12-24-2019 EXAMINATION: TWO XRA Y VIEWS OF THE CHEST 12/24/2019 10:26 am COMPARISON: None. HISTORY: ORDERING SYSTEM PROVIDED HISTORY: chest pain TECHNOLOGIST PROVIDED HISTORY: chest pain Reason for Exam: PT CO chronic CP with some SOB X several months. PT poor historian. Best images per pt cooperation. Acuity: Chronic Type of Exam: Unknown FINDINGS: Frontal and lateral views of the chest are submitted for review. The cardiac silhouette is normal in size. Lung parenchyma is clear without focal airspace consolidation, sizeable pleural effusion, or pneumothorax. Trachea is midline. Osseous structures and soft tissues are grossly intact. [employer] Phone: Jean, pn Incoming Radiant Results From [employer] - 12/24/2019 10:44 AM EST EXAMINATION: TWO XRAY VIEWS OF THE CHEST 12/24/2019 10:26 am COMPARISON: None. HISTORY: ORDERING SYSTEM PROVIDED HISTORY: chest pain TECHNOLOGIST PROVIDED HISTORY: chest pain Reason for Exam: PT CO chronic CP with some SOB X several months. PT poor historian. Best images per pt cooperation. Acuity: Chronic Type of Exam: Unknown FINDINGS: Frontal and lateral views of the chest are submitted for review. The cardiac silhouette is normal in size. Lung parenchyma is clear without focal airspace consolidation, sizeable pleural effusion, or pneumothorax. Trachea is midline. Osseous structures and soft tissues are grossly intact. IMPRESSION: No evidence for acute cardiopulmonary pathology. [employer] Phone: No evidence for acut e cardiopulmonary pathology. [employer] Phone: Vital Signs Date Time Vital Sign Value Performing Clinician Facility 01-20-2025 09:48-0400 Body height 149.9 cm [facility] 2 [facility] [employer] 01-20-2025 09:48-0400 Body mass index (BMI) [Ratio] 31.71 kg/m2 [facility] 2 [facility] 01-20-2025 09:48-0400 Body weight 71.22 kg Sey 2 [facility] 01-12-2025 15:30-0500 Body temperature 98.29 [degF] José Laguna MD Work Phone: [facility] 01-12-2025 15:30-0500 Diastolic blood pressure 67 mm[Hg] José Laguna MD Work Phone: [facility] 01-12-2025 15:30-0500 Heart rate 98 /min José Laguna MD Work Phone: [facility] 01-12-2025 15:30-0500 Respiratory rate 18 /min José Laguna MD Work Phone: [facility] 01-12-2025 15:30-0500 SaO2% (BldA) [Mass fraction] 98 % José Laguna MD Work Phone: [facility] 01-12-2025 15:30-0500 Systolic blood pressure 131 mm[Hg] José Laguna MD Work Phone: [facility] 01-12-2025 10:18-0500 Body height 149.9 cm José Laguna MD Work Phone: [facility] 01-12-2025 10:18-0500 Body mass index (BMI) [Ratio] 28.28 kg/m2 José Laguna MD Work Phone: [facility] 01-12-2025 10:18-0500 Body weight 63.5 kg José Laguna MD Work Phone: [facility] 12-31-2024 14:53-0500 Body temperature 98.2 [degF] Ashley Casillas MD Work Phone: [facility] 12-31-2024 14:53-0500 Diastolic blood pressure 72 mm[Hg] Ashley Casillas MD Work Phone: [employer] 12-31-2024 14:53-0500 Heart rate 92 /min Ashley [facility]illas MD [facility] [employer] 12-31-2024 14:53-0500 Respiratory rate 16 /min Ashley Casillas MD Work Phone[facility] [employer] 12-31-2024 14:53-0500 SaO2% (BldA) [Mass fraction] 98 % Ashley Casillas MD Work Phone: [facility] [employer] 12-31-2024 14:53-0500 Systolic blood pressure 129 mm[Hg] Ashley Casillas MD Work Phone: [facility] [employer] 12-14-2024 17:56-0500 Body temperature 97.9 [degF] [facility] [employer] 12-14-2024 17:56-0500 Diastolic blood pressure 96 mm[Hg] [facility] [employer] 12-14-2024 17:56-0500 Heart rate 97 /min [facility] [employer] 12-14-2024 17:56-0500 Respiratory rate 18 /min [facility] [employer] 12-14-2024 17:56-0500 SaO2% (BldA) [Mass fraction] 97 % [facility] [employer] 12-14-2024 17:56-0500 Systolic blood pressure 126 mm[Hg] [facility] [employer] 12-06-2024 10:41-0500 Body temperature 97.9 [degF] Harinder Cartagena MD Work Phone: [facility] [employer] 12-06-2024 10:41-0500 Diastolic blood pressure 77 mm[Hg] Harinder Cartagena MD Work Phone: [facility] [employer] 12-06-2024 10:41-0500 Heart rate 93 /min Harinder Cartagena MD Work Phone: [facility] [employer] 12-06-2024 10:41-0500 Respiratory rate 16 /min Harinder Cartagena MD Work Phone: [facility] 12-06-2024 10:41-0500 SaO2% (BldA) [Mass fraction] 99 % Harinder Cartagena MD Work Phone: [facility] 12-06-2024 10:41-0500 Systolic blood pressure 146 mm[Hg] Harinder Cartagena MD Work Phone: [facility] 09-16-2024 12:53-0500 Body temperature 97.4 [degF] Sandy Krishnan MD Work Phone: [facility] 09-16-2024 12:53-0500 Diastolic blood pressure 74 mm[Hg] Sandy Krishnan MD Work Phone: [facility] 09-16-2024 12:53-0500 Heart rate 82 /min Sandy Krishnan MD Work Phone: [facility] 09-16-2024 12:53-0500 SaO2% (BldA) [Mass fraction] 97 % Sandy Krishnan MD Work Phone: [facility] 09-16-2024 12:53-0500 Systolic blood pressure 108 mm[Hg] Sandy Krishnan MD Work Phone: [facility] 09-15-2024 20:13-0500 Respiratory rate 16 /min Sandy Krishnan MD Work Phone: [facility] 09-12-2024 23:15-0500 Body height 149.86 cm Sandy Krishnan MD Work Phone: [facility] 09-12-2024 23:15-0500 Body weight 60.78 kg Sandy Krishnan MD Work Phone: [facility] 07-29-2024 16:14-0400 Body height 152.4 cm [facility] 07-29-2024 16:14-0400 Body mass index (BMI) [Ratio] 26.2 kg/m2 [facility] 07-29-2024 16:14-0400 Body temperature 97.8 [degF] [facility] 07-29-2024 16:14-0400 Body weight 60.83 kg [facility] 07-29-2024 16:14-0400 Diastolic blood pressure 71 mm[Hg] [facility] 07-29-2024 16:14-0400 Heart rate 99 /min [facility] 07-29-2024 16:14-0400 Respiratory rate 18 /min [facility] 07-29-2024 16:14-0400 SaO2% (BldA) [Mass fraction] 98 % [facility] 07-29-2024 16:14-0400 Systolic blood pressure 122 mm[Hg] [facility] 03-29-2024 13:30-0400 Body height 147.3 cm Lily Cavazos APRN-MERCHANDISING EXECUTION MANAGER Work Phone: [facility] 03-29-2024 13:30-0400 Body mass index (BMI) [Ratio] 29.06 kg/m2 Lily Cavazos GAME ATTENDANT-MERCHANDISING EXECUTION MANAGER Work Phone: [facility] 03-29-2024 13:30-0400 Body temperature 98.01 [degF] Lily Dirk GAME ATTENDANT-MERCHANDISING EXECUTION MANAGER Work Phone: [facility] 03-29-2024 13:30-0400 Body weight 63.05 kg Lily Cavazos GAME ATTENDANT-MERCHANDISING EXECUTION MANAGER Work Phone: [facility] 03-29-2024 13:30-0400 Diastolic blood pressure 70 mm[Hg] Lily Cavazos GAME ATTENDANT-MERCHANDISING EXECUTION MANAGER Work Phone: [facility] 03-29-2024 13:30-0400 Heart rate 102 /min Lily Cavazos GAME ATTENDANT-MERCHANDISING EXECUTION MANAGER Work Phone: [facility] 03-29-2024 13:30-0400 SaO2% (BldA) [Mass fraction] 98 % Lily Cavazos GAME ATTENDANT-MERCHANDISING EXECUTION MANAGER Work Phone: [facility] 03-29-2024 13:30-0400 Systolic blood pressure 110 mm[Hg] Lily Cavazos PATY Work Phone: [facility] 01-15-2024 09:05-0500 Body height 147.3 cm Costa Villareal MD Work Phone: [facility] 01-15-2024 09:05-0500 Body mass index (BMI) [Ratio] 26.21 kg/m2 Costa Villareal MD Work Phone: [facility] 01-15-2024 09:05-0500 Body weight 56.88 kg Costa Villareal MD Work Phone: [facility] 01-15-2024 09:05-0500 Diastolic blood pressure 74 mm[Hg] Costa Villareal MD Work Phone: [facility] 01-15-2024 09:05-0500 Heart rate 98 /min Costa Villareal MD Work Phone: [facility] 01-15-2024 09:05-0500 SaO2% (BldA) [Mass fraction] 98 % Costa Villareal MD Work Phone: [facility] 01-15-2024 09:05-0500 Systolic blood pressure 108 mm[Hg] Costa Villareal MD Work Phone: [facility] 01-02-2024 03:45-0500 Heart rate 98 /min Cosmo Rainey MD Work Phone: [facility] 01-02-2024 03:41-0500 SaO2% (BldA) [Mass fraction] 97 % Cosmo Rainey MD Work Phone: [facility] 01-02-2024 03:39-0500 Diastolic blood pressure 70 mm[Hg] Cosmo Rainey MD Work Phone: [facility] 01-02-2024 03:39-0500 Respiratory rate 18 /min Cosmo Rainey MD Work Phone: [facility] 01-02-2024 03:39-0500 Systolic blood pressure 111 mm[Hg] Cosmo Rainey MD Work Phone: [facility] 01-01-2024 23:41-0500 Body height 149.9 cm Cosmo Rainey MD Work Phone: [facility] 01-01-2024 23:41-0500 Body mass index (BMI) [Ratio] 26.26 kg/m2 Cosmo Rainey MD Work Phone: [facility] 01-01-2024 23:41-0500 Body temperature 98.2 [degF] Cosmo Rainey MD Work Phone: [facility] 01-01-2024 23:41-0500 Body weight 58.97 kg Cosmo Rainey MD Work Phone: [facility] 11-23-2023 21:41-0500 Diastolic blood pressure 59 mm[Hg] [facility] 11-23-2023 21:41-0500 Heart rate 76 /min [facility] 11-23-2023 21:41-0500 Respiratory rate 18 /min [facility] 11-23-2023 21:41-0500 SaO2% (BldA) [Mass fraction] 97 % [facility] 11-23-2023 21:41-0500 Systolic blood pressure 134 mm[Hg] [facility] 11-23-2023 17:53-0500 Body height 154.94 cm [facility] 11-23-2023 17:53-0500 Body temperature 98.7 [degF] [facility] 11-23-2023 17:53-0500 Body weight 55.5 kg [facility] 08-27-2022 11:30-0400 Body height 149.9 cm [facility] Work Phone: [facility] 08-27-2022 11:30-0400 Body mass index (BMI) [Ratio] 24.24 kg/m2 [facility] Work Phone: [facility] 08-27-2022 11:30-0400 Body weight 54.43 kg [facility] Work Phone: [facility] 08-27-2022 11:30-0400 Diastolic blood pressure 60 mm[Hg] [facility] Work Phone: [facility] 08-27-2022 11:30-0400 Heart rate 85 /min [facility] Work Phone: [facility] 08-27-2022 11:30-0400 Systolic blood pressure 106 mm[Hg] [facility] Work Phone: [facility] 12-24-2019 11:45-0500 BP Diastolic 70 mm[Hg] [employer] Work Phone: 12-24-2019 11:45-0500 BP Systolic 114 mm[Hg] [employer] Work Phone: 12-24-2019 11:45-0500 Pulse (Heart Rate) 113 /min [employer] Work Phone: 12-24-2019 11:45-0500 Respiratory Rate 16 /min [employer] Phone: 12-24-2019 11:30-0500 Pulse Oximetry 100 % [employer] Work Phone: 12-24-2019 09:03-0500 BMI (Body Mass Index) 23.44 kg/m2 [employer] Work Phone: 12-24-2019 09:03-0500 Body Temperature 98.71 [degF] [employer] Work Phone: 12-24-2019 09:03-0500 Body weight 54.43 kg [employer] Work Phone: 12-24-2019 09:03-0500 Height 152.4 cm M[facility] Work Phone: Encounters Encounter Date Encounter Type Care Provider Facility Start: 03-16-2025 ambulatory Garrett Archuleta acility:[facility] Start: 02-17-2025 Emergency department patient visit None Provider Facility:[facility] Start: 02-04-2025 Emergency department patient visit Nasamanda Perryfrancisco j Facility:[facility] Start: 01-20-2025 End: 01-22-2025 ambulatory [facility] Start: 01-20-2025 End: 01-22-2025 Subsequent hospital visit by physician [facility] [address] [facility] Noninvasive Cardiology Comment on above: Chest pain, unspecif ied type Start: 01-12-2025 Emergency department patient visit Physician [facility] Start: 01-12-2025 End: 01-12-2025 Emergency department patient visit José Laguna MD Work Phone: [facility] Emergency Department Comment on above: Syncope and collapse (Primary Dx) Start: 01-03-2025 End: 01-03-2025 Telephone encounter Bettie Woodard RN [facility] Start: 12-31-2024 End: 12-31-2024 Emergency department patient visit Ashley Casillas MD Work Phone: [facility] Emergency Department Comment on above: Syncope and collapse (Primary Dx) Start: 12-31-2024 Emergency department patient visit JOESPH DOLL [facility] Start: 12-14-2024 End: 12-14-2024 Emergency department patient visit Physician Becky [facility] Start: 12-14-2024 ambulatory LENNY LEXIS YIP [facility] Start: 12-06-2024 End: 12-06-2024 Emergency department patient visit Harinder Cartagena MD Work Phone: [facility] Emergency Department Comment on above: Allergic reaction, i nitial encounter (Primary Dx) Start: 10-26-2024 End: 10-26-2024 ambulatory SIMÓN ANN [facility] Start: 10-26-2024 End: 10-26-2024 Encounter for general adult medical examination without abnormal findings SIMÓN ANN [facility] Start: 10-26-2024 End: 10-26-2024 Subsequent hospital visit by physician JUAN ANTONIO LOPEZ Start: 09-13-2024 Non-patient / Non-visit Sandy Krishnan MD Work Phone: [facility] Work Phone: Start: 09-12-2024 End: 09-16-2024 Evaluation and management of inpatient Sandy Krishnan MD Work Phone: [facility] Work Phone: Start: 07-29-2024 End: 07-29-2024 ambulatory NON STAFF [facility] Work Phone: Start: 07-29-2024 End: 07-29-2024 Patient encounter procedure [facility] Physician [facility] Work Phone: Start: 05-17-2024 Registered [facility] Start: 03-29-2024 End: 03-29-2024 ambulatory [facility] Start: 03-29-2024 End: 03-29-2024 Office outpatient new 45 minutes [facility] GAME ATTENDANT-MERCHANDISING EXECUTION MANAGER Work Phone: [facility] Comment on above: Bipolar 1 disorder ( CMS-HCC) (Primary Dx); Mild intermittent asthma without complication; Subclinical hypothyroidism; Hypokalemia; Anemia, unspecified type; Depression, unspecified depression type; Anxiety; Encounter to establish care Start: 03-08-2024 End: 03-09-2024 Emergency department patient visit MIGUEL FLORES [facility] Start: 01-15-2024 End: 01-15-2024 ambulatory [facility] VILLAREAL [facility] Start: 01-15-2024 End: 01-15-2024 Office outpatient visit 25 minutes Costa Villareal MD Work Phone: [facility] Comment on above: Neurocardiogenic syn cope (Primary Dx); LOPEZ (dyspnea on exertion); Chest pain, unspecified type Start: 01-14-2024 Telephone encounter Gill Valentino CMA [facility] Start: 01-01-2024 End: 01-02-2024 Emergency department patient visit Cosmo Rainey MD Work Phone: [facility] Emergency Medicine Comment on above: Syncope and collapse (Primary Dx); Closed head injury, initial encounter; Hypokalemia; Tachycardia; Chest pain, unspecified type Start: 12-29-2023 End: 12-30-2023 ambulatory [facility] Start: 11-23-2023 End: 11-23-2023 Emergency department patient visit [facility] Work Phone: Start: 11-22-2022 ambulatory Marcial Mccordjosé miguel Mauricio cility:[id number] Start: 08-27-2022 End: 08-27-2022 Patient encounter procedure Maria Bingham MD Work Phone: [facility] Comment on above: Establish gestationa l age, ultrasound (Primary Dx); Supervision of high risk , antepartum Start: 08-27-2022 ambulatory OTHER [facility] Facility:[facility] Start: 08-27-2022 End: 08-28-2022 ambulatory [facility] Start: 08-27-2022 End: 08-27-2022 Office outpatient visit 40 minutes Maria Bingham MD Work Phone: [facility] Comment on above: Supervision of high risk , antepartum (Primary Dx); Encounter for ultrasound to assess interval growth of fetus Start: 12-24-2019 End: 12-24-2019 Emergency department patient visit MIMI LUKE [facility] Start: 12-24-2019 End: 12-24-2019 Emergency department patient visit Mimi Luke Work Phone: [facility] ED Comment on above: Tachycardia (Primary Dx); Syncope and collapse; Polysubstance abuse (HCC) Procedures Date Procedure Procedure Detail Performing Clinician Start: 01-20-2025 Cv strs tst xers&/or rx cont ecg trcg only Costa Villareal MD Work Phone: Start: 01-20-2025 Echo tthrc r-t 2d w/wom-mode compl spec&colr d Costa Villareal MD Work Phone: Start: 01-12-2025 Fibrin dgradj products d-dimer quantitative Jessi Dryer DO Work Phone: Start: 01-12-2025 Ct cervical spine w/o contrast material Jessi Dryer DO Work Phone: Start: 01-12-2025 Ct head/brain w/o contrast material Jessi Dryer DO Work Phone: Start: 01-12-2025 Radiologic exam chest single view Jessi Dryer DO Work Phone: Start: 01-12-2025 Urine test visual color cmprsn meths Jessi Dryer DO Work Phone: Start: 01-12-2025 Comprehensive metabolic panel Jessi Dryer DO Work Phone: Start: 01-12-2025 Ecg routine ecg w/least 12 lds w/i&r Jessi Dryer DO Work Phone: Start: 12-31-2024 Radiologic exam chest single view Joesph Doll MD Work Phone: Start: 12-31-2024 Urine test visual color cmprsn meths Joesph Doll MD Work Phone: Start: 12-31-2024 Basic metabolic panel calcium total Joesph Doll MD Work Phone: Start: 12-06-2024 Urine test visual color cmprsn meths Logan Chopra MD Work Phone: Start: 12-06-2024 Ecg routine ecg w/least 12 lds w/i&r Logan Chopra MD Work Phone: Start: 12-06-2024 Radiologic exam chest single view Logan Chopra MD Work Phone: Start: 12-06-2024 Comprehensive metabolic panel Logan Chopra MD Work Phone: Start: 10-26-2024 Comprehensive metabolic panel Simón Montano GAME ATTENDANT - MERCHANDISING EXECUTION MANAGER Start: 10-26-2024 Iadna chlamydia trachomatis amplified probe tq Simón Montano GAME ATTENDANT - MERCHANDISING EXECUTION MANAGER Start: 09-12-2024 Plain chest X-ray Sandy Krishnan MD Work Phone: Start: 09-12-2024 Urine culture Sandy Krishnan MD Work Phone: Start: 07-29-2024 Quick Strep (POC) Start: 03-29-2024 Adult depression screening assessment Lily Cavazos GAME ATTENDANT-MERCHANDISING EXECUTION MANAGER Work Phone: Start: 01-15-2024 Follow-up visit Follow-up [facility] Start: 01-15-2024 Ecg routine ecg w/least 12 lds w/i&r Costa Villareal MD Work Phone: Start: 01-02-2024 Drug tst prsmv instrmnt chem analyzers pr date Josias Harley PA-C Work Phone: Start: 01-02-2024 Urinalysis complete W Reflex Culture panel - Urine Josias Harley PA-C Work Phone: Start: 01-02-2024 Urine test visual color cmprsn meths Josias Harley PA-C Work Phone: Start: 01-02-2024 Urnls dip stick/tablet reagent auto microscopy Josias Harley PA-C Work Phone: Start: 01-02-2024 Assay of free thyroxine Josias rivas PA-C Work Phone: Start: 01-02-2024 Ct angiography chest w/contrast/noncontrast Josias Harley PA-C Work Phone: Start: 01-02-2024 Ct head/brain w/o contrast material Josias Harley PA-C Work Phone: Start: 01-02-2024 Radiologic exam chest single view Josias Harley PA-C Work Phone: Start: 01-01-2024 ACUTE TOXICOLOGY PANEL, BLOOD Josias Harley PA-C Work Phone: Start: 01-01-2024 Comprehensive metabolic panel Josias Harley PA-C Work Phone: Start: 01-01-2024 Troponin I.cardiac panel - Serum or Plasma by High sensitivity method Josias Harley PA-C Work Phone: Start: 11-23-2023 CT of head without contrast Start: 11-23-2023 Computed tomography of abdomen and pelvis with contrast Start: 11-23-2023 CT of thorax with contrast Start: 08-27-2022 Us preg uterus real time w/image dcmtn transvag Maria Bingham MD Work Phone: Start: 08-27-2022 Urine test visual color cmprsn meths Maria Bingham MD Work Phone: Start: 08-27-2022 Drug test prsmv read direct optical obs pr date Maria Bingham MD Work Phone: Start: 12-24-2019 Assay of troponin quantitative MIMI LUKE Start: 12-24-2019 Radiologic exam chest 2 views MIMI LUKE Start: 12-24-2019 Drug screen class list a MIMI LUKE Start: 12-24-2019 Urinalysis microscopic only MIMI LUKE Start: 12-24-2019 Urnls dip stick/tablet rgnt auto w/o microscopy MIMI LUKE Start: 12-24-2019 Assay of magnesium MIMI LUKE Start: 12-24-2019 Assay of thyroid stimulating hormone tsh MIMI LUKE Start: 12-24-2019 Basic metabolic panel calcium total MIMI ANAKEYSHAWN Start: 12-24-2019 Blood count complete auto&auto difrntl wbc MIMI LUKE Start: 12-24-2019 Drug tst prsmv instrmnt chem analyzers pr date MIMI LUKE Start: 12-24-2019 Fibrin dgradj products d-dimer quantitative MIMI LUKE Start: 12-24-2019 Gonadotropin chorionic qualitative MIMI LUKE Start: 12-24-2019 Assay of troponin quantitative Mimi Luke Work Phone: Start: 12-24-2019 Ecg routine ecg w/least 12 lds w/i&r MIMI LUKE Start: 12-24-2019 Radiologic exam chest 2 views Mimi Luke Work Phone: Start: 12-24-2019 Drug screen class list a Mimi Luke Work Phone: Start: 12-24-2019 DRUG SCREEN TRICYCLIC URINE Mimi Luke Work Phone: Start: 12-24-2019 Urinalysis microscopic only Mimi Luke Work Phone: Start: 12-24-2019 Urnls dip stick/tablet rgnt auto w/o microscopy Mimi Luke Work Phone: Start: 12-24-2019 Assay of magnesium Mimi Luke Work Phone: Start: 12-24-2019 Assay of thyroid stimulating hormone tsh Mimi Luke Work Phone: Start: 12-24-2019 Assay of troponin quantitative Mimi Luke Work Phone: Start: 12-24-2019 Basic metabolic panel calcium total Mimi Luke Work Phone: Start: 12-24-2019 Blood count complete auto&auto difrntl wbc Mimi Luke Work Phone: Start: 12-24-2019 Fibrin dgradj products d-dimer quantitative Mimi Luke Work Phone: Start: 12-24-2019 Gonadotropin chorionic qualitative Mimi Luke Work Phone: Start: 12-24-2019 TOX SCR, BLD, ED Mimi Luke Work Phone: Start: 07-08-2018 History of tonsillectomy Status post tonsillectomy Gill Valentino CMA Plan of Treatment Date Care Activity Detail Author Start: 2050 Zoster Vaccines (1 of 2) Zoster Vaccines (1 of 2) [facility] Start: 2050 Shingles Vaccine (1 of 2) Shingles Vaccine (1 of 2) [facility] Work Phone: Start: 10-24-2032 DTaP,Tdap and Td Vaccines (8 - Td or Tdap) DTaP,Tdap and Td Vaccines (8 - Td or Tdap) [facility] Start: 10-24-2032 DTaP/Tdap/Td vaccine (2 - Td or Tdap) DTaP/Tdap/Td vaccine (2 - Td or Tdap) [facility] Start: 10-24-2032 DTaP/Tdap/Td Vaccines (2 - Td or Tdap) DTaP/Tdap/Td Vaccines (2 - Td or Tdap) [facility] Start: 10-26-2025 Screening for Chlamydia trachomatis Chlamydia/GC screen [facility] Start: 04-03-2025 Tobacco Screening Tobacco Screening [facility] Start: 03-29-2025 Adult BMI Screening Adult BMI Screening [facility] Start: 03-29-2025 Depression Screening Depression Screening [facility] Start: 03-29-2025 Tobacco Screening Tobacco Screening [facility] Start: 01-26-2025 End: 01-26-2025 Patient encounter procedure 01/26/2025 2:30 PM EDT Office Visit [facility] [address] [place] [id number] Eladio Grimaldo MD [address] [place] [address] NEW PATIENT TO ESTABLISH CARE + ED Follow up + need syrup maker [facility] Comment on above: NEW PATIENT TO ESTABLISH CARE + ED Follo w up + need syrup maker Start: 01-20-2025 End: 01-20-[address] [facility] Comment on above: ECHO, ELAMIN ORDERING, [facility] TO READ, LOPEZ , CP EXERCISE, ELAMIN ORD LILY SANTANA TO DO, LOPEZ, CP Start: 01-14-2025 Adult BMI Screening Adult BMI Screening [facility] Start: 01-14-2025 Tobacco Screening Tobacco Screening [facility] Start: 01-01-2025 Tobacco Screening Tobacco Screening [facility] Start: 09-16-2024 [facility] Start: 09-12-2024 Hospital admission [facility] Start: 07-10-2024 COVID-19 Vaccine ( season) COVID-19 Vaccine () [facility] Start: 07-10-2024 COVID-19 Vaccine ( season) COVID-19 Vaccine () [facility] [employer] [facility] Start: 07-10-2024 Influenza vaccination Influenza Vaccine [facility] Start: 06-28-2024 End: 06-28-2024 Patient encounter procedure 06/28/2024 1:45 PM EDT Office Visit [facility] [place] [address] Lily Cavazos, [address] [address] [facility] Start: 06-09-2024 Influenza vaccination [facility] Start: 01-15-2024 End: 01-14-2025 Echo complete W/O contrast Echo complete W/O contrast Echocardiography Routine LOPEZ (dyspnea on exertion) Chest pain, unspecified type Expected: 01/15/2024, Expires: 01/14/2025 [facility] [employer] [facility] Comment on above: Expected: 01/15/2024, Expires: Start: 01-15-2024 End: 01-14-2025 Exercise stress test study Stress test (exercise only) [facility] Routine LOPEZ (dyspnea on exertion) Chest pain, unspecified type Expected: 01/15/2024, Expires: 01/14/2025 [facility] Work Phone: Comment on above: Expected: 01/15/2024, Expires: 5 Start: 01-15-2024 End: 01-15-2024 Patient encounter procedure 01/15/2024 9:15 AM EST Office Visit [facility] [address] [place] [address] Costa Villareal MD [address] [place] [address] [facility] Start: 01-06-2024 Adult BMI Screening Adult BMI Screening [facility] Start: 11-23-2023 [facility] Start: 11-23-2023 Bacteria identified in Urine by Culture [facility] Start: 07-10-2023 Influenza vaccination [facility] Start: 08-27-2022 End: 08-27-2023 OB ultrasound panel US OB GROWTH/DATING > 14WEEKS Imaging Routine Supervision of high risk , antepartum Expected: 08/27/2022, Expires: 08/27/2023 [facility] Comment on above: Expected: 08/27/2022, Expires: 3 Start: 07-10-2022 Influenza vaccination INFLUENZA VACCINE (#1) [facility] Start: 2021 Screening for malignant neoplasm of cervix [facility] Start: 07-10-2019 Influenza vaccination Flu vaccine (#1) [facility] Work Phone: Start: 2019 DTaP/Tdap/Td vaccine (1 - Tdap) DTaP/Tdap/Td vaccine (1 - Tdap) [facility] Start: 2019 Hepatitis B vaccine (1 of 3 - 19+ 3-dose series) Hepatitis B vaccine (1 of 3 - 19+ 3-dose series) [facility] Start: 2019 Third diphtheria, tetanus and acellular pertussis (DTaP) vaccination TDAP (ADULT) [facility] Start: 2018 Adult BMI Follow Up Plan Adult BMI Follow Up Plan [employer] Start: 2018 Diabetes mellitus screening Diabetes Screening [facility] Start: 2018 Hepatitis C screening [facility] Start: 2018 Tetanus vaccination TETANUS [facility] Start: 2016 Chlamydia screen Chlamydia screen [employer] Phone: Start: 2016 Screening for Chlamydia trachomatis CHLAMYDIA SCREEN [facility] Start: 2015 HIV screen HIV screen [employer] Phone: Start: 2015 HIV screening [facility] Start: 2015 HPV vaccine (1 - 3-dose series) HPV vaccine (1 - 3-dose series) [facility] [employer] Start: 2013 Varicella vaccine (1 of 2 - 13+ 2-dose series) Varicella vaccine (1 of 2 - 13+ 2-dose series) [facility] Start: 2012 Depression Screen Depression Screen [facility] [employer] Start: 2012 Depression Screening Depression Screening [facility] Start: 2011 DTaP/Tdap/Td vaccine (1 - Tdap) DTaP/Tdap/Td vaccine (1 - Tdap) [employer] Phone: Start: 2011 HPV vaccine (1 - Female 2-dose series) HPV vaccine (1 - Female 2-dose series) [employer] Phone: Start: 2011 HPV Vaccines (1 - 2-dose series) HPV Vaccines (1 - 2-dose series) [facility] Start: 2011 Vaccination for human papillomavirus HPV VACCINE ADOL (1 - 2-dose series) [facility] Start: 2001 MMR Vaccines (1 of 1 - Standard series) MMR Vaccines (1 of 1 - Standard series) [facility] Start: 2001 Varicella vaccination Varicella Vaccines (1 of 2 - 2-dose childhood series) [facility] Start: 2001 Varicella vaccine (1 of 2 - 2-dose childhood series) Varicella vaccine (1 of 2 - 2-dose childhood series) [employer] Work Phone: Start: 2000 COVID-19 VACCINE (#1) COVID-19 VACCINE (#1) [facility] Start: 2000 Hepatitis B Vaccines (1 of 3 - 3-dose series) Hepatitis B Vaccines (1 of 3 - 3-dose series) [facility] Start: 2000 Hepatitis C screening HEPATITIS C VIRUS SCREENING [facility] Start: 2000 HIV screening HIV Screening [facility] Start: 2000 Lipid panel Lipid Panel [facility] Start: 2000 Screening for Chlamydia trachomatis [facility] Start: 2000 Yearly Adult Physical Yearly Adult Physical [facility] C.trachomatis N.gonorrhoeae DNA, Urine C.trachomatis N.gonorrhoeae DNA, Urine Microbiology Routine 10/26/2024 2:57 PM EST [facility] End: 12-14-2024 CBC W Auto Differential panel - Blood CBC with Auto Differential Lab STAT One Time for 1 Occurrences starting 12/14/2024 until 12/14/2024 [facility] Comment on above: One Time for 1 Occurrences starting 03/2025 until 12/14/2024 End: 03-29-2025 CBC W Auto Differential panel - Blood CBC auto differential Lab Routine Anemia, unspecified type 1 Occurrences starting 03/29/2024 until 03/29/2025 [facility] Comment on above: 1 Occurrences starting 03/29/2024 until 03/29/2025 End: 03-29-2025 Comprehensive metabolic 2000 panel - Serum or Plasma Comprehensive metabolic panel Lab Routine Hypokalemia 1 Occurrences starting 03/29/2024 until 03/29/2025 [facility] Comment on above: 1 Occurrences starting 03/29/2024 until 03/29/2025 End: 12-14-2024 Comprehensive Metabolic Panel w/ Reflex to MG Comprehensive Metabolic Panel w/ Reflex to MG Lab STAT One Time for 1 Occurrences starting 12/14/2024 until 12/14/2024 [employer] Comment on above: One Time for 1 Occurrences starting 03/2025 until 12/14/2024 End: 01-01-2024 ECG 12 [facility] Work Phone: Comment on above: Once for 1 Occurrences starting 01/01/20 until 01/01/2024 EKG 12 Lead EKG 12 Lead ECG STAT 12/06/2024 12:30 PM EST [employer] End: 12-14-2024 EKG 12 Lead EKG 12 Lead ECG STAT One Time for 1 Occurrences starting 12/14/2024 until 12/14/2024 [employer] Comment on above: One Time for 1 Occurrences starting 03/2025 until 12/14/2024 End: 01-02-2024 Extra Urine [employer] [facility] Work Phone: Comment on above: Once for 1 Occurrences starting 01/02/20 until 01/02/2024 End: 10-26-2024 Hepatitis Panel, Acute [employer] Comment on above: Once for 1 Occurrences starting 10/26/20 until 10/26/2024 End: 10-26-2024 HIV Screen [employer] Comment on above: Once for 1 Occurrences starting 10/26/20 until 10/26/2024 Patient Education [facility] Work Phone: Patient referral [facility] Work Phone: End: 12-14-2024 POC Urine Qual POC Urine Qual Point of Care Testing Routine One Time for 1 Occurrences starting 12/14/2024 until 12/14/2024 [employer] Work Phone: Comment on above: One Time for 1 Occurrences starting 03/2025 until 12/14/2024 POCT EKG POCT EKG ECG Rou estela Neurocardiogenic syncope 01/15/2024 9:53 AM EST [facility] UT US, UTERUS,TRANSVAGINAL UT US, UTERUS,TRANSVAGINAL UT - OFFICE PERFORMED IMAGING Routine Establish gestational age, ultrasound Ordered: 08/28/2022 U [facility] Comment on above: Ordered: 08/28/2022 End: 10-26-2024 Reagin Ab [Presence] in Serum by RPR [facility] [employer] [facility] Comment on above: Once for 1 Occurrences starting 10/26/20 until 10/26/2024 End: 03-29-2025 Thyroid antibodies includes TPO and TGAB Thyroid antibodies includes TPO and TGAB Lab Routine Subclinical hypothyroidism 1 Occurrences starting 03/29/2024 until 03/29/2025 [employer] Comment on above: 1 Occurrences starting 03/29/2024 until 03/29/2025 End: 03-29-2025 Thyroid profile includes TSH FT4 Thyroid profile includes TSH FT4 Lab Routine Subclinical hypothyroidism 1 Occurrences starting 03/29/2024 until 03/29/2025 [employer] Work Phone: Comment on above: 1 Occurrences starting 03/29/2024 until 03/29/2025 End: 12-14-2024 Troponin I.cardiac [Mass/volume] in Serum or Plasma Troponin Lab STAT One Time for 1 Occurrences starting 12/14/2024 until 12/14/2024 [employer] Comment on above: One Time for 1 Occurrences starting 03/2025 until 12/14/2024 End: 01-02-2024 Urinalysis complete W Reflex Culture panel - Urine [facility] Work Phone: Comment on above: Once (Lab) for 1 Occurrences starting until 01/02/2024 End: 12-14-2024 XR Chest 2 Views XR CHEST (2 VW) Imaging STAT Once for 1 Occurrences starting 12/14/2024 until 12/14/2024 [facility] [employer] Comment on above: Once for 1 Occurrences starting 12/14/19 until 12/14/2024 [facility] Immunizations Immunization Date Immunization Notes Care Provider Mauricio holt 10-24-2022 tetanus toxoid, redu [place] diphtheria toxoid, and acellular pertussis vaccine, adsorbed Gill Valentino [facility] [employer] 09-13-2018 meningococcal polysaccharide (groups A, C, Y and W-135) diphtheria toxoid conjugate vaccine (MCV4P) Gill Valentino [facility] NEGATED: Highlighted row has not occurred!01-07-2019 influenza, injectable, quadrivalent, preservative free Gill Chicho [facility] Comment on above: Deferred: Patient de cision Payers Date Payer Category Payer Medicaid [id number] 2024 Private Health Insurance [id number] 2024 Self-pay 2023 Unknown * 2022 Medicaid [employer] [id number] 2022-Present [address] [address] [place] [address] [id number] 2022 Unknown [id number] 2022 Medicaid [id number] 2022 Unknown [id number] 2022 Unknown [id number] Private Health Insurance [id number] 2014 Private Health Insurance [id number] 2000 Unknown [id number] 2.16.840.1.069220.3.579.2.4 30 2000 Unknown [id number] 2.16.840.1.358380.3.579.2.5 94 2000 Unknown [id number] 2.16.840.1.336127.3.579.2.5 94 2000 Unknown [id number] 2.16.840.1.031278.3.579.2.5 94 2000 Unknown [id number] 2.16.840.1.405566.3.579.2.1 069 2000 Unknown [id number] 2.16.840.1.003861.3.579.2.1 286 2000 Unknown [id number] 2.16.840.1.408099.3.579.2.1 286 2000 Unknown [id number] 2.16.840.1.665714.3.579.2.1 286 2000 Unknown [id number] 2.16.840.1.831535.3.579.2.1 286 2000 Unknown [id number] 2.16.840.1.634754.3.579.2.2 04 2000 Unknown [id number] 2.16.840.1.929213.3.579.2.2 04 2000 Unknown [id number] 2.16.840.1.624631.3.579.2.2 04 2000 Unknown [id number] 2.16.840.1.629134.3.579.2.2 04 2000 Unknown [id number] 2.16.840.1.303010.3.579.2.2 04 2000 Unknown [id number] 2.16.840.1.256919.3.579.2.2 04 2000 Unknown [id number] 2.16.840.1.140430.3.579.2.2 04 2000 Unknown [id number] 2.16.840.1.774883.3.579.2.2 04 2000 Unknown [id number] 2.16.840.1.966179.3.579.2.2 04 2000 Unknown [id number] 2.16.840.1.106651.3.579.2.2 04 2000 Unknown [id number] 2.16.840.1.979517.3.579.2.2 04 2000 Unknown [id number] 2.16.840.1.974628.3.579.2.2 2000 Unknown [id number] 2.16.840.1.223065.3.579.2.7 18 Private Health Insurance [id number] Private Health Insurance [facility] [id number] Unknown [facility] [employer] [id number] Unknown [id number] 2.16.840.1.847391.3.579.2.5 31 Unknown [id number] 2.16.840.1.968150.3.579.2.5 31 Social History Date Type Detail Facility Start: 12-24-2019 End: 01-06-2023 Tobacco smoking status IDIS Never smoker [employer] Phone: Start: 12-24-2019 End: 01-12-2025 Alcohol intake Ex-drinker (finding) [employer] Phone: Start: 2000 Sex Assigned At Not on file [employer] Phone: Start: 08-27-2022 End: 01-06-2023 Tobacco use and exposure Smokeless tobacco non-user [facility] Start: 08-27-2022 Alcohol intake Lifetime non-d imtzi (finding) [facility] Start: 11-23-2023 End: 03-08-2024 Tobacco smoking status NHIS Smoker (finding) [facility] Start: 2000 Sex Assigned At Female F [facility] Start: 01-02-2024 Tobacco smoking status NHIS Tobacco smoking consumption unknown [facility] Start: 01-02-2024 Alcohol intake Defer [facility] Work Phone: Start: 12-24-2019 End: 01-12-2025 Gender identity Not on file [facility] Start: 12-22-2023 End: 01-02-2024 Exposure to SARS-CoV-2 (event) Not sure [facility] Work Phone: Start: 09-12-2024 Tobacco smoking status NHIS Current some day smoker [facility] Start: 12-24-2019 End: 09-16-2024 Sex Female (finding) [facility] Start: 12-24-2019 End: 01-12-2025 History of Social function [facility] History of tobacco use Passive smoker [facility] Adolescent depressio n screening assessment 7 [facility] How often to you hav e a drink containing alcohol? Never [facility] Laiyaoyao NEGATED: Highlighted row [facility] Goals Date Patient Goal Desired Activity /State Functional Status Date Assessment Result Facility 09-16-2024 Functional status Patient at [facility] Work Phone: Mental Status Date Assessment Result Facility 09-16-2024 Cognitive function Cognitive Sta tus Patient at [facility] Work Phone: Clinical Notes 08-27-2022 to 02-17-2025 Discharge InstructionsAttachmentsGera Gifford - 01/12/2025 12:44 PM ESTTelephone Encounter - Bettie Woodard RN - 01/03/2025 8:37 AM ESTDischarge InstructionsDischarge InstructionsAttachments Note Date & Type Note Facility 02-17-2025 Note Education Materials Neurology Seizure, Adult A seizure is a sudden burst of abnormal electrical and chemical activity in the brain. Seizures usually last from 30 seconds to 2 minutes. What are the causes? Common causes of this condition include: ? Fever or infection. ? Problems that affect the brain. These may include: ? A brain or head injury. ? Bleeding in the brain. ? A brain tumor. ? Low levels of blood sugar or salt. ? Kidney problems or liver problems. ? Conditions that are passed from parent to child (are inherited). ? Problems with a substance, such as: ? Having a reaction to a drug or a medicine. ? Stopping the use of a substance all of a sudden (withdrawal). ? A stroke. ? Disorders that affect how you develop. Sometimes, the cause may not be known. What increases the risk? ? Having someone in your family who has epilepsy. In this condition, seizures happen again and again over time. They have no clear cause. ? Having had a tonic?clonic seizure before. This type of seizure causes you to: ? Tighten the muscles of the whole body. ? Lose consciousness. ? Having had a head injury or strokes before. ? Having had a lack of oxygen at . What are the signs or symptoms? There are many types of seizures. The symptoms vary depending on the type of seizure you have. Symptoms during a seizure ? Shaking that you cannot control (convulsions) with fast, jerky movements of muscles. ? Stiffness of the body. ? Breathing problems. ? Feeling mixed up (confused). ? Staring or not responding to sound or touch. ? Head nodding. ? Eyes that blink, flutter, or move fast. ? Drooling, grunting, or making clicking sounds with your mouth ? Losing control of when you pee or poop. Symptoms before a seizure ? Feeling afraid, nervous, or worried. ? Feeling like you may vomit. ? Feeling like: ? You are moving when you are not. ? Things around you are moving when they are not. ? Feeling like you saw or heard something before (d?j? vu). ? Odd tastes or smells. ? Changes in how you see. You may see flashing lights or spots. Symptoms after a seizure ? Feeling confused. ? Feeling sleepy. ? Headache. ? Sore muscles. How is this treated? If your seizure stops on its own, you will not need treatment. If your seizure lasts longer than 5 minutes, you will normally need treatment. Treatment may include: ? Medicines given through an IV tube. ? Avoiding things, such as medicines, that are known to cause your seizures. ? Medicines to prevent seizures. ? A device to prevent or control seizures. ? Surgery. ? A diet low in carbohydrates and high in fat (ketogenic diet). Follow these instructions at home: Medicines ? Take zaqw-lxd-ocsteyn and prescription medicines only as told by your doctor. ? Avoid foods or drinks that may keep your medicine from working, such as alcohol. Activity ? Follow instructions about driving, swimming, or doing things that would be dangerous if you had another seizure. Wait until your doctor says it is safe for you to do these things. ? If you live in the [place] ask your local department of motor vehicles when you can drive. ? Get a lot of rest. Teaching others ? Teach friends and family what to do when you have a seizure. They should: ? Help you get down to the ground. ? Protect your head and body. ? Loosen any clothing around your neck. ? Turn you on your side. ? Know whether or not you need emergency care. ? Stay with you until you are better. ? Also, tell them what not to do if you have a seizure. Tell them: ? They should not hold you down. ? They should not put anything in your mouth. General instructions ? Avoid anything that gives you seizures. ? Keep a seizure diary. Write down: ? What you remember about each seizure. ? What you think caused each seizure. ? Keep all follow-up visits. Contact a doctor if: ? You have another seizure or seizures. Call the doctor each time you have a seizure. ? The pattern of your seizures changes. ? You keep having seizures with treatment. ? You have symptoms of being sick or having an infection. ? You are not able to take your medicine. Get help right away if: ? You have any of these problems: ? A seizure that lasts longer than 5 minutes. ? Many seizures in a row and you do not feel better between seizures. ? A seizure that makes it harder to breathe. ? A seizure and you can no longer speak or use part of your body. ? You do not wake up right after a seizure. ? You get hurt during a seizure. ? You feel confused or have pain right after a seizure. These symptoms may be an emergency. Get help right away. Call your local emergency services (911 in the [place] ? Do not wait to see if the symptoms will go away. ? Do not drive yourself to the hospital. Summary ? A seizure is a sudden burst of abnormal electrical and chemical activity in the brai (more content not included)... [facility] 02-06-2025 Note [id number] [facility] 02-04-2025 Note Education Materials Gastroenterology Nausea and Vomiting, Adult Use Zofran as needed for nausea and vomiting. Follow-up with primary care physician to review this emergency department visit. Return emerged part for any worsening symptoms. Nausea is feeling that you have an upset stomach and that you are about to vomit. Vomiting is when food in your stomach forcefully comes out of your mouth. Vomiting can make you feel weak. If you vomit, or if you are not able to drink enough fluids, you may not have enough water in your body (get dehydrated). If you do not have enough water in your body, you may: ? Feel tired. ? Feel thirsty. ? Have a dry mouth. ? Have cracked lips. ? Pee (urinate) less often. Older adults and people with other diseases or a weak body defense system (immune system) are at higher risk for not having enough water in the body. If you feel like you may vomit or you vomit, it is important to follow instructions from your doctor about how to take care of yourself. Follow these instructions at home: Watch your symptoms for any changes. Tell your doctor about them. Eating and drinking ? Take an ORS (oral rehydration solution). This is a drink that is sold at pharmacies and stores. ? Drink clear fluids in small amounts as you are able, such as: ? Water. ? Ice chips. ? Fruit juice that has water added (diluted fruit juice). ? Low-calorie sports drinks. ? Eat bland, lmdq-rh-yjztay foods in small amounts as you are able, such as: ? Bananas. ? Applesauce. ? Rice. ? Low-fat (lean) meats. ? Lund. ? Crackers. ? Avoid drinking fluids that have a lot of sugar or caffeine in them. This includes energy drinks, sports drinks, and soda. ? Avoid alcohol. ? Avoid spicy or fatty foods. General instructions ? Take bsez-swb-nbnvmdt and prescription medicines only as told by your doctor. ? Drink enough fluid to keep your pee (urine) pale yellow. ? Wash your hands often with soap and water for at least 20 seconds. If you cannot use soap and water, use hand completion engineer. ? Make sure that everyone in your home washes their hands well and often. ? Rest at home until you feel better. ? Watch your condition for any changes. ? Take slow and deep breaths when you feel like you may vomit. ? Keep all follow-up visits. Contact a doctor if: ? Your symptoms get worse. ? You have new symptoms. ? You have a fever. ? You cannot drink fluids without vomiting. ? You feel like you may vomit for more than 2 days. ? You feel light-headed or dizzy. ? You have a headache. ? You have muscle cramps. ? You have a rash. ? You have pain while peeing. Get help right away if: ? You have pain in your chest, neck, arm, or jaw. ? You feel very weak or you faint. ? You vomit again and again. ? You have vomit that is bright red or looks like black coffee grounds. ? You have bloody or black poop (stools) or poop that looks like tar. ? You have a very bad headache, a stiff neck, or both. ? You have very bad pain, cramping, or bloating in your belly (abdomen). ? You have trouble breathing. ? You are breathing very quickly. ? Your heart is beating very quickly. ? Your skin feels cold and clammy. ? You feel confused. ? You have signs of losing too much water in your body, such as: ? Dark pee, very little pee, or no pee. ? Cracked lips. ? Dry mouth. ? Sunken eyes. ? Sleepiness. ? Weakness. These symptoms may be an emergency. Get help right away. Call 911. ? Do not wait to see if the symptoms will go away. ? Do not drive yourself to the hospital. Summary ? Nausea is feeling that you have an upset stomach and that you are about to vomit. Vomiting is when food in your stomach comes out of your mouth. ? Follow instructions from your doctor about eating and drinking. ? Take brij-aza-mbuqoxl and prescription medicines only as told by your doctor. ? Contact your doctor if your symptoms get worse or you have new symptoms. ? Keep all follow-up visits. This information is not intended to replace advice given to you by your health care provider. Make sure you discuss any questions you have with your health care provider. Document Revised: 05/02/2022 Document Reviewed: 05/02/2022 [employer] Patient Education ? 2023 [employer]. Neurology Near-Syncope Near-syncope is when you suddenly feel like you might pass out or faint. This may also be called presyncope. During an episode of near-syncope, you may: ? Feel dizzy, weak, or light-headed. It may feel like the room is spinning. ? Feel like you may vomit (nauseous). ? See spots or see all white or all black. ? Have cold, clammy skin. ? Feel warm and sweaty. ? Hear ringing in your ears. This condition is caused by a sudden decrease in blood flow to the brain. This can result from many causes, but most of those causes are not dangerous. Ho (more content not included)... [facility] 01-12-2025 Hospital Discharg e instructions Jessi Forman DO - 01/12/2025 12:46 PM EST Please return to the ER for any new or worsening symptoms including but not limited to Chest pain or difficulty breathing, Inability to keep down liquids, or Numbness or weakness anywhere If prescribed, please be sure to brick picker your prescriptions from the pharmacy Please follow-up with Primary care provider and cardiology as instructed The following attachments cannot be sent through Care Everywhere.Fainting (Turkmen)documented in this encounter [facility] 01-12-2025 History of Presen t illness Narrative Box lunch provided documented in this encounter [facility] 01-03-2025 Miscellaneous Notes Formattin g of this note might be different from the original. Pt calling requesting that orders for stress and echo be faxed to [facility] in [place] as that is where she would like to get her testing done: [phone]. Done. documented in this encounter [facility] [employer] [facility] 01-03-2025 Telephone encount er Note Pt calling requesting that orders for stress and echo be faxed to [facility] in [place] as that is where she would like to get her testing done: [phone]. Done. [facility] [employer] [facility] 12-31-2024 [facility] Discharg e instructions Joesph Doll MD - 12/31/2024 3:13 PM EST Please return to ED if symptoms worsen, persist, or occur. Please follow-up with PCP. Please take your medications as prescribed. XR CHEST PORTABLE Final Result No acute process. documented in this encounter [facility] 12-06-2024 [facility] Discharg e instructions Logan Manrique MD - 12/06/2024 12:54 PM EST Return to the emergency department if symptoms worsen or persist. Follow-up with your PCP. Avoid any allergens that trigger allergic reactions. The following attachments cannot be sent through Care Everywhere.Allergic Reaction (Turkmen)documented in this encounter [facility] 09-16-2024 Discharge summary [facility] 09-15-2024 Progress note Note Date/Time September 15, 2024 8:22am [facility] [address] [place] [address] Psychiatry Progress Note Signed Patient: Killian Bermudez MR#: [id number] : 2000 Acct:[id number] Age/Sex: 24 / F Adm Date: 4 Loc: Room: [address] [place] [address] Type : ADM IN Attending Dr: Garrett Donis MD Copies to: ~ Date of Service: 09/15/2024 Subjective Subjective Narrative: Killian Bermudez is currently functioning at her baseline. She is doing fairly well. She reports improved mood and appetite, improved ability to enjoy certain activities, reduction of feelings of worthlessness or guilt, and improved focus and concentration. She continues to struggle with anxiety occasionally. She wasout in the common area socializing and communicating with peers appropriately. On the day of discharge she reported that she is feeling better. She denied anysuicidal thoughts. She was looking forward to returning home and following withoutpatient services. She stated that her family was supportive and felt safe athome. She denied any depression, suicidality, hallucinations, or pelon. She has been socializing with peers on the unit. She is tolerating her medications without difficulty. She denied current SI/HI and verbalized the intent to notify staff if she has such thoughts. She denied any suicidal or self-injurious behaviors. I did talk with her about the importance of medication compliance as she believes that medications made a gooddifference. Sleep and appetite are ok. Patient has continued to attend individual and group therapy and found them useful to understand their clinical symptoms well and also developed coping skills that were individualized for them and patient feels comfortable applying them when they return home. Appearance: dressed casually Mental Status: mental status grossly normal Mood: Euthymic mood Affect: Normal affect Speech and Movement: speech and movement normal and speech clear Attitude: cooperative Thought Process: normal Thought Content: Denied hallucinations, no homicidal thoughts and no suicidality Insight: fair Judgment: fair Impulse control: fair Exam Physical Exam Vital Signs: Temp Pulse Resp BP Pulse Ox O2 Del Method 98.2 F 64 16 108/74 97 Room Air 09/14/24 20:00 09/14/24 20:00 09/14/24 20:00 09/14/24 20:00 09/14/24 20:00 09/14/24 20:00 Assessment/Plan Assessment/Plan (1) Suicidal ideation: (2) Bipolar disorder, unspecified: Plan Patient reports feeling better and denied SI/HI -Continue Zyprexa 5mg PO QHS -Continue Zoloft 100 mg. -Discontinue Seroquel and start Zyprexa 5mg PO HS -Continue to monitor mental status -Monitor suicidal behaviors for safety of self (15-minute face check). -Encourage medication adherence. Risks, benefits, and alternatives of treatment explained -Recommend? attending groups and psychoeducation for building coping skills. -Anticipate discharge tomorrow Documented By: Garrett Donis MD [id number] Signed By: <Electronically signed by Garrett Donis MD> 09/15/24 0822 [facility] Work Phone: 1(414) 719-363111-07-[address] [address] Psychiatry Progress Note Signed Patient: Killian Bermudez MR#: [id number] : 2000 Acct:[id number] Age/Sex: 24 / F Adm Date: 4 Loc: 1S Room: [address] [place] [address] Type : ADM IN Attending Dr: Garrett Donis MD Copies to: ~ Date of Service: 09/15/2024 Subjective Subjective Narrative: Killian Bermudez is currently functioning at her baseline. She is doing fairly well. She reports improved mood and appetite, improved ability to enjoy certain activities, reduction of feelings of worthlessness or guilt, and improved focus and concentration. She continues to struggle with anxiety occasionally. She wasout in the common area socializing and communicating with peers appropriately. On the day of discharge she reported that she is feeling better. She denied anysuicidal thoughts. She was looking forward to returning home and following withoutpatient services. She stated that her family was supportive and felt safe athome. She denied any depression, suicidality, hallucinations, or ma zaheer. She has been socializing with peers on the unit. She is tolerating her medications without difficulty. She denied current SI/HI and verbalized the intent to notify staff if she has such thoughts. She denied any suicidal or self-injurious behaviors.I did talk with her about the importance of medication compliance as she believes that medications made a gooddifference. Sleep and appetite are ok. Patient has continued to attend individual and group therapy and found them useful to understand their clinical symptoms well and also developed coping skills that were individualized for them and patient feels comfortable applying them when they return home. Appearance: dressed casually Mental Status: mental status grossly normal Mood: Euthymic mood Affect: Normal affect Speech and Movement: speech and movement normal and speech clear Attitude: cooperative Thought Process: normal Thought Content: Denied hallucinations, no homicidal thoughts and no suicidality Insight: fair Judgment: fair Impulse control: fair Exam Physical Exam Vital Signs: Temp Pulse Resp BP Pulse Ox O2 Del Method 98.2 F 64 16 108/74 97 Room Air 09/14/24 20:00 09/14/24 20:00 09/14/24 20:00 09/14/24 20:00 09/14/24 20:00 09/14/24 20:00 Assessment/Plan Assessment/Plan (1) Suicidal ideation: (2) Bipolar disorder, unspecified: Plan Patient reports feeling better and denied SI/HI -Continue Zyprexa 5mg PO QHS -Continue Zoloft 100 mg. -Discontinue Seroquel and start Zyprexa 5mg PO HS -Continue to monitor mental status -Monitor suicidal behaviors for safety of self (15-minute face check). -Encourage medication adherence. Risks, benefits, and alternatives of treatment explained -Recommend? attending groups and psychoeducation for building coping skills. -Anticipate discharge tomorrow Documented By: Garrett Donis MD [id number] Signed By: 09/15/24 0822 [facility]11-06-2024 Progress note Author Garrett pena [facility] Note Date/Time September 14, 2024 1 :24pm [facility] [address] [place] [address] Psychiatry Progress Note Signed Patient: Killian Bermudez MR#: [id number] : 2000 Acct:[id number] Age/Sex: 24 / F Adm Date: 4 Loc: Room: [address] [place] [address] Type : ADM IN Attending Dr: Garrett Donis MD Copies to: ~ Date of Service: 09/14/2024 Subjective Subjective Narrative: Killian Bermudez is a 24 year old female on day 2 of hospitalization for suicidalideation. Patient was personally seen by me on the day of the encounter. I reviewed the history and performed the dunbar elements of the assessment. I formulated the planof care and confirmed this with the medical student as noted below The patient was interviewed at the bedside and was very tired. She was calm and cooperative for the discussion. Killian reports that she is feeling better than when she arrived yesterday; however, she reports her depression as a 9 out of 10. She denies feelings of anxiety or racing thoughts. The patient endorses good sleep with several naps throughout the day. She attributes the increased fatigue to not sleeping for a few days. She is eating well without difficulties. Killian denies SI/HI and AVH. She stated she participated in grouptherapy yesterday, but behavioral health notes state that she did not attend. MSE Appearance: Mildly disheveled. Fair grooming and hygiene, calm, cooperative, engaged in the interview. Good eye contact. Normal psychomotor activity. Mental Status: mental status grossly normal Mood: depressed Affect: mood-congruent affect Speech and Movement: speech and movement normal slow and speech garbled. Attitude: cooperative Thought Process: slowed Thought Content: Denies paranoid or delusional thoughts. Denied hallucinations, no homicidality. Denies suicidality. Does not appear to be responding to internal stimuli. Insight: Fair Judgment: Fair Exam Physical Exam Vital Signs: Temp Pulse Resp BP Pulse Ox O2 Del Method 97.8 F 68 18 103/57 L 99 Room Air 09/14/24 07:30 09/14/24 07:30 09/14/24 07:30 09/14/24 07:30 09/14/24 07:30 09/14/24 07:30 Assessment/Plan Assessment/Plan (1) Suicidal ideation: (2) Bipolar disorder, unspecified: Plan Patient presenting due suicidal ideation with concern for self harm. She continues to report increased feelings of depression. -Continue Zyprexa 5mg PO QHS -Continue Zoloft 50mg PO once daily in the morning and increase Zoloft to 100 mgstarting tomorrow. -Discontinue Seroquel and start Zyprexa 5mg PO HS -Continue to monitor mental status -Monitor suicidal behaviors for safety of self (15-minute face check). -Encourage medication adherence. Risks, benefits, and alternatives of treatment explained -Recommend? attending groups and psychoeducation for building coping skills. -Involve friends/family members to coordinate care and ensure appropriate outpatient appointments are scheduled prior to discharge. Documented By: Garrett Donis MD [id number] Signed By: <Electronically signed by Garrett Donis MD> 09/14/24 0461 [facility] Work Phone: 1(539) 135-222211-06-2024 [place] [id number] Psychiatry Progress Note Signed Patient: Killian Bermudez MR#: [id number] : 2000 Acct:[id number] Age/Sex: 24 / F Adm Date: 4 Loc: 1S Room: [address] [place] [address] Type : ADM IN Attending Dr: Garrett Donis MD Copies to: ~ Date of Service: 09/14/2024 Subjective Subjective Narrative: Killian Bermudez is a 24 year old female on day 2 of hospitalization for suicidalideation. Patient was personally seen by me on the day of the encounter. I reviewed the history and performedthe dunbar elements of the assessment. I formulated the planof care and confirmed this with the medical student as noted below The patient was interviewed at the bedside and was very tired. She was calm and cooperative for thediscussion. Killian reports that she is feeling better than when she arrived yesterday; however, she reports her depression as a 9 out of 10. She denies feelings of anxiety or racing thoughts. The patient endorses good sleep with several naps throughout the day. She attributes the increased fatigu e to not sleeping for a few days. She is eating well without difficulties. Killian denies SI/HI and AVH. She stated she participated in grouptherapy yesterday, but behavioral health notes state that she did not attend. MSE Appearance: Mildly disheveled. Fair grooming and hygiene, calm, cooperative, engaged in the interview. Good eye contact. Normal psychomotor activity. Mental Status: mental status grossly normal Mood: depressed Affect: mood-congruent affect Speech and Movement: speech and movement normal slow and speech garbled. Attitude: cooperative Thought Process: slowed Thought Content: Denies paranoid or delusional thoughts. Denied hallucinations, no homicidality. Denies suicidality. Does not appear to be responding to internal stimuli. Insight: Fair Judgment: Fair Exam Physical Exam Vital Signs: Temp Pulse Resp BP Pulse Ox O2 Del Method 97.8 F 68 18 103/57 L 99 Room Air 09/14/24 07:30 09/14/24 07:30 09/14/24 07:30 09/14/24 07:30 09/14/24 07:30 09/14/24 07:30 Assessment/Plan Assessment/Plan (1) Suicidal ideation: (2) Bipolar disorder, unspecified: Plan Patient presenting due suicidal ideation with concern for self harm. She continues to report increased feelings of depression. -Continue Zyprexa 5mg PO QHS -Continue Zoloft 50mg PO once daily in the morning and increase Zoloft to 100 mgstarting tomorrow. -Discontinue Seroquel and start Zyprexa 5mg PO HS -Continue to monitor mental status -Monitor suicidal behaviors for safety of self (15-minute face check). -Encourage medication adherence. Risks, benefits, and alternatives of treatment explained -Recommend? attending groups and psychoeducation for building coping skills. -Involve friends/family members to coordinate care and ensure appropriate outpatient appointments are scheduled prior to discharge. Documented By: Garrett Donis MD [id number] Signed By: 09/14/[address] [place], [place] [id number] History and physical note Author Garrett pena [facility] Note Date/Time September 13, 2024 2 :13pm [facility] [address] [place] [address] Psychiatry H&P Signed Patient: Killian Bermudez MR#: [id number] : 2000 Acct:[id number] Age/Sex: 24 / F Adm Date: 4 Loc: Room: [address] [place] [address] Type: ADM IN Attending Dr: Garrett Donis MD Copies to: Garrett Donis MD NO FAMILY PHYSICIAN~ Date of Service: 09/13/2024 HPI History of Present Illness History of present illness: Killian Bermudez is a 24 year old female?with a reported history of?bipolar disorder and PSVT presents for inpatient treatment due to?suicidal ideation withconcern for self harm. Reportedly, patient presented to the ER yesterday eveningvoicing suicidal ideation with intent to overdose on her medications. Killian stated that she hasn't slept in the last 3 days and used cocaine yesterday and did a couple of lines. She was admitted voluntarily and was calm and cooperative for intake. She disclosed that her boyfriend suddenly inhis sleep back in April. Since this event, she has lost the will to live. Killian noted that many friends and members of the boyfriend's family blamed herfor his . She also endorsed having a difficult time . She has lost her apartment and had to move back in with her family. 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 Following this events, the patient notes that she has has increasing thoughts of wanting to overdose but states, I don't really havea lot of meds around the house to OD on. She went on to describe persistent lowmood, anhedonia, decreased appetite, night terrors/nightmares, and poor self care since April. The patient admits to cocaine use over the past month, heavy alcohol use, and marijuana consumption. She is currently on parole in multiple counties for drug possession and one instance of theft. Additionally, there is areported history of fentanyl abuse about three years ago. She denies recent relapse. Patient was personally seen by me on the day of the encounter. I reviewed the history and performed the dunbar elements of the assessment. I formulated the planof care and confirmed this with the medical student as noted below At the time of the interview, the patient was sedated and was not easily aroused. She could not maintain attention during the conversation. When asked about her feelings of depression and anxiety, the patient weakly states, they'ethere. She confirms ongoing suicidal ideation, but could not confidently recount the events leading to her admission. When asked how she is currently feeling, the Killian states, I don't want to be here anymore. 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 Neuro: Denies dizziness/lightheadedness. Denies TBI, seizure, memory loss. Denies numbness/tingling in extremities HEENT: Denies vision/hearing changes. Pulmonary: Denies SOB, dyspnea, cough, wheezing. Cardiac: Denies chest pain/pressure. Denies edema, palpitations. GI: Denies abdominal pain, heartburn, N/V. Denies constipation and diarrhea : Denies dysuria, hematuria, polyuria. ? Physical exam General: not in any acute distress Skin: intact HEENT: head atraumatic, face symmetrical. Pulm: ?Breathing normally without excessive effort Cardio: Regular rate and rhythm Abdomen: Normal inspection Musculoskeletal: Moves all extremities, normal strength all extremities. Neuro: Pt alert, oriented x3. Gait normal. ? CNI: Intact, normal olfaction ? CNII: Visual keyes intact ? ? ?CNIII,IV,: EOM intact, no nystagmus. ? ? ?CNV: Sensation intact to light touch. ? ? ?CNVII: Raises eyebrows, smile/frown, puff out cheeks symmetrically. ? ? ?CNVIII: Hearing intact bilaterally. ? ? ?CNIX,X: Voice normal, soft palate elevation normal, symmetrical. ? ? ?CNXI: Shoulder shrug strong, equal bilaterally. ? ? ?CNXII: Tongue protrusion midline MSE Appearance: grossly normal. Fair grooming and hygiene, calm, cooperative, engaged in the interview. Good eye contact. Normal psychomotor activity. Mental Status: mental status grossly normal Mood: depressed Affect: mood-congruent affect Speech and Movement: speech and movement normal slow and speech garbled. Attitude: uncooperative Thought Process: slowed Thought Content: Denies paranoid or delusional thoughts. Denied hallucinations, no homicidality. Endorses suicidality. Does not appear to be responding to internal stimuli. Insight: limited Judgment: limited [facility] Medical History (Updated 09/12/24 @ 20:23 by Sandy Krishnan MD) Syncope, cardiogenic Depression PSVT (paroxysmal supraventricular tachycardia) Surgical History (Updated 09/13/24 @ 00:36 by Gus Garcia RN) S/P removal of ovarian cyst Per pt., 3 weeks ago. Almond teeth extracted History of tonsillectomy and adenoidectomy Family History Maternal Grandmother Suicide Social History Smoking Status: Never smoker Tobacco Type: e-cigarettes Substance Use Type: Alcohol, Marijuana and Cocaine Substance Abuse Comment: relapsed last night after 6 months Social History Comments: Lives with mom, step dad, brother, sister and her 2 kids Meds Medications and Allergies Allergies No Known Allergies Allergy (Verified 09/12/24 19:44) Home Medications lamotrigine 25 mg tablet 25 mg PO BID 03/08/24 [History Confirmed 07/29/24] midodrine 5 mg tablet 5 mg PO DAILY 03/08/24 [History Confirmed 07/29/24] fluticasone propionate 50 mcg/actuation nasal spray,suspension (Flonase Allergy Relief) 1 spray intranasal BID 14 days #16 grams 07/29/24 [Rx Confirmed 09/12/24] albuterol sulfate 90 mcg/actuation aerosol inhaler 2 inh inhalation Q6HR PRN shortness of breath or wheezing 09/12/24 [History Confirmed 09/12/24] Claritin PO DAILY 09/13/24 [History] aripiprazole 10 mg tablet (Abilify) 10 mg PO DAILY 09/13/24 [History] hydroxyzine pamoate 25 mg capsule (Vistaril) 50 mg PO Q8HR PRN anxiety 09/13/24 [History] quetiapine 50 mg tablet 150 mg PO HS 09/13/24 [History] sertraline 25 mg tablet (Zoloft) 75 mg PO DAILY 09/13/24 [History] Exam Physical Exam Vital Signs: Temp Pulse Resp BP Pulse Ox O2 Del Method 97.4 F L 65 16 92/58 L 100 Room Air 09/13/24 07:30 09/13/24 07:30 09/13/24 07:30 09/13/24 07:30 09/13/24 07:30 09/13/24 09:00 Results - Psychiatry Labs 09/12/24 20:20 09/12/24 20:20 Psychiatry Labs: 09/12/24 20:20 RBC 4.04 Hgb 12.2 Hct 36.4 MCV 90.1 MCH 30.2 MCHC 33.5 RDW 15.0 Plt Count 337 MPV 8.5 Sodium 138 Potassium 3.9 Chloride 106 Carbon Dioxide 24.7 Anion Gap 11.2 BUN 14 Creatinine 0.79 Calcium 9.3 Total Bilirubin 0.3 AST 16 ALT 9 Alkaline Phosphatase 54 Total Protein 7.0 Albumin 4.4 Urine Color Yellow Urine Appearance Clear Urine pH 6.0 Ur Specific [place] 1.030 Urine Protein 20 H Urine Glucose (UA) Normal Urine Ketones Negative Urine Occult Blood 3+ H Urine Nitrite Negative Ur Leukocyte Esterase 2+ H Urine RBC 5-9 H Urine WBC 5-9 H Microbiology Microbiology: Microbiology - Results from entire visit 09/12/24 20:20 Urine - Clean-Voided Midstream Urine Culture - Preliminary No Growth 1 Day Assessment/Plan (1) Suicidal ideation: (2) Bipolar disorder, unspecified: Plan Patient presenting due suicidal ideation with concern for self harm -Start Lamictal 25mg BID -Start Zoloft 50mg PO once daily in the morning -Discontinue Seroquel due to previous history of OD and start Zyprexa 5mg PO HS -Continue to monitor mental status -Monitor suicidal behaviors for safety of self (15-minute face check). -Encourage medication adherence. Risks, benefits, and alternatives of treatment explained -Recommend? attending groups and psychoeducation for building coping skills. -Involve friends/family members to coordinate care and ensure appropriate outpatient appointments are scheduled prior to discharge. Documented By: Garrett Donis MD [id number] Signed By: <Electronically signed by Garrett Donis MD> 09/13/[address] [place] [address] Work Phone: [phone]) 200-166311-05-2024 [place] [address] Psychiatry H&P Signed Patient: Killian Bermudez MR#: [id number] : 2000 Acct:[id number] Age/Sex: 24 / F Adm Date: 4 Loc: Room: [address] [place] [address] Type: ADM IN Attending Dr: Garrett Donis MD Copies to: Garrett Donis MD NO FAMILY PHYSICIAN~ Date of Service: 09/13/2024 HPI History of Present Illness History of present illness: Killian Bermudez is a 24 year old female?with a reported history of?bipolar disorder and PSVT presents for inpatient treatment due to?suicidal ideation withconcern for self harm. Reportedly, patient presented to the ER yesterday eveningvoicing suicidal ideation with intent to overdose on her medications. Killian stated that she hasn't slept in the last 3 days and used cocaine yesterday and did a couple of lines. She was admitted voluntarily and was calm and cooperative for intake. She disclosed that her boyfriend suddenly inhis sleep back in April. Since this event, she has lost the will to live. Killian noted that many friends and members of the boyfriend's family blamed herfor his . She also endorsed having a difficult time . She has lost her apartment and had to move back in with her family. 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 Following this events, the patient notes that she has has increasing thoughts of wanting to overdose but states, I don't really havea lot of meds around the house to OD on. She went on to describe persistent lowmood, anhedonia, decreased appetite, night terrors/nightmares, and poor self care since April. The patient admits to cocaine use over the past month, heavy alcohol use, and marijuana consumption. She is currently on parole in multiple counties for drug possession and one instance of theft. Additionally, there is areported history of fentanyl abuse about three years ago. She denies recent relapse. Patient was personally seen by me on the day of the encounter. I reviewed the history and performedthe dunbar elements of the assessment. I formulated the planof care and confirmed this with the medical student as noted below At the time of the interview, the patient was sedated and was not easily aroused. She could not maintain attention during the conversation. When asked about her feelings of depression and anxiety, the patient weakly states, they'ethere. She confirms ongoing suicidal ideation, but could not confidently recount the events leading to her admission. When asked how she is currently feeling, the Killian states, I don't want to be here anymore. Past psych history: Bipolar disorder Past hospitalizations: Previous psychiatric hospitalization back in February 2024 Past suicide attempts: Potential Seroquel overdose in February 2024 Previous medications: Lamictal, Seroquel, Zoloft Alcohol and drug use: ?(+) alcohol (4-5 days a week); (+) marijuana consumption (2-3 joints per day); (+) cocaine use; (+) history of fentanyl use 3 years ago - Urine tox (+) for cocaine and marijauna Living: Lives at home with mother Employment: Unemployed; formerly a [employer] Review of Systems Constitutional: Pt denies fatigue, malaise. Neuro: Denies dizziness/lightheadedness. Denies TBI, seizure, memory loss. Denies numbness/tinglingin extremities HEENT: Denies vision/hearing changes. Pulmonary: Denies SOB, dyspnea, cough, wheezing. Cardiac: Denies chest pain/pressure. Denies edema, palpitations. GI: Denies abdominal pain, heartburn, N/V. Denies constipation and diarrhea : Denies dysuria, hematuria, polyuria. ? Physical exam General: not in any acute distress Skin: intact HEENT: head atraumatic, face symmetrical. Pulm: ?Breathing normally without excessive effort Cardio: Regular rate and rhythm Abdomen: Normal inspection Musculoskeletal: Moves all extremities, normal strength all extremities. Neuro: Pt alert, oriented x3. Gait normal. ? CNI: Intact, normal olfaction ? CNII: Visual keyes intact ? ? ?CNIII,IV,: EOM intact, no nystagmus. ? ? ?CNV: Sensation intact to light touch. ? ? ?CNVII: Raises eyebrows, smile/frown, puff out cheeks symmetrically. ? ? ?CNVIII: Hearing intact bilaterally. ? ? ?CNIX,X: Voice normal, soft palate elevation normal, symmetrical. ? ? ?CNXI: Shoulder shrug strong, equal bilaterally. ? ? ?CNXII: Tongue protrusion midline MSE Appearance: grossly normal. Fair grooming and hygiene, calm, cooperative, engaged in the interview.Good eye contact. Normal psychomotor activity. Mental Status: mental status grossly normal Mood: depressed Affect: mood-congruent affect Speech and Movement: speech and movement normal slow and speech garbled. Attitude: uncooperative Thought Process: slowed Thought Content: Denies paranoid or delusional thoughts. Denied hallucinations, no homicidality. Endorses suicidality. Does not appear to be responding to internal stimuli. Insight: limited Judgment: limited [facility] Medical History (Updated 09/12/24 @ 20:23 by Sandy Krishnan MD) Syncope, cardiogenic Depression PSVT (paroxysmal supraventricular tachycardia) Surgical History (Updated 09/13/24 @ 00:36 by Gus Garcia RN) S/P removal of ovarian cyst Per pt., 3 weeks ago. Almond teeth extracted History of tonsillectomy and adenoidectomy Family History Maternal Grandmother Suicide Social History Smoking Status: Never smoker Tobacco Type: e-cigarettes Substance Use Type: Alcohol, Marijuana and Cocaine Substance Abuse Comment: relapsed last night after 6 months Social History Comments: Lives with mom, step dad, brother, sister and her 2 kids Meds Medications and Allergies Allergies No Known Allergies Allergy (Verified 09/12/24 19:44) Home Medications lamotrigine 25 mg tablet 25 mg PO BID 03/08/24 [History Confirmed 07/29/24] midodrine 5 mg tablet 5 mg PO DAILY 03/08/24 [History Confirmed 07/29/24] fluticasone propionate 50 mcg/actuation nasal spray,suspension (Flonase Allergy Relief) 1 spray intranasal BID 14 days #16 grams 07/29/24 [Rx Confirmed 09/12/24] albuterol sulfate 90 mcg/actuation aerosol inhaler 2 inh inhalation Q6HR PRN shortness of breath orwheezing 09/12/24 [History Confirmed 09/12/24] Claritin PO DAILY 09/13/24 [History] aripiprazole 10 mg tablet (Abilify) 10 mg PO DAILY 09/13/24 [History] hydroxyzine pamoate 25 mg capsule (Vistaril) 50 mg PO Q8HR PRN anxiety 09/13/24 [History] quetiapine 50 mg tablet 150 mg PO HS 09/13/24 [History] sertraline 25 mg tablet (Zoloft) 75 mg PO DAILY 09/13/24 [History] Exam Physical Exam Vital Signs: Temp Pulse Resp BP Pulse Ox O2 Del Method 97.4 F L 65 16 92/58 L 100 Room Air 09/13/24 07:30 09/13/24 07:30 09/13/24 07:30 09/13/24 07:30 09/13/24 07:30 09/13/24 09:00 Results - Psychiatry Labs 09/12/24 20:20 09/12/24 20:20 Psychiatry Labs: 09/12/24 20:20 RBC 4.04 Hgb 12.2 Hct 36.4 MCV 90.1 MCH 30.2 MCHC 33.5 RDW 15.0 Plt Count 337 MPV 8.5 Sodium 138 Potassium 3.9 Chloride 106 Carbon Dioxide 24.7 Anion Gap 11.2 BUN 14 Creatinine 0.79 Calcium 9.3 Total Bilirubin 0.3 AST 16 ALT 9 Alkaline Phosphatase 54 Total Protein 7.0 Albumin 4.4 Urine Color Yellow Urine Appearance Clear Urine pH 6.0 Ur Specific [place] 1.030 Urine Protein 20 H Urine Glucose (UA) Normal Urine Ketones Negative Urine Occult Blood 3+ H Urine Nitrite Negative Ur Leukocyte Esterase 2+ H Urine RBC 5-9 H Urine WBC 5-9 H Microbiology Microbiology: Microbiology - Results from entire visit 09/12/24 20:20 Urine - Clean-Voided Midstream Urine Culture - Preliminary No Growth 1 Day Assessment/Plan (1) Suicidal ideation: (2) Bipolar disorder, unspecified: Plan Patient presenting due suicidal ideation with concern for self harm -Start Lamictal 25mg BID -Start Zoloft 50mg PO once daily in the morning -Discontinue Seroquel due to previous history of OD and start Zyprexa 5mg PO HS -Continue to monitor mental status -Monitor suicidal behaviors for safety of self (15-minute face check). -Encourage medication adherence. Risks, benefits, and alternatives of treatment explained -Recommend? attending groups and psychoeducation for building coping skills. -Involve friends/family members to coordinate care and ensure appropriate outpatient appointments are scheduled prior to discharge. Documented By: Garrett Donis MD [id number] Signed By: 09/13/24 [facility]3 [facility]09-20-2024 Evaluation note* Diagnosis Onset Date Resolution Status Admit Date COVID-19 noneactive July 3:58pm Contact with and (suspected) exposure to covid-19 noneactive July 112023 3:58pm Sore throat noneactive July 3:58pm Abnormal ECG acute September 10:11pm Bipolar disorder, unspecified acute September 12 10:11pm Polysubstance abuse acute 2023 10:11pm Suicidal ideation acute 2023 10:11pm [facility] Work Phone: 1(186) 261-482705-21-2024 History of Present illness Narrative* PATY Bustillo - 03/29/2024 1:15 PM EDT Images from the original note were not included. Subjective Patient ID: Killian Bermudez is a 23 y.o. female. Transition of Care Additional Questions/Concerns Requiring PCP Follow-Up: This documentation is being used for Transition of Care purposes: Yes Goal: Patient will demonstrate a safe transition from hospital to home. Diagnosis on Discharge: Bipolar Discharge Specialty: Other Name of Discharging Facility: [facility] Date of Facility Discharge: 03/10/24 Date of Interactive Contact and Name of Progressive Care Unit Registered Nurse: Spoke with mom Chaim on 03/14/24 Medication Review Completed: No Mom is at work and does not have medications or list with her. Medication Reconciliation Questions/Concerns: Follow Up Appointments with Providers: Primary: PATY Musa Specialty: Gustavo Cavazos CNP on 03/23/24 @ 4:00 Specialty: Review of Pending Lab/Diagnostic Tests and Plan for Completion: Presented to [facility] ER after overdose on Seroquel and mixed [...] all follow up appointments currently scheduled at [facility] and [facility] in [place] for Behavioral Health CN informed Chaim of patient being a no show prior and if she does not call to cancel the scheduled appt with PCP, then she will be dismissed from the practice. Communication with Home Health Agencies and Other Services Utilized/Needed by the Patient: none HPI Killian presents to the office for hospital discharge follow up and to establish care. She was pinkslipped for possible SI, as she took multiple seroquel and was drinking alcohol. She also had used cocaine. She was admitted to [facility] on 03/08/2024 and discharged to home on 03/10/2024. Killian reports she is doing much better with treatment and is feeling well. She is currently living at home with mom, she has a good support system. She has no concerns today. She would just like to establish care. Today, PHQ-7 [id number]. Killian reports she recently came home from [facility] in [place], she was there for 6 months for AOD, drug (fentanyl, meth and cocaine) and alchol abuse, she came home on 03/04/2024, late that night. Reports never had IV drug use. (She was on vivirol while she was there, no longer receveied upon arrival to home). She reports she prefers not to take vivitrol. Hx: Bipolar with clinical depression and anxiety- seroquel 50 mg AM and 100 mg at HS, zoloft 50 QD hydroxyzine PRN. She feels this is working well. Following with psychiatry, psychologist, counselor, [facility]. Intermittent shoulder pain- she played softball from the age of [age]. exercise is helpful. Neurocardiogenic syncope- midodrine. Following with cardiology, she has stress test escheduled for next month. Asthma- symbicort, but admits she is not using Patient Active Problem List Diagnosis Asthma due to seasonal allergies Encounter for contraceptive management Seasonal allergic rhinitis Chronic tonsillitis Status post tonsillectomy Asthma Concussion Strep throat Neurocardiogenic syncope Dizziness Family history of heart disease Sinus tachycardia Acute pain of right shoulder Subclinical hypothyroidism Anxiety Depression Anemia Hypokalemia Past Surgical History: Procedure Laterality Date TONSILLECTOMY ADENOIDECTOMY Bilateral 06/14/2018 Performed by Mimi La MD at [facility] Family History Problem Relation Age of Onset Heart murmur Sister Heart murmur Brother Breast cancer Maternal Aunt Breast cancer Maternal Grandmother Breast cancer Paternal Grandmother No Known Problems Father The following portions of the patient's history were reviewed and updated as appropriate: allergies, current medications, past family history, past medical history, past social history, past surgicalhistory, problem list, and medication reconciliation was completed including current medication andpost discharge medication. Review of Systems Constitutional: Negative for chills, diaphoresis, fatigue, fever and unexpected weight change. HENT: Negative. Eyes: Negative. Respiratory: Negative for cough, chest tightness, shortness of breath and wheezing. Cardiovascular: Negative for chest pain, palpitations and leg swelling. Gastrointestinal: Negative for abdominal pain, diarrhea, nausea and vomiting. Endocrine: Negative for polydipsia, polyphagia and polyuria. Genitourinary: Negative for difficulty urinating, frequency, hematuria and urgency. Musculoskeletal: Negative for arthralgias, gait problem, joint swelling and neck pain. Skin: Negative. Neurological: Negative for dizziness, syncope, weakness, light-headedness, numbness and headaches. Psychiatric/Behavioral: Negative for agitation, behavioral problems, self-injury and suicidal ideas. The patient is not nervous/anxious. Objective Physical Exam Vitals and nursing note reviewed. Constitutional: General: She is not in acute distress. Appearance: Normal appearance. She is well-developed. She is not ill-appearing. HENT: Head: Normocephalic and atraumatic. Right Ear: Tympanic membrane, ear canal and external ear normal. Left Ear: Tympanic membrane, ear canal and external ear normal. Nose: Nose normal. Mouth/Throat: Mouth: Mucous membranes are moist. Pharynx: Oropharynx is clear. Eyes: Extraocular Movements: Extraocular movements intact. Pupils: Pupils are equal, round, and reactive to light. Neck: Vascular: No carotid bruit. Cardiovascular: Rate and Rhythm: Normal rate and regular rhythm. Pulses: Normal pulses. Heart sounds: Normal heart sounds. No murmur heard. Pulmonary: Effort: Pulmonary effort is normal. No respiratory distress. Breath sounds: Normal breath sounds. No wheezing, rhonchi or rales. Chest: Chest wall: No tenderness. Abdominal: General: Bowel sounds are normal. Palpations: Abdomen is soft. Tenderness: There is no abdominal tenderness. Musculoskeletal: General: Normal range of motion. Cervical back: Normal range of motion and neck supple. No rigidity or tenderness. Right lower leg: No edema. Left lower leg: No edema. Lymphadenopathy: Cervical: No cervical adenopathy. Skin: General: Skin is warm and dry. Capillary Refill: Capillary refill takes less than 2 seconds. Findings: No rash. Neurological: General: No focal deficit present. Mental Status: She is alert and oriented to person, place, and time. Motor: No weakness. Psychiatric: Mood and Affect: Mood normal. Behavior: Behavior normal. Assessment/Plan Sign release of records for Kathleen Amor in [place]. Records reviewed from [facility]. Killian's mental health seems to be well controlled today. Ensure to keep follow up with [facility]. I would like to complete labs on thyroid as it was subclinically hypoactive on 01/02. She had hypokalemia on 03/08/2024, I will send in short supplement and we will recheck labs. FU 3 months. Killian was seen today for establish care. Diagnoses and all orders for this visit: Bipolar 1 disorder ([facility]) Mild intermittent asthma without complication - albuterol (PROVENTIL HFA;VENTOLIN HFA) 90 mcg/actuation inhaler; Inhale 2 puffs every 6 (six) hours as needed for wheezing. Subclinical hypothyroidism - Thyroid profile includes TSH FT4; Future - Thyroid antibodies includes TPO and TGAB; Future Hypokalemia - Comprehensive metabolic panel; Future Anemia, unspecified type - CBC auto differential; Future Depression, unspecified depression type Anxiety Encounter to establish care Other orders - potassium chloride (KLOR-CON M 20) 20 MEQ CR tablet; Take 1 tablet (20 mEq total) by mouth in themorning. PATY Bustillo 04/03/24 [id number] [facility] History of Present illness Narrative* Costa Villareal MD - 01/15/2024 9:15 AM EST Killian Bermudez Date of visit: 01/15/2024 Date of : 2000 Age: 23 y.o. Patient Active Problem List Diagnosis Asthma due to seasonal allergies Encounter for contraceptive management Seasonal allergic rhinitis Chronic tonsillitis Status post tonsillectomy Asthma Concussion Strep throat Neurocardiogenic syncope Dizziness Family history of heart disease Sinus tachycardia Acute pain of right shoulder Allergies Allergen Reactions No Known Drug Allergies Other SOME FABRIC SOFTENERS (ANAPHYLAXIS) Current Outpatient Medications Medication Sig Dispense Refill budesonide-formoteroL (SYMBICORT) 80-4.5 mcg/actuation inhaler Inhale 2 puffs 2 (two) times a day. 1 Inhaler 0 hydrOXYzine (ATARAX) 25 mg tablet Take 1 tablet (25 mg total) by mouth 3 (three) times a day as needed for anxiety. naltrexone microspheres (VIVITROL IM) Inject into the appropriate muscle. Every 30 days sertraline (ZOLOFT) 50 mg tablet Take 1 tablet (50 mg total) by mouth daily. 30 tablet 2 traZODone (DESYREL) 50 mg tablet Take 1 tablet (50 mg total) by mouth nightly. vit A/vit C/biotin/zinc/copper (ESCJ-VGLG-DXMQ,VIT A,C-BIOTIN, ORAL) Take by mouth daily. midodrine (PROAMATINE) 5 mg tablet TAKE 1 TABLET BY MOUTH EVERY DAY AT NIGHT 90 tablet 3 No current facility-administered medications for this visit. Chief Complaint Patient presents with Follow-up EST PT F/U 1 YR L/S [facility] 01/01/2024 History of Present Illness Pleasant 23-year-old lady who is here for routine office visit. She is currently undergoing rehab after fentanyl use. She has not used since she was admitted to rehab facility. However she had a syncopal episode and currently send home until cleared. The plan is to go to another facility that could handle medical issues. Patient states that she has been having frequent chest pain and shortness of breath both with exertion. She feels fatigued and tired all theday and just wants to sleep. There sometimes that she stopped taking midodrine which he takes once a night. Few syncopal episodes here and there. ECG today shows sinus rhythm with no acute ischemic changes. Past Medical History: Diagnosis Date Allergic Allergic rhinitis Asthma Concussion 03/2017 hit with softball and hit head on concrete Depression Dizziness Family history of heart disease Strep throat Syncope and collapse No data recorded No data recorded No data recorded Past Surgical History: Procedure Laterality Date TONSILLECTOMY ADENOIDECTOMY Bilateral 06/14/2018 Performed by Mimi La MD at [facility] Family History Problem Relation Age of Onset Heart murmur Sister Heart murmur Brother Breast cancer Maternal Aunt Breast cancer Maternal Grandmother Breast cancer Paternal Grandmother No Known Problems Father Social History Socioeconomic History Marital status: Single Spouse name: Not on file Number of children: Not on file Years of education: Not on file Highest education level: Not on file Occupational History Not on file Tobacco Use Smoking status: Never Passive exposure: Yes Smokeless tobacco: Never Vaping Use Vaping Use: Every day Substances: Nicotine, Flavoring Devices: Disposable Substance and Sexual Activity Alcohol use: Not Currently Alcohol/week: 0.0 standard drinks of alcohol Drug use: Not Currently Types: Marijuana, Heroin Sexual activity: Not Currently Partners: Male Other Topics Concern Caffeine Use Yes Social History Narrative Not on file Social Determinants of Health Financial Resource Strain: Not on file Food Insecurity: No Food Insecurity (01/15/2024) Hunger Screening Food Insecurity - Worry: Never True Food Insecurity - Inability: Never True Transportation Needs: Not on file Physical Activity: Not on file Stress: Not on file Social Connections: Not on file Interpersonal Safety: Not on file Housing Instability: Not on file Review of Systems Review of Systems Constitutional: Negative. HENT: Negative. Eyes: Negative. Cardiovascular: Positive for chest pain and palpitations. Respiratory: Positive for shortness of breath. Endocrine: Negative. Hematologic/Lymphatic: Negative. Skin: Negative. Musculoskeletal: Positive for joint swelling. Gastrointestinal: Negative. Genitourinary: Negative. Neurological: Positive for dizziness, headaches, light-headedness, loss of balance and numbness. Psychiatric/Behavioral: Positive for depression. The patient is nervous/anxious. Allergic/Immunologic: Positive for environmental allergies. Vascular: Negative. CARDIOVASCULAR: Please review HPI. Physical Examination General appearance: Alert, oriented and cooperative. In no acute distress. Skin: Warm and dry to touch. Head: Normocephalic, without obvious abnormality, atraumatic. Ears, Nose, Mouth, Throat: Throat clear without erythema or exudate. Dentition intact. Eyes: Conjunctivae unremarkable, EOM intact. Neck: No JVD, No carotid bruit. Neck supple, trachea midline. Respiratory: Clear to auscultation bilaterally, no use of accessory muscles. Cardiovascular: RRR with normal S1 and S2 with no murmurs. Gastrointestinal: Soft, non-tender. Bowel sounds normal. Musculoskeletal: No peripheral edema. Neurologic: Oriented to time, person and place, affect appropriate. No focal/major motor defects noted. Psychiatric: Appropriate mood, memory and judgement. VITAL SIGNS: BP 108/74 (BP Site: Left Arm, BP Postition: Sitting) Pulse 98 Ht 147.3 cm (4' 10 ) Wt 56.9 kg(125 lb 6.4 oz) SpO2 98% BMI 26.21 kg/m Orders Placed or Reconciled This Encounter Medications traZODone (DESYREL) 50 mg tablet Sig: Take 1 tablet (50 mg total) by mouth nightly. hydrOXYzine (ATARAX) 25 mg tablet Sig: Take 1 tablet (25 mg total) by mouth 3 (three) times a day as needed for anxiety. midodrine (PROAMATINE) 5 mg tablet Sig: TAKE 1 TABLET BY MOUTH EVERY DAY AT NIGHT Dispense: 90 tablet Refill: 3 Medications Discontinued During This Encounter Medication Reason diazePAM (DIASTAT ACUDIAL) 5-7.5-10 mg rectal kit Therapy completed midodrine (PROAMATINE) 5 mg tablet Reorder IMPRESSIONS/PLAN 1. Neurocardiogenic syncope - POCT EKG - midodrine (PROAMATINE) 5 mg tablet; TAKE 1 TABLET BY MOUTH EVERY DAY AT NIGHT Dispense: 90 tablet; Refill: 3 2. LOPEZ (dyspnea on exertion) - Stress test (exercise only); Future - Echo complete W/O contrast; Future 3. Chest pain, unspecified type - Stress test (exercise only); Future - Echo complete W/O contrast; Future I wonder if her fentanyl use is causing direct cardiac problems although unlikely. Her chest pain shortness for breath or both is exertion and sound pronounced. Will order a treadmill exercise stress test to rule out ischemia. Will also obtain echocardiogram to assess cardiac structure and function. I renewed her midodrine once nightly. However I gave her the leverage of taking it twice a day intermittently to relieve her symptoms. Will provide her with a letter to rehab facility to allow her to consume salt liberally as well as electrolyte beverage. All questions and concerns addressed to the patient's satisfaction. Follow-up in 12 months or sooner if needed. This note was created with the assistance of a speech recognition program. While intending to generate a timely document that accurately reflects the content of the visit, no guarantee can be provided that every grammatical or spelling mistake has been or will be identified or corrected. Thank you for your understanding! TODAYS ORDERS Orders Placed This Encounter Procedures Stress test (exercise only) POCT EKG Echo complete W/O contrast FOLLOW UP Return in about 1 year (around 01/14/2025). PCP: BRAN MONTANA MD Referring Physician: No referring provider defined for this encounter. documented in this [facility]03-[facility] Miscellaneous Notes* Telephone Encounter - Gill Valentino CMA - 01/14/2024 9:23 AM EST Left message for patient to remind them to bring their most current medication list with them to their appointment. documented in this [facility]03-[facility]24 Telephone encounter Note* Telephone Encounter - Gill Valentino CMA - 01/14/2024 9:23 AM EST Left message for patient to remind them to bring their most current medication list with them to their appointment. [facility] Emergency department Note* Josias Harley PA-C - 01/01/2024 11:38 PM EST HPI Chief Complaint Patient presents with Seizures Pt has a hx of seizure like disorder but has no seizure disorder diagnosis. Pt states that she feltone coming on today and fell, hitting her head. This is a 23-year-old female brought in from rehab facility with report of witnessed syncopal eventwith questionable seizure activity. EMS reports on scene the patient's heart rate was 146 and she was sinus tachycardia. Patient states that she has been experiencing chest pain palpitations for the past 3 weeks. She did not tell anybody about this because she did not go to the hospital. She statesthe chest pain mostly occurs around 1600 hrs. and this is after she has to talk to her family on the phone or deal with the emotional issues. The patient states that there is a family history of blood clots. Patient states that she has been seen by neurology for her syncope which is diagnoses neurocardiogenic syncope and has been seen by cardiology as well. She used to be medication for rate control but stopped taking it months ago due to side effects. The patient states that she did talk to her vp rheumatology but does not recall if they prescribe anything else. Her past medical history does include asthma, chronic tonsillitis, status post tonsillectomy asthma, neurogenic syncope, dizziness, s inus tachycardia, family history of heart disease and blood clots. She is also history of drug abuse but has been clean for 62 days. She is currently in rehab. Patient states today when she fell she did hit her head when she passed out. She last saw her vp rheumatology on 02/03/2023 medication list at that time showed Symbicort, diazepam Diastat rectal gel, midodrine, material, Zoloft multivitamin. History provided by: EMS personnel, patient and medical records Russ Coma Scale Score: 15 Patient History No past medical history on file. No past surgical history on file. No family history on file. Social History Tobacco Use Smoking status: Not on file Smokeless tobacco: Not on file Substance Use Topics Alcohol use: Not on file Drug use: Not on file Physical Exam ED Triage Vitals [01/01/24 2341] Temperature Heart Rate Respirations BP 36.8 C (98.2 F) (!) 111 17 113/80 Pulse Ox Temp Source Heart Rate Source Patient Position 98 % Temporal Monitor Lying BP Location FiO2 (%) Right arm -- Physical Exam Vitals and nursing note reviewed. Exam conducted with a bereavement coordinator present. Constitutional: General: She is awake. She is not in acute distress. Appearance: Normal appearance. She is well-developed, well-groomed and normal weight. She is not ill-appearing, toxic-appearing or diaphoretic. HENT: Head: Normocephalic and atraumatic. No raccoon eyes, Hernández's sign, abrasion, contusion, masses, right periorbital erythema, left periorbital erythema or laceration. Jaw: There is normal jaw occlusion. Right Ear: Hearing, tympanic membrane, ear canal and external ear normal. Left Ear: Hearing, tympanic membrane, ear canal and external ear normal. Nose: Nose normal. No signs of injury or nasal tenderness. Right Nostril: No epistaxis. Left Nostril: No epistaxis. Mouth/Throat: Lips: Chancellor. Mouth: Mucous membranes are moist. No injury or lacerations. Dentition: No dental tenderness. Pharynx: Oropharynx is clear. Uvula midline. Eyes: General: No scleral icterus. Right eye: No discharge. Left eye: No discharge. Extraocular Movements: Extraocular movements intact. Conjunctiva/sclera: Conjunctivae normal. Pupils: Pupils are equal, round, and reactive to light. Neck: Vascular: No carotid bruit. Cardiovascular: Rate and Rhythm: Regular rhythm. Tachycardia present. Pulses: Normal pulses. Heart sounds: Normal heart sounds. Pulmonary: Effort: Pulmonary effort is normal. Breath sounds: Normal breath sounds. Chest: Chest wall: No tenderness. Abdominal: General: Abdomen is flat. Bowel sounds are normal. Palpations: Abdomen is soft. There is no mass. Tenderness: There is no abdominal tenderness. Hernia: No hernia is present. Musculoskeletal: General: No swelling, tenderness, deformity or signs of injury. Normal range of motion. Cervical back: Normal range of motion and neck supple. No rigidity or tenderness. Right lower leg: No edema. Left lower leg: No edema. Lymphadenopathy: Cervical: No cervical adenopathy. Skin: General: Skin is warm and dry. Capillary Refill: Capillary refill takes less than 2 seconds. Neurological: General: No focal deficit present. Mental Status: She is alert and oriented to person, place, and time. Mental status is at baseline. GCS: GCS eye subscore is 4. GCS verbal subscore is 5. GCS motor subscore is 6. Cranial Nerves: Cranial nerves 2-12 are intact. Sensory: Sensation is intact. Motor: Motor function is intact. Coordination: Coordination is intact. Psychiatric: Attention and Perception: Attention and perception normal. Mood and Affect: Mood and affect normal. Speech: Speech normal. Behavior: Behavior normal. Behavior is cooperative. Thought Content: Thought content normal. Cognition and Memory: Cognition and memory normal. Judgment: Judgment normal. ED Course & MDM Diagnoses as of 01/02/24 0404 Syncope and collapse Closed head injury, initial encounter Hypokalemia Tachycardia Chest pain, unspecified type Medical Decision Making ED course temperature is 36.8 heart rate 111 respiration 17 BP 113/80 pulse ox is 98% on room air Seizure precautions were implemented patient was placed on monitor we have ordered lab work, CT scan of the head due to the patient having a syncopal event with falling and head injury, as well as CTscan of chest to rule out PE given her family history of blood clots and the fact that she was having chest pain palpitations for the past 3 weeks and she passed out this evening. Initial EKG interpreted by me at 0025 hrs. sinus tachycardia rate 111 UT 142 QRS was 74 QT 330 QTc was 448 no ischemic changes. Repeat vital signs blood pressure 99/47 heart rate 98 respirations 18 pulse ox is 95% on room air the patient remains afebrile. CBC white count 6.6 hemoglobin 11.1 hematocrit 33.1 platelet count is 328, general chemistry glucose 110, potassium 3.4 anion gap of 9 total protein 6, first 2 troponins were both negative at less than 3, acute toxicology panel was negative, magnesium 1.76 PT 9.8 INR 0.9, x-ray of the chest shows no acute cardiopulmonary disease. CT scan of the head shows no acute intracranial normality, no calvarial fracture, CT scan of the chest to rule out PE report reads no acutethoracic pathology identified. Patient's orthostatic vital signs: Laying down heart rate 101, blood pressure 111/65, 96% on room air Sitting up: Heart rate 107 BP 101 over 6696% on room air Standing heart rate 108, BP 101/69, 94% on room air repeat examination the patient states she is feeling much better after fluids. The patient's TSH is elevated at 7.39 there is no previous TSH for comparison, urine tox screen was negative, urinalysis shows small blood negative nitrite negative leukocyte esterase, the patient's free T4 is within normal limits 0.67, test was negative. I did review the patient's vp rheumatology note which reads recommendation for high salt diet. Patient states that at the [facility] for opiate abuse they do not provide a lot of salt. The patient is feeling much better after the fluids and I do not see any evidence to suggest sepsis or dehydration. Her most recent vital signs heart rate is now 98, patient states she feels comfortable going back to the rehab center and she will follow-up with her vp rheumatology and her neurologist. I will send a note with the patient recommending that she received salt with her meals per her vp rheumatology recommendation. She will continue with her current medications. She was discharged home with prescription for potassium supplementation she was encouraged to return back to the [facility] with any concerns or worsening of symptoms. At this point time with 2 negative troponins I do not suspect an AR, CT scan was negative for PE there was no sign of pneumothorax or pneumonia. I feel most likely this is her neurogenic tachycardia which has been diagnosed by cardiology. She has had no recurrence of any seizure activity here. Patient verbalized understand agreement the plan disposition all questions answered prior to discharge Procedure Procedures Josias Harley PA-C 01/02/24 6307 documented in this [facility] Work Phone: [phone]) 316-943202-23-2024 Physician Emergency department Note* Josias Harley PA-C - 01/01/2024 11:38 PM EST HPI Chief Complaint Patient presents with Seizures Pt has a hx of seizure like disorder but has no seizure disorder diagnosis. Pt states that she feltone coming on today and fell, hitting her head. This is a 23-year-old female brought in from rehab facility with report of witnessed syncopal eventwith questionable seizure activity. EMS reports on scene the patient's heart rate was 146 and she was sinus tachycardia. Patient states that she has been experiencing chest pain palpitations for the past 3 weeks. She did not tell anybody about this because she did not go to the hospital. She statesthe chest pain mostly occurs around 1600 hrs. and this is after she has to talk to her family on the phone or deal with the emotional issues. The patient states that there is a family history of blood clots. Patient states that she has been seen by neurology for her syncope which is diagnoses neurocardiogenic syncope and has been seen by cardiology as well. She used to be medication for rate control but stopped taking it months ago due to side effects. The patient states that she did talk to her vp rheumatology but does not recall if they prescribe anything else. Her past medical history does include asthma, chronic tonsillitis, status post tonsillectomy asthma, neurogenic syncope, dizziness, s inus tachycardia, family history of heart disease and blood clots. She is also history of drug abuse but has been clean for 62 days. She is currently in rehab. Patient states today when she fell she did hit her head when she passed out. She last saw her vp rheumatology on 02/03/2023 medication list at that time showed Symbicort, diazepam Diastat rectal gel, midodrine, material, Zoloft multivitamin. History provided by: EMS personnel, patient and medical records Russ Coma Scale Score: 15 Patient History No past medical history on file. No past surgical history on file. No family history on file. Social History Tobacco Use Smoking status: Not on file Smokeless tobacco: Not on file Substance Use Topics Alcohol use: Not on file Drug use: Not on file Physical Exam ED Triage Vitals [01/01/24 2341] Temperature Heart Rate Respirations BP 36.8 C (98.2 F) (!) 111 17 113/80 Pulse Ox Temp Source Heart Rate Source Patient Position 98 % Temporal Monitor Lying BP Location FiO2 (%) Right arm -- Physical Exam Vitals and nursing note reviewed. Exam conducted with a bereavement coordinator present. Constitutional: General: She is awake. She is not in acute distress. Appearance: Normal appearance. She is well-developed, well-groomed and normal weight. She is not ill-appearing, toxic-appearing or diaphoretic. HENT: Head: Normocephalic and atraumatic. No raccoon eyes, Hernández's sign, abrasion, contusion, masses, right periorbital erythema, left periorbital erythema or laceration. Jaw: There is normal jaw occlusion. Right Ear: Hearing, tympanic membrane, ear canal and external ear normal. Left Ear: Hearing, tympanic membrane, ear canal and external ear normal. Nose: Nose normal. No signs of injury or nasal tenderness. Right Nostril: No epistaxis. Left Nostril: No epistaxis. Mouth/Throat: Lips: Chancellor. Mouth: Mucous membranes are moist. No injury or lacerations. Dentition: No dental tenderness. Pharynx: Oropharynx is clear. Uvula midline. Eyes: General: No scleral icterus. Right eye: No discharge. Left eye: No discharge. Extraocular Movements: Extraocular movements intact. Conjunctiva/sclera: Conjunctivae normal. Pupils: Pupils are equal, round, and reactive to light. Neck: Vascular: No carotid bruit. Cardiovascular: Rate and Rhythm: Regular rhythm. Tachycardia present. Pulses: Normal pulses. Heart sounds: Normal heart sounds. Pulmonary: Effort: Pulmonary effort is normal. Breath sounds: Normal breath sounds. Chest: Chest wall: No tenderness. Abdominal: General: Abdomen is flat. Bowel sounds are normal. Palpations: Abdomen is soft. There is no mass. Tenderness: There is no abdominal tenderness. Hernia: No hernia is present. Musculoskeletal: General: No swelling, tenderness, deformity or signs of injury. Normal range of motion. Cervical back: Normal range of motion and neck supple. No rigidity or tenderness. Right lower leg: No edema. Left lower leg: No edema. Lymphadenopathy: Cervical: No cervical adenopathy. Skin: General: Skin is warm and dry. Capillary Refill: Capillary refill takes less than 2 seconds. Neurological: General: No focal deficit present. Mental Status: She is alert and oriented to person, place, and time. Mental status is at baseline. GCS: GCS eye subscore is 4. GCS verbal subscore is 5. GCS motor subscore is 6. Cranial Nerves: Cranial nerves 2-12 are intact. Sensory: Sensation is intact. Motor: Motor function is intact. Coordination: Coordination is intact. Psychiatric: Attention and Perception: Attention and perception normal. Mood and Affect: Mood and affect normal. Speech: Speech normal. Behavior: Behavior normal. Behavior is cooperative. Thought Content: Thought content normal. Cognition and Memory: Cognition and memory normal. Judgment: Judgment normal. ED Course & MDM Diagnoses as of 01/02/24 0404 Syncope and collapse Closed head injury, initial encounter Hypokalemia Tachycardia Chest pain, unspecified type Medical Decision Making ED course temperature is 36.8 heart rate 111 respiration 17 BP 113/80 pulse ox is 98% on room air Seizure precautions were implemented patient was placed on monitor we have ordered lab work, CT scan of the head due to the patient having a syncopal event with falling and head injury, as well as CTscan of chest to rule out PE given her family history of blood clots and the fact that she was having chest pain palpitations for the past 3 weeks and she passed out this evening. Initial EKG interpreted by me at 0025 hrs. sinus tachycardia rate 111 UT 142 QRS was 74 QT 330 QTc was 448 no ischemic changes. Repeat vital signs blood pressure 99/47 heart rate 98 respirations 18 pulse ox is 95% on room air the patient remains afebrile. CBC white count 6.6 hemoglobin 11.1 hematocrit 33.1 platelet count is 328, general chemistry glucose 110, potassium 3.4 anion gap of 9 total protein 6, first 2 troponins were both negative at less than 3, acute toxicology panel was negative, magnesium 1.76 PT 9.8 INR 0.9, x-ray of the chest shows no acute cardiopulmonary disease. CT scan of the head shows no acute intracranial normality, no calvarial fracture, CT scan of the chest to rule out PE report reads no acutethoracic pathology identified. Patient's orthostatic vital signs: Laying down heart rate 101, blood pressure 111/65, 96% on room air Sitting up: Heart rate 107 BP 101 over 6696% on room air Standing heart rate 108, BP 101/69, 94% on room air repeat examination the patient states she is feeling much better after fluids. The patient's TSH is elevated at 7.39 there is no previous TSH for comparison, urine tox screen was negative, urinalysis shows small blood negative nitrite negative leukocyte esterase, the patient's free T4 is within normal limits 0.67, test was negative. I did review the patient's vp rheumatology note which reads recommendation for high salt diet. Patient states that at the detention where she is currently rehabbing for opiate abuse they do not provide a lot of salt. The patient is feeling much better after the fluids and I do not see any evidence to suggest sepsis or dehydration. Her most recent vital signs heart rate is now 98, patient states she feels comfortable going back to the rehab center and she will follow-up with her vp rheumatology and her neurologist. I will send a note with the patient recommending that she received salt with her meals per her vp rheumatology recommendation. She will continue with her current medications. She was discharged home with prescription for potassium supplementation she was encouraged to return back to the [facility] with any concerns or worsening of symptoms. At this point time with 2 negative troponins I do not suspect an AR, CT scan was negative for PE there was no sign of pneumothorax or pneumonia. I feel most likely this is her neurogenic tachycardia which has been diagnosed by cardiology. She has had no recurrence of any seizure activity here. Patient verbalized understand agreement the plan disposition all questions answered prior to discharge Procedure Procedures Josias Harley PA-C 01/02/24 0746 [facility] Work Phone: 1(220) 987-877810-19-2022 History of Present illness Narrative* Maria Bingham MD - 08/27/2022 1:00 PM EDT An HEADMASTER/MISTRESS ultrasound was performed today. Our ultrasound exams are reported in the system. The complete report, including recommendations, are faxed separately to outside physician offices. If your office utilizes [employer], the ultrasound reports can be found under the imaging tab in Chart Review. Please click on view image under imaging report and not show images. If accessing this information through [employer], it is located under the Other Results tab and is not located in the documents portion of this system documented [facility] History of Present illness Narrative* Soha Broderick MD - 08/27/2022 10:20 AM EDT * Ira Lira RN - 08/27/2022 10:20 AM EDT Killian Bermudez is a 22 y.o. here for initial visit with [facility]. Patient's last menstrual period was 05/26/2022 (exact date).. Dating U/S completed today. Supervised Pain Management Urine Collected. Patient instructed on clean catch urine collection. Instructed to wash hands, use wipes provided and catch urine midstream. Patient verbalizes understanding. CCU collected. Contraception at time conception: No History of STIs: Denies h/o STIs Concern for current STI: No Last PAP: unknow Mammogram: n/a Movement: Denies movement Symptoms: See OB Visit Flowchart Glucola: n/a Reviewed: ABCs of Safe Sleep. Reviewed: Common Discomforts of , Importance of Hydration Smoking: Patient is a current smoker Patient plans to breastfeed PPBC: undecided Flu Vaccine: Educated patient on flu vaccine in Tdap Vaccine: Educated patient on Tdap vaccine in Gardasil/HPV Vaccine: Educated Pt on the HPV Vaccine. COVID-19: Pt reports they have received 1 dose of the COVID Vaccine series Em FOB: Andrade Edward. FOB plans to be involved: Yes Visitor with Patient: SABINA Muse: 8. Encouraged pt to reach out with mood/anxiety fluctuations or concerns. Currently on prescribed Suboxone, Subutex, or Methadone: No. If So, where from: na Drug of Choice: fentanyl Mode of Use: snort Last used: 08/27/22 0200 Started using at what age: oxycodone at age 15 Concerns to discuss with provider: patient resides in [facility], has been in treatment over the past 2 years but was released from treatment due to . Previous dose was 8mg/day suboxone Rapid drug screen positive for BEAU and THC UPT negative. * Maria Bingham MD - 08/27/2022 10:20 AM EDT Killian was seen today after +UPT at home with some bleeding. She reports establishing with [place] treatment facility close to home but was told now that she needed to find new provider. \ Currently experiencing symptoms of withdrawal during intake. Reports last sued fentanyl intranasally on 08/27/22. Previously on 8mg suboxone daily. PDMP reviewed and last RX over week ago. Significant gap prior to that in suboxone Rx's. Ultrasound today no evidence of IUP. Negative UPT in clinic. We reviewed these results and that this was most likely early loss. Reviewed possible etiologies. Declines contraception at this time. Rapid UDS positive cocaine, fentanyl not tested on this. Vitals: 08/27/22 1130 BP: 106/60 Pulse: 85 Issued interim Rx for 8mg suboxone X 7 days and encouraged her to re-establish with prior provider given fact that she is not currently . Narcan and fentanyl strips issued and Information including our contact number provided for any future pregnancies. All questions answered Maria Bingham MD [phone] documented in this encounterOS[facility]ville HospitalChief complaint+Reason for visit Narrative* Chief Complaint BH Ear pain Reason for Visit Contact with and (lane spected) exposure to covid-19 Sore throat [facility] Work Phone: Discharge summary Author Garrett pena [facility] Note Date/Time September 16, 2024 1 2:05pm [facility] [address] [place] [address] Discharge Summary Signed Patient: Killian Bermudez MR#: [id number] : 2000 Acct:[id number] Age/Sex: 24 / F Adm Date: 4 Loc: 1S Room: [address] [place] [address]: Garrett Donis MD Copies to: Garrett Donis MD NO FAMILY PHYSICIAN~ Providers Date of Discharge: 09/16/24 Discharging Provider: Garrett Donis Primary Care Provider: PHYSICIAN NO FAMILY Discharge Diagnosis (1) Suicidal ideation: (2) Bipolar disorder, unspecified: Final Diagnosis Final Discharge Diagnosis: MDD Summary Hospital Course Hospital course: Killian Bermudez is a 24 year old female?with a reported history of?bipolar disorder and PSVT presents for inpatient treatment due to?suicidal ideation withconcern for self harm. Reportedly, patient presented to the ER yesterday eveningvoicing suicidal ideation with intent to overdose on her medications. Killian stated that she hasn't slept in the last 3 days and used cocaine yesterday and did a couple of lines. She was admitted voluntarily and was calm and cooperative for intake. She disclosed that her boyfriend suddenly inhis sleep back in April. Since this event, she has lost the will to live. Killian noted that many friends and members of the boyfriend's family blamed herfor his . She also endorsed having a difficult time . She has lost her apartment and had to move back in with her family. She also ended up quitting her job as a [employer]. Following this events, the patient notes that she has has increasing thoughts of wanting to overdose but states, I don't really havea lot of meds around the house to OD on. She went on to describe persistent lowmood, anhedonia, decreased appetite, night terrors/nightmares, and poor self care since April. The patient admits to cocaine use over the past month, heavy alcohol use, and marijuana consumption. She is currently on parole in multiple counties for drug possession and one instance of theft. Additionally, there is areported history of fentanyl abuse about three years ago. She denies recent relapse. Patient was personally seen by me on the day of the encounter. I reviewed the history and performed the dunbar elements of the assessment. I formulated the planof care and confirmed this with the medical student as noted below At the time of the interview, the patient was sedated and was not easily aroused. She could not maintain attention during the conversation. When asked about her feelings of depression and anxiety, the patient weakly states, they'ethere. She confirms ongoing suicidal ideation, but could not confidently recount the events leading to her admission. When asked how she is currently feeling, the Killian states, I don't want to be here anymore. Past psych history: Bipolar disorder Past hospitalizations: Previous psychiatric hospitalization back in February 2024 Past suicide attempts: Potential Seroquel overdose in February 2024 Previous medications: Lamictal, Seroquel, Zoloft The patient initially presented as depressed and said she needed to get back onher meds and take it consistently. She was restarted on Zoloft. Zyprexa was chosen instead of Seroquel as she had overdosed on Seroquel. She reports feeling better as her mood is much better than at the time of admission. Depression and anxiety are stabilizing gradually on the current medication regimen. Anxiety is mild in intensity with attempted utilization of coping skills. She denies SI/HI and verbalized the intent to notify staff if shehas such thoughts. Her affect is brighter on the exams. She continues to be compliant with prescribed medications and is visible within the unit milieu. Deidrehas been working with director of casework on her aftercare, and she agreed to continuethe current medication regimen. She understands the current medication regimen'srisks, benefits, and indications. I talked with about the importance of ongoing treatment for depression. She stated that she understood and accepted an outpatient appointment with a psychiatrist for medication evaluation. I have encouraged her to schedule twice weekly sessions of psychotherapy. She said her mom will pick her up at the time of discharge. She presented as future-oriented, participated in group activities, articulated needs appropriately, and displayed no self-harm behaviors since being admitted to the inpatient unit. Imminent risk is low, given the factors noted above. She denied any current symptoms that would pose a threat to herself or others. Further inpatient hospitalization is unlikely to mitigate chronic suicide risk, and pt agrees to f/u with outpatient psych care. We also discussed the benefits of outpatient CBT and DBT to help with depression and reduce suicide risk. She identified protective factors and calming techniques and created a safety plan. At this time, the patient has maximized the benefit from inpatient hospitalization, as can be determined with reasonable medical certainty. As we assessed her discharge readiness, the patient understood the importance ofcontinued outpatient treatment and medication adherence. The patient voiced understanding of the discharge plan discussed with the treatment team. While it is impossible to predict suicide or homicide, my discussion with staff indicated the patient manifested a low risk of acute harm to self or others and a low-moderate chronic risk, evidenced by the psychiatric history andthe subjective and objective condition at that time. The patient denies any active psychiatric signs and symptoms significantly deviating from baseline functioning. Residual suicide/homicide/psychosis/violence/inability to care for self is low risk as maximization of inpatient psychiatry treatment benefit was achieved to address acute risks, which initially led to admission. Overall, she has a positive mood and attitude towards life. Mental Status: grossly normal Speech and Movement: speech and movement are normal and speech clear Appearance: dressed casually Mood: Euthymic mood Affect: Normal affect Attitude: cooperative Thought Process: Normal Thought Content: Denied hallucinations, no homicidally, and no suicidality Insight: fair Judgment: fair Impulse control: fair Time spent discussing smoking cessation with patient: more than 10 minutes Condition Condition at Discharge: Stable Status at Discharge Functional status at discharge: independent ambulation Time Spent with Patient Time spent providing/coordinating discharge services (# min): 93 Discharge Plan Discharge Plan Patient Disposition: Home Activity: No Activity Restriction Diet: Regular Additional Instructions: Important Contact Information You can call [facility] at [phone] any time day or night if you have emergent questions or question regarding discharge instructions. If at any time you are feeling an increase inyour psychiatric symptoms, call your physician or behavioral healthcare provider. If any time you have thoughts of harming yourself or others contact one of the following: Call 8 (available 01/06) Crisis Text Line (available 01/06) text 4HOPE to [phone] [facility] Hope Line (available 8 a.m. Midnight) call [phone] ([phone]) Regular Diet No Activity Restrictions Instructions: Depression, Adult (DC), [facility] DC Instructions, Know your Meds Prescriptions: New trazodone 50 mg Tablet 50 mg PO QHS PRN (Reason: Insomnia) 15 Days Qty: 15 1RF sertraline 100 mg Tablet 100 mg PO QAM 15 Days Qty: 15 1RF olanzapine 5 mg Tablet 5 mg PO QPM 15 Days Qty: 15 3RF Continued albuterol sulfate 90 mcg/actuation HFA aerosol inhaler 2 inh INHALATION Q6HR PRN (Reason: shortness of breath or wheezing) hydroxyzine pamoate [Vistaril] 25 mg capsule 50 mg PO Q8HR PRN (Reason: anxiety) Claritin 10 mg PO DAILY fluticasone propionate [Flonase Allergy Relief] 50 mcg/actuation spray,suspension 1 spray intranasal BID 14 Days Qty: 16 0RF Rx Instructions: administer 1 spray into each nostril Discontinued lamotrigine 25 mg tablet 25 mg PO BID midodrine 5 mg tablet 5 mg PO DAILY sertraline [Zoloft] 25 mg tablet 75 mg PO DAILY aripiprazole [Abilify] 10 mg tablet 10 mg PO DAILY quetiapine 50 mg tablet 150 mg PO HS Follow Up: [employer],Med[employer] Transportation [Other] (Call 48 hours before appointments for transportation assistance.) [facility] [Outside] - 09/19/24 (A heel caser will call you on Wednesday 09/19 between 8-5 to discuss your follow-up care. ) Madeleine Husain, JORDAN- [Referring] - (Call with any medical concerns.) Exam Physical Exam Vital Signs: Temp Pulse Resp BP Pulse Ox O2 Del Method 97.4 F L 82 16 108/74 97 Room Air 09/16/24 07:30 09/16/24 07:30 09/15/24 20:13 09/16/24 07:30 09/16/24 07:30 09/16/24 07:30 Documented By: Garrett Donis MD 4 1200 Signed By: <Electronically signed by Garrett Donis MD> 09/16/24 1205 [facility] Work Phone: Evaluation note* Diagnosis Establish gestational age, ultrasound- Primary Encounter for routine screening for malformation using ultrasonics Supervision of high risk , antepartum [facility] Diagnosis Supervision of high risk , antepartum- Primary Encounter for ultrasound to assess interval growth of fetus documented in this encounter [facility] noteNo assessment information available [facility] Work Phone: Evaluation note* Diagnosis Syncope and collapse- Primary Closed head injury, initial encounter Hypokalemia Hypopotassemia Tachycardia Unspecified tachycardia Chest pain, unspecified type documented in this encounter [facility] Work Phone: Evaluation note* Diagnosis Onset Date Resolution Status Contact with and (suspected) exposure to covid-19 noneactive Sore throat noneactive [facility] Work Phone: Evaluation note* Diagnosis Allergic reaction, initial encounter- Primary documented in this encounter [facility] note* Diagnosis Bipolar 1 disorder ([facility])- Primary Mild intermittent asthma without complication Subclinical hypothyroidism Other specified acquired hypothyroidism Hypokalemia Hypopotassemia Anemia, unspecified type Depression, unspecified depression type Anxiety Anxiety state, unspecified Encounter to establish care [facility] Diagnosis Neurocardiogenic syncope- Primary LOPEZ (dyspnea on exertion) Other dyspnea and respiratory abnormality Chest pain, unspecified type [facility]* Diagnosis Syncope and collapse- Primary documented in this encounter [facility] Diagnosis Syncope and collapse- Primary documented in this encounter [facility] note* Diagnosis Chest pain, unspecified type documented in this encounter [facility] note* Diagnosis Chest pain, unspecified type [facility]* Attachments The following attachments cannot be sent through Care Everywhere. * Chest Pain, Adult ED (Turkmen) * Head injury in adults (Turkmen) * Hypokalemia Discharge Instructions (Turkmen) * High Potassium Diet (Turkmen) * Syncope (fainting) (Turkmen) * Tachycardia (Turkmen) [facility] Work Phone: Instructions* Attachments The following attachments cannot be sent through Care Everywhere. * High Potassium Diet (Turkmen) documented in this encounterProDec[facility] Osse[facility] Therapeutics SystemInstructionsNot on file documented in this encounterProDecatur [facility]se[facility] The[facility] SystemInstructionsNot on file documented in this encounterProDecatur [facility] Osse[facility] [employer] SystemInstructionsNot on file documented in this encounterProDecatur [facility] Therapeutics SystemReason for visit Narrative* (Routine) - Closed Specialty Diagnoses / Procedures Referred By Contac t Referred To Contact Cardiology Diagnoses Chest pain, unspecified type Procedures Exercise stress test Costa Villareal MD [address] [place] [address] Phone: tel: fax: Referral ID Status Reason Start Date Expiration Date Visits Re quested Visits Authorized [id number] Closed 01/06/2025 01/06/2026 1 1 [facility] (Routine) - Closed Specialty Diagnoses / Procedures Referred By Contac t Referred To Contact Cardiology Diagnoses Chest pain, unspecified type Procedures Echo (TTE) complete (PRN contrast/bubble/strain/3D) UT ECHO TTHRC R-T 2D W/WOM-MODE COMPL SPEC&COLR D UT TTE W OR WO FOL WCON,DOPPLER Costa Villareal MD [address] [place] [address] Phone: tel: fax: Referral ID Status Reason Start Date Expiration Date Visits Re quested Visits Authorized [id number] Closed 01/06/2025 01/06/2026 1 1 [facility] Summary Purpose Family History No Family History Records Found Relationship Condition Age at Onset Recorded Date/T christine maternal grandmother Suicide Unknown Advance Directives No Advanced Directives Records FoundDocuments on File Type Date Recorded 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 Please follow up with your primary care physician (PCP) by calling tomorrow for the next available appointment. If you do not have a PCP please establish care by calling the clinic or a physician listed below. Please return to emergency department sooner if you develop any worsening symptoms, uncontrolled fevers, uncontrolled vomiting, or any other concerns. * Attachments The following attachments cannot be sent through Care Everywhere. * Fainting (Turkmen) * Vasovagal Syncope (Turkmen) documented in this encounter Assessments Diagnosis Tachycardia- Primary Tachycardia, unspecified Syncope and collapse Polysubstance abuse (HCC) Other, mixed, or unspecified nondependent drug abuse, unspecified Reason for Referral Specialty Diagnoses / Procedures Referred By Contac t Referred To Contact Diagnoses Supervision of high risk , antepartum Procedures US OB GROWTH/DATING > 14WEEKS Maria Bingham MD [address] [place] [address] Referral ID Status Reason Start Date Expiration Date V isits Requested Visits Authorized [id number] New Request 08/27/2022 09/21/2023 1 1 Specialty Diagnoses / Procedures Referred By Contac t Referred To Contact Diagnoses LOPEZ (dyspnea on exertion) Chest pain, unspecified type Procedures Echo complete W/O contrast Costa Villareal MD [address] [place] [address] Referral ID Status Reason Start Date Expiration Date V isits Requested Visits Authorized [id number] Pending Review 01/15/2024 01/14/2025 1 1 Specialty Diagnoses / Procedures Referred By Contac t Referred To Contact Diagnoses LOPEZ (dyspnea on exertion) Chest pain, unspecified type Procedures Stress test (exercise only) Costa Villareal MD [address] [place] [address] Referral ID Status Reason Start Date Expiration Date V isits Requested Visits Authorized [id number] Pending Review 01/15/2024 01/14/2025 5 5 Chief Complaint and Reason for Visit Chief Complaint seizure Chief Complaint Admit Date Ear pain July 29, 2024 3:58pm SI September 12, 2024 1 0:11pm SI September 13, 2024 1 2:29pm Reason for Visit Admit Date COVID-19 July 29, 2024 3:58pm Contact with and (suspected) exposure to covid-July 29, 2024 3:58pm Sore throat July 29, 2024 3:58pm Abnormal ECG September 12, 2024 1 0:11pm Bipolar disorder, unspecified September 122023 10:11pm Polysubstance abuse September 12, 2024 1 0:11pm Suicidal ideation September 12, 2024 1 0:11pm Additional Source Comments INFORMATION SOURCE (unrecogn ized section and content) DATE CREATED AUTHOR 12/24/2019 [facility] DATE CREATED AUTHOR AUTHOR'S ORGANIZ ATION 09/01/2022 [facility] DATE CREATED AUTHOR AUTHOR'S ORGANIZ ATION 11/18/2022 [facility] DATE CREATED AUTHOR AUTHOR'S ORGANIZ ATION 11/27/2022 [facility] DATE CREATED AUTHOR AUTHOR'S ORGANIZ ATION 12/30/2023 [facility] DATE CREATED AUTHOR AUTHOR'S ORGANIZ ATION 03/10/2024 [facility] DATE CREATED AUTHOR AUTHOR'S ORGANIZ ATION 03/31/2024 [facility] DATE CREATED AUTHOR AUTHOR'S ORGANIZ ATION 01/28/2025 [facility] DATE CREATED AUTHOR AUTHOR'S ORGANIZ ATION 02/11/2025 [facility] DATE CREATED AUTHOR AUTHOR'S ORGANIZ ATION 02/23/2025 [place] DATE CREATED AUTHOR AUTHOR'S ORGANIZ ATION 03/20/2025 [facility] Reason for Visit (unrecogniz ed section and content) Reason Comments Loss of Consciousness Reason Comments Ultrasound Specialty Diagnoses / Procedures Referred By Contac t Referred To Contact Diagnoses Supervision of high risk , antepartum Procedures US OB TRANSVAGINAL/CERVICAL LENGTH US OB DATING ABDOMINAL < 14WEEKS Soha Broderick MD [address] [place] [address] Referral ID Status Reason Start Date Expiration Date V isits Requested Visits Authorized [id number] New Request 08/27/2022 09/21/2023 1 1 Reason Comments Initial Visit Reason Comments Seizures Pt has a hx of seizu re like disorder but has no seizure disorder diagnosis. Pt states that she felt one coming on today and fell, hitting her head. Reason Comments Allergic Reaction Pt sent in [facility]/ pt has a possible syncopal epsidoe. Pt reported new laundry soap and hives noted to chest. EMS gave 25mg Benadryl and 4mg Zofran area captain Reason Comments Loss of Consciousness Patient states she had a syncopal episode , denies hitting head . States she was taken off her midodrine recently Reason Comments Establish Care Reason Comments Follow-up EST PT F/U 1 YR L/S [facility] 01/01/2024 Reason Comments [facility] of Consciousness [facility] Reason Comments Loss of Consciousness Got dizzy and pass ed out. +hit head -thinners Care Teams (unrecognized sec tion and content) Team Status: Active Member Role Status Dates NON STAFF Primary Care Provider Active Team Status: Active Member Role Status Dates NON STAFF Primary Care Provider Active Start: May 17, 2024 Garrett Donis MD Attending Provider Active Start: May 17, 2024 Team Status: Inactive Member Role Status Dates NON STAFF Primary Care Provider Active Start: July 29, 2024 End: July 29, 2024 Lynn García APRN Attending Provider Active Start: July 29, 2024 End: July 29, 2024 Team Status: Inactive Member Role Status Dates NON STAFF Primary Care Provider Active Bakari Cramer DO Emergency Provider Active Oven Heater Helper Relationship Specialty Start Date End Date Generic Provider, No Assigned [facility]cp[facility] [address] [place] [address] PCP - General 01/02/24 Team Status: Active Member Role Status Dates PHYSICIAN NO FAMILY Primary Care Provider Active Team Status: Inactive Member Role Status Dates Sandy Krishnan MD Emergency Provider Active Start: September 12, 2024 End: September 16, 2024 PHYSICIAN NO FAMILY Primary Care Provider Active Start: September 12, 2024 End: September 16, 2024 Garrett Donis MD Admit Provide r, Attending Provider Active Start: September 12, 2024 End: September 16, 2024 Team Status: Active Member Role Status Dates Sandy Krishnan MD Emergency Provider Active Start: September 13, 2024 PHYSICIAN NO FAMILY Primary Care Provider Active Start: September 13, 2024 Garrett Donis MD Admit Provide r, Attending Provider, Other Provider Active Start: September 13, 2024 Oven Heater Helper Relationship Specialty Start Date End Date Lily Cavazos APRN-MERCHANDISING EXECUTION MANAGER [address] [place] [phone] PCP - General Nurse Practitioner 03/29/24 Oven Heater Helper Relationship Specialty Start Date End Date Bran Montana MD [address] [facility] [place] [address] PCP - General Internal Medicine 01/15/24 Oven Heater Helper Relationship Specialty Start Date End Date CavazosLily APRN-CNP [address] [place] [phone] PCP - General Nurse Practitioner 03/29/24 Goals (unrecognized section and content) Goals may be documented in a n alternate sectionGoals may be documented in an alternate sectionNot on filedocumented as of this encounterNot on filedocumented as of this encounterNot on filedocumented as of this encounterNot on filedocumented as of this encounter Scheduled Active and Recently Administ ered Medications (unrecognized section and content) Medication Order 12/31/2023 01/01/2024 01/02/2024 iohexol (OMNIPaque) 350 mg iodine/mL solution 75 mL (COMPLETED) 75 mL, intravenous, Once in imaging, Starting on 01/02/24 at 0052, For 1 dose 0058 (Given - Provid er: Nidhi Arce) potassium chloride CR (Klor-Con M20) ER tablet 40 mEq (COMPLETED) 40 mEq, oral, Once, On 01/02/24 at 0345, For 1 dose, Best given with food and plenty of water to minimize gastric irritation. Do not crush or chew. 0405 (Given - Provid er: Perlita Sorenson RN) sodium chloride 0.9 % bolus 1,000 mL (COMPLETED) 1,000 mL, intravenous, at 1,000 mL/hr, Administer over 1 Hours, Once, On 01/01/24 at 2355, For 1 dose 0011 (New Bag - Prov ider: Perlita Sorenson, EVY)0135 (Stopped - Provider: Perlita Sorenson RN) sodium chloride 0.9 % bolus 500 mL (COMPLETED) 500 mL, intravenous, at 500 mL/hr, Administer over 1 Hours, Once, On 01/02/24 at 0255, For 1 dose 0258 (New Bag - Prov ider: Perlita Sorenson RN)[id number] (Stopped - Provider: Perlita Sorenson RN) Scheduled Medication Order 12/04/2024 12/05/2024 12/06/2024 diphenhydrAMINE (BENADRYL) injection 25 mg (COMPLETED) 25 mg, IntraVENous, ONCE, 1 dose, On Thu12/06/24 at 1100, IV Push at rate not to exceed 25 mg/min. 1220 (Given - Provid er: Marquita Urena RN) famotidine (PEPCID) 20 mg in sodium chloride (PF) 0.9 % 10 mL injection (COMPLETED) 20 mg, IntraVENous, ONCE, 1 dose, On Thu12/06/24 at 1100, IV Push over minimum of 2 minutes - Dilute with 10 mL NS 1220 (Given - Provid er: Marquita Urena RN) methylPREDNISolone sodium succ (SOLU-MEDROL) 125 mg in sterile water 2 mL injection (COMPLETED) 125 mg, IntraVENous, Once, On Thu12/06/24 at 1100, For 1 dose, Reconstitute 125 mg vial with 2 mL diluent. 1220 (Given - Provid er: Marquita Urena RN) sodium chloride 0.9 % bolus 1,000 mL (COMPLETED) 1,000 mL, IntraVENous, at 495.9 mL/hr, Administer over 121 Minutes, ONCE, On Thu12/06/24 at 1100, For 1 dose 1219 (New Bag - Prov ider: Marquita Urena RN)1307 (Stopped - Provider: Marquita Urena RN) Scheduled Medication Order 12/12/2024 12/13/2024 12/14/2024 sodium chloride 0.9 % bolus 1,000 mL 1,000 mL, IntraVENous, at 4,000 mL/hr, Administer over 0.25 Hours, ONCE, On Thu12/14/24 at 1915, For 1 dose 1915 (Due) Scheduled Medication Order 12/29/2024 12/30/2024 12/31/2024 sodium chloride 0.9 % bolus 1,000 mL (COMPLETED) 1,000 mL, IntraVENous, at 495.9 mL/hr, Administer over 121 Minutes, ONCE, On Thu12/31/24 at 1330, For 1 dose 1333 (New Bag - Prov ider: Jacqui Trinidad RN)1453 (Stopped - Provider: Marquita Kramer RN) Scheduled Medication Order 01/10/2025 01/11/2025 01/12/2025 sodium chloride 0.9 % bolus 1,000 mL (COMPLETED) 1,000 mL (15.7 mL/kg), IntraVENous, at 495.9 mL/hr, Administer over 121 Minutes, ONCE, On Dipika 01/12/25 at 1100, For 1 dose 1153 (New Bag - Prov ider: Maria Spicer RN)1510 (Stopped - Provider: Jacqui Mauricio RN) Ordered Prescriptions (unrec ognized section and content) Prescription Sig Dispensed Refills Start Date End Da te predniSONE (DELTASONE) 20 MG tablet Take 1 tablet by mouth 2 times daily for 5 days 10 tablet 12/06/2024 12/11/2024 famotidine (PEPCID) 20 MG tablet Take 1 tablet by mouth 2 times daily as needed (as needed) 60 tablet 12/06/2024 FOR RECORDS PERTAINING TO PATIENTS WHO ARE OR HAVE BEEN ENROLLED IN A CHEMICAL DEPENDENCY/SUBSTANCEABUSE PROGRAM, SOME INFORMATION MAY BE OMITTED. This clinical summary was aggregated from multiple sources. Caution should be exercised in using it in the provision of clinical care. This summary normalizes information from multiple sources, and as a consequence, information in this document may materially change the coding, format and clinical context of patient data. In addition, data may be omitted in some cases. CLINICAL DECISIONS SHOULD BE BASED ON THE PRIMARY CLINICAL RECORDS. [employer] [facility]. provides no warranty or guarantee of the accuracy or completeness of information in this document.
== END 2025-06-28 19:18 | disposition left against medical advice (07) ==
LOC: ER 19:20
PROVIDERS: Emergency Provider Emergency Medicine; PCP Nurse Practitioner Family
DX: Z53.21 Procedure and treatment not carried out due to patient leaving prior to being seen by health care provider (principal)